=== PATIENT | male | born 1950 | race Caucasian/White ===

== ENCOUNTER → 2016-07-24 | Outpatient (CLI) | payer OTHER ==
[~2016-07-24] MED LIST: ALBUAER19 INH; ASPI81TA28 PO; ATOR-54 PO; CLOP1TAB15 PO; CMD5 PO; FURO40TA3 PO; IMDSR30 PO; LEVO137T3 PO; LSN20 PO; MCRK20 PO; METO50TA7 PO; NTRGSL/4 UT; PRD10 PO; RANI300T2 PO; TERA1CAP PO
--- NOTE | 2016-07-24 09:15 | DIAGNOSTIC IMAGING REPORT ---
CT OF THE CHEST WITHOUT IV CONTRAST CLINICAL HISTORY: Shortness of breath COMPARISON STUDY: Chest x-ray dated 07/01/2016 CT DOSE: 1269.74 mGy.cm TECHNIQUE: CT of the thorax was performed from the thoracic inlet to the lung bases. Images are reviewed in the axial, sagittal, and coronal planes. IV contrast was not administered for this examination. FINDINGS: Thyroid: Imaged portions of the thyroid gland are normal in appearance. Thoracic aorta: The thoracic aorta is normal in course and caliber, noting standard 3 vessel arch anatomy. Heart: There are coronary artery calcifications present. There is trace pericardial fluid. Lungs and pleural spaces: No pleural effusions are visualized. There is no focal pulmonary consolidation. There is a 3 mm left lower lobe pulmonary nodule as visualized in image #[id number]. There is a 3 mm left lower lobe pulmonary nodule as visualized in image #[id number]. There is a 5 mm left lower lobe pulmonary nodule as visualized in image #[id number]. There is an 8 x 5 mm right lower lobe pulmonary nodule as visualized in image #226/[id number]. There is a 4 mm right lower lobe pulmonary nodule as visualized in image #[id number]. Mediastinum: There is a subcarinal lymph node the upper limits of normal in size Whitney: There is no evidence of pathologic hilar adenopathy given the limitations of a noncontrast study Axilla: Clear. Upper abdomen: Partially visualized upper abdominal viscera is within normal limits. Skeletal structures: There are no lytic or blastic osseous lesions. IMPRESSION: 1. Multiple bilateral subcentimeter pulmonary nodules, the largest of which measures 6 mm in average diameter. 2. Coronary artery calcifications. Please refer to below summary of Fleischner criteria recommendations for follow-up of incidental CT nodules (Ignacio Del Castillo, Guidelines for management of small pulmonary nodules detected on CT scans: A statement from the Fleischner Society, Radiology 237: [phone].) Low Risk Patient: Minimal or no smoking or other known risk factors for malignancy <=4 mm: No follow-up needed. >4-6 mm: Initial follow-up CT at 12 months; if unchanged, no further follow-up. >6-8 mm: Initial follow-up CT at 6-12 months then at 18-24 months if no change. >8 mm: Follow-up CT at \R\3, 9, 24 months, or PET and/or biopsy. High Risk Patient: History of smoking or other known risk factors <=4 mm: Follow-up at 12 months; if unchanged, no further follow-up. >4-6 mm: Initial follow-up CT at 6-12 months then at 18-24 months if no change. >6-8 mm: Initial follow-up CT at 3-6 months then at 9-12 and 24 months if no change. >8 mm: Same as low risk patient. Note: Nodule size measured as average of length and width. Ground glass or partly solid nodules may require longer follow-up to exclude indolent adenocarcinoma. Electronically signed by: Meet Miranda M.D. 07/24/2016 9:13 AM Dictated Date/Time: 07/24/2016 9:05 AM
== END | disposition home or self-care (01) ==
LOC: C.CTS 08:51
PROVIDERS: ATTEND Internal Medicine Pulmonary Disease
DX: R06.02 Shortness of breath (principal)

== ENCOUNTER → 2017-02-03 | Outpatient (CLI) | payer OTHER, BC ==
--- NOTE | 2017-02-03 11:27 | DIAGNOSTIC IMAGING REPORT ---
(CHEST) THORAX WITHOUT CT DOSE: 1335.58 mGy.cm HISTORY: Lung nodules R91.8 Pulmonary nodules TECHNIQUE: Multiaxial CT images of the chest were performed without contrast. A dose lowering technique was utilized adhering to the principles of ALARA. COMPARISON: None. FINDINGS: The lungs are clear. The mediastinal vascular structures are within normal limits. No mediastinal or hilar lymphadenopathy. No pleural effusion or pneumothorax. Limited views of the upper abdomen demonstrate a normal liver and spleen. Scattered small parenchymal nodules are noted. These are unchanged compared to the prior study. All dimensions and locations are unaltered. There is no evidence for new interval or progressive process. Limited evaluation the upper abdomen is unremarkable. IMPRESSION: 1. Stable micronodularity primarily at the lung bases. 2. No evidence for new interval or progressive nodule. 3. Follow-up per Fleischner criteria. Please refer to below summary of Fleischner criteria recommendations for follow-up of incidental CT nodules (Ignacio Del Castillo, Guidelines for management of small pulmonary nodules detected on CT scans: A statement from the Fleischner Society, Radiology 237: [phone].) SOLID NODULES Solitary nodule size: <6 mm * low risk patients: no follow-up needed * high risk patients: optional CT at 12 months Solitary nodule size: 6-8 mm * low risk patients: follow-up at 6-12 months, then consider further follow-up at 18-24 months * high risk patients: initial follow-up CT at 6-12 months and then at 18-24 months if no change Solitary nodule size: >8 mm * either low or high risk patients - consider follow-up CT at 3 months, and/or CT-PET, and/or biopsy Multiple nodules size: <6 mm * low risk patients: no routine follow-up * high risk patients: optional CT at 12 months Multiple nodules size: 6-8 mm * low risk patients: follow-up at 3-6 months, then consider further follow-up at 18-24 months * high risk patients: follow-up at 3-6 months, then at 18-24 months if no change Multiple nodules size: >8 mm * low risk patients: follow-up at 3-6 months, then consider further follow-up at 18-24 months * high risk patients: follow-up at 3-6 months, then at 18-24 months if no change Note: newly detected indeterminate nodule in persons 35 years of age or older. * Low risk patients: minimal or absent history of smoking and/or other known risk factors * high risk patients: history of smoking or of other known risk factors (e.g. first degree relative with lung cancer, or exposure to asbestos, radon, uranium) * if a nodule up to 8 mm is partly solid or is ground glass further follow-up is required after 24 months to exclude possible slow growing adenocarcinoma (SILVIA) SUBSOIL NODULES Solitary pure ground-glass nodule * nodule size <6 mm - no CT follow-up required * nodule size >=6 mm - follow-up CT at 6-12 months, then every 2 years until 5 years Solitary part-solid nodule * nodule size <6 mm - no CT follow-up required * nodule size >=6 mm - follow-up CT at 3-6 months. If unchanged, and solid component remains <6 mm, then annual follow-up for 5 years Multiple subsolid nodules * nodule size <6 mm - follow-up CT at 3-6 months, consider further follow-up at 2 and 4 years if stable * nodule size >=6 mm - follow-up CT at 3-6 months, subsequent management based on the most suspicious nodule(s) The above report was generated using voice recognition software. It may contain grammatical, syntax or spelling errors. Electronically signed by: Luis Fernando Freedman M.D. 02/03/2017 11:25 AM Dictated Date/Time: 02/03/2017 11:19 AM
== END | disposition home or self-care (01) ==
LOC: C.CTS 11:06
PROVIDERS: ATTEND Physician Assistant
DX: R91.8 Other nonspecific abnormal finding of lung field (principal)

== ENCOUNTER 2019-07-09 02:10 | Inpatient (IN) ==
[2019-07-09] MEDS ORDERED: ALBUT/IPRATROP 3MG/0.5MG NEB 3 ML VIAL INH STA (02:24)
[2019-07-09 02:51] LABS: Basophils # (auto) 0.02 K/uL (0-0.2); Basophils % (auto) 0.3 %; Eosinophils # (auto) 0.26 K/uL (0-0.5); Eosinophils % (auto) 3.6 %; Hematocrit (blood only) 35.3 % (42-52); Hemoglobin 11.9 g/dL (14.0-18.0); Immature Granulocytes # (auto) 0.01 K/uL (0.00-0.02); Immature Granulocytes % (auto) 0.1 %; Lymphocytes # (auto) 0.63 K/uL (1.2-3.4); Lymphocytes % (auto) 8.7 %; Mean Corpuscular Hemoglobin 31.4 pg (25-34); Mean Corpuscular Hgb Conc 33.7 g/dL (32-36); Mean Corpuscular Volume 93.1 fL (80-100); Monocytes # (auto) 0.53 K/uL (0.11-0.59); Monocytes % (auto) 7.3 %; Neutrophils # (auto) 5.83 K/uL (1.4-6.5); Platelet Count 150 K/uL (130-400); RDW Coefficient of Variation 13.7 % (11.5-14.5); RDW Standard Deviation 46.6 fL (36.4-46.3); Red Blood Count 3.79 M/uL (4.7-6.1); White Blood Count 7.28 K/uL (4.8-10.8)
[2019-07-09 02:54] LABS: Base Excess VBG -1.7 mEq/L; HCO3 VBG 23 mmol/L; Oxygen Saturation VBG 87.7 %; PCO2 VBG 37 mmHg (38-50); PO2 VBG 54 mmHg; pH VBG 7.41 (7.36-7.41)
[2019-07-09 03:02] LABS: INR 1.4 (0.9-1.1); Partial Thromboplastin Time 28.2 Seconds (21.0-31.0); Prothrombin Time 14.3 Seconds (9.0-12.0)
[2019-07-09 03:05] LABS: Appearance Urine Clear (Clear); Bacteria Urine Automated Negative (Negative); Blood Urine Negative (Negative); Color Urine Dark Yellow; Epithelial Cell Urine Auto >30 /lpf (0-5); Glucose Urine UA Negative (Negative); Ketones Urine Trace (Negative); Leukocyte Esterase Urine Negative (Negative); Nitrite Urine Negative (Negative); Protein Urine 2+ (Negative); Specific Gravity Urine 1.033 (1.000-1.030); Urobilinogen Urine Negative (Negative); pH Urine 5.5 (4.5-7.5)
[2019-07-09 03:08] LABS: Bilirubin Urine Negative (Negative); Ictotest Urine Negative (Negative)
[2019-07-09 03:13] LABS: Albumin Level 3.1 gm/dl (3.4-5.0); BUN Creatinine Ratio 16.8 (10-20); Calcium 7.8 mg/dl (8.5-10.1); Creatinine Clr Calc Pharmacy 57.3 ml/min; Est GFR (African American) 45.4; Est GFR (Non-African American) 39.1; Magnesium 1.6 mg/dl (1.8-2.4); Potassium 4.4 mmol/L (3.5-5.1)
[2019-07-09] MEDS ORDERED: SODIUM CHLORIDE 0.9% 1000ML 500 ML IV ONE (03:22)
[2019-07-09 03:26] LABS: Albumin Globulin Ratio 0.8 (0.9-2); Globulin 3.8 gm/dl (2.5-4.0); Total Protein 6.9 gm/dl (6.4-8.2); Troponin I 0.105 ng/ml (0-0.045)
[2019-07-09 03:32] LABS: Influenza A virus by PCR Neg for Influ A (Neg); Influenza B virus by PCR Neg for Influ B (Neg)
[2019-07-09] MEDS ORDERED: methylPREDNISolone 125 MG/2 ML VIAL IV STA (03:42)
[2019-07-09] MEDS ORDERED: ALBUT/IPRATROP 3MG/0.5MG NEB 3 ML VIAL NEB STA (03:43)
--- NOTE | 2019-07-09 03:51 | Emergency Department Note ---
History of Present Illness General Chief Complaint: Shortness of Breath/Dyspnea Stated Complaint: SOB, CHEST COLD Source: patient Mode of arrival: ambulatory Limitations: no limitations History of Present Illness Provider Complaint: shortness of breath and cough Onset (ago): day(s) (3-4) Severity: moderate Consistency/Duration: + constant Maximum Pain Intensity: 2 Current Pain Intensity: 2 Relieved By: + bronchodilators and + upright position Exacerbated By: + lying flat, + exertion, + movement, + coughing and + inspiration Known history of: COPD and congestive heart failure Associated symptoms: + chest pain, + pain with inspiration, + cough, + wheezing, + sputum production and + orthopnea Treatment prior to arrival: bronchodilator This 68-year-old male patient presents emergency department today, ambulatory, complaining of dyspnea for the past 3 to 4 days. The patient does report subjective fevers and exertional chest pain. The patient has been taking cold medication without relief of his symptoms. He does have a known past medical history of COPD, CHF, and atrial fibrillation. He is on chronic anticoagulation. The patient has been using his inhalers and taking all medications as prescribed without improvement of his symptoms. He does report a productive cough, but denies any hemoptysis. He denies any abdominal pain, nausea, vomiting, diarrhea, constipation, numbness, tingling, weakness, flank pain, or urinary symptoms. He does report some increased edema in his bilateral legs which is been ongoing for several weeks. The patient has experienced dyspnea similar to this in the past and has required hospitalization. Home Medications Home Medications Medication Instructions Recorded Confirmed Type albuterol sulfate [Ventolin HFA] 2 puff INHALATION QID 09/11/18 07/09/19 History aspirin 81 mg PO HS 09/11/18 07/09/19 History atorvastatin 20 mg PO HS 09/11/18 07/09/19 History fluticasone propion-salmeterol 1 inh INHALATION BID 09/11/18 07/09/19 History [Advair Diskus] isosorbide mononitrate 60 mg PO QAM 09/11/18 07/09/19 History levothyroxine 68.5 mcg PO 3XWK 09/11/18 07/09/19 History levothyroxine 137 mcg PO 4XWK 09/11/18 07/09/19 History lisinopril 20 mg PO QAM 09/11/18 07/09/19 History metoprolol succinate 50 mg PO QAM 09/11/18 07/09/19 History nitroglycerin 0.4 mg SUBLINGUAL DIRECTED PRN 09/11/18 07/09/19 History terazosin 1 mg PO HS 09/11/18 07/09/19 History warfarin 5 mg PO 3XWK 09/11/18 07/09/19 History warfarin 10 mg PO 4XWK 09/11/18 07/09/19 History omeprazole 20 mg PO DAILY 05/06/19 07/09/19 History Allergies Allergy/AdvReac Type Severity Reaction Status Date / Time tiotropium Allergy Mild Rash Verified 07/09/19 03:03 [From Spiriva with HandiHaler] Past Med/Surg History Medical History Atrial fibrillation follows with Dr. Brandt Berry in stool BPH (benign prostatic hyperplasia) Chronic obstructive pulmonary disease Degenerative disc disease Fatty liver disease, nonalcoholic GERD (gastroesophageal reflux disease) Hearing deficit Hyperlipidemia Hypertension Hypothyroidism On anticoagulant therapy warfarin daily Sleep apnea cpap Tinnitus of both ears Surgical History History of cardiac cath 2014 x2--only 1 stent History of colonoscopy History of heart artery stent 2015--1 stent History of tooth extraction all upper teeth History of wisdom tooth extraction Social History Preferred Language: Armenian Communication Ability: Effective Eeg Technician Required: No Beliefs That Will Affect Care: None Current Living Situation: Spouse Feels Safe at Home: Yes Smoking Status: Never smoker Tobacco Type: smokeless tobacco ; Second Hand Exposure: Yes (father smoked/worked in mines for over 20 yrs) ; Hx Alcohol Use: Yes Alcohol type: beer Hx Substance Use: No Review of Systems A total of 10 systems reviewed and were otherwise negative Physical Exam Vital Signs: Vital Signs - 24 hr 07/09/19 02:14 07/09/19 02:36 07/09/19 02:44 Temperature 37.3 C Temperature Source Oral Pulse Rate 96 H 91 H Pulse Rate [Apical ] 92 H Pulse Rhythm Regular Pulse Rhythm [Apic al] Pulse Strength [Ap ical] Respiratory Rate 30 H 24 26 H Respiratory Effort / Characteristics Spontaneous Spontaneous Labore d Respiratory Depth Normal Respiratory Patter n Regular Blood Pressure 122/84 Blood Pressure [Ri ght Arm] Blood Pressure Marci n 96 Blood Pressure Marci n [Right Arm] Blood Pressure Pos ition [Right Arm] Pulse Oximetry 94 92 89 L Oxygen Delivery Me thod Room Air Room Air Room Air Oxygen Flow Rate 0 Sepsis Recent Feve r Within 48 Hours Yes Sepsis New/Unexpla ined Change in Men january Status No Sepsis Action Take n by Nursing No Action Required Oxygen Flow Rate - Titration Pulse Oximetry Pos t Tiitration 07/09/19 02:49 07/09/19 03:30 Temperature Temperature Source Pulse Rate Pulse Rate [Apical ] 90 Pulse Rhythm Pulse Rhythm [Apic al] Regular Pulse Strength [Ap ical] Normal Respiratory Rate 28 H Respiratory Effort / Characteristics Non-Labored Sponta neous Respiratory Depth Normal Respiratory Patter n Regular Blood Pressure Blood Pressure [Ri ght Arm] 121/66 Blood Pressure Marci n Blood Pressure Marci n [Right Arm] 84 Blood Pressure Pos ition [Right Arm] Lying Pulse Oximetry 89 L 97 Oxygen Delivery Me thod Room Air Nasal Cannula Oxygen Flow Rate 0 2 Sepsis Recent Feve r Within 48 Hours Sepsis New/Unexpla ined Change in Men january Status Sepsis Action Take n by Nursing Oxygen Flow Rate - Titration 2 Pulse Oximetry Pos t Tiitration 95 Physical Exam: VITALS: Vitals are noted on the nurse's note and reviewed by myself. Vital signs stable. GENERAL: This is a 68-year-old obese white male, in no acute distress, nondiaphoretic, well-developed well-nourished. SKIN: The skin was without rashes, erythema, edema, or bruising. There is no tenting of the skin. Capillary refill less than 3 seconds. HEAD: Normocephalic atraumatic. EARS: External auditory canals clear, tympanic membranes pearly juares without erythema or effusion bilaterally. EYES: Pupils equal round and reactive to light and accommodation. Conjunctivae without injection, sclerae without icterus. NOSE: Patent, turbinates without inflammation or discharge. No sinus tenderness. MOUTH: Mucous membranes moist. Tonsils are not enlarged. Pharynx without erythema or exudate. Uvula midline. Airway patent. Tongue does not deviate. NECK: Supple without nuchal rigidity. No lymphadenopathy. No JVD. HEART: Regular rate and rhythm without murmurs gallops or rubs. LUNGS: Audible wheezing. Diffusely diminished breath sounds. Lungs otherwise without wheezes, rales or rhonchi. Positive accessory muscle use. ABDOMEN: Positive bowel sounds x 4. Normal tympanic percussion. Soft, nontender, without masses or organomegaly. Valverde sign negative. No guarding o r rebound tenderness. MUSCULOSKELETAL: No muscle atrophy, erythema, or edema noted. Full range of m otion without joint tenderness in all extremities. No tenderness to palpation. Normal gait. Strength 5/5 throughout. NEURO: Patient was alert and oriented to person place and time. No focal neurol ogical deficits. Course The patient was seen and evaluated as above. IV access obtained, labs drawn. Patient medicated with DuoNeb treatment. Imaging performed and reviewed by myself as noted. Labs reviewed by myself. I discussed the findings with the patient at bedside. Patient was reassessed. He is subjectively reporting improvement, but continues to be dyspneic. I discussed the case with my attending. I received notification of the elevated troponin. I again reassessed the patient. He denies any current chest pain, but is now sitting on the side of the bed due to the dyspnea. Patient was medicated with IV Solu-Medrol and a repeat DuoNeb treatment. I discussed the case with the food and beverage operations manager. I discussed the case with Dr. Castro. He did agree to see and evaluate the patient. Administered Medications Sodium Chloride (Nss 1000ml) 500 mls @ 999 mls/hr IV .Q31M ONE Stop: 07/09/19 03:52 Last Admin: 07/09/19 03:26 Dose: 999 mls/hr Documented by: [id number] Discontinued Medications Albuterol (Duoneb) 3 ml INH NOW STA Stop: 07/09/19 02:25 Last Admin: 07/09/19 02:34 Dose: 3 ml Documented by: [id number] Medical Decision Making Differential Diagnosis + acute exacerbation of chronic obstructive airways disease, + congestive heart failure, + community acquired pneumonia, + asthma with exacerbation, + pulmonary embolism, + COPD, + bronchitis, + pneumothorax, + pneumonia, + pleural effusion, + CHF, + ACS and + aspiration Medical Records Attestation: I reviewed the patient's medical records. Recent cardiac catheterization reviewed. Home Medications Current Medication List: was personally reviewed by me Laboratory Data Attestation: I reviewed the patient's lab results. No leukocytosis. Anemia noted with a hemoglobin 11.9 hematocrit of 35.3. No thrombocytopenia. INR 1.4. Creatinine elevated 1.76. Magnesium 1.6. Liver function studies without significant abnormality. BNP elevated at 4000. Troponin elevated 0.105. Influenza testing negative. Urinalysis without evidence of infection. Result diagrams: 07/09/19 02:42 07/09/19 02:42 Lab Results 07/09/19 07/09/19 07/09/19 Range/Units 02:42 02:42 02:42 WBC 7.28 (4.8-10.8) K/uL RBC 3.79 L (4.7-6.1) M/uL Hgb 11.9 L (14.0-18.0) g/dL Hct 35.3 L (42-52) % MCV 93.1 (80-100) fL MCH 31.4 (25-34) pg MCHC 33.7 (32-36) g/dL RDW Std Deviation 46.6 H (36.4-46.3) fL RDW Coeff of Иван 13.7 (11.5-14.5) % Plt Count 150 (130-400) K/uL MPV 10.0 (7.4-10.4) fL Immature Gran % (Auto) 0.1 % Neut % (Auto) 80.0 % Lymph % (Auto) 8.7 % [place] % (Auto) 7.3 % Eos % (Auto) 3.6 % Baso % (Auto) 0.3 % Immature Gran # (Auto) 0.01 (0.00-0.02) K/uL Neut # (Auto) 5.83 (1.4-6.5) K/uL Lymph # (Auto) 0.63 L (1.2-3.4) K/uL [place] # (Auto) 0.53 (0.11-0.59) K/uL Eos # (Auto) 0.26 (0-0.5) K/uL Baso # (Auto) 0.02 (0-0.2) K/uL PT 14.3 H (9.0-12.0) Seconds INR 1.4 H (0.9-1.1) APTT 28.2 (21.0-31.0) Seconds PTT Ratio 1.0 VBG pH (7.36-7.41) VBG pCO2 (38-50) mmHg VBG pO2 mmHg VBG HCO3 mmol/L VBG O2 Saturation % VBG Base Excess mEq/L Sodium 132 L (136-145) mmol/L Potassium 4.4 (3.5-5.1) mmol/L Chloride 102 (98-107) mmol/L Carbon Dioxide 24 (21-32) mmol/L Anion Gap 6.0 (3-11) BUN 30 H (7-18) mg/dl Creatinine 1.76 H (0.6-1.4) mg/dl Est Cr Clr Drug Dosing 57.3 ml/min Est GFR ( Amer) 45.4 Est GFR (Non-Af Amer) 39.1 BUN/Creatinine Ratio 16.8 (10-20) Glucose 153 H (70-99) mg/dl Calcium 7.8 L (8.5-10.1) mg/dl Magnesium 1.6 L (1.8-2.4) mg/dl Total Bilirubin 1.0 (0.2-1) mg/dl AST 28 (15-37) U/L ALT 27 (12-78) U/L Alkaline Phosphatase 63 (45-117) U/L Troponin I 0.105 H* (0-0.045) ng/ml NT-Pro-B Natriuret Pep 4063 H (0-900) pg/ml Total Protein 6.9 (6.4-8.2) gm/dl Albumin 3.1 L (3.4-5.0) gm/dl Globulin 3.8 (2.5-4.0) gm/dl Albumin/Globulin Ratio 0.8 L (0.9-2) Urine Color Urine Appearance (Clear) Urine pH (4.5-7.5) Ur Specific [place] (1.000-1.030) Urine Protein (Negative) Urine Glucose (UA) (Negative) Urine Ketones (Negative) Urine Blood (Negative) Urine Nitrite (Negative) Urine Bilirubin (Negative) Urine Urobilinogen (Negative) Ur Leukocyte Esterase (Negative) Urine WBC (Auto) (0-5) /hpf Urine RBC (Auto) (0-4) /hpf U Hyaline Cast (Auto) (0-5) /lpf U Epithel Cells (Auto) (0-5) /lpf Urine Bacteria (Auto) (Negative) Influenza Type A (PCR) (Neg) Influenza Type B (PCR) (Neg) 07/09/19 07/09/19 07/09/19 Range/Units 02:42 02:52 02:52 WBC (4.8-10.8) K/uL RBC (4.7-6.1) M/uL Hgb (14.0-18.0) g/dL Hct (42-52) % MCV (80-100) fL MCH (25-34) pg MCHC (32-36) g/dL RDW Std Deviation (36.4-46.3) fL RDW Coeff of Иван (11.5-14.5) % Plt Count (130-400) K/uL MPV (7.4-10.4) fL Immature Gran % (Auto) % Neut % (Auto) % Lymph % (Auto) % [place] % (Auto) % Eos % (Auto) % Baso % (Auto) % Immature Gran # (Auto) (0.00-0.02) K/uL Neut # (Auto) (1.4-6.5) K/uL Lymph # (Auto) (1.2-3.4) K/uL [place] # (Auto) (0.11-0.59) K/uL Eos # (Auto) (0-0.5) K/uL Baso # (Auto) (0-0.2) K/uL PT (9.0-12.0) Seconds INR (0.9-1.1) APTT (21.0-31.0) Seconds PTT Ratio VBG pH 7.41 (7.36-7.41) VBG pCO2 37 L (38-50) mmHg VBG pO2 54 mmHg VBG HCO3 23 mmol/L VBG O2 Saturation 87.7 % VBG Base Excess -1.7 mEq/L Sodium (136-145) mmol/L Potassium (3.5-5.1) mmol/L Chloride (98-107) mmol/L Carbon Dioxide (21-32) mmol/L Anion Gap (3-11) BUN (7-18) mg/dl Creatinine (0.6-1.4) mg/dl Est Cr Clr Drug Dosing ml/min Est GFR ( Amer) Est GFR (Non-Af Amer) BUN/Creatinine Ratio (10-20) Glucose (70-99) mg/dl Calcium (8.5-10.1) mg/dl Magnesium (1.8-2.4) mg/dl Total Bilirubin (0.2-1) mg/dl AST (15-37) U/L ALT (12-78) U/L Alkaline Phosphatase (45-117) U/L Troponin I (0-0.045) ng/ml NT-Pro-B Natriuret Pep (0-900) pg/ml Total Protein (6.4-8.2) gm/dl Albumin (3.4-5.0) gm/dl Globulin (2.5-4.0) gm/dl Albumin/Globulin Ratio (0.9-2) Urine Color Dark Yellow Urine Appearance Clear (Clear) Urine pH 5.5 (4.5-7.5) Ur Specific [place] 1.033 H (1.000-1.030) Urine Protein 2+ H (Negative) Urine Glucose (UA) Negative (Negative) Urine Ketones Trace H (Negative) Urine Blood Negative (Negative) Urine Nitrite Negative (Negative) Urine Bilirubin Negative (Negative) Urine Urobilinogen Negative (Negative) Ur Leukocyte Esterase Negative (Negative) Urine WBC (Auto) 1-5 (0-5) /hpf Urine RBC (Auto) 5-10 H (0-4) /hpf U Hyaline Cast (Auto) 10-30 H (0-5) /lpf U Epithel Cells (Auto) >30 H (0-5) /lpf Urine Bacteria (Auto) Negative (Negative) Influenza Type A (PCR) Neg for Influ A (Neg) Influenza Type B (PCR) Neg for Influ B (Neg) Imaging Data My Impression: Chest x-ray. Findings: A chest x-ray was performed and revealed no pneumothorax, effusion, infiltrate, pulmonary edema, free air under the diaphragm, or wide mediastinum. ECG Data Attestation: I personally reviewed and interpreted this ECG as follows: Prior ECG tracings: available for review (04/26/2019) Interpretation: Atrial fibrillation. Rate of [address] elevation or depression. No T wave inversion. No significant change when compared to previous EKG. Blood Pressure Blood Pressure Findings: Normal blood pressure MDM Narrative This 68-year-old male patient presents the emergency department today for evaluation of difficulty breathing. The patient has been dyspneic for the past 3 to 4 days. He reports subjective fevers. He has been experiencing mild chest pain with exertion. He states the cough is productive of sputum. He has been taking cold medications over the past few days without relief of his symptoms. Patient has been using his inhalers without significant relief. He subjectively responded somewhat to an initial DuoNeb treatment. On reevaluation, he was continuing to experience dyspnea, but denies any current chest pain. Lab evaluation does show a positive troponin and elevated BNP. Chest x-ray does not show any evidence of consolidation. I suspect this is likely COPD exacerbation vs CHF. The patient did desat while standing to provide a urine sample to 88% and required oxygen. Given his ongoing work of breathing despite the initial DuoNeb treatment, we did elect to start the patient on a dose of IV Solu-Medrol and a second DuoNeb treatment. [facility] for ongoing management of his symptoms. Please see hospitalist dictation regarding ongoing management care of this patient. The chart was completed utilizing [employer] Speech voice recognition software. Grammatical errors, random word insertions, pronoun errors, and incomplete sentences are an occasional consequence of this system due to software limitations, ambient noise, and hardware issues. Any formal questions or concerns about the content, text, or information contained within the body of this dictation should be directly addressed to the provider for clarification. Impression & Plan Acute exacerbation of chronic obstructive pulmonary disease, Diastolic CHF, chronic, Elevated troponin, Hypoxia, Chest pain Discharge Plan Visit Data Chief Complaint: Shortness of Breath/Dyspnea Stated Complaint: SOB, CHEST COLD ED Provider: Lu[facility] ED Midlevel Provider: Maru Moser Discharge Problem: Acute exacerbation of chronic obstructive pulmonary disease, Diastolic CHF, chronic, Elevated troponin, Hypoxia, Chest pain Patient Disposition: Admitted As Inpatient Forms Stand Alone Forms: My icix Prescriptions Prescriptions: No Action fluticasone propion-salmeterol [Advair Diskus] 250-50 mcg/dose Blister With Device 1 inh INHALATION BID RF: 0 atorvastatin 20 mg Tablet 20 mg PO HS RF: 0 metoprolol succinate 50 mg Tablet Extended Release 24 Hr 50 mg PO QAM RF: 0 lisinopril 20 mg Tablet 20 mg PO QAM RF: 0 terazosin 1 mg Capsule 1 mg PO HS RF: 0 aspirin 81 mg Tablet,Delayed Release (Dr/Ec) 81 mg PO HS RF: 0 isosorbide mononitrate 60 mg Tablet Extended Release 24 Hr 60 mg PO QAM RF: 0 warfarin 5 mg Tablet 5 mg PO 3XWK RF: 0 warfarin 5 mg Tablet 10 mg PO 4XWK RF: 0 nitroglycerin 0.4 mg Tablet, Sublingual 0.4 mg Sublingual DIRECTED PRN (Reason: Angina) RF: 0 albuterol sulfate [Ventolin HFA] 90 mcg/actuation Hfa Aerosol Inhaler 2 puff INHALATION QID RF: 0 levothyroxine 137 mcg Capsule 68.5 mcg PO 3XWK RF: 0 levothyroxine 137 mcg Capsule 137 mcg PO 4XWK RF: 0 omeprazole 20 mg Capsule,Delayed Release(Dr/Ec) 20 mg PO DAILY RF: 0 Referrals Referrals: Jose Garcia MD [Primary Care Provider] -
--- NOTE | 2019-07-09 04:24 | Emergency Department Note ---
ED Visit Note This is a 68-year-old male patient with a history of A. fib, COPD, and CHF who presents to the emergency department with shortness of breath. I saw this patient in conjunction with Maru Moser PA-C. The patient was currently receiving a DuoNeb treatment and feels better from a respiratory standpoint. He has no wheezing now on physical exam. He has no chest pain. INR is subtherapeutic at 1.4. Patient has an elevated troponin. The patient will be evaluated by the [facility]. . : Chest pain Qualifiers: Chest pain type: chest pain on breathing Qualified Code(s): R07.1 - Chest pain on breathing
[2019-07-09] MEDS ORDERED: NITROGLYCERIN SL 0.4 MG/TAB TAB SL PRN ×2 (05:33)
[2019-07-09] MEDS ORDERED: ACETAMINOPHEN 325 MG TAB PO PRN (05:33)
[2019-07-09] MEDS ORDERED: ONDANSETRON INJ 2 MG/ML 2 ML VIAL IV PRN (05:33)
[2019-07-09] MEDS ORDERED: FUROSEMIDE 40 MG/4 ML VIAL IV STA (05:33)
[2019-07-09] MEDS ORDERED: POLYETHYLENE (MIRALAX) 17 GM PACK PO PRN (05:33)
[2019-07-09] MEDS ORDERED: FUROSEMIDE 40 MG in SYRINGE 0 ML IV ONE (05:45)
[2019-07-09] MEDS: MAGNESIUM SULFATE / D5W 1 GM/100 ML BAG IV SCH ×2 (06:06→07:17)
[2019-07-09] MEDS: cefTRIAXone SODIUM 2,000 MG in DEXTROSE 5% 50 ML IV SCH (06:10)
[2019-07-09] MEDS: DOXYCYCLINE HYCLATE 100 MG CAP PO SCH ×2 (06:13→20:18)
[2019-07-09] MEDS: LEVOTHYROXINE SODIUM 137 MCG TABLET PO SCH (06:14)
[2019-07-09] MEDS ORDERED: Heparin IV Low Dose *NO* Bolus IV SCH (06:42)
[2019-07-09] MEDS ORDERED: XOPENEX/ATROVENT 1.25mg/0.5MG NEB COMBO NEB SCH (07:00)
--- NOTE | 2019-07-09 07:12 | XRay Report ---
XR chest 1V portable CLINICAL HISTORY: 68 years-old Male presenting with Dyspnea, shortness of breath worsening over the l ast few days, accompanied by productive cough, chest congestion, wheezing, nausea and vomiting. TECHNIQUE: Portable upright AP view of the chest was obtained. COMPARISON: 07/01/2016. FINDINGS: Cardiac silhouette mildly enlarged as on prior exam. Pulmonary vasculature is not significantly engor ged. Mild added density of the lungs especially in the infrahilar regions may be due to overlapping s oft tissue. No focal opacity. No large effusion or pneumothorax. Degenerative changes of the thoracic spine. Upper abdomen normal. IMPRESSION: 1. Cardiomegaly. 2. Apparent added density in the infrahilar regions possibly due to overlapping soft tissue. PA and lateral views could be obtained for better assessment if there is clinical concern as the examination is mildly limited by body habitus and portable technique. ACT 112: Negative or not required by law. Electronically signed by: Cole Victoria M.D. 07/09/2019 7:10 AM
[2019-07-09] MEDS: IPRATROPIUM BROMIDE NEB SOLN 0.02% 2.5 ML VIAL INH SCH ×3 (07:25→19:07)
[2019-07-09] MEDS: LEVALBUTEROL 1.25MG/0.5ML NEB INH SCH ×3 (07:25→19:07)
[2019-07-09 08:03] LABS: INR 1.4 (0.9-1.1); Prothrombin Time 13.8 Seconds (9.0-12.0)
[2019-07-09] MEDS: HEPARIN SODIUM/DEXTROSE 25,000 UNITS/500 ML BAG IV SCH (08:25)
[2019-07-09] MEDS: FLUTICASONE/SALMETEROL 250/50 (ADVAIR) 14 PUFF/1 INHALER INH SCH ×2 (08:30→20:15)
[2019-07-09] MEDS: FUROSEMIDE 20 MG TAB PO SCH (08:30)
[2019-07-09] MEDS: PANTOprazole 40 MG TAB PO SCH (08:31)
[2019-07-09] MEDS: ISOSORBIDE MONO EXTENDED REL 60 MG TABCR PO SCH (08:31)
[2019-07-09] MEDS: METOPROLOL SUCC 50MG EXT REL TAB PO SCH (08:31)
--- NOTE | 2019-07-09 08:44 | History and Physical Report ---
DATE OF ADMISSION: 07/09/2019 CHIEF COMPLAINT: Shortness of breath. HISTORY OF PRESENT ILLNESS: This is a 68-year-old male with past medical history significant for hypothyroidism, hyperlipidemia, restrictive and obstructive lung disease, COPD, history of lung nodule, history of sleep apnea, nocturnal hypoxia, hypotension, atrial flutter, CAD status post stent, obesity,, BPH, GERD, history of Lyme disease. No smoking history. The patient is having cold kind of symptoms for last 2 weeks, took over the counter medications but last 2-3 days shortness of breath got worse and wheezing and he had some low-grade fever and chills yesterday. He is coughing once in a while, bringing whitish phlegm. Denies any chest pain. No headache, sometimes dizziness, sometimes blurred vision, no earache, some runny nose, no sore throat. Appetite is not that great, swallows okay. No dysphagia. Was nauseous earlier, no vomiting, no abdominal pain. Normal bowel and bladder movements. No blood in the stools, no black stools. Just finished 4 weeks of antibiotics for possible prostatitis, history of burning micturition earlier, but that has resolved. No hematuria. Has swelling in the legs. He says a couple of months ago, he was started on Lasix, it was increased to 40, but because of prostate problem he could not tolerate it, so he is taking only 20 mg of Lasix now. His hemodynamics are stable. Seems to be having some tachypnea, but speaking in full sentences. ALLERGIES: HALOTHANE, SPIRIVA, SUCCINYLCHOLINE. PAST MEDICAL HISTORY: As mentioned above. PAST SURGICAL HISTORY: Cardiac catheterization, DC cardioversion, colonoscopy. MEDICATIONS: The patient is on Lasix 20 mg p.o. daily, omeprazole 20 mg p.o. daily, nitroglycerin p.r.n., albuterol 2 puffs 4 times a day, Advair Diskus one dose inhalation b.i.d., Lipitor 20 mg p.o. daily, hematocrit 60 mg p.o. daily, levothyroxine 137 mcg on Friday, Friday, Friday, and , and off tablet on Friday, Friday and Friday, lisinopril 20 mg p.o. daily, Toprol-XL 50 mg p.o. daily, Hytrin 1 mg p.o. at bedtime, Coumadin 5 mg on Friday, Friday, Friday and 10 mg on rest of the week, aspirin 81 mg p.o. daily, albuterol inhalation every 4 hours p.r.n. FAMILY HISTORY: Significant for mother has diabetes, hypertension, cirrhosis. Father has psoriasis, emphysema. Brother has AFib, emphysema. Sister has arthritis, stroke,cancer. SOCIAL HISTORY: and lives with his . No smoking, but snuffs tobacco. Alcohol occasional. No drug use. REVIEW OF SYMPTOMS: As per HPI. Rest of review of systems negative. PHYSICAL EXAMINATION: GENERAL: The patient is morbidly obese, somewhat tachypneic. VITAL SIGNS: Temperature 37.3, pulse 97, respiratory rate 24, blood pressure 121/66, oxygen 96% on 2 liters. HEENT: No pallor, no icterus. Pupils equal, round, and reactive to light. NECK: No JVD, no neck mass, no carotid bruits. CARDIOVASCULAR: S1, S2 heard, regular rate and rhythm, no murmur, no gallop. RESPIRATORY SYSTEM: Normal AP diameter. Bilateral wheezing heard. Mild bibasilar crackles. ABDOMEN: Soft, bowel sounds present, nontender. No distention. CENTRAL NERVOUS SYSTEM: He is alert and oriented and nonfocal. EXTREMITIES: Lower extremity +1 edema present, no erythema seen. LABORATORIES DATA: WBC 7.28, hemoglobin 11.9, hematocrit 35.3, platelets 150. PT 14.3, INR 1.4, APTT 28.2. Venous blood gas pH of 7.4, pCO2 37, pO2 54, bicarbonate 23. Sodium 132, potassium 4.4, chloride 102, bicarbonate 24, BUN 30, creatinine 1.7, serum glucose 153, calcium 7.8, magnesium 1.6, total bilirubin 1, AST 28, ALT 27, alkaline phosphatase 63, troponin 0.105. BNP 4000. Urinalysis +2 protein. Influenza A and B negative. Chest x-ray no findings. EKG: AFib with rate of 90, no significant change was found. ASSESSMENT AND PLAN: A 68-year-old male who presents with shortness of breath. 1. Shortness of breath, possibly secondary to chronic obstructive pulmonary disease exacerbation, has wheezing on exam. We will continue home inhalers. We will place him on Xopenex nebs around the clock and p.r.n., IV Rocephin and doxycycline, and IV Solu-Medrol 40 mg t.i.d. Monitor on tele floor. Follow the response. Shortness of breath could be also secondary to congestive heart failure. The patient's last echo showed RV pressure volume overload, possible right-sided heart failure. The patient has some lower extremity edema, is taking 20 mg of Lasix daily. We will give 1 dose of IV Lasix 40 mg and follow the response. Follow echocardiogram. 2. Mild elevation of troponin. No chest pains, symptomatic. We will follow serial cardiac enzymes and echocardiogram. If any concern consult cardiology.Recent cardiac cath on 05/01 was ok. 3. Acute kidney injury, baseline creatinine of 1.2, presently creatinine of 1.7, getting Lasix. We will follow the repeat labs. If worsening we will get an imaging study. 4. Hypomagnesemia, we will replace. 5. History of coronary artery disease status post stent. He had a recent cardiac cath in April which showed right coronary stent is patent. The patient has occluded mid to distal left circumflex artery which was noted in the previous left heart catheterization in 2014. The distal left circumflex artery supplied with collaterals from left and right coronary arteries distally. We will follow serial cardiac enzymes, echocardiogram. Continue his home medication of Toprol-XL, Imdur, statin and Coumadin. 6. History of atrial flutter/atrial fibrillation, rate controlled with Toprol-XL, on Coumadin. The INR is subtherapeutic. Iv heparin bridge. Follow INR. 7. Gastroesophageal reflux disease, continue PPI. 8. Benign prostatic hypertrophy with obstruction and lower urinary tract symptoms. The patient was recently treated with Bactrim for 4 weeks for possible prostatitis. The patient worried about urinary retention. We will get a bladder scan. If the patient is having urinary retention,we will place on [place] and consult urology, urinary retention would be possible cause of his acute kidney injury too. 9. Obstructive sleep apnea, CPAP at bedtime. 10. Hyperlipidemia, on statin. 11. Hypothyroidism, on Synthroid. 12. Deep venous thrombosis prophylaxis, SCDs. The patient's INR is subtherapeutic.IV heparin. DISPOSITION: Admit to tele floor. Expect discharge home and follow with family doctor. PT and OT per discharge. Social Service to help with discharge planning. Level 1 full code. MTDD
[2019-07-09] MEDS ORDERED: lisinopriL 20 MG TAB PO SCH (09:00)
[2019-07-09] MEDS ORDERED: MAGNESIUM SULFATE / D5W 1 GM/100 ML BAG IV ONE (10:54)
[2019-07-09] MEDS: methylPREDNISolone 40 MG in SYRINGE 0 ML IV SCH ×2 (11:54→20:13)
--- NOTE | 2019-07-09 12:50 | Hospitalist Progress Note ---
Date of Service July 09, 2019 Assessment & Plan (1) Acute exacerbation of chronic obstructive pulmonary disease: Continue nebs Continue IV Solu-Medrol Monitor pulmonary function We will continue antibiotics Rocephin and doxy started on admission. Chest x-ray reports prior added density infrahilar region possibly overlapping soft tissue BNP is elevated. Low suspicion for heart failure exacerbation at this time as patient denied worsening of chronic 3 pillow orthopnea, has no leg edema, no features of pulmonary edema appreciated on exam. Follow-up repeat echo (2) Sleep apnea: Uses CPAP at home Continue CPAP at bedtime (3) Hypertension: Continue metoprolol succinate and monitor Hold lisinopril for now history of TAYLOR (4) Hypothyroidism: Continue home levothyroxine. (5) TAYLOR (acute kidney injury): Creatinine is 1.7. Last was 1.2 on June 08, 2019 Will continue to monitor According to cardiology outpatient note, Lasix was reduced to 20 daily on last visit. (6) Dyslipidemia: Continue statins (7) Elevated troponin: Troponin was flat at 0.105 Likely related to A. fib and COPD exacerbation with TAYLOR We will follow-up echo results. INR is subtherapeutic at 1.4. Low suspicion for PE at this time given history and exam. However, if this changes will get VQ scan (8) CAD (coronary artery disease): (9) S/P coronary artery stent placement: Continue aspirin and statin Continue Imdur Holding Lasix as above (10) Atrial fibrillation: Rate controlled on metoprolol INR is 1.4 reported that he was on warfarin 5 mg Friday and 10 mg all other days. States that his INR is usually within range on this dose. However over the past month he has been on Bactrim for possible prostatitis and during that time his warfarin was reduced to 5 mg daily. He has completed antibiotics. Resume previous dose of warfarin. Monitor INR (11) DVT prophylaxis: On warfarin Subjective Reports shortness of breath and wheezing. Reports chronic 3 pillow orthopnea unchanged. Denied any chest pain, dyspnea on exertion, paroxysmal nocturnal dyspnea. Reports feeling better since admission. Review of Systems Review of Systems: All systems reviewed and unremarkable except for mentioned above. Physical Exam Physical Exam: General: Obese in no obvious distress Eyes: PERRL, conjunctivae normal, EOM intact bilaterally ENMT: External ear and nose normal, oropharynx normal Neck: Normal visual inspection, no tracheal deviation, no swelling noted Respiratory: Normal respiratory effort, no respiratory distress, on nasal cannula, generalized expiratory rhonchi, no crackles noted Cardiovascular: Pulse is irregularly irregular S1 S2, no edema Gastrointestinal (Abdomen): Abdomen is not distended, soft, non-tender to palpation, no guarding, no palpable hepatosplenomegaly, normal bowel sounds Musculoskeletal: No cyanosis or clubbing, all extremities motor strength 5/5 Neurologic: Alert and oriented x 3, No focal weakness, sensation grossly intact Psychiatric: Euthymic affect, no depressed affect Results & Data Vital Signs (Past 12 Hours) Vital Signs Temp Pulse Pulse Resp BP BP Pulse Ox 07/09/19 11:45 36.9 C 81 20 102/65 95 07/09/19 10:02 94 H 07/09/19 07:48 36.9 C 98 H 22 120/80 98 07/09/19 07:25 89 20 91 07/09/19 05:15 37.1 C 80 26 H 120/65 96 07/09/19 03:58 97 H 24 96 07/09/19 03:30 90 28 H 121/66 97 07/09/19 02:49 89 L 07/09/19 02:44 91 H 26 H 89 L 07/09/19 02:36 92 H 24 92 07/09/19 02:14 37.3 C 96 H 30 H 122/84 94 Laboratory Results Laboratory Results - last 24 hr 07/09/19 07/09/19 07/09/19 02:42 02:42 02:42 WBC 7.28 RBC 3.79 L Hgb 11.9 L Hct 35.3 L MCV 93.1 MCH 31.4 MCHC 33.7 RDW Std Deviation 46.6 H RDW Coeff of Иван 13.7 Plt Count 150 MPV 10.0 Immature Gran % (Auto) 0.1 Neut % (Auto) 80.0 Lymph % (Auto) 8.7 Kerr % (Auto) 7.3 Eos % (Auto) 3.6 Baso % (Auto) 0.3 Immature Gran # (Auto) 0.01 Neut # (Auto) 5.83 Lymph # (Auto) 0.63 L Kerr # (Auto) 0.53 Eos # (Auto) 0.26 Baso # (Auto) 0.02 PT 14.3 H INR 1.4 H APTT 28.2 PTT Ratio 1.0 VBG pH VBG pCO2 VBG pO2 VBG HCO3 VBG O2 Saturation VBG Base Excess Sodium 132 L Potassium 4.4 Chloride 102 Carbon Dioxide 24 Anion Gap 6.0 BUN 30 H Creatinine 1.76 H Est Cr Clr Drug Dosing 57.3 Est GFR ( Amer) 45.4 Est GFR (Non-Af Amer) 39.1 BUN/Creatinine Ratio 16.8 Glucose 153 H Calcium 7.8 L Magnesium 1.6 L Total Bilirubin 1.0 AST 28 ALT 27 Alkaline Phosphatase 63 Troponin I 0.105 H* NT-Pro-B Natriuret Pep 4063 H Total Protein 6.9 Albumin 3.1 L Globulin 3.8 Albumin/Globulin Ratio 0.8 L Urine Color Urine Appearance Urine pH Ur Specific [place] Urine Protein Urine Glucose (UA) Urine Ketones Urine Blood Urine Nitrite Urine Bilirubin Urine Urobilinogen Ur Leukocyte Esterase Urine WBC (Auto) Urine RBC (Auto) U Hyaline Cast (Auto) U Epithel Cells (Auto) Urine Bacteria (Auto) Influenza Type A (PCR) Influenza Type B (PCR) 07/09/19 07/09/19 07/09/19 02:42 02:52 02:52 WBC RBC Hgb Hct MCV MCH MCHC RDW Std Deviation RDW Coeff of Иван Plt Count MPV Immature Gran % (Auto) Neut % (Auto) Lymph % (Auto) Kerr % (Auto) Eos % (Auto) Baso % (Auto) Immature Gran # (Auto) Neut # (Auto) Lymph # (Auto) Kerr # (Auto) Eos # (Auto) Baso # (Auto) PT INR APTT PTT Ratio VBG pH 7.41 VBG pCO2 37 L VBG pO2 54 VBG HCO3 23 VBG O2 Saturation 87.7 VBG Base Excess -1.7 Sodium Potassium Chloride Carbon Dioxide Anion Gap BUN Creatinine Est Cr Clr Drug Dosing Est GFR ( Amer) Est GFR (Non-Af Amer) BUN/Creatinine Ratio Glucose Calcium Magnesium Total Bilirubin AST ALT Alkaline Phosphatase Troponin I NT-Pro-B Natriuret Pep Total Protein Albumin Globulin Albumin/Globulin Ratio Urine Color Dark Yellow Urine Appearance Clear Urine pH 5.5 Ur Specific [place] 1.033 H Urine Protein 2+ H Urine Glucose (UA) Negative Urine Ketones Trace H Urine Blood Negative Urine Nitrite Negative Urine Bilirubin Negative Urine Urobilinogen Negative Ur Leukocyte Esterase Negative Urine WBC (Auto) 1-5 Urine RBC (Auto) 5-10 H U Hyaline Cast (Auto) 10-30 H U Epithel Cells (Auto) >30 H Urine Bacteria (Auto) Negative Influenza Type A (PCR) Neg for Influ A Influenza Type B (PCR) Neg for Influ B 07/09/19 07/09/19 07/09/19 05:51 07:36 11:36 WBC RBC Hgb Hct MCV MCH MCHC RDW Std Deviation RDW Coeff of Иван Plt Count MPV Immature Gran % (Auto) Neut % (Auto) Lymph % (Auto) Kerr % (Auto) Eos % (Auto) Baso % (Auto) Immature Gran # (Auto) Neut # (Auto) Lymph # (Auto) Kerr # (Auto) Eos # (Auto) Baso # (Auto) PT 13.8 H INR 1.4 H APTT PTT Ratio VBG pH VBG pCO2 VBG pO2 VBG HCO3 VBG O2 Saturation VBG Base Excess Sodium Potassium Chloride Carbon Dioxide Anion Gap BUN Creatinine Est Cr Clr Drug Dosing Est GFR ( Amer) Est GFR (Non-Af Amer) BUN/Creatinine Ratio Glucose Calcium Magnesium Total Bilirubin AST ALT Alkaline Phosphatase Troponin I 0.106 H* 0.076 H* NT-Pro-B Natriuret Pep Total Protein Albumin Globulin Albumin/Globulin Ratio Urine Color Urine Appearance Urine pH Ur Specific [place] Urine Protein Urine Glucose (UA) Urine Ketones Urine Blood Urine Nitrite Urine Bilirubin Urine Urobilinogen Ur Leukocyte Esterase Urine WBC (Auto) Urine RBC (Auto) U Hyaline Cast (Auto) U Epithel Cells (Auto) Urine Bacteria (Auto) Influenza Type A (PCR) Influenza Type B (PCR) 07/09/19 07/09/19 14:47 14:47 WBC RBC Hgb Hct MCV MCH MCHC RDW Std Deviation RDW Coeff of Иван Plt Count MPV Immature Gran % (Auto) Neut % (Auto) Lymph % (Auto) Kerr % (Auto) Eos % (Auto) Baso % (Auto) Immature Gran # (Auto) Neut # (Auto) Lymph # (Auto) Kerr # (Auto) Eos # (Auto) Baso # (Auto) PT INR APTT 32.9 H PTT Ratio 1.2 VBG pH VBG pCO2 VBG pO2 VBG HCO3 VBG O2 Saturation VBG Base Excess Sodium 131 L Potassium 4.5 Chloride 101 Carbon Dioxide 23 Anion Gap 7.0 BUN 36 H Creatinine 2.34 H D Est Cr Clr Drug Dosing 46.7 Est GFR ( Amer) 32.2 Est GFR (Non-Af Amer) 27.7 BUN/Creatinine Ratio 15.4 Glucose 251 H Calcium 8.2 L Magnesium Total Bilirubin AST ALT Alkaline Phosphatase Troponin I NT-Pro-B Natriuret Pep Total Protein Albumin Globulin Albumin/Globulin Ratio Urine Color Urine Appearance Urine pH Ur Specific [place] Urine Protein Urine Glucose (UA) Urine Ketones Urine Blood Urine Nitrite Urine Bilirubin Urine Urobilinogen Ur Leukocyte Esterase Urine WBC (Auto) Urine RBC (Auto) U Hyaline Cast (Auto) U Epithel Cells (Auto) Urine Bacteria (Auto) Influenza Type A (PCR) Influenza Type B (PCR)
[2019-07-09 15:29] LABS: Partial Thromboplastin Ratio 1.2; Partial Thromboplastin Time 32.9 Seconds (21.0-31.0)
[2019-07-09 15:38] LABS: BUN Creatinine Ratio 15.4 (10-20); Calcium 8.2 mg/dl (8.5-10.1); Creatinine Clr Calc Pharmacy 46.7 ml/min; Est GFR (African American) 32.2; Est GFR (Non-African American) 27.7; Potassium 4.5 mmol/L (3.5-5.1)
[2019-07-09] MEDS ORDERED: HEPARIN IV BOLUS 4,500 UNITS in SYRINGE 0 ML IV ONE (15:45)
[2019-07-09] MEDS ORDERED: WARFARIN SOD 5 MG TAB PO SCH (16:00)
[2019-07-09] MEDS: ASPIRIN 81 MG ECTAB PO SCH (20:18)
[2019-07-09] MEDS: ATORVASTATIN 20 MG TAB PO SCH (20:18)
[2019-07-09] MEDS: TERAZOSIN HCL 1 MG CAP PO SCH (20:18)
[2019-07-09 22:58] LABS: Partial Thromboplastin Ratio 1.6; Partial Thromboplastin Time 42.7 Seconds (21.0-31.0)
[2019-07-09] MEDS ORDERED: HEPARIN IV BOLUS 4,000 UNITS in SYRINGE 0 ML IV ONE (23:05)
[2019-07-10] MEDS: IPRATROPIUM BROMIDE NEB SOLN 0.02% 2.5 ML VIAL INH SCH ×4 (00:25→19:48)
[2019-07-10] MEDS: LEVALBUTEROL 1.25MG/0.5ML NEB INH SCH ×4 (00:25→19:48)
[2019-07-10] MEDS: methylPREDNISolone 40 MG in SYRINGE 0 ML IV SCH ×3 (03:46→20:29)
[2019-07-10] MEDS: HEPARIN SODIUM/DEXTROSE 25,000 UNITS/500 ML BAG IV SCH (05:15)
[2019-07-10] MEDS: cefTRIAXone SODIUM 2,000 MG in DEXTROSE 5% 50 ML IV SCH (05:19)
[2019-07-10] MEDS: LEVOTHYROXINE SODIUM 137 MCG TABLET PO SCH (05:21)
[2019-07-10 05:38] LABS: Basophils # (auto) 0.01 K/uL (0-0.2); Basophils % (auto) 0.1 %; Eosinophils # (auto) 0.01 K/uL (0-0.5); Eosinophils % (auto) 0.1 %; Hematocrit (blood only) 35.7 % (42-52); Hemoglobin 11.8 g/dL (14.0-18.0); Immature Granulocytes # (auto) 0.05 K/uL (0.00-0.02); Immature Granulocytes % (auto) 0.4 %; Lymphocytes # (auto) 0.63 K/uL (1.2-3.4); Lymphocytes % (auto) 5.4 %; Mean Corpuscular Hemoglobin 30.9 pg (25-34); Mean Corpuscular Hgb Conc 33.1 g/dL (32-36); Mean Corpuscular Volume 93.5 fL (80-100); Mean Platelet Volume 10.2 fL (7.4-10.4); Monocytes # (auto) 0.49 K/uL (0.11-0.59); Monocytes % (auto) 4.2 %; Neutrophils # (auto) 10.56 K/uL (1.4-6.5); Neutrophils % (auto) 89.8 %; Platelet Count 168 K/uL (130-400); RDW Standard Deviation 47.8 fL (36.4-46.3); Red Blood Count 3.82 M/uL (4.7-6.1); White Blood Count 11.75 K/uL (4.8-10.8)
[2019-07-10 05:55] LABS: Partial Thromboplastin Ratio 1.7
[2019-07-10 06:14] LABS: BUN Creatinine Ratio 22.7 (10-20); Calcium 8.4 mg/dl (8.5-10.1); Creatinine Clr Calc Pharmacy 50.3 ml/min; Est GFR (African American) 35.2; Est GFR (Non-African American) 30.4; Magnesium 2.4 mg/dl (1.8-2.4); Potassium 4.4 mmol/L (3.5-5.1)
[2019-07-10 06:22] LABS: Partial Thromboplastin Time 46.7 Seconds (21.0-31.0)
[2019-07-10] MEDS: FUROSEMIDE 20 MG TAB PO SCH (08:33)
[2019-07-10] MEDS: PANTOprazole 40 MG TAB PO SCH (08:33)
[2019-07-10] MEDS: FLUTICASONE/SALMETEROL 250/50 (ADVAIR) 14 PUFF/1 INHALER INH SCH ×2 (08:33→20:29)
[2019-07-10] MEDS: DOXYCYCLINE HYCLATE 100 MG CAP PO SCH ×2 (08:33→20:31)
[2019-07-10] MEDS: METOPROLOL SUCC 50MG EXT REL TAB PO SCH (08:34)
[2019-07-10] MEDS: ISOSORBIDE MONO EXTENDED REL 60 MG TABCR PO SCH (08:34)
[2019-07-10] MEDS ORDERED: ALBUT/IPRATROP 3MG/0.5MG NEB 3 ML VIAL NEB STA (16:44)
--- NOTE | 2019-07-10 16:52 | Hospitalist Progress Note ---
Date of Service July 10, 2019 Assessment & Plan (1) Acute exacerbation of chronic obstructive pulmonary disease: Continue nebs Continue IV Solu-Medrol Patient states that he uses his Advair appropriately. Patient reports he has another inhaler which he stated does not work. When asked if this was albuterol or Spiriva, patient was not sure. I reviewed patient outpatient charts and medication. Patient has been on Advair and albuterol. Noted to have not been taking albuterol as needed. Patient will need a Lama prior to discharge. Will consider Incruse Ellipta versus Spiriva tomorrow. Will need education as to proper inhaler use prior to discharge. Review of outpatient chart does not reveal any PFTs or pulmonary visit. However,Patient apparently has an appointment with pulmonary function lab in September 29, 2019. Will recommend PFT sooner after current exacerbation is well co ntrolled Will continue antibiotics Rocephin and doxy started on admission. Chest x-ray reports prior added density infrahilar region possibly overlapping soft tissue BNP is elevated. Low suspicion for heart failure exacerbation at this time as patient denied worsening of chronic 3 pillow orthopnea, has no leg edema, no features of pulmonary edema appreciated on exam. Echo showed normal LV chamber size with mild concentric LVH, grossly normal left ventricular systolic function without regional wall motion abnormalities EF of 60 to 65% (2) Sleep apnea: Uses CPAP at home Continue CPAP at bedtime (3) Hypertension: Continue metoprolol succinate and monitor Hold lisinopril for now history of TAYLOR BP well controlled (4) Hypothyroidism: Continue home levothyroxine. (5) TAYLOR (acute kidney injury): Creatinine is 1.7. Increased to 2.34. Currently 2.17 last was 1.2 on June 08, 2019 Will continue to monitor According to cardiology outpatient note, Lasix was reduced to 20 daily on last visit. Continue to hold Lasix for now (6) Dyslipidemia: Continue statins (7) Elevated troponin: Troponin was flat at 0.105, trended down to 0.075 Likely related to A. fib and COPD exacerbation with TAYLOR Echo report as above INR is subtherapeutic at 1.4. Low suspicion for PE at this time given history and exam. (8) CAD (coronary artery disease): (9) S/P coronary artery stent placement: Continue aspirin and statin Continue Imdur Holding Lasix as above (10) Atrial fibrillation: Rate controlled on metoprolol INR is 1.4 admission. Patient reported that he was on warfarin 5 mg Friday and 10 mg all other days. States that his INR is usually within range on this dose. However over the past month he has been on Bactrim for possible prostatitis and during that time his warfarin was reduced to 5 mg daily. He has completed antibiotics. Resumed previous dose of warfarin. Monitor INR (11) DVT prophylaxis: On warfarin Subjective Patient reports feeling much better today. Reports occasional dry cough improved. Still has occasional wheezes but much improved. Denies any chest pain, leg swelling, palpitations Denies any abdominal pain, constipation, diarrhea Denies any fevers, chills, nausea vomiting Review of Systems Review of Systems: All systems reviewed and unremarkable except for mentioned above. Physical Exam Physical Exam: General: Obese in no obvious distress Eyes: PERRL, conjunctivae normal, EOM intact bilaterally ENMT: External ear and nose normal, oropharynx normal Neck: Normal visual inspection, no tracheal deviation, no swelling noted Respiratory: Normal respiratory effort, no respiratory distress, on nasal cannula, mild expiratory rhonchi (improved compared to yesterday), no crackles Cardiovascular: Pulse is irregularly irregular S1 S2, no edema Gastrointestinal (Abdomen): Abdomen is not distended, soft, non-tender to palpation, no guarding, no palpable hepatosplenomegaly, normal bowel sounds Musculoskeletal: No cyanosis or clubbing, all extremities motor strength 5/5 Neurologic: Alert and oriented x 3, No focal weakness, sensation grossly intact Psychiatric: Euthymic affect, no depressed affect Results & Data Vital Signs (Past 12 Hours) Vital Signs Temp Pulse Pulse Resp BP BP Pulse Ox 07/10/19 15:26 36.6 C 85 18 111/61 95 07/10/19 13:49 72 16 95 07/10/19 11:09 36.4 C L 97 H 24 100/61 91 07/10/19 09:18 76 07/10/19 08:12 36.5 C 87 24 120/70 95 07/10/19 07:15 78 18 97 Laboratory Results Abnormal lab results 07/09/19 07/09/19 07/10/19 Range/Units 17:21 22:34 05:09 WBC (4.8-10.8) K/uL RBC (4.7-6.1) M/uL Hgb (14.0-18.0) g/dL Hct (42-52) % RDW Std Deviation (36.4-46.3) fL Immature Gran # (Auto) (0.00-0.02) K/uL Neut # (Auto) (1.4-6.5) K/uL Lymph # (Auto) (1.2-3.4) K/uL APTT 42.7 H 46.7 H* (21.0-31.0) Seconds Sodium (136-145) mmol/L BUN (7-18) mg/dl Creatinine (0.6-1.4) mg/dl BUN/Creatinine Ratio (10-20) Glucose (70-99) mg/dl Calcium (8.5-10.1) mg/dl Troponin I 0.075 H* (0-0.045) ng/ml 07/10/19 07/10/19 Range/Units 05:09 05:09 WBC 11.75 H (4.8-10.8) K/uL RBC 3.82 L (4.7-6.1) M/uL Hgb 11.8 L (14.0-18.0) g/dL Hct 35.7 L (42-52) % RDW Std Deviation 47.8 H (36.4-46.3) fL Immature Gran # (Auto) 0.05 H (0.00-0.02) K/uL Neut # (Auto) 10.56 H (1.4-6.5) K/uL Lymph # (Auto) 0.63 L (1.2-3.4) K/uL APTT (21.0-31.0) Seconds Sodium 134 L (136-145) mmol/L BUN 49 H (7-18) mg/dl Creatinine 2.17 H (0.6-1.4) mg/dl BUN/Creatinine Ratio 22.7 H (10-20) Glucose 219 H (70-99) mg/dl Calcium 8.4 L (8.5-10.1) mg/dl Troponin I (0-0.045) ng/ml
[2019-07-10] MEDS: WARFARIN SOD 10 MG TAB PO SCH (17:35)
[2019-07-10] MEDS: TERAZOSIN HCL 1 MG CAP PO SCH (20:30)
[2019-07-10] MEDS: ASPIRIN 81 MG ECTAB PO SCH (20:30)
[2019-07-10] MEDS: ATORVASTATIN 20 MG TAB PO SCH (20:31)
[2019-07-11] MEDS: LEVALBUTEROL 1.25MG/0.5ML NEB INH SCH ×4 (01:04→19:12)
[2019-07-11] MEDS: IPRATROPIUM BROMIDE NEB SOLN 0.02% 2.5 ML VIAL INH SCH ×4 (01:05→19:12)
[2019-07-11] MEDS: HEPARIN SODIUM/DEXTROSE 25,000 UNITS/500 ML BAG IV SCH ×2 (02:20→20:51)
[2019-07-11] MEDS: methylPREDNISolone 40 MG in SYRINGE 0 ML IV SCH ×2 (04:45→11:38)
[2019-07-11 05:34] LABS: Hematocrit (blood only) 34.9 % (42-52); Hemoglobin 11.7 g/dL (14.0-18.0); Mean Corpuscular Hemoglobin 31.2 pg (25-34); Mean Corpuscular Hgb Conc 33.5 g/dL (32-36); Mean Corpuscular Volume 93.1 fL (80-100); Mean Platelet Volume 9.9 fL (7.4-10.4); Platelet Count 194 K/uL (130-400); RDW Coefficient of Variation 13.9 % (11.5-14.5); RDW Standard Deviation 47.4 fL (36.4-46.3); Red Blood Count 3.75 M/uL (4.7-6.1); White Blood Count 13.69 K/uL (4.8-10.8)
[2019-07-11] MEDS: LEVOTHYROXINE SODIUM 137 MCG TABLET PO SCH (05:41)
[2019-07-11] MEDS: cefTRIAXone SODIUM 2,000 MG in DEXTROSE 5% 50 ML IV SCH (05:43)
[2019-07-11 06:02] LABS: INR 1.6 (0.9-1.1); Partial Thromboplastin Ratio 1.5; Partial Thromboplastin Time 41.7 Seconds (21.0-31.0); Prothrombin Time 15.6 Seconds (9.0-12.0)
[2019-07-11 06:09] LABS: BUN Creatinine Ratio 30.5 (10-20); Calcium 8.4 mg/dl (8.5-10.1); Creatinine Clr Calc Pharmacy 69.8 ml/min; Est GFR (African American) 52.9; Est GFR (Non-African American) 45.6; Potassium 5.1 mmol/L (3.5-5.1)
[2019-07-11] MEDS ORDERED: HEPARIN IV BOLUS 4,000 UNITS in SYRINGE 0 ML IV ONE (06:41)
[2019-07-11] MEDS: FLUTICASONE/SALMETEROL 250/50 (ADVAIR) 14 PUFF/1 INHALER INH SCH ×2 (08:44→20:42)
[2019-07-11] MEDS: METOPROLOL SUCC 50MG EXT REL TAB PO SCH (08:45)
[2019-07-11] MEDS: ISOSORBIDE MONO EXTENDED REL 60 MG TABCR PO SCH (08:45)
[2019-07-11] MEDS: DOXYCYCLINE HYCLATE 100 MG CAP PO SCH ×2 (08:45→20:44)
[2019-07-11] MEDS: PANTOprazole 40 MG TAB PO SCH (08:45)
[2019-07-11 13:36] LABS: Partial Thromboplastin Ratio 1.8
--- NOTE | 2019-07-11 13:46 | Hospitalist Progress Note ---
Date of Service July 11, 2019 Assessment & Plan (1) Acute exacerbation of chronic obstructive pulmonary disease: Continue nebs Continue IV Solu-Medrol Patient states that he uses his Advair appropriately. Patient reports he has another inhaler which he stated does not work. When asked if this was albuterol or Spiriva, patient was not sure. I reviewed patient outpatient charts and medication. Patient has been on Advair and albuterol. Noted to have not been taking albuterol as needed. I discussed institution of a LAMA inhaler. Patient charts noted allergy to Spiriva with rash. Patient stated that he had an allergic reaction to Spiriva in the past. When I discussed the option of Incruse Ellipta, he stated that it may be cost prohibitive for him. He also stated that he was on 500/50 dosage of Advair but was reduced in the past. Review of outpatient chart does not reveal any PFTs or pulmonary visit. However,Patient apparently has an appointment with pulmonary function lab in September 29, 2019 per chart review. Patient stated that he will call his matte cutter office tomorrow morning to see if he can get an early office visit to discuss further optimization of the medication Was started on antibiotics on admission. Chest x-ray reports prior added density infrahilar region possibly overlapping soft tissue. I doubt this is pneumonia. Will discontinue antibiotics tomorrow BNP is elevated. Low suspicion for heart failure exacerbation at this time as patient denied worsening of chronic 3 pillow orthopnea, has no leg edema, no features of pulmonary edema appreciated on exam. Echo showed normal LV chamber size with mild concentric LVH, grossly normal left ventricular systolic function without regional wall motion abnormalities EF of 60 to 65% (2) Sleep apnea: Uses CPAP at home Continue CPAP at bedtime (3) Hypertension: Continue metoprolol succinate and monitor Hold lisinopril for now history of TAYLOR BP well controlled (4) Hypothyroidism: Continue home levothyroxine. (5) TAYLOR (acute kidney injury): Creatinine is 1.7. Increased to 2.34. Currently 1.55 last was 1.2 on June 08, 2019 Will continue to monitor According to cardiology outpatient note, Lasix was reduced to 20 daily on last visit. Continue to hold Lasix for now (6) Dyslipidemia: Continue statins (7) Elevated troponin: Troponin was flat at 0.105, trended down to 0.075 Likely related to A. fib and COPD exacerbation with TAYLOR Echo report as above INR is subtherapeutic at 1.4 on admission. Currently 1.6. (8) CAD (coronary artery disease): (9) S/P coronary artery stent placement: Continue aspirin and statin Continue Imdur Holding Lasix as above (10) Atrial fibrillation: Rate controlled on metoprolol INR is 1.4 admission. Patient reported that he was on warfarin 5 mg Friday and 10 mg all other days. States that his INR is usually within range on this dose. However over the past month he has been on Bactrim for possible prostatitis and during that time his warfarin was reduced to 5 mg daily. He has completed antibiotics. Resumed previous dose of warfarin. Monitor INR (11) DVT prophylaxis: On warfarin Subjective Seen and examined this morning. Reports feeling better. Still has occasional wheezes resolves with nebs. Still has dry cough but much improved. Denies any fevers, chills, nausea, vomiting Denies any chest pain, tightness, leg swelling. Review of Systems Review of Systems: All systems reviewed and unremarkable except for mentioned above. Physical Exam Physical Exam: eneral: Obese in no obvious distress Eyes: PERRL, conjunctivae normal, EOM intact bilaterally ENMT: External ear and nose normal, oropharynx normal Neck: Normal visual inspection, no tracheal deviation, no swelling noted Respiratory: Normal respiratory effort, no respiratory distress, on nasal cannula, mild expiratory rhonchi in lung bases. No crackles/rales Cardiovascular: Pulse is irregularly irregular S1 S2, no edema Gastrointestinal (Abdomen): Abdomen is not distended, soft, non-tender to palpation, no guarding, no palpable hepatosplenomegaly, normal bowel sounds Musculoskeletal: No cyanosis or clubbing, all extremities motor strength 5/5 Neurologic: Alert and oriented x 3, No focal weakness, sensation grossly intact Psychiatric: Euthymic affect, no depressed affect Results & Data Vital Signs (Past 12 Hours) Vital Signs Temp Pulse Pulse Resp BP BP Pulse Ox 07/11/19 13:18 87 16 94 07/11/19 11:46 36.3 C L 89 22 166/82 H 94 07/11/19 07:53 81 07/11/19 07:12 73 16 94 07/11/19 07:08 36.5 C 71 123/79 93 07/11/19 03:50 36.5 C 74 22 135/62 95 Laboratory Results Abnormal lab results 07/11/19 07/11/19 07/11/19 Range/Units 05:22 05:22 05:22 WBC 13.69 H (4.8-10.8) K/uL RBC 3.75 L (4.7-6.1) M/uL Hgb 11.7 L (14.0-18.0) g/dL Hct 34.9 L (42-52) % RDW Std Deviation 47.4 H (36.4-46.3) fL PT 15.6 H (9.0-12.0) Seconds INR 1.6 H (0.9-1.1) APTT 41.7 H (21.0-31.0) Seconds Sodium 134 L (136-145) mmol/L BUN 47 H (7-18) mg/dl Creatinine 1.55 H D (0.6-1.4) mg/dl BUN/Creatinine Ratio 30.5 H (10-20) Glucose 195 H (70-99) mg/dl Calcium 8.4 L (8.5-10.1) mg/dl 07/11/19 Range/Units 12:59 WBC (4.8-10.8) K/uL RBC (4.7-6.1) M/uL Hgb (14.0-18.0) g/dL Hct (42-52) % RDW Std Deviation (36.4-46.3) fL PT (9.0-12.0) Seconds INR (0.9-1.1) APTT 49.0 H* (21.0-31.0) Seconds Sodium (136-145) mmol/L BUN (7-18) mg/dl Creatinine (0.6-1.4) mg/dl BUN/Creatinine Ratio (10-20) Glucose (70-99) mg/dl Calcium (8.5-10.1) mg/dl
[2019-07-11] MEDS: WARFARIN SOD 10 MG TAB PO SCH (16:08)
[2019-07-11] MEDS: ASPIRIN 81 MG ECTAB PO SCH (20:43)
[2019-07-11] MEDS: TERAZOSIN HCL 1 MG CAP PO SCH (20:43)
[2019-07-11] MEDS: ATORVASTATIN 20 MG TAB PO SCH (20:44)
[2019-07-12] MEDS: LEVALBUTEROL 1.25MG/0.5ML NEB INH SCH ×2 (01:02→07:22)
[2019-07-12] MEDS: IPRATROPIUM BROMIDE NEB SOLN 0.02% 2.5 ML VIAL INH SCH ×2 (01:02→07:21)
[2019-07-12] MEDS: cefTRIAXone SODIUM 2,000 MG in DEXTROSE 5% 50 ML IV SCH (05:58)
[2019-07-12] MEDS: LEVOTHYROXINE SODIUM 137 MCG TABLET PO SCH (05:59)
[2019-07-12 07:05] LABS: Hematocrit (blood only) 34.8 % (42-52); Hemoglobin 11.4 g/dL (14.0-18.0); Mean Corpuscular Hemoglobin 31.1 pg (25-34); Mean Corpuscular Hgb Conc 32.8 g/dL (32-36); Mean Corpuscular Volume 95.1 fL (80-100); Mean Platelet Volume 9.4 fL (7.4-10.4); Platelet Count 214 K/uL (130-400); RDW Coefficient of Variation 13.7 % (11.5-14.5); Red Blood Count 3.66 M/uL (4.7-6.1); White Blood Count 13.34 K/uL (4.8-10.8)
[2019-07-12 07:29] LABS: INR 2.1 (0.9-1.1); Partial Thromboplastin Ratio 1.8; Prothrombin Time 20.3 Seconds (9.0-12.0)
[2019-07-12 07:30] LABS: Partial Thromboplastin Time 49.3 Seconds (21.0-31.0)
[2019-07-12 07:34] LABS: BUN Creatinine Ratio 24.2 (10-20); Calcium 8.4 mg/dl (8.5-10.1); Creatinine Clr Calc Pharmacy 73.5 ml/min; Est GFR (African American) 56.4; Est GFR (Non-African American) 48.7; Potassium 4.4 mmol/L (3.5-5.1)
[2019-07-12] MEDS ORDERED: predniSONE 50 MG TAB PO SCH (09:00)
[2019-07-12] MEDS: FLUTICASONE/SALMETEROL 250/50 (ADVAIR) 14 PUFF/1 INHALER INH SCH (09:14)
[2019-07-12] MEDS: METOPROLOL SUCC 50MG EXT REL TAB PO SCH (09:15)
[2019-07-12] MEDS: ISOSORBIDE MONO EXTENDED REL 60 MG TABCR PO SCH (09:15)
[2019-07-12] MEDS: DOXYCYCLINE HYCLATE 100 MG CAP PO SCH (09:15)
[2019-07-12] MEDS: PANTOprazole 40 MG TAB PO SCH (09:15)
--- NOTE | 2019-07-12 10:09 | Discharge Summary ---
Date of Service July 12, 2019 Admission HPI Per Admitting Provider 68-year-old male with past medical history significant for hypothyroidism, hyperlipidemia, restrictive and obstructive lung disease, COPD, history of lung nodule, history of sleep apnea, nocturnal hypoxia, hypotension, atrial flutter, CAD status post stent, obesity,, BPH, GERD, history of Lyme disease. No smoking history. The patient is having cold kind of symptoms for last 2 weeks, took over the counter medications but last 2-3 days shortness of breath got worse and wheezing and he had some low-grade fever and chills yesterday. He is coughing once in a while, bringing whitish phlegm. Denies any chest pain. No headache, sometimes dizziness, sometimes blurred vision, no earache, some runny nose, no sore throat. Appetite is not that great, swallows okay. No dysphagia. Was nauseous earlier, no vomiting, no abdominal pain. Normal bowel and bladder movements. No blood in the stools, no black stools. Just finished 4 weeks of antibiotics for possible prostatitis, history of burning micturition earlier, but that has resolved. No hematuria. Has swelling in the legs. He says a couple of months ago, he was started on Lasix, it was increased to 40, but because of prostate problem he could not tolerate it, so he is taking only 20 mg of Lasix now. His hemodynamics are stable. Seems to be having some tachypnea, but speaking in full sentences. Admission Exam Per Admitting Provider GENERAL: The patient is morbidly obese, somewhat tachypneic. VITAL SIGNS: Temperature 37.3, pulse 97, respiratory rate 24, blood pressure 121/66, oxygen 96% on 2 liters. HEENT: No pallor, no icterus. Pupils equal, round, and reactive to light. NECK: No JVD, no neck mass, no carotid bruits. CARDIOVASCULAR: S1, S2 heard, regular rate and rhythm, no murmur, no gallop. RESPIRATORY SYSTEM: Normal AP diameter. Bilateral wheezing heard. Mild bibasilar crackles. ABDOMEN: Soft, bowel sounds present, nontender. No distention. CENTRAL NERVOUS SYSTEM: He is alert and oriented and nonfocal. EXTREMITIES: Lower extremity +1 edema present, no erythema seen. Principal Diagnosis COPD exacerbation Acute kidney injury Discharge Exam General: Obese in no obvious distress Eyes: PERRL, conjunctivae normal, EOM intact bilaterally ENMT: External ear and nose normal, oropharynx normal Neck: Normal visual inspection, no tracheal deviation, no swelling noted Respiratory: Normal respiratory effort, no respiratory distress, on nasal cannula, lungs clear to auscultation. No crackles/rales Cardiovascular: Pulse is irregularly irregular S1 S2, no edema Gastrointestinal (Abdomen): Abdomen is not distended, soft, non-tender to palpation, no guarding, no palpable hepatosplenomegaly, normal bowel sounds Neurologic: Alert and oriented x 3, No focal weakness, sensation grossly intact Psychiatric: Euthymic affect, no depressed affect Discharge Data Allergies Allergy/AdvReac Type Severity Reaction Status Date / Time tiotropium Allergy Mild Rash Verified 07/09/19 03:03 [From Spiriva with HandiHaler] Consultations 07/09/19 03:50 ED Decision to Admit Stat 07/09/19 05:33 Consult Case Management - Discharge Planning Routine Hospital Course (1) Acute exacerbation of chronic obstructive pulmonary disease: Admission, patient was in respiratory distress tachypnea and generalized wheezing. Was started on IV methylprednisolone, nebs and antibiotics Patient respiratory symptoms has resolved with this treatment. Steroids changed to tablet prednisone today. Discharge on prednisone 40 mg for 3 days and 20 mg for 3 days Patient states that he uses his Advair appropriately. I reviewed patient outpatient charts and medication. Patient has been on Advair and albuterol. Noted to have not been taking albuterol as needed. I discussed institution of a LAMA inhaler. Patient charts noted allergy to Spiriva with rash. Patient stated that he had an allergic reaction to Spiriva in the past. When I discussed the option of Incruse Ellipta, he stated that it may be cost prohibitive for him. He also stated that he was on 500/50 dosage of Advair but was reduced in the past. Patient states that he would like to discuss any new inhalers or adjustments with his customer advocacy manager. Review of outpatient chart does not reveal any PFTs or pulmonary visit. However,Patient apparently has an appointment with pulmonary function lab in September 29, 2019 per chart review. Appointments made for patient to see his customer advocacy manager on 07/22/2019 at 8:45 AM Was started on antibiotics on admission. Chest x-ray reports prior added density infrahilar region possibly overlapping soft tissue. I doubt this is pneumonia. Will discontinue antibiotics tomorrow BNP is elevated. Low suspicion for heart failure exacerbation as patient denied worsening of chronic 3 pillow orthopnea, has no leg edema, no features of pulmonary edema appreciated on exam. Echo showed normal LV chamber size with mild concentric LVH, grossly normal left ventricular systolic function without regional wall motion abnormalities EF of 60 to 65% (2) Sleep apnea: Uses CPAP at home Continue CPAP at bedtime (3) Hypertension: Continue metoprolol succinate and monitor Lisinopril was held inpatient and due to TAYLOR BP well controlled Can be resumed on discharge (4) Hypothyroidism: Continue home levothyroxine. (5) TAYLOR (acute kidney injury): Creatinine was 2.34 on admission. Last was 1.2 on June 08, 2019 Lasix and lisinopril were held. Creatinine improved to 1.47 today Can resume Lasix 20 mg home dose tomorrow To do BMP in 3 days to monitor kidney function Follow-up labs with PCP (6) Dyslipidemia: Continue statins (7) Elevated troponin: Troponin was flat at 0.105, trended down to 0.075 Likely related to A. fib and COPD exacerbation with TAYLOR Echo report as above (8) CAD (coronary artery disease): (9) S/P coronary artery stent placement: Continue aspirin and statin Continue Imdur (10) Atrial fibrillation: Rate controlled on metoprolol INR is 1.4 admission. Patient reported that he was on warfarin 5 mg Friday and 10 mg all other days. States that his INR is usually within range on this dose. However over the past month he has been on Bactrim for possible prostatitis and during that time his warfarin was reduced to 5 mg daily. He has completed antibiotics. Resumed previous dose of warfarin. Was on heparin drip while inpatient INR today is 2.1 Continue home dose [warfarin 5 mg Friday and 10 mg all other days] Continue follow-up with anticoagulation clinic Total Time Total Time Spent Total Time Spent (In Minutes): 35 Total Time Includes: Examination of the Patient, Discharge Planning and Medication Reconciliation Discharge Plan Discharge Items Patient Disposition: Home - Self-Care Reason For Visit: SOB Discharge Diagnosis: COPD exacerbation Acute kidney injury Condition on Discharge: Good Activity: Resume your previous activity Non-emergency contact: Primary Care Provider and Piggery Worker Call non-emergency contact if: you have any medication questions Follow-up/Referrals: Jose Garcia MD [Primary Care Provider] - 07/16/19 9:05 am (With Ketan Rg) Diet: Heart Healthy Ambulatory Orders: Basic Metabolic Panel (Routine) Timeframe: 3 Days Location: Determined by Patient Ordered By: Anum Shin Attending Provider Instructions: Mr. Guillen, You came to the hospital complaining of shortness of breath, cough and wheezing. You were evaluated and found to be in COPD exacerbation. He was treated with nebs, steroids and antibiotics. Lab tests show acute kidney injury with worsening creatinine. Your home dose of Lasix was held. Your shortness of breath and wheezing improved. You are being discharged on a few more days of Prednisone. We discussed the need for optimization of your COPD medications. It is very important that you follow-up with your customer advocacy manager for continued management. He can resume your home Lasix tomorrow. Please to . requested lab tests [basic metabolic panel] in 3 days to assess kidney function. Please be sure to follow-up the results of this with your primary doctor. Follow-up with primary doctor for continued management of your medical problems You have an appointment at Dr Jose Garcia's office with Ketan Rg on 07/16/2019 at 9:05 am You also have an appointment at [facility] Pul[facility]ology with Shantel Pabon on 07/22/2019 at 8:45am Please continue to follow-up with the anticoagulation clinic for management of your warfarin and INR. It was a pleasure taking care of you. Pending Studies at Discharge: No Stand-Alone Forms: My [facility], Smoking Cessation Medications and DC Order Prescriptions: New prednisone 20 mg tablet See Rx Instructions .ROUTE .COMPLEX Qty: 9 RF: 0 Continued furosemide 20 mg tablet 20 mg PO DAILY RF: 0 fluticasone propion-salmeterol [Advair Diskus] 250-50 mcg/dose Blister With Device 1 inh INHALATION BID RF: 0 atorvastatin 20 mg Tablet 20 mg PO HS RF: 0 metoprolol succinate 50 mg Tablet Extended Release 24 Hr 50 mg PO QAM RF: 0 lisinopril 20 mg Tablet 20 mg PO QAM RF: 0 terazosin 1 mg Capsule 1 mg PO HS RF: 0 aspirin 81 mg Tablet,Delayed Release (Dr/Ec) 81 mg PO HS RF: 0 isosorbide mononitrate 60 mg Tablet Extended Release 24 Hr 60 mg PO QAM RF: 0 warfarin 5 mg Tablet 5 mg PO 3XWK RF: 0 warfarin 5 mg Tablet 10 mg PO 4XWK RF: 0 nitroglycerin 0.4 mg Tablet, Sublingual 0.4 mg Sublingual DIRECTED PRN (Reason: Angina) RF: 0 albuterol sulfate [Ventolin HFA] 90 mcg/actuation Hfa Aerosol Inhaler 2 puff INHALATION QID RF: 0 levothyroxine 137 mcg Capsule 68.5 mcg PO 3XWK RF: 0 levothyroxine 137 mcg Capsule 137 mcg PO 4XWK RF: 0 omeprazole 20 mg Capsule,Delayed Release(Dr/Ec) 20 mg PO DAILY RF: 0 Discharge Orders: Discharge Order (Routine); Ordered 07/12/19 Ordered By: Anum Wilson/Other Patient Handouts: COPD, Prednisone Oral tablet Admission Data Admit Date/Time: 07/09/19 04:24 Attending Provider: Anum Kovacs I. Admit Provider: Paco Castro Primary Care Provider: Jose Gracia Other Providers: Paco Castro Other Interventions: Discharge Summary Assessment (RN) Last Done: 07/12/19 11:20 DC Date/Time DO NOT enter until pt leaves facility: 07/12/19 12:37
== END 2019-07-12 12:37 | disposition home or self-care (01) | DRG 191 ==
LOC: ED 02:10 → 2S 04:24

== ENCOUNTER 2020-04-12 10:57 | Inpatient (IN) ==
[2020-04-12 12:13] LABS: Hematocrit (blood only) 44.3 % (42-52); Hemoglobin 14.6 g/dL (14.0-18.0); Mean Corpuscular Hemoglobin 31.3 pg (25-34); Mean Corpuscular Volume 95.1 fL (80-100); Mean Platelet Volume 10.1 fL (7.4-10.4); Platelet Count 211 K/uL (130-400); RDW Coefficient of Variation 13.7 % (11.5-14.5); RDW Standard Deviation 47.6 fL (36.4-46.3); Red Blood Count 4.66 M/uL (4.7-6.1); White Blood Count 9.24 K/uL (4.8-10.8)
--- NOTE | 2020-04-12 12:21 | Emergency Department Note ---
Impression & Plan Brain TIA, Hypertension ED Provider Note NAME: CARLOS EDUARDO STYLES AGE: 69 SEX: M : 1950 ARRIVES VIA: Walk-In INFORMANT: Patient ED PROVIDER(S): Sergio Luz DO CHIEF COMPLAINT: Left upper and left lower extremity numbness and weakness HPI: Patient is a 69-year-old male with past medical history of A. fib on Coumadin that presents to the ER for left upper and left lower extremity weakness associated with numbness. This started at 9 PM last night. He denies any headache or change in vision. No chest pain or shortness of breath. No nausea, vomiting or diarrhea. No other exacerbating or remitting factors. He notes he chronically has lower back pain and always has some pain going into that left leg as well as some intermittent numbness. Since his left arm became weak and numb last night he notes his left leg has as well. No trouble with speech. Has had little difficulty walking as per the . ROS: See above HPI for pertinent positives & negatives. A total of 10 systems reviewed and were otherwise negative. PAST MEDICAL HISTORY:See Below PAST SURGICAL HISTORY:See Below FAMILY HISTORY:See Below SOCIAL HISTORY:See Below HOME MEDICATIONS:See Below ALLERGIES:See Below VITALS:See Below PHYSICAL EXAMINATION: GENERAL: Sitting up in bed, alert, obese, well appearing, well nourished, no distress, non-toxic EYE EXAM: normal conjunctiva. PERRL and EOM's intact. OROPHARYNX: no exudate, no erythema, lips, buccal mucosa, and tongue normal and mucous membranes are moist NECK: supple, no nuchal rigidity, no adenopathy, non-tender LUNGS: Clear to auscultation. Normal chest wall mechanics HEART: no murmurs, S1 normal and S2 normal ABDOMEN: abdomen soft, non-tender, normo-active bowel sounds, no masses, no rebound or guarding. UPPER EXTREMITIES: upper extremities are grossly normal. LOWER EXTREMITIES: No pitting edema. NEURO EXAM: Normal sensorium, cranial nerves II-XII intact, normal speech, mild weakness in left upper extremity with grasp as well as flexion extension at the elbow in comparison to the right which is 5 out of 5, faint weakness in left lower extremity with flexion at the hip in comparison to right lower extremity. + drift on the LUE. Finger to nose intact. Gross sensation intact. MEDICAL DECISION MAKING: Patient is a 69-year-old male who presents the ER for left upper and lower ex tremity weakness which started last night around 9 PM. Stroke alert was not called as he is out of the window. He did have a little drift on his left upper extremity. IV was established blood work was obtained. Labs showed no significant leukocytosis or anemia. BMP was unremarkable with the exception of a slightly elevated glucose. T bili slightly elevated at 1.2. LFTs were unremarkable. Troponin was detectable but not positive. CT of the head as well as CT Sara of the head and neck showed no acute pathology. He was updated bedside. I was concerned that this is consistent with a CVA. Discussed with the hospitalist for further evaluation. Portable AP upright 1 view of the chest was unremarkable as well. Triage Nursing notes reviewed. Prior medical records reviewed Vital Signs: reviewed and remarkable for HTN Differential diagnosis: Differential Diagnosis includes but is not limited to ischemic Stroke, hemorrhagic stroke, bells palsy, mass, neoplasm, migraine headache, seizure, subarachnoid hemorrhage, TIA, and transient global amnesia. ER treatment provided: See below Diagnostics interpreted by me: ECG: A. fib rate of 67 Normal axis No PVCs Normal QTC Cardiac Monitoring: An order was placed for continuous cardiac monitoring. The monitor shows a rate of 80 with sinus rhythm. Laboratory studies: As stated above and show below. Imaging studies: CT as well as CT Sara of the head and neck showed no acute pathology Portable AP upright 1 view of the chest showed no focal infiltrate Consultation(s): Discussed with the hospitalist for further evaluation ED COURSE: Procedures: none Critical Care: None Past Med/Surg History Medical History Atrial fibrillation follows with Dr. Brandt Berry in stool BPH (benign prostatic hyperplasia) Chronic obstructive pulmonary disease Degenerative disc disease Fatty liver disease, nonalcoholic GERD (gastroesophageal reflux disease) Hearing deficit Hyperlipidemia Hypertension Hypothyroidism On anticoagulant therapy warfarin daily Sleep apnea cpap Tinnitus of both ears Surgical History History of cardiac cath 2014 x2--only 1 stent History of colonoscopy History of heart artery stent 2014--1 stent History of tooth extraction all upper teeth History of wisdom tooth extraction Family History Mother Diabetes Sister Stroke Other Family history of diabetes mellitus Social History (Updated 04/12/20 @ 15:42 by Criss Cao PA-C) Smoking Status: Never smoker Tobacco Type: Smokeless Tobacco (Dip or Chew) Second Hand Exposure: Yes (father smoked/worked in mines for over 20 yrs); Do You Dip or Chew Tobacco: Yes; Hx Alcohol Use: Yes Alcohol type: beer Alcohol Intake Frequency: Monthly or Less Hx Substance Use: No Preferred Language: Tristanian Communication Ability: Effective 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 Beliefs That Will Affect Care: None marital status: Current Living Situation: Spouse current occupational status: retired current occupation: [employer] Other Information That Helps Us Care for You: No Feels Safe at Home: Yes Safety Concerns: Feels Safe At This Time Assistive Devices: None, CPAP, Denture - Upper, Glasses and Hearing Aid - Bilateral Allergies Allergies Allergy/AdvReac Type Severity Reaction Status Date / Time tiotropium Allergy Mild Rash Verified 04/12/20 13:37 [From Spiriva with HandiHaler] succinylcholine Allergy Unknown Verified 04/12/20 14:38 Home Meds Home Medications Medication Instructions Recorded Confirmed albuterol sulfate [Ventolin HFA] 2 puff INHALATION QID 09/11/18 04/12/20 aspirin 81 mg PO 09/11/18 04/12/20 atorvastatin 20 mg PO 09/11/18 04/12/20 isosorbide mononitrate 60 mg PO [facility] 09/11/18 04/12/20 levothyroxine 68.5 mcg PO MOWEFR 09/11/18 04/12/20 levothyroxine 137 mcg PO [facility] 09/11/18 04/12/20 lisinopril 20 mg PO [facility] 09/11/18 04/12/20 metoprolol succinate 50 mg PO QA 09/11/18 04/12/20 nitroglycerin 0.4 mg SUBLINGUAL DIRECTED PRN 09/11/18 04/12/20 terazosin 1 mg PO 09/11/18 04/12/20 warfarin 5 mg PO SUTUTHSA 09/11/18 04/12/20 warfarin 10 mg PO MOWEFR 09/11/18 04/12/20 furosemide 20 mg PO DAILY 07/09/19 04/12/20 fluticasone propion-salmeterol 1 inh INHALATION Q12H 04/12/20 04/12/20 [Advair Diskus] Results & Data (ED) Vital Signs Vital Signs - 24 hr 04/12/20 11:02 04/12/20 11:31 04/12/20 11:49 Temperature 36.6 C Temperature Source Oral Pulse Rate 73 71 67 Pulse Rate from SpO2 Sensor Respiratory Rate 18 23 Blood Pressure 110/64 Blood Pressure Mean 75 Pulse Oximetry 96 96 Oxygen Delivery Method Room Air Room Air Sepsis Recent Fever Within 48 Hours No Sepsis New/Unexplained Change in Mental Status No Sepsis Action Taken by Nursing No Action Required 04/12/20 12:01 04/12/20 12:31 04/12/20 13:31 Temperature Temperature Source Pulse Rate 69 64 65 Pulse Rate from SpO2 Sensor 70 61 58 L Respiratory Rate 15 14 24 Blood Pressure 139/105 H 100/51 L 130/68 Blood Pressure Mean 112 71 74 Pulse Oximetry 96 96 96 Oxygen Delivery Method Room Air Sepsis Recent Fever Within 48 Hours Sepsis New/Unexplained Change in Mental Status Sepsis Action Taken by Nursing 04/12/20 14:00 04/12/20 14:30 Temperature Temperature Source Pulse Rate 65 65 Pulse Rate from SpO2 Sensor 62 64 Respiratory Rate 24 16 Blood Pressure 119/76 128/62 Blood Pressure Mean 85 75 Pulse Oximetry 97 95 Oxygen Delivery Method Sepsis Recent Fever Within 48 Hours Sepsis New/Unexplained Change in Mental Status Sepsis Action Taken by Nursing Laboratory Data Result diagrams: 04/12/20 11:42 04/12/20 11:42 Lab Results 04/12/20 04/12/20 04/12/20 Range/Units 11:38 11:42 11:42 WBC 9.24 (4.8-10.8) K/uL RBC 4.66 L (4.7-6.1) M/uL Hgb 14.6 (14.0-18.0) g/dL Hct 44.3 (42-52) % MCV 95.1 (80-100) fL MCH 31.3 (25-34) pg MCHC 33.0 (32-36) g/dL RDW Std Deviation 47.6 H (36.4-46.3) fL RDW Coeff of Иван 13.7 (11.5-14.5) % Plt Count 211 (130-400) K/uL MPV 10.1 (7.4-10.4) fL PT 22.6 H (9.0-12.0) Seconds INR 2.2 H (0.9-1.1) APTT 32.2 H (21.0-31.0) Seconds PTT Ratio 1.2 Sodium (136-145) mmol/L Potassium (3.5-5.1) mmol/L Chloride (98-107) mmol/L Carbon Dioxide (21-32) mmol/L Anion Gap (3-11) BUN (7-18) mg/dl Creatinine (0.6-1.4) mg/dl Est Cr Clr Drug Dosing ml/min Est GFR ( Amer) Est GFR (Non-Af Amer) BUN/Creatinine Ratio (10-20) Glucose (70-99) mg/dl POC Glucose 115 H (70-99) mg/dl Calcium (8.5-10.1) mg/dl Magnesium (1.8-2.4) mg/dl Total Bilirubin (0.2-1) mg/dl AST (15-37) U/L ALT (12-78) U/L Alkaline Phosphatase (45-117) U/L Troponin I (0-0.045) ng/ml Total Protein (6.4-8.2) gm/dl Albumin (3.4-5.0) gm/dl Globulin (2.5-4.0) gm/dl Albumin/Globulin Ratio (0.9-2) 04/12/20 04/12/20 Range/Units 11:42 11:42 WBC (4.8-10.8) K/uL RBC (4.7-6.1) M/uL Hgb (14.0-18.0) g/dL Hct (42-52) % MCV (80-100) fL MCH (25-34) pg MCHC (32-36) g/dL RDW Std Deviation (36.4-46.3) fL RDW Coeff of Иван (11.5-14.5) % Plt Count (130-400) K/uL MPV (7.4-10.4) fL PT (9.0-12.0) Seconds INR (0.9-1.1) APTT (21.0-31.0) Seconds PTT Ratio Sodium 138 (136-145) mmol/L Potassium 4.5 (3.5-5.1) mmol/L Chloride 106 (98-107) mmol/L Carbon Dioxide 28 (21-32) mmol/L Anion Gap 4.0 (3-11) BUN 19 H (7-18) mg/dl Creatinine 1.26 (0.6-1.4) mg/dl Est Cr Clr Drug Dosing 86.0 ml/min Est GFR ( Amer) 67.5 Est GFR (Non-Af Amer) 58.2 BUN/Creatinine Ratio 14.7 (10-20) Glucose 121 H (70-99) mg/dl POC Glucose (70-99) mg/dl Calcium 9.2 (8.5-10.1) mg/dl Magnesium 2.1 (1.8-2.4) mg/dl Total Bilirubin 1.2 H (0.2-1) mg/dl AST 23 (15-37) U/L ALT 34 (12-78) U/L Alkaline Phosphatase 80 (45-117) U/L Troponin I 0.041 (0-0.045) ng/ml Total Protein 7.6 (6.4-8.2) gm/dl Albumin 3.5 (3.4-5.0) gm/dl Globulin 4.1 H (2.5-4.0) gm/dl Albumin/Globulin Ratio 0.9 (0.9-2) Administered Medications Fluticasone/Vilanterol (Fluticasone/Vilanterol 200/25mcg 14 Puffs/Inhaler) 1 puffs INH DAILY ZINA Stop: 05/12/20 16:59 Last Admin: 04/12/20 17:35 Dose: 1 puffs Documented by: [id number] Sodium Chloride (Nss 1000ml) 1,000 mls @ 80 mls/hr IV .[id number] ZINA Stop: 04/13/20 05:14 Last Admin: 04/12/20 17:33 Dose: 80 mls/hr Documented by: [id number] Discontinued Medications Ioversol (Optiray 320 125ml) 118 ml IV ONCE ONE Stop: 04/12/20 13:01 Last Admin: 04/12/20 13:00 Dose: 118 ml Documented by: [id number] Discharge Plan Visit Data Chief Complaint: Stroke/CVA Symptoms Stated Complaint: NUMBNESS LEFT ARM & LEG/THINKS HE HAD A STROKE ED Provider: Sergio Luz Discharge Problem: Brain TIA, Hypertension Patient Disposition: Admitted As Inpatient Discharge Instructions Interventions: ED Discharge Assessment Last Done: 04/12/20 15:27 Discharge Problem: Hypertension Qualifiers: Hypertension type: unspecified Qualified Code(s): I10 - Essential (primary) hypertension
[2020-04-12 12:28] LABS: INR 2.2 (0.9-1.1); Partial Thromboplastin Ratio 1.2; Partial Thromboplastin Time 32.2 Seconds (21.0-31.0); Prothrombin Time 22.6 Seconds (9.0-12.0)
--- NOTE | 2020-04-12 12:28 | XRay Report ---
XR chest 1V portable CLINICAL HISTORY: stroke alert COMPARISON STUDY: 07/09/2019 FINDINGS: The heart is borderline enlarged. There is no focal pulmonary consolidation. There are no p leural effusions. There is mild central vascular prominence without evidence of overt failure.[ IMPRESSION: No active disease in the chest. ACT 112: Negative or not required by law. Electronically signed by: Meet Miranda M.D. 04/12/2020 12:27 PM
[2020-04-12 12:31] LABS: Albumin Level 3.5 gm/dl (3.4-5.0); BUN Creatinine Ratio 14.7 (10-20); Calcium 9.2 mg/dl (8.5-10.1); Est GFR (African American) 67.5; Est GFR (Non-African American) 58.2; Magnesium 2.1 mg/dl (1.8-2.4); Potassium 4.5 mmol/L (3.5-5.1)
[2020-04-12 12:34] LABS: Albumin Globulin Ratio 0.9 (0.9-2); Bilirubin,Total 1.2 mg/dl (0.2-1); Globulin 4.1 gm/dl (2.5-4.0); Total Protein 7.6 gm/dl (6.4-8.2)
[2020-04-12] MEDS ORDERED: OPTIRAY 320 125ml IV ONE (13:00)
--- NOTE | 2020-04-12 13:18 | CT Scan Report ---
CT head/brain wo con CLINICAL HISTORY: Stroke evaluation LEFT ARM NUMBNESS COMPARISON STUDY: 04/12/2020 TECHNIQUE: Axial CT of the brain is performed from the vertex to the skull base. IV contrast was not administered for this examination. A dose lowering technique was utilized adhering to the principles of ALARA. CT DOSE: 1635.46 mGy.cm FINDINGS: No intra or extra-axial mass lesions are visualized. There is no CT evidence of acute cortical infarc tion. There is no evidence of midline shift. There is no acute hemorrhage. No calvarial fractures ar e visualized. There are minimal white matter hypodensities likely on a small vessel basis. There is no evidence of pathologic ventricular dilatation. There is no evidence of acute sinusitis IMPRESSION: No acute intracranial findings ACT 112: Negative or not required by law. Electronically signed by: Meet Miranda M.D. 04/12/2020 1:17 PM
--- NOTE | 2020-04-12 13:21 | CT Scan Report ---
CT angio neck with con CLINICAL HISTORY: Stroke evaluation COMPARISON STUDY: No previous studies for comparison. TECHNIQUE: CT angiography was performed from the aortic arch to the skull base. MIP imaging was perfo rmed. The patient was scanned in a dynamic helical fashion during intravenous administration of 118 c c of Optiray 320. A dose lowering technique was utilized adhering to the principles of ALARA. CT DOSE: Technique: CT angiogram of the carotid and vertebral arteries was obtained using intravenous contrast and 3-D reconstruction. NASCET criteria was utilized. Findings: The examination is mildly limited due to the patient's very large body habitus. There are mild atheromatous changes in both common carotid arteries. The right carotid revealed no evidence of aneurysm and no evidence of dissection. There is no evidenc e of hemodynamic significant stenosis. The left carotid revealed no evidence of hemodynamic significant stenosis. There is no evidence of an eurysm. There is no evidence of dissection. There is no evidence of hemodynamically significant vertebral stenosis. There is no evidence of verte bral dissection. IMPRESSION: No evidence of hemodynamically significant carotid or vertebral artery stenosis. No evidence of disse ction. ACT 112: Negative or not required by law. Electronically signed by: Meet Miranda M.D. 04/12/2020 1:19 PM
--- NOTE | 2020-04-12 13:29 | CT Scan Report ---
CTA ANGIOGRAPHY OF THE HEAD CLINICAL HISTORY: Stroke evaluation. Left arm numbness. COMPARISON STUDY: Head CT January 06, 2014. TECHNIQUE: Helical axial images of the head were obtained following uneventful intravenous administr ation of 118 cc of Optiray 320. Sagittal and coronal reconstructions were viewed as well as maximal i ntensity projections on an independent 3-D workstation. Automated exposure control was utilized for the study. A dose lowering technique was utilized adhering to the principles of ALARA. FINDINGS: Please note that the unenhanced head CT will be reported separately. No acute intracranial hemorrhage, midline shift or mass effect is present. Brain volume is normal. Ventricular system is no rmal. The basilar cisterns are patent. There are no extra-axial collections. There is moderate ethmoi d sinus mucosal thickening. There is mild plaque within the bilateral cavernous carotids. The bilater al M1, M2, A1 and A2 segments are patent. There is no central vessel occlusion. Posterior circulation is intact. There is no significant stenosis. There is no dissection or aneurysm within the intracran ial circulation. IMPRESSION: 1. No central vessel occlusion. Mild atherosclerotic plaque without significant stenosis. No intracra nial aneurysm. 2. Moderate ethmoid sinus mucosal thickening. ACT 112: Negative or not required by law. Electronically signed by: Pavan Stockton M.D. 04/12/2020 1:28 PM
[2020-04-12] MEDS ORDERED: ALUMINUM/MAGNESIUM SUSP 30 ML UDC PO PRN (15:49)
[2020-04-12] MEDS ORDERED: MAGNESIUM HYDROXIDE SUSP 30 ML UDC PO PRN (15:49)
[2020-04-12] MEDS ORDERED: ONDANSETRON INJ 2 MG/ML 2 ML VIAL IV PRN (15:49)
[2020-04-12] MEDS ORDERED: ACETAMINOPHEN 325 MG TAB PO PRN (15:49)
[2020-04-12] MEDS ORDERED: POLYETHYLENE (MIRALAX) 17 GM PACK PO PRN (15:49)
[2020-04-12] MEDS ORDERED: PHARMACIST DISCHARGE MED REC CONSULT PRN (15:49)
--- NOTE | 2020-04-12 15:50 | History & Physical Report ---
Date of Service April 12, 2020 Assessment & Plan (1) Weakness of left side of body: This is a 69-year-old male who has significant past medical history of chronic atrial fibrillation anticoagulated on warfarin, CAD with history of RCA stent in 2014, HTN, HLD, occupational lung disease/COPD, BPH, AMADA who presents to ED secondary to left-sided weakness started last evening. Sx have since resolved. Given hx of CAD, HTN, HLD, tobacco user, chronic Afib concern for TIA. His INR is therapeutic and has been in outpt setting. He has been compliant with coumadin. Admit to tele Obtain MRI echocardiogram lipid panel, A1C ordered in a.m. consult neuro continue warfarin and ASA currently on lipitor 20mg HS, await lipid panel in a.m. PT/OT/ST passed dysphagia screen - heart healthy diet (2) Atrial fibrillation: Chronic atrial fibrillation rate controlled with metoprolol Thrombotic control with warfarin, INR therapeutic 2.2 10 mg Friday, 5 mg all other days (3) CAD (coronary artery disease): hx of RCA stent in 2014 follows [facility] cardiology continue asa, statin, lisinopril, metoprolol and imdur (4) Diastolic CHF, chronic: Daily weights, strict I's and O's Continue metoprolol, lisinopril and Lasix Obtain echocardiogram for stroke work-up (5) Occupational lung disease: dx of COPD follows [facility] pulm continue advair, no acute exac (6) Hypertension: Blood pressure 120/62, stable Continue lisinopril, metoprolol and Lasix (7) Hypothyroidism: continue levothyroxine (8) Sleep apnea: Cpap at HS (9) DVT prophylaxis: SCDS/TEDS, encourage ambulation Disposition: Admit to [facility] telemetry Follow-up: PCP Dr. Garcia upon discharge Pt was seen and examined in collaboration with Dr. Mccauley, please see addendum History of Present Illness Chief Complaint: L sided weakness that started last evening. Primary Care Provider: Jose Garcia MD This is a 69-year-old male who has significant past medical history of chronic atrial fibrillation anticoagulated on warfarin, CAD with history of RCA stent in 2014, HTN, HLD, occupational lung disease/COPD, BPH, AMADA who presents to ED secondary to left-sided weakness started last evening. His is at bedside. Patient was since [place] when he developed weakness to left upper extremity, specifically hand. Folic he was having difficulty holding things. Stated when he was using his hand on the steering wheel, "that is what was keeping it up." As soon as he would take it off his hand would drop. He went to bed last evening with sx still present. When he woke up this morning he felt like his Left leg felt, "funny," and weak as well. at beside denies any slurred speech, facial drop, eye gaze, luis miguel paralysis. He has never experienced before in past. He denies any pain to extremities or pins/needles sensation. Sx have resolved since being in ED. He denies any recent illness, f/c/s, dizziness, lightheaded, change vision/hearing, chest pain, sob, n/v/d, abdominal pain, change in bowel or urinary habits. He admits to being recently dx with Lumbar spinal stenosis and he had a MRI a few weeks ago at [facility]. In ED pt remained hemodynamically stable, although his BP was labile. Symptoms have resolved. He underwent CTA head/neck, CT head w/o which were w/o acute abnormality, stenosis or dissection. INR therapeutic at 2.2 Allergies Allergy/AdvReac Type Severity Reaction Status Date / Time tiotropium Allergy Mild Rash Verified 04/12/20 13:37 [From Spiriva with HandiHaler] succinylcholine Allergy Unknown Verified 04/12/20 14:38 Home Medications Home Medications Medication Instructions Recorded Confirmed Type albuterol sulfate [Ventolin HFA] 2 puff INHALATION QID 09/11/18 04/12/20 History aspirin 81 mg PO HS 09/11/18 04/12/20 History atorvastatin 20 mg PO HS 09/11/18 04/12/20 History isosorbide mononitrate 60 mg PO QAM 09/11/18 04/12/20 History levothyroxine 68.5 mcg PO MOWEFR 09/11/18 04/12/20 History levothyroxine 137 mcg PO SUTUTHSA 09/11/18 04/12/20 History lisinopril 20 mg PO QAM 09/11/18 04/12/20 History metoprolol succinate 50 mg PO QAM 09/11/18 04/12/20 History nitroglycerin 0.4 mg SUBLINGUAL DIRECTED PRN 09/11/18 04/12/20 History terazosin 1 mg PO HS 09/11/18 04/12/20 History warfarin 5 mg PO SUTUTHSA 09/11/18 04/12/20 History warfarin 10 mg PO MOWEFR 09/11/18 04/12/20 History furosemide 20 mg PO DAILY 07/09/19 04/12/20 History fluticasone propion-salmeterol 1 inh INHALATION Q12H 04/12/20 04/12/20 History [Advair Diskus] Past Med/Surg History Medical History Atrial fibrillation follows with Dr. Brandt Berry in stool BPH (benign prostatic hyperplasia) Chronic obstructive pulmonary disease Degenerative disc disease Fatty liver disease, nonalcoholic GERD (gastroesophageal reflux disease) Hearing deficit Hyperlipidemia Hypertension Hypothyroidism On anticoagulant therapy warfarin daily Sleep apnea cpap Tinnitus of both ears Surgical History History of cardiac cath 2014 x2--only 1 stent History of colonoscopy History of heart artery stent 2015--1 stent History of tooth extraction all upper teeth History of wisdom tooth extraction Family History Mother Diabetes Sister Stroke Other Family history of diabetes mellitus Social History (Updated 04/12/20 @ 15:42 by Criss Cao PA-C) Smoking Status: Never smoker Tobacco Type: Smokeless Tobacco (Dip or Chew) Second Hand Exposure: Yes (father smoked/worked in mines for over 20 yrs); Do You Dip or Chew Tobacco: Yes; Hx Alcohol Use: Yes Alcohol type: beer Alcohol Intake Frequency: Monthly or Less Hx Substance Use: No Preferred Language: Trinidadian Communication Ability: Effective School Fundraising Director Required: No Beliefs That Will Affect Care: None marital status: Current Living Situation: Spouse current occupational status: retired 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 Other Information That Helps Us Care for You: No Feels Safe at Home: Yes Safety Concerns: Feels Safe At This Time Assistive Devices: None, CPAP, Denture - Upper, Glasses and Hearing Aid - Bilateral Review of Systems Review of Systems: All systems reviewed & are unremarkable except as noted in HPI & below Physical Exam Physical Exam: Constitutional: WD/WN, Morbidly obese M, vitals as above, NAD, sitting up in bed, pleasant, conversing easily Head: Normocephalic, Atraumatic Eyes: PERRL, conjunctivae normal, anicteric sclerae ENMT: external ear and nose normal, oropharynx normal Neck: trachea midline, no thyromegaly normal visual inspection Respiratory: normal respiratory effort, lungs clear to auscultation, no wheeze, rales, rhonchi. Normal insp/exp effort, no accessory muscle use Cardiovascular: RRR, no murmur, no edema Vessels: no JVD or carotid bruit Chest: normal inspection of chest Abdomen: protuberant abdomen, normal bowel sounds, soft, nontender, no hepatosplenomegaly Musculoskeletal: no cyanosis or clubbing, extremities motor strength 5/5 Skin: no rashes, warm and dry normal turgor Neurologic: PERRL, EOMI, accommodation nl, no face palsy, no dysarthria CN's II-XI intact bilaterally and moves all extremities Psychiatric: A+Ox3, euthymic affect Lymphatic: no cervical or axillary lymphadenopathy : deferred Results & Data Results & Data ([facility]) Vital Signs (Past 12 Hours) Vital Signs Temp Pulse Resp BP Pulse Ox 04/12/20 14:30 65 16 128/62 95 04/12/20 14:00 65 24 119/76 97 04/12/20 13:31 65 24 130/68 96 04/12/20 12:31 64 14 100/51 L 96 04/12/20 12:01 69 15 139/105 H 96 04/12/20 11:49 67 96 04/12/20 11:31 71 23 110/64 04/12/20 11:02 36.6 C 73 18 96 Laboratory Results Short CBC 04/12/20 04/12/20 Range/Units 11:42 11:42 WBC 9.24 (4.8-10.8) K/uL Hgb 14.6 (14.0-18.0) g/dL Hct 44.3 (42-52) % Plt Count 211 (130-400) K/uL Troponin I 0.041 (0-0.045) ng/ml [facility] 04/12/20 11:42 Sodium 138 Potassium 4.5 Chloride 106 Carbon Dioxide 28 BUN 19 H Creatinine 1.26 Glucose 121 H Calcium 9.2 Cardiac Enzymes 04/12/20 Range/Units 11:42 Troponin I 0.041 (0-0.045) ng/ml Liver Function 04/12/20 Range/Units 11:42 Total Bilirubin 1.2 H (0.2-1) mg/dl AST 23 (15-37) U/L ALT 34 (12-78) U/L Alkaline Phosphatase 80 (45-117) U/L Albumin 3.5 (3.4-5.0) gm/dl Diagnostic Findings Neck CTA: Findings: The examination is mildly limited due to the patient's very large body habitus. There are mild atheromatous changes in both common carotid arteries. The right carotid revealed no evidence of aneurysm and no evidence of dissection. There is no evidence of hemodynamic significant stenosis. The left carotid revealed no evidence of hemodynamic significant stenosis. There is no evidence of aneurysm. There is no evidence of dissection. There is no evidence of hemodynamically significant vertebral stenosis. There is no evidence of vertebral dissection. IMPRESSION: No evidence of hemodynamically significant carotid or vertebral artery stenosis. No evidence of dissection. Head CTA: IMPRESSION: 1. No central vessel occlusion. Mild atherosclerotic plaque without significant stenosis. No intracranial aneurysm. 2. Moderate ethmoid sinus mucosal thickening. Head CT: IMPRESSION: No acute intracranial findings CXR: IMPRESSION: No active disease in the chest. Medications Administered Discontinued Medications Ioversol (Optiray 320 125ml) 118 ml IV ONCE ONE Stop: 04/12/20 13:01 Last Admin: 04/12/20 13:00 Dose: 118 ml Documented by: [id number] ECG Rate (beats per minute): 67 Rhythm: atrial fibrillation Code Status & VTE Plan Code Status Full Code VTE Prophylaxis Plan VTE Prophylaxis will be ordered: No Supervising Physician Co-Signing Physician Notes I have seen and examined the patient with physician physical laboratory assistant and agree with the assessment and plan as above and would like the comment on physical exam General: obese, no acute distress Neurological/Musculoskeletal: speaks in full sentences, no facial droop, left and right upper and lower motor strength appears equal Heart: regular rate Lungs: no crackles, no wheezing Abdomen: soft, nontender, obese Assessment and plan -This is a 69 year old Male who reported that started evening 04/11/2020 around dinner time that he was feeling weakness of left upper extremity and then subsequently also noting left lower extremity weakness. He reported that as he was seen the emergency room on 04/12/2020 the symptoms started to go away and resolve. When seen by hospitalist medicine team for further evaluation in the ED, patient reported he was feeling at his baseline. There did not appear to be any obvious motor deficits on exam -Patient's Neck CTA. Head CTA are generally unremarkable for abnormalities. give IV fluids and follow the renal function -Patient agreed for further testing with Brain MRI and observation overnight -patient already on therapeutic INR with warfarin because of atrial fibrillation. Patient already on aspirin because of history of coronary artery disease with stent. Patient reports that clopidogrel in the past associated with bruising and bleeding -patient already on a statin as atorvastatin 20 mg HS. If his lipid panels returns as suboptimal then consideration should be given to increase statin dosing/intensity. Checking HbA1c -continue other current home dose cardiovascular medications for heart rate control and blood pressure -agree with other assessment and plans as documented by physician physical laboratory assistant -My colleague Dr. Kovacs will be following the patient as hospitalist starting on 04/13/2020
[2020-04-12] MEDS ORDERED: ALBUTEROL HFA 8 GM INHALER INH PRN (15:51)
[2020-04-12] MEDS ORDERED: SODIUM CHLORIDE 0.9% 1000ML 1,000 ML IV SCH (16:45)
[2020-04-12] MEDS: FLUTICASONE/VILANTEROL 200/25MCG 14 PUFFS/INHALER INH SCH (17:35)
[2020-04-12] MEDS: ASPIRIN 81 MG ECTAB PO SCH (21:07)
[2020-04-12] MEDS: TERAZOSIN HCL 1 MG CAP PO SCH (21:07)
[2020-04-12] MEDS: ATORVASTATIN 20 MG TAB PO SCH (21:07)
[2020-04-12] MEDS ORDERED: WARFARIN SOD 5 MG TAB PO ONE (21:38)
--- NOTE | 2020-04-13 06:05 | Electrocardiogram Report ---
Test Reason : Blood Pressure : / mmHG Vent. Rate : 067 BPM Atrial Rate : 102 BPM P-R Int : 000 ms QRS Dur : 084 ms QT Int : 406 ms P-R-T Axes : 000 005 040 degrees QTc Int : 429 ms Atrial fibrillation Low voltage QRS Abnormal ECG When compared with ECG of 09-JUL-2019 02:29, No significant change was found Confirmed by Mahin Rowan ([id number]) on 04/13/2020 6:04:55 AM Referred By: REFERRED SELF Confirmed By:Mahin Rowan
[2020-04-13] MEDS ORDERED: LEVOTHYROXINE SODIUM 137 MCG TABLET PO SCH (06:30)
[2020-04-13] MEDS: lisinopriL 20 MG TAB PO SCH (07:59)
[2020-04-13] MEDS: FLUTICASONE/VILANTEROL 200/25MCG 14 PUFFS/INHALER INH SCH (07:59)
[2020-04-13] MEDS: METOPROLOL SUCC 50MG EXT REL TAB PO SCH (08:00)
[2020-04-13] MEDS: ISOSORBIDE MONO EXTENDED REL 60 MG TABCR PO SCH (08:00)
[2020-04-13] MEDS: FUROSEMIDE 20 MG TAB PO SCH (08:00)
[2020-04-13 08:11] LABS: Basophils # (auto) 0.04 K/uL (0-0.2); Basophils % (auto) 0.5 %; Eosinophils # (auto) 0.29 K/uL (0-0.5); Eosinophils % (auto) 3.9 %; Hematocrit (blood only) 43.4 % (42-52); Hemoglobin 14.4 g/dL (14.0-18.0); Immature Granulocytes # (auto) 0.01 K/uL (0.00-0.02); Immature Granulocytes % (auto) 0.1 %; Lymphocytes # (auto) 1.31 K/uL (1.2-3.4); Lymphocytes % (auto) 17.8 %; Mean Corpuscular Hemoglobin 31.2 pg (25-34); Mean Corpuscular Hgb Conc 33.2 g/dL (32-36); Mean Corpuscular Volume 93.9 fL (80-100); Mean Platelet Volume 9.9 fL (7.4-10.4); Monocytes # (auto) 0.49 K/uL (0.11-0.59); Monocytes % (auto) 6.6 %; Neutrophils # (auto) 5.24 K/uL (1.4-6.5); Neutrophils % (auto) 71.1 %; Platelet Count 187 K/uL (130-400); RDW Coefficient of Variation 13.5 % (11.5-14.5); RDW Standard Deviation 46.5 fL (36.4-46.3); Red Blood Count 4.62 M/uL (4.7-6.1); White Blood Count 7.38 K/uL (4.8-10.8)
--- NOTE | 2020-04-13 08:13 | Magnetic Resonance Report ---
MRI OF THE BRAIN WITHOUT CONTRAST CLINICAL HISTORY: LUE/LLE weakness COMPARISON STUDY: Head CT and CTA head April 12, 2020. TECHNIQUE: Utilizing a 1.5 Zita magnet and dedicated coil, multiplanar, multiecho imaging of the bra in was performed without IV contrast. FINDINGS: There is an 8 mm focus of restricted diffusion within the posterior right frontal lobe, inv olving the centrum semiovale ovale. There is corresponding mild T2 hyperintensity. No additional acut e infarcts are noted. There is no acute hemorrhage. There is no mass effect. Ventricular system is un remarkable. The basilar cisterns are patent. There are no extra-axial collections. Flow-voids for the major intracranial vessels are present. Additional white matter T2 hyperintense foci suggest mild sm all vessel disease. Note is made of mild ethmoid sinus mucosal thickening. No intracranial masses are identified on this unenhanced exam. IMPRESSION: Small acute infarct within the white matter of the posterior right frontal lobe. No mass effect. No hemorrhage. ACT 112: Negative or not required by law. Electronically signed by: Pavan Stockton M.D. 04/13/2020 8:12 AM
[2020-04-13 08:20] LABS: INR 1.9 (0.9-1.1); Prothrombin Time 19.7 Seconds (9.0-12.0)
[2020-04-13 08:41] LABS: BUN Creatinine Ratio 15.5 (10-20); Creatinine Clr Calc Pharmacy 91.2 ml/min; Est GFR (African American) 73.1; Potassium 4.4 mmol/L (3.5-5.1)
[2020-04-13 09:04] LABS: Estimated Average Glucose 140 mg/dl; Hemoglobin A1C 6.5 % (4.5-5.6)
[2020-04-13] MEDS ORDERED: WARFARIN SOD 5 MG TAB PO SCH (16:00)
--- NOTE | 2020-04-13 16:10 | Communication Note ---
Date of Service: April 13, 2020 Charlie is 69 years old is right-handed has chronic atrial fibrillation and presented with the history of an acute onset left upper extremity clumsiness and weakness on Friday and has been found to have a small deep infarction in the right hemisphere in appropriate location to produce this syndrome, has a therapeutic INR and has been on Coumadin and aspirin at home with issues when he was using a combination of Coumadin and Plavix in the past with excessive bleeding His other problems include occupational lung disease, cardiac intermittent hypoxia, rectal bleeding, GERD, sleep apnea, hypertension, hypothyroidism, dyslipidemia, BPH, coronary artery disease, diastolic congestive heart failure, history of Lyme disease and he has had several coronary stents His primary care physician is Dr. Jose Brown and is also followed here in cardiology by Dr. Carlton He is currently being cared for by Dr. Reed Laboratory studies are unremarkable including the INR Home medications include albuterol aspirin 81 mg atorvastatin fluticasone Lasix Isordil levothyroxine lisinopril metoprolol nitroglycerin terra Zosyn, Coumadin MRI scan reveals a deep small infarct in the right frontal lobe appropriate to explain his symptoms CT angiographic studies the head neck showed no evidence for an extracranial source of clot Exam shows a blood pressure 143/76 pulse 59 and a regular temperature is 36 4 O2 saturation 95% is a large framed individual who is awake alert oriented in 3 spheres without cranial nerve deficits such as facial asymmetry facial sensory loss dysarthria extraocular dysmotility or visual field deficits and with only slight clumsiness and drift of the left arm and reduced arm swing on the left while walking without any further evidence of a hemiparesis relative hyperreflexia pathologic reflexes other than a trace Ra sign, significant motor weakness and with only some mild vibratory loss distally Clearly this man has had another embolic event from his atrial fibrillation and at this point the decision regarding additional antiplatelet agents should rest with cardiology who has dealt with him in the past Simplest solution may be to double up on his aspirin and continue the Coumadin which is in the therapeutic range. Other options of course include switching to a novel anticoagulant or adding a full aspirin to his Coumadin but all these choices are going to rest with cardiology who will be following him I suspect he could be discharged within the next day or even today depending on the decision reached regarding future anticoagulation combinations Neurology is going to sign off the case at this point as I do not think we are going to add any additional value to the therapeutic decision making By protocol he probably needs to be seen by neurology and 4 to 6 weeks but in a practical sense he probably really does not The decision will rest with his primary care provider here in the hospital Ketan Seo MD
[2020-04-13] MEDS ORDERED: WARFARIN SOD 5 MG TAB PO ONE (17:30)
[2020-04-13] MEDS: TERAZOSIN HCL 1 MG CAP PO SCH (20:22)
[2020-04-13] MEDS: ASPIRIN 81 MG ECTAB PO SCH (20:22)
[2020-04-13] MEDS: ATORVASTATIN 20 MG TAB PO SCH (20:22)
--- NOTE | 2020-04-13 22:01 | Hospitalist Progress Note ---
Date of Service April 13, 2020 Assessment & Plan (1) Stroke: Presented with weakness / clumsiness of LUE. History of chronic AF on warfarin. CT head did not show any acute findings. CTA cervical and intracranial vessels showed plaque without significant stenoses. MRI brain showed small acute infarct right frontal lobe. Echo not performed because it will not international exchange coordinator. LDL-c = 73. Lipid management as discussed below. Probable cardioembolic stroke despite anticoagulation with warfarin. PT / OT / SURVEILLANCE OBSERVER evaluations. Consult Neuro. Continue ASA + warfarin. Optimal anticoagulant strategy to be determined. Patient reluctant to use clopidogrel due to severe bleeding and bruising in past. Patient reluctant to use DOAC's because of cost. (2) CAD (coronary artery disease): No anginal symptoms. Continue ASA, metoprolol, lisinopril, nitrates, statin. (3) Diastolic CHF, chronic: Chronic left ventricular diastolic heart failure. Compensated. Continue furosemide. (4) Atrial fibrillation: Chronic AF. Rate controlled on metoprolol. Continue anticoagulation with warfarin. (5) Hypertension: Continue metoprolol, lisinopril, isosorbide mononitrate, terazosin. (6) Sleep apnea: Continue CPAP. (7) Dyslipidemia: LDL-c = 73. Increase atorvastatin to 40 mg daily for high-intensity therapy. (8) Hypothyroidism: Continue levothyroxine. (9) DVT prophylaxis: On warfarin for AF. Ambulate. (10) Discharge planning issues: Anticipated discharge to home. Medical follow-up with Dr. Garcia. Admission and Anticipated Discharge Date Admission Date: April 13, 2020 Subjective Recheck for stroke and other problems. Patient seen in their room around 1100. at bedside. Better today. LUE weakness improved. No headache. No other neuro symptoms. Review of Systems: Constitutional- no fever. Cardiac- no chest pain. Pulmonary- no cough or SOB. GI- no nausea, vomiting, diarrhea, melena, hematochezia. - no urinary symptoms. Otherwise, as noted above. Physical Exam Constitutional: no acute distress Respiratory: no respiratory distress Auscultation: lungs clear to auscultation bilaterally Cardiovascular: Rate/Rhythm: + irregularly irregular Vessels: no JVD Extremities: no calf tenderness and no edema Gastrointestinal (Abdomen): normal bowel sounds, soft, nontender, no hepatosplenomegaly Musculoskeletal: Extremities: no cyanosis Skin: no rashes, warm and dry Neurologic: PERRL, EOMI no facial palsy no dysarthria or aphasia motor upper and lower extremities essentially 5/5 Psychiatric: Orientation: alert and oriented x 3 Results & Data Results & Data ([facility]) Vital Signs (Past 12 Hours) Vital Signs Temp Pulse Pulse Resp BP Pulse Ox 04/13/20 19:58 36.6 C 60 20 115/76 96 04/13/20 16:00 63 04/13/20 15:00 36.4 C L 59 L 16 143/76 H 95 04/13/20 11:04 36.6 C 61 20 118/69 95 Laboratory Results Laboratory Results - last 24 hr 04/13/20 04/13/20 04/13/20 07:53 07:53 07:53 WBC 7.38 RBC 4.62 L Hgb 14.4 Hct 43.4 MCV 93.9 MCH 31.2 MCHC 33.2 RDW Std Deviation 46.5 H RDW Coeff of Иван 13.5 Plt Count 187 MPV 9.9 Immature Gran % (Auto) 0.1 Neut % (Auto) 71.1 Lymph % (Auto) 17.8 [place] % (Auto) 6.6 Eos % (Auto) 3.9 Baso % (Auto) 0.5 Neut # (Auto) 5.24 Lymph # (Auto) 1.31 [place] # (Auto) 0.49 Eos # (Auto) 0.29 Baso # (Auto) 0.04 Immature Gran # (Auto) 0.01 PT 19.7 H INR 1.9 H Sodium 139 Potassium 4.4 Chloride 105 Carbon Dioxide 27 Anion Gap 7.0 BUN 18 Creatinine 1.18 Est Cr Clr Drug Dosing 91.2 Est GFR ( Amer) 73.1 Est GFR (Non-Af Amer) 63.0 BUN/Creatinine Ratio 15.5 Glucose 116 H Estimat Average Glucose Hemoglobin A1c Calcium 9.0 Triglycerides 96 Cholesterol 135 LDL Cholesterol, Calc 73 VLDL Cholesterol, Calc 19 HDL Cholesterol 43 Cholesterol/HDL Ratio 3 04/13/20 07:53 WBC RBC Hgb Hct MCV MCH MCHC RDW Std Deviation RDW Coeff of Иван Plt Count MPV Immature Gran % (Auto) Neut % (Auto) Lymph % (Auto) [place] % (Auto) Eos % (Auto) Baso % (Auto) Neut # (Auto) Lymph # (Auto) [place] # (Auto) Eos # (Auto) Baso # (Auto) Immature Gran # (Auto) PT INR Sodium Potassium Chloride Carbon Dioxide Anion Gap BUN Creatinine Est Cr Clr Drug Dosing Est GFR ( Amer) Est GFR (Non-Af Amer) BUN/Creatinine Ratio Glucose Estimat Average Glucose 140 Hemoglobin A1c 6.5 H Calcium Triglycerides Cholesterol LDL Cholesterol, Calc VLDL Cholesterol, Calc HDL Cholesterol Cholesterol/HDL Ratio
[2020-04-14] MEDS ORDERED: LEVOTHYROXINE SODIUM 137 MCG TABLET PO SCH (06:30)
[2020-04-14 07:49] LABS: INR 1.8 (0.9-1.1); Prothrombin Time 18.4 Seconds (9.0-12.0)
[2020-04-14 08:07] LABS: BUN Creatinine Ratio 16.7 (10-20); Calcium 8.9 mg/dl (8.5-10.1); Creatinine Clr Calc Pharmacy 87.3 ml/min; Est GFR (African American) 69.5; Est GFR (Non-African American) 59.9; Potassium 3.8 mmol/L (3.5-5.1)
[2020-04-14] MEDS: FUROSEMIDE 20 MG TAB PO SCH (08:21)
[2020-04-14] MEDS: lisinopriL 20 MG TAB PO SCH (08:21)
[2020-04-14] MEDS: FLUTICASONE/VILANTEROL 200/25MCG 14 PUFFS/INHALER INH SCH (08:21)
[2020-04-14] MEDS: ISOSORBIDE MONO EXTENDED REL 60 MG TABCR PO SCH (08:21)
[2020-04-14] MEDS: METOPROLOL SUCC 50MG EXT REL TAB PO SCH (08:48)
--- NOTE | 2020-04-14 11:29 | Hospitalist Progress Note ---
Date of Service April 14, 2020 Assessment & Plan (1) Stroke: Presented with weakness / clumsiness of LUE. History of chronic AF on warfarin. CT head did not show any acute findings. CTA cervical and intracranial vessels showed plaque without significant stenoses. MRI brain showed small acute infarct right frontal lobe. Echo not performed because it will not globe changer. LDL-c = 73. Lipid management as discussed below. Probable cardioembolic stroke despite anticoagulation with warfarin. Neurology consulted. Antithrombotic strategies considered. Patient refuses to use clopidogrel due to severe bleeding and bruising in past. Patient refuses to use DOAC's because of cost. Continue ASA + warfarin. LUE weakness resolved- L hemiplegia following CVA, having since resolved PT / OT / RANCH SUPERVISOR evaluations- no deficits. No need for therapies after discharge. Ongoing risk factor modification. (2) CAD (coronary artery disease): No anginal symptoms. Continue ASA, metoprolol, lisinopril, nitrates, statin. (3) Diastolic CHF, chronic: Chronic left ventricular diastolic heart failure. Compensated. Continue furosemide. (4) Atrial fibrillation: Chronic AF. Rate controlled on metoprolol. Continue anticoagulation with warfarin. (5) Hypertension: Continue metoprolol, lisinopril, isosorbide mononitrate, terazosin. (6) Sleep apnea: Continue CPAP. (7) Dyslipidemia: LDL-c = 73. Increase atorvastatin to 40 mg daily for high-intensity therapy. (8) Hypothyroidism: Continue levothyroxine. (9) Morbid obesity: Wt 155 kg. BMI 47.8. Morbid obesity with associated medical problems. Hearth healthy diet. (10) DVT prophylaxis: On warfarin for AF. Ambulating.. (11) Discharge planning issues: Discharge to home. Medical follow-up with Dr. Garcia. Admission and Anticipated Discharge Date Admission Date: April 13, 2020 Subjective Recheck for stroke and other problems. Patient seen in their room around 1110. at bedside. Better today. LUE weakness improved. No headache. No other neuro symptoms. No CP or SOB. Did well with therapy evals- no issues; no need for rehab. Ambulating. Review of Systems: Constitutional- no fever. Cardiac- no chest pain. Pulmonary- no cough or SOB. GI- no nausea, vomiting, diarrhea, melena, hematochezia. - no urinary symptoms. Otherwise, as noted above. Physical Exam Constitutional: no acute distress Respiratory: no respiratory distress Auscultation: lungs clear to auscultation bilaterally Cardiovascular: Rate/Rhythm: + irregularly irregular Vessels: no JVD Extremities: no calf tenderness and no edema Gastrointestinal (Abdomen): normal bowel sounds, soft, nontender, no hepatosplenomegaly Musculoskeletal: Extremities: no cyanosis Skin: no rashes, warm and dry Neurologic: alert, oriented PERRL, EOMI no facial palsy no dysarthria or aphasia motor strength upper and lower extremities nonfocal Psychiatric: Orientation: alert and oriented x 3 Results & Data Results & Data ([facility]) Vital Signs (Past 12 Hours) Vital Signs Temp Pulse Resp BP Pulse Ox 04/14/20 08:07 36.2 C L 54 L 18 119/78 95 04/14/20 04:00 36.6 C 57 L 18 91/52 L 96 Laboratory Results 04/13/20 07:53 04/14/20 07:11
[2020-04-14] MEDS ORDERED: STROKE PATIENT DISCHARGE STA (11:33)
--- NOTE | 2020-04-14 12:14 | Pharmacy Report ---
Pharmacist Stroke Counseling - Date of Service April 14, 2020 - Scope: Pharmacy has been consulted to provide medication discharge counseling for this patient admitted with ischemic stroke as per the Pharmacist Discharge Counseling for Stroke Patients Protocol. - Medications on Discharge: Home Medications Medication Instructions Recorded Confirmed albuterol sulfate [Ventolin HFA] 2 puff INHALATION QID 09/11/18 04/12/20 aspirin 81 mg PO HS 09/11/18 04/12/20 isosorbide mononitrate 60 mg PO QAM 09/11/18 04/12/20 levothyroxine 68.5 mcg PO MOWEFR 09/11/18 04/12/20 levothyroxine 137 mcg PO SUTUTHSA 09/11/18 04/12/20 lisinopril 20 mg PO QAM 09/11/18 04/12/20 metoprolol succinate 50 mg PO QAM 09/11/18 04/12/20 nitroglycerin 0.4 mg SUBLINGUAL DIRECTED PRN 09/11/18 04/12/20 terazosin 1 mg PO HS 09/11/18 04/12/20 warfarin 5 mg PO MOWEFR 09/11/18 04/14/20 warfarin 10 mg PO SUTUTHSA 09/11/18 04/14/20 furosemide 20 mg PO DAILY 07/09/19 04/12/20 fluticasone propion-salmeterol 1 inh INHALATION Q12H 04/12/20 04/12/20 [Advair Diskus] New Rx's Medication Instructions Recorded atorvastatin 40 mg PO HS #30 tab 04/14/20 - Action: The above medications, specifically ones for stroke treatment/prophylaxis, have been reviewed in detail with the patient and/or patient novelties sales representative(s) prior to discharge. This includes indication, common adverse reactions, drug interactions, and medication administration. Medication counseling has been employed using the teach-back method to ensure understanding. - Outcome: The patient and/or patient novelties sales representative(s) have demonstrated understanding of the medications. Additional comments: Met with patient and his prior to discharge. Reviewed new medications to prevent stroke including increased dosing of Atorvastatin, aspirin, and warfarin. 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 Reviewed how to use the medications, what to do if doses are missed, common drug interactions, common side effects, what to watch out for while using the med ications, and how to store the medications. Pt verbalized understanding and restated the rodriguez points of each medication. Thank you for allowing pharmacy to be involved in the care of this patient. Please call [phone] with any additional questions
[2020-04-14] MEDS ORDERED: WARFARIN SOD 10 MG TAB PO SCH (16:00)
--- NOTE | 2020-04-15 08:18 | Discharge Summary ---
Date of Service Date of Admission: 04/12/20 Date of Discharge: 04/14/20 Admission HPI Per Admitting Provider This is a 69-year-old male who has significant past medical history of chronic atrial fibrillation anticoagulated on warfarin, CAD with history of RCA stent in 2015, HTN, HLD, occupational lung disease/COPD, BPH, AMADA who presents to ED secondary to left-sided weakness started last evening. His is at bedside. Patient was since [place] when he developed weakness to left upper extremity, specifically hand. Folic he was having difficulty holding things. Stated when he was using his hand on the steering wheel, "that is what was keeping it up." As soon as he would take it off his hand would drop. He went to bed last evening with sx still present. When he woke up this morning he felt like his Left leg felt, "funny," and weak as well. at beside denies any slurred speech, facial drop, eye gaze, luis miguel paralysis. He has never experienced before in past. He denies any pain to extremities or pins/needles sensation. Sx have resolved since being in ED. He denies any recent illness, f/c/s, dizziness, lightheaded, change vision/hearing, chest pain, sob, n/v/d, abdominal pain, change in bowel or urinary habits. He admits to being recently dx with Lumbar spinal stenosis and he had a MRI a few weeks ago at [facility]. In ED pt remained hemodynamically stable, although his BP was labile. Symptoms have resolved. He underwent CTA head/neck, CT head w/o which were w/o acute abnormality, stenosis or dissection. INR therapeutic at 2.2 Principal Diagnosis ischemic stroke, right frontal lobe, probably cardioembolic Discharge Data Allergies Allergy/AdvReac Type Severity Reaction Status Date / Time tiotropium Allergy Mild Rash Verified 04/12/20 13:37 [From Spiriva with HandiHaler] succinylcholine Allergy Unknown Verified 04/12/20 14:38 Consultations 04/12/20 13:54 ED Decision to Admit Stat 04/12/20 15:49 Consult Case Management - Discharge Planning Routine Consult Neurology Routine Ordered Studies 04/12/20 12:18 CT angio head w con Stat CT angio neck with con Stat CT head/brain wo con Stat 04/12/20 15:10 MR brain wo con Routine Diabetes Follow up Diabetes Follow-up Needed for Newly Diagnosed Diabetes Hospital Course (1) Stroke: Presented with weakness / clumsiness of LUE. History of chronic AF on warfarin. CT head did not show any acute findings. CTA cervical and intracranial vessels showed plaque without significant stenoses. MRI brain showed small acute infarct right frontal lobe. EKG showed chronic AF with controlled rate. Echo not performed because it would not change advisor. LDL-c = 73. Lipid management as discussed below. Probable cardioembolic stroke despite anticoagulation with warfarin. Neurology consulted. Antithrombotic strategies considered. Patient refuses to use clopidogrel due to severe bleeding and bruising in past. Patient refuses to use DOAC's because of cost. Continue ASA + warfarin. 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 No need for therapies after discharge. Ongoing risk factor modification. (2) CAD (coronary artery disease): No anginal symptoms. Continue ASA, metoprolol, lisinopril, nitrates, statin. (3) Diastolic CHF, chronic: Chronic left ventricular diastolic heart failure. Compensated. Continue furosemide. (4) Atrial fibrillation: Chronic AF. Rate controlled on metoprolol. Continue anticoagulation with warfarin. (5) Hypertension: Continue metoprolol, lisinopril, isosorbide mononitrate, terazosin. (6) Sleep apnea: Continue CPAP. (7) Dyslipidemia: LDL-c = 73. Increase atorvastatin to 40 mg daily for high-intensity therapy. (8) Hypothyroidism: Continue levothyroxine. (9) Morbid obesity: Wt 155 kg. BMI 47.8. Morbid obesity with associated medical problems. Hearth healthy diet. (10) DVT prophylaxis: On warfarin for AF. Ambulating.. (11) Discharge planning issues: Discharge to home. Medical follow-up with Dr. Garcia. Total Time Total Time Spent Total Time Spent (In Minutes): 40 Discharge Plan Discharge Items Patient Disposition: Home - Self-Care Reason For Visit: weakness of left arm and hand Discharge Diagnosis: small stroke Activity: Resume your previous activity Non-emergency contact: Primary Care Provider, Hospitalist and Flight Information Expediter Call non-emergency contact if: you have any medication questions Follow-up/Referrals: Jose Garcia MD [Primary Care Provider] - 04/20/20 3:00 pm (Date & Time 04/20/2020 3:00 PM Jose Garcia MD [facility] ) Diet: Heart Healthy Add Attending Provider Instructions: MEDICATION CHANGES: atorvastatin (Lipitor) at bedtime Increase dose from 20 to 40 mg. Higher dose may help keep mild blockage in arteries from getting worse. warfarin (Coumadin) Take 10 mg today (04/14/20), then resume previous schedule. Continue to coordinate dosing with [facility]. SUMMARY OF TEST RESULTS: CT scan of brain did not show any apparent stroke, but MRI showed a small stroke in the right brain. CT angiograms to look at blood vessels in the neck and brain showed some plaque (hardening of arteries), but no serious blockage. INR results: 2.2 04/12 1.9 04/13 1.8 04/14 LDL cholesterol level 73. RECOMMENDATIONS FOR FOLLOW-UP: Management of warfarin with [facility]. INSTRUCTIONS FOR STROKE: Risk Factors for Stroke: You can reduce your chances of stroke by working with your medical provider to adopt a healthy lifestyle. Some specific ways to lower your chance of stroke are: * If you are a smoker, now is the time to stop smoking cigarettes * If you are diabetic, improve the control of your blood sugars * Avoid excessive amounts of alcohol * Control high blood pressure * Lose weight if you are overweight * Be sure to lead an active lifestyle * Eat a healthy diet low in salt, cholesterol and fat You should know about other risk factors for stroke that you are unable to control. These include: * Age 55 years or older * Male gender * Certain racial groups: , or / * Family History of Stroke, Mini stroke or Heart Attack * Sickle Cell Disease Follow Up: It is important for you to keep your follow up appointments with your medical provider. Who to Call and When: Medical Emergencies: Call 911 immediately if you experience any of the following warning signs and symptoms of Stroke: * Sudden numbness or weakness of the face, arm or leg, especially on one side of the body * Sudden confusion, trouble speaking or understanding * Sudden trouble seeing in one or both eyes * Sudden trouble walking, dizziness, loss of balance or coordination * Sudden severe headache with no cause Do not delay calling 911 if you experience any warning signs or symptoms of a stroke. Delay in seeking medical attention may affect what treatments can be given to you. . OTHER INSTRUCTIONS: Seek medical attention if you have: * severe headache, changes of vision, difficulty speaking, weakness of arms or legs * temperature above 101 * chest pain or trouble breathing * abdominal pain, nausea, vomiting * diarrhea, dark stools or bloody stools * any unanswered questions or concerns Call 911 if symptoms are severe. Please take good care of yourself. Call if you have any questions or problems. You can reach a [facility] hospitalist on duty at [facility] 24 hours a day by calling [phone]. My cell # is [phone]. Pending Studies at Discharge: No Stand-Alone Forms: Medications to Prevent Stroke, My [facility], Smoking Cessation Medications and DC Order Prescriptions: New atorvastatin 40 mg tablet 40 mg PO HS Qty: 30 RF: 5 Continued furosemide 20 mg tablet 20 mg PO DAILY RF: 0 metoprolol succinate 50 mg Tablet Extended Release 24 Hr 50 mg PO QAM RF: 0 lisinopril 20 mg Tablet 20 mg PO QAM RF: 0 terazosin 1 mg Capsule 1 mg PO HS RF: 0 aspirin 81 mg Tablet,Delayed Release (Dr/Ec) 81 mg PO HS RF: 0 isosorbide mononitrate 60 mg Tablet Extended Release 24 Hr 60 mg PO QAM RF: 0 warfarin 5 mg Tablet 5 mg PO MOWEFR RF: 0 warfarin 5 mg Tablet 10 mg PO SUTUTHSA RF: 0 nitroglycerin 0.4 mg Tablet, Sublingual 0.4 mg Sublingual DIRECTED PRN (Reason: Angina) RF: 0 albuterol sulfate [Ventolin HFA] 90 mcg/actuation Hfa Aerosol Inhaler 2 puff INHALATION QID RF: 0 levothyroxine 137 mcg Capsule 68.5 mcg PO MOWEFR RF: 0 levothyroxine 137 mcg Capsule 137 mcg PO SUTUTHSA RF: 0 fluticasone propion-salmeterol [Advair Diskus] 250-50 mcg/dose Blister With Device 1 inh INHALATION Q12H RF: 0 Discontinued atorvastatin 20 mg Tablet 20 mg PO HS RF: 0 Discharge Orders: Discharge Order (Routine); Ordered 04/14/20 Ordered By: Ketan Wilson/Other Patient Handouts: Managing Type 2 Diabetes, Diabetes: Meal Planning, A1C Admission Data Admit Date/Time: 04/13/20 08:19 Attending Provider: Ketan Reed Admit Provider: Lyle Mccauley Primary Care Provider: Jose Garcia Other Providers: Lyle Mccauley ; Ketan Seo ; Anum Kovacs I. Other Interventions: Discharge Summary Assessment (RN) Last Done: 04/14/20 11:55
== END 2020-04-14 12:25 | disposition home or self-care (01) | DRG 65 ==
LOC: 2S 10:57 → ED 10:57 → 2S 15:27 → SUATTDRO 15:46

== ENCOUNTER 2023-09-11 19:17 | Inpatient (IN) ==
--- NOTE | 2023-09-11 19:58 | Emergency Department Note ---
History of Present Illness General Chief complaint: Leg Injury/Pain Stated complaint: PAIN IN RIGHT LEG Time Seen by Provider: 09/11/23 19:42 History of Present Illness Maximum Pain Intensity: 8 This is a 72-year-old male who presents to the emergency department via private vehicle with complaints of "pain in right leg". The patient notes over the past month he has been experiencing right low back pain that radiates down the right posterior leg to the level of the knee. He states that it is worse with immobilization and better when he is up walking. He states that he was seen here recently a few days ago for evaluation of the same pain. He reached out to his PCP and was able to have an MRI performed of the L-spine today. He notes that he did receive a phone call about the MRI findings from his PCP and is scheduled to see a life enrichment specialist later in September of this year. The patient denies any lower extremity weakness, bowel or bladder incontinence, numbness or tingling in the genital region. The patient denies any history of spine surgery. No fevers. No chest pain or shortness of breath. No abdominal pain. Home Medications Medication Instructions Recorded Confirmed Type aspirin 81 mg tablet,delayed 81 mg PO HS 09/11/18 09/11/23 History release isosorbide mononitrate 60 mg 60 mg PO QAM 09/11/18 09/11/23 History tablet,extended release 24 hr lisinopril 20 mg tablet 20 mg PO QAM 09/11/18 09/11/23 History metoprolol succinate 50 mg 50 mg PO QAM 09/11/18 09/11/23 History tablet,extended release 24 hr nitroglycerin 0.4 mg sublingual 0.4 mg sublingual DIRECTED PRN 09/11/18 09/11/23 History tablet Angina terazosin 1 mg capsule 1 mg PO HS 09/11/18 09/11/23 History warfarin 5 mg tablet 10 mg PO DIRECTED 09/11/18 09/11/23 History warfarin 5 mg tablet See Rx Instructions .Route .COMPLEX 09/11/18 09/11/23 History furosemide 20 mg tablet 20 mg PO DAILY 07/09/19 09/11/23 History fluticasone 250 mcg-salmeterol 50 1 inh inhalation Q12H 04/12/20 09/11/23 History mcg/dose blistr powdr for inhalation (Advair Diskus) atorvastatin 40 mg tablet 40 mg PO HS #30 tabs 04/14/20 09/11/23 Rx albuterol sulfate 90 mcg/actuation 2 puff inhalation Q6H PRN 12/13/20 09/11/23 History aerosol inhaler (Ventolin HFA) Shortness Of Breath levothyroxine 137 mcg tablet 68.5 mcg PO 3XWK 12/14/22 09/11/23 History levothyroxine 137 mcg tablet 137 mcg PO 4XWK 12/14/22 09/11/23 History albuterol sulfate 2.5 mg/3 mL 2.5 mg inhalation Q4H PRN SHORT OF 09/08/23 09/11/23 History (0.083 %) solution for nebulization BREATH/COUGH/WHEEZING gabapentin 100 mg capsule 100 mg PO Q8H PRN pain #30 caps 09/08/23 09/11/23 Rx nystatin 100,000 unit/mL oral 5 ml PO QID 09/08/23 09/11/23 History suspension 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 Past Med/Surg History Medical History Cerebrovascular disease 04/12/20 ischemic stroke, right frontal, probably cardioembolic Morbid obesity Stroke Degenerative disc disease BPH (benign prostatic hyperplasia) Fatty liver disease, nonalcoholic GERD (gastroesophageal reflux disease) Hypothyroidism On anticoagulant therapy warfarin daily Tinnitus of both ears Hearing deficit Hypertension Atrial fibrillation follows with Dr. Carlton Sleep apnea cpap Chronic obstructive pulmonary disease History of Lyme disease Diastolic CHF, chronic "echo 02/24/15 - grade II diastolic dysfunction, EF 60-65%" CAD (coronary artery disease) "cardiac cath 02/23/15 - occluded left circumflex, HERACLIO to RCA " Dyslipidemia Surgical History History of colonoscopy History of tooth extraction all upper teeth History of wisdom tooth extraction History of heart artery stent 2014--1 stent History of cardiac cath 2015 x2--only 1 stent Family History Mother Diabetes Sister Stroke Other Family history of diabetes mellitus Social History Smoking Status: Never smoker Tobacco Type: Smokeless Tobacco (Dip or Chew) Second Hand Exposure: No; Do You Dip or Chew Tobacco: Yes; Hx Alcohol Use: No Hx Substance Use: No Preferred Language: Turkmen Communication Ability: Effective Thermostat Maker Required: No Beliefs That Will Affect Care: None marital status: Current Living Situation: Spouse current occupational status: retired 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 Other Information That Helps Us Care for You: No Feels Safe at Home: Yes Assistive Devices: CPAP Review of Systems A total of 10 systems reviewed and were otherwise negative Physical Exam Vital Signs Vital Signs - 24 hr 09/11/23 19:23 09/11/23 22:45 Temperature 36.6 C Temperature Source Temporal Artery Scan Pulse Rate 87 Pulse Rate [Finger] 68 Respiratory Rate 20 20 Respiratory Effort / Characteristics Non-Labored Spontaneous Respiratory Depth Normal Blood Pressure 120/79 Blood Pressure [Right Arm] 136/89 Blood Pressure Mean 92 Blood Pressure Mean [Right Arm] 104 Pulse Oximetry 93 94 Oxygen Delivery Method Room Air Room Air Sepsis Recent Fever Within 48 Hours No Sepsis New/Unexplained Change in Mental Status No Sepsis Action Taken by Nursing No Action Required VITAL SIGNS - Vital signs and nursing notes were reviewed. Stable and afebrile. GENERAL -72-year-old male appearing his stated age who is in no acute distress. Communicates well with provider and answers questions appropriately. SKIN - Without rashes. No meningeal or petechial rash. Skin overlying the low back is unremarkable. HEAD - NC/AT. EYES - Sclera anicteric. MOUTH/OROPHARYNX - Without perioral cyanosis. NECK - Neck with FROM. No nuchal rigidity. LUNGS - CTA CARDIAC - RRR ABDOMEN - Abdominal contour normal without pulsations or visible masses. BS normoactive all four quadrants. No tenderness, palpable masses, hepatosplenomegaly, or ascites noted. MUSCULOSKELETALthere is no reproducible tenderness to palpation overlying the L-spine or paraspinous musculature. EXTREMITIES - No clubbing or peripheral cyanosis. +5/5 strength noted in UE/LE bilaterally. Patient able to stand, axial load and ambulate independently. NEUROLOGIC - Cranial nerves grossly intact. Patellar reflexes +2/4. PSYCH - A&Ox3 and cooperates fully with examiner. Pt is very pleasant and interacts well with examiner. Course Administered Medications Discontinued Medications Hydromorphone HCl (Hydromorphone Inj 0.5 Mg/0.5 Ml Syr) 0.25 mg IV NOW STA Stop: 09/11/23 20:33 Last Admin: 09/11/23 20:58 Dose: 0.25 mg Documented By: TALITA Hydromorphone HCl (Hydromorphone Inj 0.5 Mg/0.5 Ml Syr) 0.25 mg IV NOW STA Stop: 09/11/23 21:52 Last Admin: 09/11/23 21:54 Dose: 0.25 mg Documented By: TALITA Lidocaine (Lidocaine 5% 1 Patch) 1 patch TD NOW STA Stop: 09/11/23 20:31 Last Admin: 09/11/23 20:58 Dose: 1 patch Documented By: TALITA Miscellaneous (Remove Lidoderm Patch) 1 each N/A DAILY@2100 ZINA Stop: 10/11/23 20:59 Last Admin: 09/11/23 21:23 Dose: Not Given Documented By: DOUG Medical Decision Making Laboratory Data 09/11/23 21:00 09/11/23 21:00 Lab Results 09/11/23 Range/Units 21:00 WBC 10.00 (4.8-10.8) K/ul RBC 3.82 L (4.70-6.10) M/uL Hgb 11.8 L (14.0-18.0) g/dl Hct 36.1 L (42.0-52.0) % MCV 94.5 (80.0-100.0) fL MCH 30.9 (25.0-34.0) pg MCHC 32.7 (32.0-36.0) g/dL RDW Std Deviation 48.5 H (36.4-46.3) fL RDW Coeff of Иван 14.0 (11.5-14.5) % Plt Count 227 (130-400) K/uL MPV 9.4 (9.4-12.4) fL Immature Gran % (Auto) 0.4 % Neut % (Auto) 73.3 % Lymph % (Auto) 14.6 % [place] % (Auto) 8.6 % Eos % (Auto) 2.6 % Baso % (Auto) 0.5 % Neut # (Auto) 7.33 H (1.40-6.50) K/uL Lymph # (Auto) 1.46 (1.20-3.40) K/uL [place] # (Auto) 0.86 H (0.11-0.59) K/uL Eos # (Auto) 0.26 (0.00-0.50) K/uL Baso # (Auto) 0.05 (0.00-0.20) K/uL Immature Gran # (Auto) 0.04 (0.01-0.20) K/uL PT 22.7 H (9.0-12.0) Seconds INR 2.2 H (0.9-1.1) Sodium 142 (136-145) mmol/L Potassium 3.9 (3.5-5.1) mmol/L Chloride 107 (98-107) mmol/L Carbon Dioxide 26 (21-32) mmol/L Anion Gap 9 (3-11) BUN 20 (6-23) mg/dl Creatinine 1.04 (0.6-1.4) mg/dl Est Cr Clr Drug Dosing 97.1 ml/min Est GFR ( Amer) 83.3 ml/min Est GFR (Non-Af Amer) 71.9 ml/min BUN/Creatinine Ratio 19.2 (10-20) Glucose 118 H (70-99(Fasting)) mg/dl Calcium 8.5 L (8.6-10.3) mg/dl Total Bilirubin 0.8 (0.2-1.0) mg/dl AST 21 (13-39) U/L ALT 17 (7-52) U/L Alkaline Phosphatase 81 (34-104) U/L Total Protein 6.7 (6.0-8.3) gm/dl Albumin 3.9 (3.4-5.0) gm/dl Globulin 2.8 (2.5-4.0) gm/dl Albumin/Globulin Ratio 1.4 (0.9-2) MDM Narrative Patient was seen and evaluated as above in room D05. Review was performed of triage nursing notes and vital signs. After obtaining a thorough history and physical examination the above work up was performed. Patient presents to us today for evaluation of ongoing right leg pain over the past month that is worsening and now has not really slept over the past 3 days secondary to pain. He tried tramadol today without any relief of his pain. He was seen here in the ED recently and gabapentin without any relief of his pain. He had an outpatient MRI today which was performed and he received a phone call from his PCP about the results. Per review of the record, there is "interval appearance of predominantly T1 hypointense and T2 hyperintense marrow replacing lesions in the S1 and S2 vertebral bodies and L3 spinous process. Differential considerations include metastatic disease versus multiple myeloma. Endplate centered predominantly T1 and T2 hyperintense lesions above in the L2 and L3 vertebrae. Diffuse considerations include Schmorl nodes, metastatic disease and myeloma. Multilevel degenerative changes in the lumbar spine as described above, more pronounced at L4-L5 level with resultant mild to moderate spinal canal stenosis and mild to moderate bilateral neuroforaminal stenosis at this level." Options of care were discussed with the patient. Patient initially respectfully declined pain medicine but upon each reassessment seems to be uncomfortable secondary to pain and is moving about the exam room trying to find a comfortable position. IV analgesia was ordered with some relief of pain. Pain continued and a second dose was ordered. He patient notes he really has not slept over the past 3 days. He tried tramadol earlier today without any change of his pain. He had gabapentin prescribed a few days ago without any change in his pain. In discussing options, patient does prefer inpatient management for pain control which I believe is reasonable. Case discussed with the hospitalist service. Please refer to further documentation regarding his stay. Presentation and exam not consistent with that of cauda equina syndrome. Labs reveal no leukocytosis. Anemia noted with hemoglobin at 11.8. INR 2.2. No evidence of kidney or liver failure. Hyperglycemia 118. GCS: 15 In the evaluation and treatment of this patient the following differential diagnoses were entertained: Fracture, dislocation, subluxation, contusion, epidural abscess, epidural hematoma, metastatic disease, among others Impression & Plan Low back pain, Right lumbar radiculopathy Discharge Plan Visit Data Chief Complaint: Leg Injury/Pain Stated Complaint: PAIN IN RIGHT LEG ED Provider: Jamshid Cobos ED Midlevel Provider: Marty Wallace Discharge Problem: Low back pain, Right lumbar radiculopathy Patient Disposition: Admitted As Inpatient Condition: Good Discharge Instructions Interventions: ED Discharge Assessment Last Done: 09/12/23 00:59
--- NOTE | 2023-09-11 20:17 | Emergency Department Note ---
ED Visit Note I was consulted by the Advanced Practice Provider, Marty Wallace PA-C. I personally made/approved the management plan and take responsibility for the patient management. I performed a substantive portion of the visit. This includes the aspects of: -History/Physical/Personally seeing the patient -MDM .
[2023-09-11] MEDS: LIDOCAINE 5% 1 PATCH TD STA (20:58)
[2023-09-11] MEDS: HYDROmorphone INJ 0.5 MG/0.5 ML SYR IV STA ×2 (20:58→21:54)
[2023-09-11 21:08] LABS: Basophils # (auto) 0.05 K/uL (0.00-0.20); Basophils % (auto) 0.5 %; Eosinophils # (auto) 0.26 K/uL (0.00-0.50); Eosinophils % (auto) 2.6 %; Hematocrit (blood only) 36.1 % (42.0-52.0); Hemoglobin 11.8 g/dl (14.0-18.0); Immature Granulocytes # (auto) 0.04 K/uL (0.01-0.20); Immature Granulocytes % (auto) 0.4 %; Lymphocytes # (auto) 1.46 K/uL (1.20-3.40); Lymphocytes % (auto) 14.6 %; Mean Corpuscular Hemoglobin 30.9 pg (25.0-34.0); Mean Corpuscular Hgb Conc 32.7 g/dL (32.0-36.0); Mean Corpuscular Volume 94.5 fL (80.0-100.0); Mean Platelet Volume 9.4 fL (9.4-12.4); Monocytes # (auto) 0.86 K/uL (0.11-0.59); Monocytes % (auto) 8.6 %; Neutrophils # (auto) 7.33 K/uL (1.40-6.50); Neutrophils % (auto) 73.3 %; Platelet Count 227 K/uL (130-400); RDW Standard Deviation 48.5 fL (36.4-46.3); Red Blood Count 3.82 M/uL (4.70-6.10)
[2023-09-11 21:18] LABS: INR 2.2 (0.9-1.1); Prothrombin Time 22.7 Seconds (9.0-12.0)
[2023-09-11 21:37] LABS: Albumin Globulin Ratio 1.4 (0.9-2); Albumin Level 3.9 gm/dl (3.4-5.0); BUN Creatinine Ratio 19.2 (10-20); Bilirubin,Total 0.8 mg/dl (0.2-1.0); Calcium 8.5 mg/dl (8.6-10.3); Creatinine Clr Calc Pharmacy 97.1 ml/min; Est GFR (African American) 83.3 ml/min; Est GFR (Non-African American) 71.9 ml/min; Globulin 2.8 gm/dl (2.5-4.0); Potassium 3.9 mmol/L (3.5-5.1); Total Protein 6.7 gm/dl (6.0-8.3)
--- NOTE | 2023-09-11 23:12 | History & Physical Report ---
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 Patient was in the ER on September 08 with back pain and was discharged on gabapentin and Lidoderm patch. Patient followed up with PCP. Had MRI of back today which showed lesions in T1 and T2 and S1 is S2 vertebral bodies and in his L3 spinous process and differential considerations include metastatic disease versus multiple myeloma also showed mild to moderate spinal stenosis. PCP was trying to talk to orthospine at [place] tomorrow and advised to come to the ER if the pain gets worse. Currently with IV pain medicine in the ER pain is under control now. He is feeling much better. He is ambulating at home. Denies any bowel or bladder incontinence. Denies any fevers. Denies any chest pain or shortness of breath currently. No nausea. No abdominal pain. No headache. No runny nose or sore throat. No cough. No fever. Appetite is okay. Currently hemodynamically stable. Back pain Radiating to right leg Had MRI scan today as outpatient:IMPRESSION 1. Interval appearance of predominately T1 hypointense and T2 hyperintense marrow replacing lesions in the S1 and S2 vertebral bodies and L3 spinous process. Differential considerations include metastatic disease versus multiple myeloma. 2. Endplate centered predominantly T1 and T2 hyperintense lesions involving the L2 and L3 vertebrae. Diffuse considerations include Schmorl's nodes, metastatic disease and myeloma. 3. Multilevel degenerative changes in the lumbar spine as described above, more pronounced at L4-L5 level with resultant [id number] spinal canal stenosis and [id number] bilateral neural foraminal stenosis at this level. PCP trying to talk to orthospine [place] tomorrow. Pain control Will consult pain management a.m. Workup for metastatic disease/myeloma inpatient versus outpatient PT OT History of CAD s/p stent On aspirin, statin, Imdur, metoprolol succinate Will monitor History of obstructive sleep apnea CPAP nightly Morbid obesity Needs counseling History of CVA On aspirin and statin History of A-fib On metoprolol succinate and Coumadin INR 2.2 Hypothyroidism On Synthyroid Diabetes Not on meds Sliding scale Will follow HbA1c levels Chronic diastolic CHF Monitor for volume overload Continue home Lasix BPH On terazosin Hypertension On metoprolol, lisinopril, Imdur, terazosin and Lasix Will monitor DVT prophylaxis On Coumadin We will monitor PT/INR Disposition Medical floor Full code History of Present Illness Chief Complaint: Severe back pain Primary Care Provider: Jose Garcia MD 72-year-old male with past medical history significant for dyslipidemia, hypothyroidism, diabetes, mixed restrictive and obstructive lung disease, occupational lung disease, obstructive sleep apnea on CPAP, 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 Patient was in the ER on September 08 with back pain and was discharged on gabapentin and Lidoderm patch. Patient followed up with PCP. Had MRI of back today which showed lesions in T1 and T2 and S1 is S2 vertebral bodies and in his L3 spinous process and differential considerations include metastatic disease versus multiple myeloma also showed mild to moderate spinal stenosis. PCP was trying to talk to orthospine at [place] tomorrow and advised to come to the ER if the pain gets worse. Currently with IV pain medicine in the ER pain is under control now. He is feeling much better. He is ambulating at home. Denies any bowel or bladder incontinence. Denies any fevers. Denies any chest pain or shortness of breath currently. No nausea. No abdominal pain. No headache. No runny nose or sore throat. No cough. No fever. Appetite is okay. Currently hemodynamically stable. Past medical history. As mentioned above Past surgical history. Colonoscopy. Cardioversion. Social history. . No smoking. No alcohol. No drug use. Family history. Mother had diabetes. Hypertension. Cirrhosis. Father had emphysema. Psoriasis. Sister had cancer. History of stroke. Brother haS A- fib. Brother has emphysema. 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 Home Medications Medication Instructions Recorded Confirmed Type aspirin 81 mg tablet,delayed 81 mg PO HS 09/11/18 09/11/23 History release isosorbide mononitrate 60 mg 60 mg PO QAM 09/11/18 09/11/23 History tablet,extended release 24 hr lisinopril 20 mg tablet 20 mg PO QAM 09/11/18 09/11/23 History metoprolol succinate 50 mg 50 mg PO QAM 09/11/18 09/11/23 History tablet,extended release 24 hr nitroglycerin 0.4 mg sublingual 0.4 mg sublingual DIRECTED PRN 09/11/18 History tablet Angina terazosin 1 mg capsule 1 mg PO HS 09/11/18 09/11/23 History warfarin 5 mg tablet 10 mg PO DIRECTED 09/11/18 09/11/23 History warfarin 5 mg tablet See Rx Instructions .Route .COMPLEX 09/11/18 09/11/23 History furosemide 20 mg tablet 20 mg PO DAILY 07/09/19 09/11/23 History fluticasone 250 mcg-salmeterol 50 1 inh inhalation Q12H 04/12/20 09/11/23 History mcg/dose blistr powdr for inhalation (Advair Diskus) atorvastatin 40 mg tablet 40 mg PO HS #30 tabs 04/14/20 09/11/23 Rx albuterol sulfate 90 mcg/actuation 2 puff inhalation Q6H PRN 12/13/20 09/11/23 History aerosol inhaler (Ventolin HFA) Shortness Of Breath levothyroxine 137 mcg tablet 68.5 mcg PO 3XWK 12/14/22 09/11/23 History levothyroxine 137 mcg tablet 137 mcg PO 4XWK 12/14/22 09/11/23 History albuterol sulfate 2.5 mg/3 mL 2.5 mg inhalation Q4H PRN SHORT OF 09/08/23 09/11/23 History (0.083 %) solution for nebulization BREATH/COUGH/WHEEZING gabapentin 100 mg capsule 100 mg PO Q8H PRN pain #30 caps 09/08/23 09/11/23 Rx nystatin 100,000 unit/mL oral 5 ml PO QID 09/08/23 09/11/23 History suspension Past Med/Surg History Medical History Cerebrovascular disease 04/12/20 ischemic stroke, right frontal, probably cardioembolic Morbid obesity Stroke Degenerative disc disease BPH (benign prostatic hyperplasia) Fatty liver disease, nonalcoholic GERD (gastroesophageal reflux disease) Hypothyroidism On anticoagulant therapy warfarin daily Tinnitus of both ears Hearing deficit Hypertension Atrial fibrillation follows with Dr. Carlton Sleep apnea cpap Chronic obstructive pulmonary disease History of Lyme disease Diastolic CHF, chronic "echo 02/24/15 - grade II diastolic dysfunction, EF 60-65%" CAD (coronary artery disease) "cardiac cath 02/23/15 - occluded left circumflex, HERACLIO to RCA " Dyslipidemia Surgical History History of colonoscopy History of tooth extraction all upper teeth History of wisdom tooth extraction History of heart artery stent 2014--1 stent History of cardiac cath 2015 x2--only 1 stent Family History Mother Diabetes Sister Stroke Other Family history of diabetes mellitus Social History Smoking Status: Never smoker Tobacco Type: Smokeless Tobacco (Dip or Chew) Second Hand Exposure: No; Do You Dip or Chew Tobacco: Yes; Hx Alcohol Use: No Hx Substance Use: No Preferred Language: Setswana Communication Ability: Effective Leaf Conditioner Required: No Beliefs That Will Affect Care: None marital status: Current Living Situation: Spouse current occupational status: retired 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 ENT- oropharynx clear Neck- supple, no JVD. Lungs- clear to auscultation No wheezing or crackles Heart- regular rhythm; no murmur, no gallop. Abdomen- normal bowel sounds, soft, nontender, no distension. Extremities- b/l lower extremity edema present, no erythema seen Neuro- alert, oriented PERRL, no facial palsy; no dysarthria; moves extremities. Musculoskeletal b/l Straight leg positive. Results & Data Results & Data Vital Signs (Past 12 Hours) Vital Signs Temp Pulse Pulse Resp BP BP Pulse Ox 09/11/23 22:45 68 20 136/89 94 09/11/23 19:23 36.6 C 87 20 120/79 93 O2 Del Method 09/11/23 22:45 Room Air 09/11/23 19:23 Room Air Diagnostic Findings Laboratory Results WBC 10.00 K/ul (4.8-10.8) 09/11/23 21:00 RBC 3.82 M/uL (4.70-6.10) L 09/11/23 21:00 Hgb 11.8 g/dl (14.0-18.0) L 09/11/23 21:00 Hct 36.1 % (42.0-52.0) L 09/11/23 21:00 MCV 94.5 fL (80.0-100.0) 09/11/23 21:00 MCH 30.9 pg (25.0-34.0) 09/11/23 21:00 MCHC 32.7 g/dL (32.0-36.0) 09/11/23 21:00 RDW Std Deviation 48.5 fL (36.4-46.3) H 09/11/23 21:00 RDW Coeff of Иван 14.0 % (11.5-14.5) 09/11/23 21:00 Plt Count 227 K/uL (130-400) 09/11/23 21:00 MPV 9.4 fL (9.4-12.4) 09/11/23 21:00 Immature Gran % (Auto) 0.4 % 09/11/23 21:00 Neut % (Auto) 73.3 % 09/11/23 21:00 Lymph % (Auto) 14.6 % 02/29/24 21:00 [place] % (Auto) 8.6 % 09/11/23 21:00 Eos % (Auto) 2.6 % 09/11/23 21:00 Baso % (Auto) 0.5 % 09/11/23 21:00 Neut # (Auto) 7.33 K/uL (1.40-6.50) H 09/11/23 21:00 Lymph # (Auto) 1.46 K/uL (1.20-3.40) 09/11/23 21:00 [place] # (Auto) 0.86 K/uL (0.11-0.59) H 09/11/23 21:00 Eos # (Auto) 0.26 K/uL (0.00-0.50) 09/11/23 21:00 Baso # (Auto) 0.05 K/uL (0.00-0.20) 09/11/23 21:00 Immature Gran # (Auto) 0.04 K/uL (0.01-0.20) 09/11/23 21:00 PT 22.7 Seconds (9.0-12.0) H 09/11/23 21:00 INR 2.2 (0.9-1.1) H 09/11/23 21:00 Sodium 142 mmol/L (136-145) 09/11/23 21:00 Potassium 3.9 mmol/L (3.5-5.1) 09/11/23 21:00 Chloride 107 mmol/L (98-107) 09/11/23 21:00 Carbon Dioxide 26 mmol/L (21-32) 09/11/23 21:00 Anion Gap 9 (3-11) 09/11/23 21:00 BUN 20 mg/dl (6-23) 09/11/23 21:00 Creatinine 1.04 mg/dl (0.6-1.4) 09/11/23 21:00 Est Cr Clr Drug Dosing 97.1 ml/min 09/11/23 21:00 Est GFR ( Amer) 83.3 ml/min 09/11/23 21:00 Est GFR (Non-Af Amer) 71.9 ml/min 09/11/23 21:00 BUN/Creatinine Ratio 19.2 (10-20) 09/11/23 21:00 Glucose 118 mg/dl (70-99(Fasting)) H 09/11/23 21:00 Calcium 8.5 mg/dl (8.6-10.3) L 09/11/23 21:00 Total Bilirubin 0.8 mg/dl (0.2-1.0) 09/11/23 21:00 AST 21 U/L (13-39) 09/11/23 21:00 ALT 17 U/L (7-52) 09/11/23 21:00 Alkaline Phosphatase 81 U/L (34-104) 09/11/23 21:00 Total Protein 6.7 gm/dl (6.0-8.3) 09/11/23 21:00 Albumin 3.9 gm/dl (3.4-5.0) 09/11/23 21:00 Globulin 2.8 gm/dl (2.5-4.0) 09/11/23 21:00 Albumin/Globulin Ratio 1.4 (0.9-2) 09/11/23 21:00 Code Status & VTE Plan VTE Prophylaxis Plan VTE Prophylaxis will be ordered: Yes
[2023-09-12] MEDS ORDERED: POLYETHYLENE (MIRALAX) 17 GM PACK PO PRN (00:59)
[2023-09-12] MEDS ORDERED: HYDROmorphone INJ 0.5 MG/0.5 ML SYR IV PRN (00:59)
[2023-09-12] MEDS ORDERED: NITROGLYCERIN SL 0.4 MG/TAB TAB SL PRN (00:59)
[2023-09-12] MEDS ORDERED: ALBUTEROL 0.083% NEBU SOLN 3 ML VIAL INH PRN (00:59)
[2023-09-12] MEDS ORDERED: GLUCOSE 40% GEL 15 GM TUBE PO PRN (00:59)
[2023-09-12] MEDS ORDERED: ALBUTEROL HFA 8 GM INHALER INH PRN (00:59)
[2023-09-12] MEDS ORDERED: GABAPENTIN 100 MG CAP PO PRN (00:59)
[2023-09-12] MEDS ORDERED: CARBOHYDRATES FOR HYPOGLYCEMIA PO PRN (00:59)
[2023-09-12] MEDS ORDERED: GLUCAGON FOR INJ 1 MG VIAL SQ PRN (00:59)
[2023-09-12] MEDS ORDERED: DEXTROSE 50% 50 ML SYRINGE IV PRN (00:59)
[2023-09-12] MEDS ORDERED: ACETAMINOPHEN 325 MG TAB PO PRN (00:59)
[2023-09-12] MEDS ORDERED: GLUCOSE 10 TAB/TUBE PO PRN (00:59)
[2023-09-12 03:40] LABS: Basophils # (auto) 0.05 K/uL (0.00-0.20); Basophils % (auto) 0.6 %; Eosinophils % (auto) 2.3 %; Hematocrit (blood only) 37.8 % (42.0-52.0); Hemoglobin 12.1 g/dl (14.0-18.0); Immature Granulocytes # (auto) 0.05 K/uL (0.01-0.20); Immature Granulocytes % (auto) 0.6 %; Lymphocytes # (auto) 1.23 K/uL (1.20-3.40); Mean Corpuscular Hemoglobin 30.8 pg (25.0-34.0); Mean Corpuscular Volume 96.2 fL (80.0-100.0); Mean Platelet Volume 9.5 fL (9.4-12.4); Monocytes % (auto) 9.1 %; Neutrophils # (auto) 6.47 K/uL (1.40-6.50); Neutrophils % (auto) 73.4 %; Platelet Count 213 K/uL (130-400); RDW Coefficient of Variation 13.9 % (11.5-14.5); RDW Standard Deviation 49.7 fL (36.4-46.3); Red Blood Count 3.93 M/uL (4.70-6.10)
[2023-09-12 03:56] LABS: BUN Creatinine Ratio 19.6 (10-20); Calcium 8.9 mg/dl (8.6-10.3); Creatinine Clr Calc Pharmacy 99.3 ml/min; Est GFR (African American) 85.3 ml/min; Est GFR (Non-African American) 73.6 ml/min; Magnesium 1.8 mg/dl (1.7-2.4); Potassium 3.8 mmol/L (3.5-5.1)
[2023-09-12 04:19] LABS: INR 2.1 (0.9-1.1); Prothrombin Time 21.6 Seconds (9.0-12.0)
[2023-09-12] MEDS: ATORVASTATIN 40 MG TAB PO STA (04:21)
[2023-09-12] MEDS: WARFARIN SOD 7.5 MG TAB PO STA (04:21)
[2023-09-12] MEDS: LEVOTHYROXINE SODIUM 137 MCG TABLET PO SCH (06:34)
[2023-09-12 07:40] LABS: Estimated Average Glucose 157 mg/dl; Hemoglobin A1C 7.1 % (4.5-5.6)
[2023-09-12] MEDS: FUROSEMIDE 20 MG TAB PO SCH (08:28)
[2023-09-12] MEDS: lisinopril 20 MG TAB PO SCH (08:28)
[2023-09-12] MEDS: ISOSORBIDE MONO EXTENDED REL 60 MG TABCR PO SCH (08:28)
[2023-09-12] MEDS: FLUTICASONE/VILANTEROL 100/25MCG 14 PUFFS/INHALER INH SCH (08:29)
[2023-09-12] MEDS: NYSTATIN SUSP 500,000 U/5 ML UDC PO SCH (08:29)
[2023-09-12] MEDS: METOPROLOL SUCC 50MG EXT REL TAB PO SCH (08:33)
[2023-09-12] MEDS: INSULIN ASPART PER UNIT CHARGE SC SCH (09:55)
--- NOTE | 2023-09-12 14:02 | Pain Management Consultation ---
Date of Consultation September 12, 2023 Assessment & Plan (1) Right lumbar radiculopathy: (2) Low back pain: (3) Abnormal MRI, spine: (4) Morbid obesity: Plan 1. Patient with predominant complaint of right S1 radicular pattern pain distribution of unknown etiology as he has no notable evidence of lumbar disc disease/herniation or significant spinal stenosis at L5-S1 although does have findings of right-sided S1 and S2 vertebral body lesions which are T1 hypointense and T2 hyperintense with associated soft tissue swelling of unknown etiology. This was discussed with the patient as this may be the etiology of presenting pain complaint. He has recently failed a course of oral steroids. Would await further diagnostic evaluation for definitive treatment plan 2. Patient may utilize hydrocodone 5/325 mg 1 tablet p.o. every 6 hours as needed for breakthrough pain 3. Will progress his gabapentin to 100 mg 3 times daily 4. Will request venous Doppler of the right lower extremity to rule out DVT given his comorbid medical conditions 5. Pain service has nothing interventional to offer the patient at this time pending outcome of further diagnostic evaluation of the abnormal lumbar MRI findings. History of Present Illness Reason for Consultation: Intractable low back and right gluteal/posterior thigh pain Requesting Physician: Paco Castro MD Attending Physician: Sarah Mcfarlane MD History of Present Illness Mr. Guillen is a 72-year-old white male who was admitted due to complaints of worsening right-sided lumbosacral pain extending to the gluteal and posterior thigh location. 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 His pain has worsened over the past few weeks to where he has been having some difficulty ambulating due to the pain. The pain is localized to the right lumbosacral, gluteal and posterior thigh location with occasional traveling to the posterior lower leg. He denies any similar pain on the left side. 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 He underwent an outpatient MRI yesterday through [facility] as he is followed by [facility] in [place] as his primary care provider (Dr. Garcia). This MRI has revealed T1 hypointense and T2 hyperintense marrow replacing lesions in the S1 and S2 vertebral bodies and L3 spinous process with differential diagnosis of metastatic disease versus multiple myeloma. As well as findings of endplate centered predominantly T1 and T2 hyperintense lesions involving the L2 and L3 vertebrae. He has no significant central canal or neuroforaminal stenosis or no overt disc herniation. The patient has no personal history of known cancer or multiple myeloma. He describes occasional numbness and tingling sensation affecting the feet bilaterally. He denies bowel or bladder incontinence or saddle anesthesia. He denies any recent falls or injuries. The patient has no further constitutional complaints. He was treated with a steroid taper approximate 2 weeks ago without improvement in pain complaints. He has previously trialed tramadol within the past 1 week with minimal relief of symptoms. He was prescribed gabapentin 100 mg daily which he began approximate 4-5 days ago. Patient has no further constitutional complaints. Plan of care discussed with Dr. Melly Suttno. Pain Assessment Full Body Front + Back: 2 1. 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 Home Medications Medication Instructions Recorded Confirmed Type aspirin 81 mg tablet,delayed 81 mg PO HS 09/11/18 09/11/23 History release isosorbide mononitrate 60 mg 60 mg PO QAM 09/11/18 09/11/23 History tablet,extended release 24 hr lisinopril 20 mg tablet 20 mg PO QAM 09/11/18 09/11/23 History metoprolol succinate 50 mg 50 mg PO QAM 09/11/18 09/11/23 History tablet,extended release 24 hr nitroglycerin 0.4 mg sublingual 0.4 mg sublingual DIRECTED PRN 09/11/18 09/11/23 History tablet Angina terazosin 1 mg capsule 1 mg PO HS 09/11/18 09/11/23 History warfarin 5 mg tablet 10 mg PO DIRECTED 09/11/18 09/11/23 History warfarin 5 mg tablet See Rx Instructions .Route .COMPLEX 09/11/18 09/11/23 History furosemide 20 mg tablet 20 mg PO DAILY 07/09/19 09/11/23 History fluticasone 250 mcg-salmeterol 50 1 inh inhalation Q12H 04/12/20 09/11/23 History mcg/dose blistr powdr for inhalation (Advair Diskus) atorvastatin 40 mg tablet 40 mg PO HS #30 tabs 04/14/20 09/11/23 Rx albuterol sulfate 90 mcg/actuation 2 puff inhalation Q6H PRN 12/13/20 09/11/23 History aerosol inhaler (Ventolin HFA) Shortness Of Breath levothyroxine 137 mcg tablet 68.5 mcg PO 3XWK 12/14/22 09/11/23 History levothyroxine 137 mcg tablet 137 mcg PO 4XWK 12/14/22 09/11/23 History albuterol sulfate 2.5 mg/3 mL 2.5 mg inhalation Q4H PRN SHORT OF 09/08/23 09/11/23 History (0.083 %) solution for nebulization BREATH/COUGH/WHEEZING gabapentin 100 mg capsule 100 mg PO Q8H PRN pain #30 caps 09/08/23 09/11/23 Rx nystatin 100,000 unit/mL oral 5 ml PO QID 09/08/23 09/11/23 History suspension Pain History Pain Intensity Pain scale - at its best (0-10): 2 Pain scale - at its worst (0-10): 7 Patient History Medical History (Updated 09/12/23 @ 14:00 by Ulysses Sims PA-C) Abnormal MRI, spine Predominantly T1 hypointense and T2 hyperintense marrow replacing lesions in the S1 and S2 vertebral bodies and L3 spinous process. Predominantly T1 and T2 hyperintense lesions involving the L2 and L3 vertebrae. Outpatient [facility] MRI dated 09/11/2023 Cerebrovascular disease 04/12/20 ischemic stroke, right frontal, probably cardioembolic Morbid obesity Stroke Degenerative disc disease BPH (benign prostatic hyperplasia) Fatty liver disease, nonalcoholic GERD (gastroesophageal reflux disease) Hypothyroidism On anticoagulant therapy warfarin daily Tinnitus of both ears Hearing deficit Hypertension Atrial fibrillation follows with Dr. Carlton Sleep apnea cpap Chronic obstructive pulmonary disease History of Lyme disease Diastolic CHF, chronic "echo 02/24/15 - grade II diastolic dysfunction, EF 60-65%" CAD (coronary artery disease) "cardiac cath 02/23/15 - occluded left circumflex, HERACLIO to RCA " Dyslipidemia Surgical History History of colonoscopy History of tooth extraction all upper teeth History of wisdom tooth extraction History of heart artery stent 2015--1 stent History of cardiac cath 2015 x2--only 1 stent Family History Mother Diabetes Sister Stroke Other Family history of diabetes mellitus Social History Smoking Status: Never smoker Tobacco Type: Smokeless Tobacco (Dip or Chew) Second Hand Exposure: No; Do You Dip or Chew Tobacco: Yes; Hx Alcohol Use: No Hx Substance Use: No Preferred Language: Czech Communication Ability: Effective Cold Storage Superintendent Required: No Beliefs That Will Affect Care: None marital status: Current Living Situation: Spouse current occupational status: retired 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 Speech and thought process appropriate. Mood and affect appropriate. Cognition intact. Patient obese and physically deconditioned. Patient accompanied by his . Head: Normocephalic and atraumatic. ENT: No evidence of nasal or oral mucosal lesions. Mucous membranes are moist. Eyes: Pupils equal round reactive to light. Neck: Supple without adenopathy and full range of motion. Back/spine: Loss of lumbar lordosis. Nontender over the midline. No focal facet joint tenderness to provocative testing. Minimally tender over the right greater than left SI joint to provocative testing. Moderately tender throughout the right middle and inferior gluteal region to direct palpation and nontender on the left. Limited range of motion in all planes secondary to body habitus. Lower extremities: SLR reproduce posterior thigh pain on the right. SLR negative on the left. Patient is tender to direct palpation over the right posterior thigh and gastrocnemius. Slight increased gastrocnemius pain with palpation and dorsiflexion appreciated. Trace-1+ pitting edema of the ankle and pretibial location bilaterally. Strength testing was 5/5 and equal without focal deficit. Sensation intact to sharp and dull distally. Hip is nontender with internal/external rotation. Patient unable to perform Jesus maneuver or thigh thrust testing secondary to body habitus. Neurologic: Cranial nerves grossly intact. Ambulatory function slightly guarded. Results (Pain Clinic) Diagnostic Review MRI Findings: Reading Date Result Priority Narrative & Impression EXAM MRI L SPINE WO CONTRAST - 09/11/2023 11:37 am HISTORY Low back pain; Neurologic deficit, non-traumatic; LE numbness/paresthesia; Increasing/persistent LE numbness/paresthesia; No known/automatically detected potential contraindications to imaging COMPARISON Report from prior MRI dated 03/17/2020 TECHNIQUE Procedure: Sagittal and axial T1 and T2 weighted magnetic resonance imaging obtained through the lumbosacral spine pre-contrast. Coronal T2 series also provided. FINDINGS The alignment of the lumbar spine is normal. There has been interval appearance of predominantly T1 hypointense and T2 hyperintense marrow replacing lesions in the right aspect of the S1 and S2 vertebral bodies, left aspect of the S1 vertebral body and L3 spinous process. The largest lesion involving the right S1 and S2 vertebral bodies shows associated soft tissue swelling. Two predominantly T1 and T2 hypointense lesions are seen involving the inferior endplate of the L2 vertebra and superior endplate of the L3 vertebra. Endplate degenerative changes are noted at L4-L5 and L5-S1 levels. There are no compression fractures. The conus medullaris terminates at the level of L1-L2. The distal spinal cord signal intensity is normal. Multilevel disc desiccation is seen in the lumbar spine with loss of disc height at L4-L5 and L5-S1 levels... The aorta is normal. L1-L2: The disc is normal in configuration. There is mild bilateral facet arthropathy. There is no neuroforaminal stenosis. There is no spinal canal stenosis. L2-L3: Minimal disc bulge. There is mild bilateral facet arthropathy. There is no neuroforaminal stenosis. There is no spinal canal stenosis. L3-L4: Mild disc bulge. There is mild bilateral facet arthropathy. There is no neuroforaminal stenosis. There is no spinal canal stenosis. L4-L5: Kzif-xl-qqxcscan disc bulge. There is mild bilateral facet arthropathy. There is cnor-mb-arnlotuy bilateral neuroforaminal stenosis. There is ligamentum flavum infolding and epidural lipomatosis. There is jmou-uy-ihxafbpn spinal canal stenosis. L5-S1: Cvvs-gp-yreqxfkw disc bulge. There is mild bilateral facet arthropathy. There is moderate left and upyq-wl-kkxlxirq right neuroforaminal stenosis. There is epidural lipomatosis. There is mild spinal canal stenosis. IMPRESSION IMPRESSION 1. Interval appearance of predominately T1 hypointense and T2 hyperintense marrow replacing lesions in the S1 and S2 vertebral bodies and L3 spinous process. Differential considerations include metastatic disease versus multiple myeloma. 2. Endplate centered predominantly T1 and T2 hyperintense lesions involving the L2 and L3 vertebrae. Diffuse considerations include Schmorl's nodes, metastatic disease and myeloma. 3. Multilevel degenerative changes in the lumbar spine as described above, more pronounced at L4-L5 level with resultant dvnq-ve-yuzjpfxc spinal canal stenosis and rfku-nk-cghhypym bilateral neural foraminal stenosis at this level. The report is submitted to radiology medical office manager at 12:05 p.m. on 09/11/2023 for communication with referring provider as per Act 112. MRI report pulled from [facility] Previous Records Review Previous Records: personally reviewed by
[2023-09-12] MEDS: HYDROCODONE/ACETAMOPHEN 5/325MG TAB PO PRN (15:18)
[2023-09-12 15:49] LABS: Appearance Urine Clear (Clear); Bacteria Urine Automated Negative (Negative); Bilirubin Urine Negative (Negative); Blood Urine Negative (Negative); Color Urine Yellow; Glucose Urine UA Negative (Negative); Ketones Urine Negative (Negative); Leukocyte Esterase Urine Negative (Negative); Nitrite Urine Negative (Negative); Protein Urine 1+ (Negative); RBC Urine Automated 0-4 /hpf (0-4); Specific Gravity Urine 1.025 (1.000-1.030); Urobilinogen Urine Positive (Negative); pH Urine 5.5 (4.5-7.5)
--- NOTE | 2023-09-12 16:07 | Hospitalist Progress Note ---
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 Patient was in the ER on September 08 with back pain and was discharged on gabapentin and Lidoderm patch. Patient followed up with PCP. Had MRI of back today which showed lesions in T1 and T2 and S1 is S2 vertebral bodies and in his L3 spinous process and differential considerations include metastatic disease versus multiple myeloma also showed mild to moderate spinal stenosis. PCP was trying to talk to orthospine at [place] tomorrow and advised to come to the ER if the pain gets worse. Currently with IV pain medicine in the ER pain is under control now. He is feeling much better. He is ambulating at home. Denies any bowel or bladder incontinence. Denies any fevers. Denies any chest pain or shortness of breath currently. No nausea. No abdominal pain. No headache. No runny nose or sore throat. No cough. No fever. Appetite is okay. Currently hemodynamically stable. Back pain Radiating to right leg Had MRI scan today as outpatient:IMPRESSION 1. Interval appearance of predominately T1 hypointense and T2 hyperintense marrow replacing lesions in the S1 and S2 vertebral bodies and L3 spinous process. Differential considerations include metastatic disease versus multiple myeloma. 2. Endplate centered predominantly T1 and T2 hyperintense lesions involving the L2 and L3 vertebrae. Diffuse considerations include Schmorl's nodes, metastatic disease and myeloma. 3. Multilevel degenerative changes in the lumbar spine as described above, more pronounced at L4-L5 level with resultant iexs-eg-wxrddxqf spinal canal stenosis and bbms-hq-kykobsyk bilateral neural foraminal stenosis at this level. Discussed with patient's PCP who had discussion with neurosurgery at [place], recommendation is to have workup for sacral tumor/possible biopsy CT chest to rule out mets sent. Recent CTAP reviewed. Oncology consulted for further guidance with workup/management. Pain control, PT/OT. Pain management evaluated, appreciate recommendation. Will get RLE venous Doppler to rule out any DVT. History of CAD s/p stent On aspirin, statin, Imdur, metoprolol succinate Will monitor History of obstructive sleep apnea CPAP nightly Morbid obesity Needs counseling History of CVA On aspirin and statin History of A-fib On metoprolol succinate and Coumadin INR 2.2 Hypothyroidism On Synthyroid Diabetes Not on meds Sliding scale Will follow HbA1c levels Chronic diastolic CHF Monitor for volume overload Continue home Lasix BPH On terazosin Hypertension On metoprolol, lisinopril, Imdur, terazosin and Lasix Will monitor DVT prophylaxis On Coumadin We will monitor PT/INR Disposition Medical floor Full code Admission and Anticipated Discharge Date Admission Date: September 11, 2023 Subjective Patient was seen and examined at bedside. Patient was sitting up in bed, on room air, NAD. Patient reports RLE pain getting better, denies low back pain. Patient reports eating okay, denies any problem of incontinence. Denies any numbness and tingling. Patient denies any febrile illness/chest pain/palpitation/headache/dizziness. Physical Exam Physical Exam: General- Not in distress Head- atraumatic Eyes- PERRL. ENT- oropharynx clear Neck- supple, no JVD. Lungs- clear to auscultation No wheezing or crackles Heart- regular rhythm; no murmur, no gallop. Abdomen- normal bowel sounds, soft, nontender, no distension. Extremities- b/l lower extremity edema present, no erythema seen Neuro- alert, oriented PERRL, no facial palsy; no dysarthria; moves extremities. Musculoskeletal b/l Straight leg positive. No tenderness of vertebral spine/paraspinal muscle. Results & Data Results & Data Vital Signs (Past 12 Hours) Vital Signs Temp Pulse Resp BP BP Pulse Ox O2 Del Method 09/12/23 15:20 Room Air 09/12/23 15:16 36.4 C L 73 18 132/76 94 Room Air 09/12/23 14:00 36.4 C L 69 20 112/64 93 Room Air 09/12/23 12:50 53 L 18 135/72 95 Nasal Cannula 09/12/23 08:32 75 09/12/23 06:35 59 L 22 121/76 95 Room Air O2 Flow Rate 09/12/23 15:20 09/12/23 15:16 09/12/23 14:00 09/12/23 12:50 4 09/12/23 08:32 09/12/23 06:35
[2023-09-12] MEDS: OPTIRAY 320 125ml IV ONE (16:21)
--- NOTE | 2023-09-12 16:28 | Oncology Consultation ---
Date of Consultation September 12, 2023 Assessment & Plan (1) Low back pain: (2) Right lumbar radiculopathy: (3) Abnormal MRI, spine: Plan Presented with back pain, possible spine lesions on MRI, has mild anemia but no hypercalcemia or renal insufficiency to suggest MM -Recommend labs today including PSA, SPEP with RENETTA, quantitative Immunoglobulins, serum free light chains -CT CAP to assess for primary malignancy. If accessible lesion is noted on imaging, obtain IR guided biopsy -Outpatient follow up with oncology with PET scan prior Thanks for this consult. Will schedule him for outpatient follow up to discuss results if they are not available prior to discharge History of Present Illness Reason for Consultation: Back pain Attending Physician: Sarah Mcfarlane MD History of Present Illness 72 year old gentleman who presented with back pain . Outpatient MRI revealed predominately T1 hypointense and T2 hyperintense marrow replacing lesions in the S1 and S2 vertebral bodies and L3 spinous process possibly metastatic disease versus multiple myeloma, Endplate centered predominantly T1 and T2 hyperintense lesions involving the L2 and L3 vertebrae possibly e Schmorl's nodes, metastatic disease and myeloma. Patient not seen in person today-oncology consulted for guidance on workup. 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 Home Medications Medication Instructions Recorded Confirmed Type aspirin 81 mg tablet,delayed 81 mg PO HS 09/11/18 09/11/23 History release isosorbide mononitrate 60 mg 60 mg PO QAM 09/11/18 09/11/23 History tablet,extended release 24 hr lisinopril 20 mg tablet 20 mg PO QAM 09/11/18 09/11/23 History metoprolol succinate 50 mg 50 mg PO QAM 09/11/18 09/11/23 History tablet,extended release 24 hr nitroglycerin 0.4 mg sublingual 0.4 mg sublingual DIRECTED PRN 09/11/18 09/11/23 History tablet Angina terazosin 1 mg capsule 1 mg PO HS 09/11/18 09/11/23 History warfarin 5 mg tablet 10 mg PO DIRECTED 09/11/18 09/11/23 History warfarin 5 mg tablet See Rx Instructions .Route .COMPLEX 09/11/18 09/11/23 History furosemide 20 mg tablet 20 mg PO DAILY 07/09/19 09/11/23 History fluticasone 250 mcg-salmeterol 50 1 inh inhalation Q12H 04/12/20 09/11/23 History mcg/dose blistr powdr for inhalation (Advair Diskus) atorvastatin 40 mg tablet 40 mg PO HS #30 tabs 04/14/20 09/11/23 Rx albuterol sulfate 90 mcg/actuation 2 puff inhalation Q6H PRN 12/13/20 09/11/23 History aerosol inhaler (Ventolin HFA) Shortness Of Breath levothyroxine 137 mcg tablet 68.5 mcg PO 3XWK 12/14/22 09/11/23 History levothyroxine 137 mcg tablet 137 mcg PO 4XWK 12/14/22 09/11/23 History albuterol sulfate 2.5 mg/3 mL 2.5 mg inhalation Q4H PRN SHORT OF 09/08/23 09/11/23 History (0.083 %) solution for nebulization BREATH/COUGH/WHEEZING gabapentin 100 mg capsule 100 mg PO Q8H PRN pain #30 caps 09/08/23 09/11/23 Rx nystatin 100,000 unit/mL oral 5 ml PO QID 09/08/23 09/11/23 History suspension Patient History Medical History (Updated 09/12/23 @ 14:00 by Ulysses Sims PA-C) Abnormal MRI, spine Predominantly T1 hypointense and T2 hyperintense marrow replacing lesions in the S1 and S2 vertebral bodies and L3 spinous process. Predominantly T1 and T2 hyperintense lesions involving the L2 and L3 vertebrae. Outpatient [facility] MRI dated 09/11/2023 Cerebrovascular disease 04/12/20 ischemic stroke, right frontal, probably cardioembolic Morbid obesity Stroke Degenerative disc disease BPH (benign prostatic hyperplasia) Fatty liver disease, nonalcoholic GERD (gastroesophageal reflux disease) Hypothyroidism On anticoagulant therapy warfarin daily Tinnitus of both ears Hearing deficit Hypertension Atrial fibrillation follows with Dr. Carlton Sleep apnea cpap Chronic obstructive pulmonary disease History of Lyme disease Diastolic CHF, chronic "echo 02/24/15 - grade II diastolic dysfunction, EF 60-65%" CAD (coronary artery disease) "cardiac cath 02/23/15 - occluded left circumflex, HERACLIO to RCA " Dyslipidemia Surgical History History of colonoscopy History of tooth extraction all upper teeth History of wisdom tooth extraction History of heart artery stent 2015--1 stent History of cardiac cath 2015 x2--only 1 stent Family History Mother Diabetes Sister Stroke Other Family history of diabetes mellitus Social History Smoking Status: Never smoker Tobacco Type: Smokeless Tobacco (Dip or Chew) Second Hand Exposure: No; Do You Dip or Chew Tobacco: Yes; Hx Alcohol Use: No Hx Substance Use: No Preferred Language: Tamazight Communication Ability: Effective Windows 7 Deployment Lead Required: No Beliefs That Will Affect Care: None marital status: Current Living Situation: Spouse 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 occupational status: 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
--- NOTE | 2023-09-12 16:35 | CT Scan Report ---
CT ANGIOGRAM OF THE CHEST COMBO CLINICAL HISTORY: Metastatic survey. COMPARISON STUDY: Chest CT dated 02/03/2017. TECHNIQUE: Before and following and following the IV administration of 119 cc of Optiray 320, CT alicia ogram of the chest was performed from the thoracic inlet to the upper abdomen utilizing the dissectio n protocol. Images are reviewed in the axial, sagittal, and coronal planes. 3-D MIPS images are creat ed and assessed. IV contrast was administered without complication. A dose lowering technique was ut ilized adhering to the principles of ALARA. CT DOSE: 1935.1 mGy.cm FINDINGS: Thyroid: Normal in size and heterogeneous in attenuation. Thoracic aorta: The thoracic aorta is normal in caliber and demonstrates standard 3-vessel arch anato my. No dissection is seen. Pulmonary vasculature: The pulmonary trunk is normal in caliber. There are no central filling defects identified in the pulmonary vessels to suggest pulmonary embolus. Note that this examination was not specifically protocoled to assess for pulmonary emboli. Heart: The heart is enlarged and without pericardial effusion. The coronary arteries are densely calc ified. Lungs and pleural spaces: There is moderate emphysematous change. No airspace consolidation or pleura l effusion is identified. There are scattered calcified granulomas. The trachea and central airways a re clear. Scarring/atelectasis is noted at the lung bases. Numerous (less than 10) scattered pulmonar y and pleural-based nodules measuring up to 8mm have not significantly changed from 02/03/2017 and are of low suspicion. Scrap Drop Operator nodules are seen in the right lower lobe on images #148, #177, and #204 and in the left lower lobe on images #172 and #185. No new or enlarging pulmonary lesion is seen . Mediastinum: There is no mediastinal lymphadenopathy. Whitney: Clear. Axillae: There is no axillary lymphadenopathy. Upper abdomen: Partially visualized upper abdominal viscera is within normal limits. Skeletal structures: The skeletal structures are osteopenic. Degenerative change is noted in the shou lders and spine. No lytic or blastic bony lesions are seen. IMPRESSION: 1. Cardiomegaly and emphysema. 2. There is no airspace consolidation or pleural effusion. 3. There is no evidence of intrathoracic metastatic disease. 4. Numerous subcentimeter pulmonary nodules have not significantly changed from 02/03/2017 and are of low suspicion. 5. Additional findings as above. ACT 112: Negative or not required by law. Electronically signed by: Danie Pressley M.D. 09/12/2023 4:33 PM
--- NOTE | 2023-09-12 16:50 | Ultrasound Report ---
RIGHT LOWER EXTREMITY VENOUS DOPPLER CLINICAL HISTORY: right lower extremity pain r/po dvt COMPARISON STUDY: No previous studies for comparison. TECHNIQUE: Sonography of the deep venous system of the right lower extremity was performed. Compress ion and augmentation were evaluated. FINDINGS: The right common femoral, superficial femoral and popliteal veins were compressible. Augme ntation was normal. Flow was shown within the deep calf vessels. IMPRESSION: No evidence of deep venous thrombus within the right lower extremity. ACT 112: Negative or not required by law. Electronically signed by: Pavan Stockton M.D. 09/12/2023 4:47 PM
[2023-09-12 17:10] LABS: Immunoglobulin A 153.9 mg/dl (70-400); Immunoglobulin G 852.4 mg/dl (635-1741); Immunoglobulin M 80.6 mg/dl (45-281)
[2023-09-12] MEDS: WARFARIN SOD 7.5 MG TAB PO SCH (17:45)
[2023-09-12] MEDS: GABAPENTIN 100 MG CAP PO SCH (19:54)
[2023-09-12] MEDS: TERAZOSIN HCL 1 MG CAP PO SCH (21:16)
[2023-09-12] MEDS: ATORVASTATIN 40 MG TAB PO SCH (21:17)
[2023-09-12] MEDS: ASPIRIN 81 MG ECTAB PO SCH (21:17)
[2023-09-13] MEDS: LEVOTHYROXINE SODIUM 137 MCG TABLET PO SCH (04:59)
[2023-09-13 08:04] LABS: Hematocrit (blood only) 36.4 % (42.0-52.0); Hemoglobin 11.7 g/dl (14.0-18.0); Mean Corpuscular Hemoglobin 30.9 pg (25.0-34.0); Mean Corpuscular Hgb Conc 32.1 g/dL (32.0-36.0); Mean Platelet Volume 9.8 fL (9.4-12.4); Platelet Count 208 K/uL (130-400); RDW Coefficient of Variation 14.1 % (11.5-14.5); RDW Standard Deviation 49.1 fL (36.4-46.3); Red Blood Count 3.79 M/uL (4.70-6.10); White Blood Count 8.96 K/ul (4.8-10.8)
[2023-09-13 08:26] LABS: BUN Creatinine Ratio 20.2 (10-20); Calcium 8.8 mg/dl (8.6-10.3); Creatinine Clr Calc Pharmacy 102.4 ml/min; Est GFR (African American) 88.4 ml/min; Est GFR (Non-African American) 76.3 ml/min; Magnesium 1.8 mg/dl (1.7-2.4); Phosphorus 3.7 mg/dl (2.5-4.9); Potassium 3.8 mmol/L (3.5-5.1)
[2023-09-13 08:35] LABS: INR 2.3 (0.9-1.1); Prothrombin Time 24.1 Seconds (9.0-12.0)
--- NOTE | 2023-09-13 15:28 | Hospitalist Progress Note ---
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 Patient was in the ER on September 08 with back pain and was discharged on gabapentin and Lidoderm patch. Patient followed up with PCP. Had MRI of back today which showed lesions in T1 and T2 and S1 is S2 vertebral bodies and in his L3 spinous process and differential considerations include metastatic disease versus multiple myeloma also showed mild to moderate spinal stenosis. PCP was trying to talk to orthospine at [place] tomorrow and advised to come to the ER if the pain gets worse. Currently with IV pain medicine in the ER pain is under control now. He is feeling much better. He is ambulating at home. Denies any bowel or bladder incontinence. Denies any fevers. Denies any chest pain or shortness of breath currently. No nausea. No abdominal pain. No headache. No runny nose or sore throat. No cough. No fever. Appetite is okay. Currently hemodynamically stable. Back pain Radiating to right leg Had MRI scan today as outpatient:IMPRESSION 1. Interval appearance of predominately T1 hypointense and T2 hyperintense marrow replacing lesions in the S1 and S2 vertebral bodies and L3 spinous process. Differential considerations include metastatic disease versus multiple myeloma. 2. Endplate centered predominantly T1 and T2 hyperintense lesions involving the L2 and L3 vertebrae. Diffuse considerations include Schmorl's nodes, metastatic disease and myeloma. 3. Multilevel degenerative changes in the lumbar spine as described above, more pronounced at L4-L5 level with resultant [id number] spinal canal stenosis and [id number] bilateral neural foraminal stenosis at this level. Discussed with patient's PCP who had discussion with neurosurgery at [place], recommendation is to have workup for sacral tumor/possible biopsy CT chest to rule out mets sent. Recent CTAP reviewed. Oncology consulted for further guidance with workup/management. Pain control, PT/OT. Pain management evaluated, appreciate recommendation. No DVT in right leg Clinically much better and the pain is reasonably controlled with current regimen Strongly advised to keep appointment with outpatient neurosurgery in [place] Spinal elation involving S1 and S2 vertebral bodies and L3 spinous process Could be secondary to metastatic disease/multiple myeloma Appreciate hematology input and recommendation Myeloma screen has been sent CT scan of the chest and CT of the abdomen and pelvis did not show any evidence of metastatic disease or any significant change in lymph node Will have outpatient appointment with oncologist and possible PET scan down the line Increasing shortness of breath Has COPD and also AMADA on CPAP at nighttime Has not been on oxygen at home Complain shortness of breath with minimal exertion Has been getting nebulized bronchodilator as an outpatient Will get to a stable O2 saturation test prior to discharge today-he does not require any oxygen at rest or with exertion History of CAD s/p stent On aspirin, statin, Imdur, metoprolol succinate No chest pain and/or palpitation Morbid obesity Needs counseling History of CVA On aspirin and statin History of A-fib On metoprolol succinate and Coumadin INR 2.2 Hypothyroidism On Synthyroid Diabetes Not on meds Sliding scale Will follow HbA1c levels Chronic diastolic CHF Monitor for volume overload Continue home Lasix No evidence of fluid overload BPH On terazosin Hypertension On metoprolol, lisinopril, Imdur, terazosin and Lasix Will monitor DVT prophylaxis On Coumadin We will monitor PT/INR Disposition Medical floor Full code Will be discharged home this afternoon Admission and Anticipated Discharge Date Admission Date: September 11, 2023 Subjective 09/13/2023 The patient was seen and examined in the medical floor in presence of the His back pain seems to be controlled with current medication Complains to have shortness of breath with minimal exertion Denies any chest pain and/or palpitation Denies any problem with urine or bowel habit He has been ambulating in the room without any difficulties Review of Systems Review of Systems: All systems reviewed and are unremarkable except as noted below Physical Exam Constitutional: well developed, well nourished, + ill appearing and + obese Eyes: PERRL, conjunctivae normal, anicteric sclerae ENMT: external ear and nose normal, oropharynx normal Neck: trachea midline, no thyromegaly Respiratory: + respiratory distress (Minimal distress at rest) Auscultation: + diminished lung sounds and + wheezes (Moderate bilateral wheezing) Cardiovascular: Rate/Rhythm: regular rate, regular rhythm and + tachycardic Heart Sounds: normal S1 and normal S2; no murmur Extremities: + edema (Trace to 1+ edema bilaterally) Gastrointestinal (Abdomen): Inspection/Auscultation: normal bowel sounds; abdomen not distended Percussion/Palpation: abdomen soft; abdomen nontender Musculoskeletal: Has chronic back pain without any radiculopathy. No acute arthritis involving any other joints Neurologic: normal touch/pain/proprioception and moves all extremities; no focal motor deficits Psychiatric: A+Ox3, euthymic affect Lymphatic: no cervical or axillary lymphadenopathy Results & Data Results & Data Vital Signs (Past 12 Hours) Vital Signs Temp Pulse Resp BP Pulse Ox O2 Del Method 09/13/23 15:01 37.0 C 102 H 18 119/71 94 Room Air 09/13/23 11:55 CPAP 09/13/23 08:11 36.6 C 60 18 112/68 92 Room Air Laboratory Results Short CBC 09/13/23 Range/Units 07:24 WBC 8.96 (4.8-10.8) K/ul Hgb 11.7 L (14.0-18.0) g/dl Hct 36.4 L (42.0-52.0) % Plt Count 208 (130-400) K/uL BMP 09/13/23 07:24 Sodium 140 Potassium 3.8 Chloride 104 Carbon Dioxide 28 BUN 20 Creatinine 0.99 Glucose 113 H Calcium 8.8 Urine 09/12/23 Range/Units 15:23 Urine Color Yellow Urine Appearance Clear (Clear) Urine pH 5.5 (4.5-7.5) Ur Specific [place] 1.025 (1.000-1.030) Urine Protein 1+ H (Negative) Urine Glucose (UA) Negative (Negative) Medications Administered Current Inpatient Medications Acetaminophen (Acetaminophen 325 Mg Tab) 650 mg PO Q4H PRN PRN Reason: pain/fever Stop: 10/12/23 00:58 Hydrocodone Bitart/Acetaminophen (Hydrocodone/Acetamophen 5/325mg Tab) 1 tab PO Q6H PRN PRN Reason: Pain Stop: 09/26/23 13:45 Last Admin: 09/13/23 03:44 Dose: 1 tab Albuterol (Albuterol Hfa 8 Gm Inhaler) 2 puffs INH Q6H PRN PRN Reason: Shortness Of Breath Stop: 10/12/23 00:58 Albuterol (Albuterol 0.083% Nebu Soln 3 Ml Vial) 2.5 mg INH Q4H PRN; Protocol PRN Reason: SHORT OF BREATH/COUGH/WHEEZING Stop: 10/12/23 00:58 Aspirin (Aspirin 81 Mg Ectab) 81 mg PO HS ZINA Stop: 10/12/23 20:59 Last Admin: 09/12/23 21:17 Dose: 81 mg Atorvastatin Calcium (Atorvastatin 40 Mg Tab) 40 mg PO HS ZINA Stop: 10/12/23 20:59 Last Admin: 09/12/23 21:17 Dose: 40 mg Dextrose (Dextrose 50% 50 Ml Syringe) 25 - 50 ml IV UD PRN; Protocol PRN Reason: Hypoglycemia Protocol Stop: 10/12/23 00:58 Fluticasone/Vilanterol (Fluticasone/Vilanterol 100/25mcg 14 Puffs/Inhaler) 1 puffs INH DAILY ZINA Stop: 10/12/23 08:59 Last Admin: 09/13/23 10:35 Dose: 1 puffs Furosemide (Furosemide 20 Mg Tab) 20 mg PO DAILY ZINA Stop: 10/12/23 08:59 Last Admin: 09/13/23 11:25 Dose: 20 mg Gabapentin (Gabapentin 100 Mg Cap) 200 mg PO TID ZINA Stop: 10/12/23 20:59 Last Admin: 09/13/23 14:16 Dose: 200 mg Glucagon (Glucagon For Inj 1 Mg Vial) 1 mg SQ UD PRN; Protocol PRN Reason: Hypoglycemia Protocol Stop: 10/12/23 00:58 Glucose (Glucose 10 Tab/Tube) 4 - 8 tab PO UD PRN; Protocol PRN Reason: Hypoglycemia Treatment Stop: 10/12/23 00:58 Glucose (Glucose 40% Gel 15 Gm Tube) 15 - 30 gm PO UD PRN; Protocol PRN Reason: Hypoglycemia Protocol Stop: 10/12/23 00:58 Hydromorphone HCl (Hydromorphone Inj 0.5 Mg/0.5 Ml Syr) 0.25 mg IV Q3H PRN PRN Reason: Mod-Sev Pain (Scale 4-10) Stop: 09/26/23 00:58 Insulin Aspart (Insulin Aspart Per Unit Charge) 0 units SC ACHS [facility] Stop: 10/12/23 07:29 Last Admin: 09/13/23 11:30 Dose: Not Given Isosorbide Mononitrate (Isosorbide [place] Extended Rel 60 Mg Tabcr) [facility] [place] Stop: 10/12/23 08:59 Last Admin: 09/13/23 11:26 Dose: 60 mg Levothyroxine Sodium (Levothyroxine Sodium 137 Mcg Tablet) 68.5 mcg PO [email or web address] [facility] Stop: 10/12/23 06:29 Last Admin: 09/12/23 06:34 Dose: 68.5 mcg Levothyroxine Sodium (Levothyroxine Sodium 137 Mcg Tablet) 137 mcg PO [email or web address] [facility] Stop: 10/13/23 06:29 Last Admin: 09/13/23 04:59 Dose: 137 mcg Lisinopril (Lisinopril 20 Mg Tab) 20 mg PO [facility] Stop: 10/12/23 08:59 Last Admin: 09/13/23 11:26 Dose: 20 mg Metoprolol Succinate (Metoprolol Succ 50mg Ext Rel Tab) 50 mg PO [facility] Stop: 10/12/23 08:59 Last Admin: 09/13/23 11:24 Dose: 50 mg Miscellaneous (Carbohydrates For Hypoglycemia ) 15 - 30 gm PO UD PRN PRN Reason: Hypoglycemia Protocol Stop: 10/12/23 00:58 Nitroglycerin (Nitroglycerin Sl 0.4 Mg/Tab Tab) 0.4 mg SL UD PRN PRN Reason: Angina Stop: 10/12/23 00:58 Nystatin (Nystatin Susp 500,000 U/5 Ml Udc) 5 ml PO QID [facility] Stop: 09/22/23 08:59 Last Admin: 09/13/23 14:17 Dose: 5 ml Polyethylene Glycol (Polyethylene (Miralax) 17 Gm Pack) 17 gm PO DAILY PRN PRN Reason: Constipation Stop: 10/12/23 00:58 Terazosin HCl (Terazosin Hcl 1 Mg Cap) 1 mg PO HS [facility] Stop: 10/12/23 20:59 Last Admin: 09/12/23 21:16 Dose: 1 mg Warfarin Sodium (Warfarin Sod 7.5 Mg Tab) 7.5 mg PO [email or web address] [facility] Stop: 10/12/23 15:59 Last Admin: 09/12/23 17:45 Dose: 7.5 mg Warfarin Sodium (Warfarin Sod 10 Mg Tab) 10 mg PO [id number]@1600 [facility] Stop: 10/12/23 15:59 Warfarin Sodium (Warfarin Sod 7.5 Mg Tab) 7.5 mg PO [id number] [facility] Stop: 10/12/23 15:59
--- NOTE | 2023-09-14 07:19 | Discharge Summary ---
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 Patient was in the ER on September 08 with back pain and was discharged on gabapentin and Lidoderm patch. Patient followed up with PCP. Had MRI of back today which showed lesions in T1 and T2 and S1 is S2 vertebral bodies and in his L3 spinous process and differential considerations include metastatic disease versus multiple myeloma also showed mild to moderate spinal stenosis. PCP was trying to talk to orthospine at [place] tomorrow and advised to come to the ER if the pain gets worse. Currently with IV pain medicine in the ER pain is under control now. He is feeling much better. He is ambulating at home. Denies any bowel or bladder incontinence. Denies any fevers. Denies any chest pain or shortness of breath currently. No nausea. No abdominal pain. No headache. No runny nose or sore throat. No cough. No fever. Appetite is okay. Currently hemodynamically stable. Past medical history. As mentioned above Past surgical history. Colonoscopy. Cardioversion. Social history. . No smoking. No alcohol. No drug use. Family history. Mother had diabetes. Hypertension. Cirrhosis. Father had emphysema. Psoriasis. Sister had cancer. History of stroke. Brother haS A- fib. Brother has emphysema. Admission Exam Per Admitting Provider Physical Exam: General- Not in distress Head- atraumatic Eyes- PERRL. ENT- oropharynx clear Neck- supple, no JVD. Lungs- clear to auscultation No wheezing or crackles Heart- regular rhythm; no murmur, no gallop. Abdomen- normal bowel sounds, soft, nontender, no distension. Extremities- b/l lower extremity edema present, no erythema seen Neuro- alert, oriented PERRL, no facial palsy; no dysarthria; moves extre mities. Musculoskeletal b/l Straight leg positive. Principal Diagnosis Right lumbar radiculopathy pain, spinal lesion on MRI, sleep apnea on CPAP at home, COPD, obesity Discharge Exam Constitutional well developed, well nourished, + ill appearing and + obese Eyes PERRL, conjunctivae normal, anicteric sclerae ENMT external ear and nose normal, oropharynx normal Neck trachea midline, no thyromegaly Respiratory + respiratory distress (Minimal distress at rest) Auscultation: + diminished lung sounds and + wheezes (Moderate bilateral wheezing) Cardiovascular Rate/Rhythm: regular rate, regular rhythm and + tachycardic Heart Sounds: normal S1 and normal S2; no murmur Extremities: + edema (Trace to 1+ edema bilaterally) Gastrointestinal (Abdomen) Inspection/Auscultation: normal bowel sounds; abdomen not distended Percussion/Palpation: abdomen soft; abdomen nontender Neurologic normal touch/pain/proprioception and moves all extremities; no focal motor deficits Psychiatric A+Ox3, euthymic affect Lymphatic no cervical or axillary lymphadenopathy Discharge Data 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 Consultations 09/11/23 20:55 ED Decision to Admit Stat 09/12/23 08:00 Consult Pain Management Routine 09/12/23 15:57 Consult Oncology Routine Ordered Studies 09/12/23 14:03 US venous doppler LE RT Urgent 09/12/23 15:59 CT chest diagnostic wo/w con Routine Hospital Course (1) Back pain: 72-year-old male with past medical history significant for dyslipidemia, hypothyroidism, diabetes, mixed restrictive and obstructive lung disease, occupational lung disease, obstructive sleep apnea on CPAP, 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 Patient was in the ER on September 08 with back pain and was discharged on gabapentin and Lidoderm patch. Patient followed up with PCP. Had MRI of back today which showed lesions in T1 and T2 and S1 is S2 vertebral bodies and in his L3 spinous process and differential considerations include metastatic disease versus multiple myeloma also showed mild to moderate spinal stenosis. PCP was trying to talk to orthospine at [place] tomorrow and advised to come to the ER if the pain gets worse. Currently with IV pain medicine in the ER pain is under control now. He is feeling much better. He is ambulating at home. Denies any bowel or bladder incontinence. Denies any fevers. Denies any chest pain or shortness of breath currently. No nausea. No abdominal pain. No headache. No runny nose or sore throat. No cough. No fever. Appetite is okay. Currently hemodynamically stable. Back pain Radiating to right leg Had MRI scan today as outpatient:IMPRESSION 1. Interval appearance of predominately T1 hypointense and T2 hyperintense marrow replacing lesions in the S1 and S2 vertebral bodies and L3 spinous process. Differential considerations include metastatic disease versus multiple myeloma. 2. Endplate centered predominantly T1 and T2 hyperintense lesions involving the L2 and L3 vertebrae. Diffuse considerations include Schmorl's nodes, metastatic disease and myeloma. 3. Multilevel degenerative changes in the lumbar spine as described above, more pronounced at L4-L5 level with resultant [id number] spinal canal stenosis and [id number] bilateral neural foraminal stenosis at this level. Discussed with patient's PCP who had discussion with neurosurgery at [place], recommendation is to have workup for sacral tumor/possible biopsy CT chest to rule out mets sent. Recent CTAP reviewed. Oncology consulted for further guidance with workup/management. Pain control, PT/OT. Pain management evaluated, appreciate recommendation. No DVT in right leg Clinically much better and the pain is reasonably controlled with current regimen Strongly advised to keep appointment with outpatient neurosurgery in [place] Spinal elation involving S1 and S2 vertebral bodies and L3 spinous process Could be secondary to metastatic disease/multiple myeloma Appreciate hematology input and recommendation Myeloma screen has been sent CT scan of the chest and CT of the abdomen and pelvis did not show any evidence of metastatic disease or any significant change in lymph node Will have outpatient appointment with oncologist and possible PET scan down the line Increasing shortness of breath Has COPD and also AMADA on CPAP at nighttime Has not been on oxygen at home Complain shortness of breath with minimal exertion Has been getting nebulized bronchodilator as an outpatient Will get to a stable O2 saturation test prior to discharge today-he does not require any oxygen at rest or with exertion History of CAD s/p stent On aspirin, statin, Imdur, metoprolol succinate No chest pain and/or palpitation Morbid obesity Needs counseling History of CVA On aspirin and statin History of A-fib On metoprolol succinate and Coumadin INR 2.2 Hypothyroidism On Synthyroid Diabetes Not on meds Sliding scale Will follow HbA1c levels Chronic diastolic CHF Monitor for volume overload Continue home Lasix No evidence of fluid overload BPH On terazosin Hypertension On metoprolol, lisinopril, Imdur, terazosin and Lasix Will monitor DVT prophylaxis On Coumadin We will monitor PT/INR Disposition Medical floor Full code Will be discharged home this afternoon Total Time Total Time Spent Total Time Spent (In Minutes): 35 minutes Discharge Plan Discharge Items Patient Disposition: Home - Self-Care Reason For Visit: SEVERE BACK PAIN Discharge Diagnosis: Right lumbar radiculopathy pain, spinal lesion on MRI, sleep apnea on CPAP at home, COPD, obesity Condition on Discharge: Good Activity: Resume your previous activity Non-emergency contact: Primary Care Provider Call non-emergency contact if: you have any medication questions and your symptoms worsen Follow-up/Referrals: Jose Garcia MD [Primary Care Provider] - Diet: Carb Consistent or DM2 and Heart Healthy Addtl Attending Provider Instructions: Please take precautions to avoid falls Take your medications as advised Try to use narcotics pain medications cautiously as this can cause confusion, constipation and addiction Please keep appointments with your healthcare providers You will need to see the oncologist as an outpatient Pending Studies at Discharge: Yes Studies:: Myeloma screen Stand-Alone Forms: My [employer], Pain - Opioid Pain Management, Smoking Cessation Medications and DC Order Prescriptions: New hydrocodone-acetaminophen 5-325 mg Tablet 1 tab PO Q6H PRN (Reason: pain) Qty: 20 0RF Continued furosemide 20 mg tablet 20 mg PO DAILY metoprolol succinate 50 mg Tablet Extended Release 24 Hr 50 mg PO QAM lisinopril 20 mg Tablet 20 mg PO QAM terazosin 1 mg Capsule 1 mg PO HS aspirin 81 mg Tablet,Delayed Release (Dr/Ec) 81 mg PO HS isosorbide mononitrate 60 mg Tablet Extended Release 24 Hr 60 mg PO QAM warfarin 5 mg Tablet See Rx Instructions .ROUTE .COMPLEX Rx Instructions: TAKES 7.5 MG EVERY EVENING, EXCEPT EVERY OTHER FRIDAY, TAKES 10 MG. warfarin 5 mg Tablet 10 mg PO DIRECTED Rx Instructions: TAKES EVERY OTHER FRIDAY. TOOK 09/09/23 nitroglycerin 0.4 mg Tablet, Sublingual 0.4 mg Sublingual DIRECTED PRN (Reason: Angina) Rx Instructions: PLACE 1 TAB UNDER TONGUE EVERY 5 MINUTES NEEDED FOR PAIN, CHEST. UP TO 3 DOSES IN 15 MINUTES. fluticasone propion-salmeterol [Advair Diskus] 250-50 mcg/dose Blister With Device 1 inh INHALATION Q12H atorvastatin 40 mg tablet 40 mg PO HS Qty: 30 5RF albuterol sulfate [Ventolin HFA] 90 mcg/actuation Hfa Aerosol Inhaler 2 puff INHALATION Q6H PRN (Reason: Shortness Of Breath) levothyroxine 137 mcg tablet 68.5 mcg PO 3XWK Rx Instructions: MON, WED, & FRI. levothyroxine 137 mcg tablet 137 mcg PO 4XWK Rx Instructions: SUN, , , & FRI. nystatin 100,000 unit/mL Suspension 5 ml PO QID Rx Instructions: swish and swallow albuterol sulfate 2.5 mg /3 mL (0.083 %) solution for nebulization 2.5 mg inhalation Q4H PRN (Reason: SHORT OF BREATH/COUGH/WHEEZING) gabapentin 100 mg capsule 100 mg PO Q8H PRN (Reason: pain) Qty: 30 0RF Discharge Orders: Discharge Order (Routine); Ordered 09/13/23 Ordered By: Shine Wilson/Other Patient Handouts: Warfarin Oral Tablet, Diabetes: Meal Planning, Type 2 Diabetes Admission Data Admit Date/Time: 09/11/23 22:53 Attending Provider: Shine Diaz Admit Provider: Paco Castro Primary Care Provider: Jose Garcia Other Providers: Paco Castro; Danielito Jiang; Jory Mooney; Mcfarlane,Rishikesh Other Interventions: Discharge Summary Assessment (RN) Last Done: 09/13/23 15:49
[2023-09-15 13:33] LABS: Free Kappa 18.5 mg/L (3.3-19.4); Free Kappa/Lambda Ratio 0.02 (0.26-1.65); Free Lambda 836.4 mg/L (5.7-26.3)
[2023-09-16 07:22] LABS: Albumin 3.5 g/dL (3.8-4.8); Alpha 1 Globulin 0.3 g/dL (0.2-0.3); Alpha 2 Globulin 0.7 g/dL (0.5-0.9); Beta-1-Globulin 0.4 g/dL (0.4-0.6); Beta-2-Globulin 0.4 g/dL (0.2-0.5); Gamma Globulin 0.8 g/dL (0.8-1.7); Monoclonal Protein Band 1 DNR g/dL (NONE DETECTED); Monoclonal Protein Band 2 DNR g/dL (NONE DETECTED); Monoclonal Protein Band 3 DNR g/dL (NONE DETECTED); Total Protein 6.1 g/dL (6.1-8.1)
[2023-09-16] MEDS ORDERED: WARFARIN SOD 7.5 MG TAB PO SCH (16:00)
[2023-09-23] MEDS ORDERED: WARFARIN SOD 10 MG TAB PO SCH (16:00)
== END 2023-09-13 16:44 | disposition home or self-care (01) | DRG 552 ==
LOC: ED 19:17 → EDINP 22:53 → SUATTDRO 22:53 → 3W 09-12 00:59
DX: G47.33 Obstructive sleep apnea (adult) (pediatric); M54.16 Radiculopathy, lumbar region; J98.4 Other disorders of lung; M89.8X8 Other specified disorders of bone, other site; Z82.3 Family history of stroke; E66.01 Morbid (severe) obesity due to excess calories; Z79.899 Other long term (current) drug therapy; Z82.5 Family history of asthma and other chronic lower respiratory diseases; Z88.8 Allergy status to other drugs, medicaments and biological substances; I25.10 Atherosclerotic heart disease of native coronary artery without angina pectoris; I48.92 Unspecified atrial flutter; Z79.51 Long term (current) use of inhaled steroids; E03.9 Hypothyroidism, unspecified; Z79.82 Long term (current) use of aspirin; E11.65 Type 2 diabetes mellitus with hyperglycemia; Z68.42 Body mass index [BMI] 45.0-49.9, adult; Z82.49 Family history of ischemic heart disease and other diseases of the circulatory system; Z95.5 Presence of coronary angioplasty implant and graft; F17.220 Nicotine dependence, chewing tobacco, uncomplicated; I50.32 Chronic diastolic (congestive) heart failure; I48.20 Chronic atrial fibrillation, unspecified; D64.9 Anemia, unspecified; Z86.73 Personal history of transient ischemic attack (TIA), and cerebral infarction without residual deficits; N40.0 Benign prostatic hyperplasia without lower urinary tract symptoms; I11.0 Hypertensive heart disease with heart failure; Z79.01 Long term (current) use of anticoagulants; J44.9 Chronic obstructive pulmonary disease, unspecified; Z79.890 Hormone replacement therapy; Z86.19 Personal history of other infectious and parasitic diseases; Z83.3 Family history of diabetes mellitus; E78.5 Hyperlipidemia, unspecified

== ENCOUNTER 2023-12-08 20:33 | Inpatient (IN) ==
--- OUTSIDE RECORDS SUMMARY | 2023-12-08 20:36 | External Medical Summary | Summary of Care ---
Author Name Unknown Organization [facility] Address [address] [place] [address] Phone [phone] Care Team Providers Care Food Service Ambassador Name Role Phone Jose Garcia MD Primary Care Provider [phone] Reason for Referral * Evaluate & Treat - Unlimited Visits (Within 30 days (routine)) - Authorized Specialty Diagnoses / Procedures Referred By Rocio glibert Referred To Contact Optometry Diagnoses Screening for diabetic retinopathy Jose Garcia MD [address] [place] [phone] Referral ID Status Reason Start Date Expiration Date Visits Requested Visits Authorized [id number] Authorized Specialty Services Required 12/04/[phone] Question Answer Referral Priority Within 30 days (routine) Where should this appointment be scheduled? 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 3 Inhaler 3 03/22/2019 Active Additional Information Patient not taking.Reported on 10/31/2023 Respiratory Therapy Supplies (NEBULIZER) CRISTINE Please use every 4 hours with albuterol medication. ICD- j44.9 1 Device 07/22/2019 Active CPAP every night at bedtime. Active Fluticasone-Salmeter ol 250-50 MCG/ACT Inhalation Aerosol Powder Breath Activated (Advair Diskus) Inhale 1 Puff by mouth in the morning and 1 Puff before bedtime. Rinse mouth after use.. 180 Each 3 10/29/2022 Active Nitroglycerin 0.4 MG Sublingual Tablet Sublingual (Nitrostat) Place 1 Tablet under the tongue every 5 minutes as needed for Pain, Chest. up to 3 doses in 15 minutes 25 Tablet 3 06/10/2023 Active Atorvastatin Calcium 40 MG Oral Tablet (Lipitor)Indications :Coronary artery disease involving campo coronary artery of campo heart without angina pectoris Take 1 Tablet by mouth in the morning. 90 Tablet 4 08/01/2023 Active Additional Information Patient taking differently:40 mg OralHS, Reported on 08/22/2023 Furosemide 20 MG Oral Tablet (Lasix)Indications:H TN, goal below 140/90 Take 1 Tablet by mouth in the morning. 90 Tablet 4 08/01/2023 Active Isosorbide Mononitrate ER 60 MG Oral Tablet Extended Release 24 Hour (Imdur)Indications:C oronary artery disease involving campo coronary artery of campo heart without angina pectoris,Atrial flutter, unspecified type (HCC),Stented coronary artery Take 1 Tablet by mouth in the morning. 90 Tablet 4 08/01/2023 Active Levothyroxine Sodium 137 MCG Oral TabletIndications:Ac quired hypothyroidism Takes 1 tablet Sat. Fri. and . And 1/2 tablet is taken Fri. Fri. Fri 90 Tablet 4 08/01/2023 Active Metoprolol Succinate ER 50 MG Oral Tablet Extended Release 24 Hour (toPROL XL)Indications:HTN, goal below 140/90,SOB (shortness of breath) Take 1 Tablet by mouth in the morning. 90 Tablet 4 08/01/2023 Active Terazosin HCl 1 MG Oral Capsule (Hytrin)Indications: BPH with obstruction/lower urinary tract symptoms Take 1 Capsule by mouth at bedtime. 90 Capsule 08/01/2023 Active Warfarin Sodium 5 MG Oral Tablet (Jantoven) 5mg Friday,Friday, Friday and 10mg rest of week (5mg tablet). 200 Tablet 3 08/01/2023 Active Albuterol Sulfate (2.5 MG/3ML) 0.083% Inhalation Nebulization Solution (Proventil)Indicatio ns:COPD, group B, by GOLD 2017 classification ([facility]) INHALE 1 VIAL VIA NEBULIZER EVERY 4 HOURS NEEDED FOR SHORTNESS OF BREATH, COUGH OR WHEEZE. 300 mL 3 08/15/2023 Active Nystatin 469914 UNIT/ML Mouth/Throat Suspension Swish and swallow 5 mL in the morning and 5 mL at noon and 5 mL in the evening and 5 mL before bedtime. For thrush.. 280 mL 09/06/2023 Active Additional Information Patient not taking.Reported on 10/31/2023 Docusate Sodium 100 MG Oral Capsule (Colace)Indications: Drug induced constipation Take 1 Capsule by mouth in the morning and 1 Capsule before bedtime. 60 Capsule 5 09/18/2023 Active Additional Information Patient not taking.Reported on 10/31/2023 Gabapentin 300 MG Oral Capsule (Neurontin) Take 1 Capsule by mouth in the morning and 1 Capsule at noon and 1 Capsule before bedtime. Active Lisinopril 5 MG Oral Tablet (Prinivil)Indication s:HTN, goal below 140/90 Take 1 Tablet by mouth in the morning. 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) 2.5 mg NEBULIZER Q4H PRN 04/13/2021 Active documented as of this encounter (statuses as of 12/04/2023) Active Problems Problem Noted Date Diagnosed Date Type 2 diabetes mellitus with diabetic nephropat hy 06/09/2023 Diabetes mellitus without complication 3 Spinal stenosis of lumbar re gion with neurogenic claudication 12/09/2022 Chronic atrial fibrillation 09/03/2021 Anticoagulation management encounter 12/01/2020 Atrial flutter, unspecified type 12/01/2020 Morbid obesity due to excess calories 07/31/2020 Chronic diastolic congestive heart failure 07/31 Cerebrovascular accident (CV A) due to embolism of precerebral artery 04/20/2020 COPD, group B, by GOLD 2017 classification 07/26 Overview: Per COPD GOLD Classification In Check dial performed to assess inhaler technique: 09/29/19 Name of inhalers Albuterol Pass: Yes at 60L/min and Trelegy Ellipta Pass: Yes at 65L/min. Encouraged to take slow deep breaths, use aero chamber, and rinse after steroid. Test performed by Trish WILSON CPFT Body mass index (BMI) of 45.0 to 49.9 in adult 0 07/26/2019 Overview: Per Obesity protocol - Per Obesity protocol - Per Obesity Protocol, #19 ICD-10 update of inactive term Monoallelic mutation of RYR1 gene 05/05/2019 Overview: pathogenic RYR1 gene variant (c.1840C>T , p.Qym232Tgv) detected via MyCode. Increased risk for Malignant Hyperthermia Susceptibility. AMADA (obstructive sleep apnea) 03/22/2019 Nocturnal hypoxemia 03/22/2019 Lung nodule 09/16/2018 Occupational lung disease 09/16/2018 Never smoked any substance 09/08/2018 Never smoked tobacco 09/08/2018 Mixed restrictive and obstructive lung disease 0 08/07/2016 Overview: In Check dial performed to assess inhaler technique: 09/29/19 Name of inhalers Albuterol Pass: Yes at 60L/min and Trelegy Ellipta Pass: Yes at 65L/min. Encouraged to take slow deep breaths, use aero chamber, and rinse after steroid. Test performed by Trish PHYSIATRIST CPFT S/P PTCA (percutaneous transluminal coronary ang ioplasty) 03/23/2015 CAD (coronary artery disease) 03/02/2015 Stented coronary artery 03/02/2015 Primary hypothyroidism 10/13/2014 Atrial flutter 12/17/2013 HTN, goal below 140/90 03/19/2013 Dyslipidemia, goal LDL below 130 04/01/2012 BPH with obstruction/lower urinary tract symptom s 04/01/2012 Lyme disease 03/05/2010 ADVANCE DIRECTIVE INFORMATION 10/06/2006 Overview: Pt refused Edema 03/22/2004 DISC DIS [id number] 06/02/2003 documented as of this encounter (statuses as of 12/04/2023) Resolved Problems Problem Noted Date Diagnosed Date Resolved Date COPD exacerbation 07/22/2019 04/10/2020 Overview: In Check dial performed to assess inhaler technique: 09/29/19 Name of inhalers Albuterol Pass: Yes at 60L/min and Trelegy Ellipta Pass: Yes at 65L/min. Encouraged to take slow deep breaths, use aero chamber, and rinse after steroid. Test performed by Trish PHYSIATRIST CPFT Body mass index (BMI) of 50. 0 to 59.9 in adult 06/21/2019 07/29/2019 Overview: Per Obesity protocol - Per Obesity Protocol, #19 ICD-10 update of inactive term COPD, group A, by GOLD 2017 classification 03/22/2019 07/29/2019 Overview: Per COPD GOLD Classification COPD, severity to be determined 09/16/2018 03/22/2019 Coronary artery disease invo lving campo coronary artery without angina pectoris 03/23/2015 07/16/2019 Nocturnal hypoxemia 04/19/2014 09/08/19 19 Chest pain 01/28/2014 03/21/2014 Moderate obstructive sleep apnea 12/18/2013 06/15/2018 Overview: 03/30/14 PSG -- AHI 19.7, <89% 35 mins [facility] (using 2 LPM through [facility]) Obesity, Class III, BMI 40-4 9.9 (morbid obesity) 12/25/2011 12/26/2016 Obesity, morbid (more than 1 00 lbs over ideal weight or BMI > 40) 12/26/2009 06/24/2019 Overview: Per Obesity Protocol, #19 ICD-10 update of inactive term Dyslipidemia, goal to be determined 06/28/2009 04/14/2013 Overview: Per Lipid Taxonomy. BPH with obstruction/lower u rinary tract symptoms 07/03/2007 04/01/2012 Stasis Dermatitis 04/22/2007 03/05/2018 Esophageal reflux 06/23/2006 07/16/2019 PURE HYPERCHOLESTEROLEM 08/12/200206/13 Overview: Per Lipid Taxonomy. SCREEN-CARDIOVASC NEC 03/10/20022017 Trigger finger 05/26/2001 03/05/2018 ACUTE URI NOS 05/26/2001 09/01/2008 Overview: Resolved per Benign Acute Dxs Protocol #3 documented as of this encounter (statuses as of 12/04/2023) Immunizations Name Administration Dates Next Due COVID-19 mRNA, LNP-s, No Pre serve, 2-Dose Series (Moderna) 09/14/2020,08/19/2020 COVID-19 mRNA, LNP-s, No Pre serve, 2-Dose Series (Pfizer) 05/28/2021 Pneumococcal Conjugate Vacc, 13 Valent (Prevnar) 07/04/2015 Pneumococcal Polysaccharide PPV23 (Pneumovax) 09/03/2021,05/16/2016 Season Influenza, Quad, PF, Adjuvanted, 65+ Yrs, IM (FLUAD) 03/16/2020 Seasonal Influenza Virus Vac cine, Unspecified Formulation 04/03/2022,04/14/2021,03/16/2020,04/26,04/06/2018,03/28/2017,04/04/2016 ,06/06/2014,04/14/2013,07/13/2012 Seasonal Influenza, PF, 6 M & above, IM , (FluLaval or Fluzone) 04/06/2018 Seasonal Influenza, Quadriva lent Hd (Fluzone Hd) 04/03/2022,04/14/2021 Seasonal Influenza, Quadriva lent, No Preserve, IM 03/28/2017,04/04/2016 Seasonal Influenza, Split, I IV3, With Preserve, Inj 03/23/2015,06/06/2014,04/14/2013,07/13,08/28/2009(Deferred: Patient Refused) Seasonal Influenza, Trivalen t, Adjuvanted, 65+ yrs 04/26/2019 TDAP (age 11 and older)(Adacel) 04/14/2013 Varicella Zoster Vaccine (Adult) 05/12/2015 Zoster Vaccine Recombinant (Shingrix) 04/06/2022 documented as of this encounter Social History Tobacco Use Types Packs/Day Years Used Date Smoking Tobacco: Never Smokeless Tobacco: Current Snuff Alcohol Use Standard Drinks/Week Comments Not Currently 0 (1 standard drink = 0.6 oz pur e alcohol) AUDIT-C Answer Date Recorded Frequency of Alcohol Consumption Never 09/08/2018 Average Number of Drinks Not on file 019 Frequency of Binge Drinking Not on file 08/15 PHQ-2 Answer Date Recorded PHQ Adult Total Score 4 10/31/2023 Hunger Vital Sign Answer Date Recorded Within the past 12 months, y ou worried that your food would run out before you got the money to buy more. Never true 10/31/19 24 Within the past 12 months, t he food you bought just didn't last and you didn't have money to get more. Never true 10/31/2023 Sex and Gender Information Value Date Recorded Sex Assigned at Male 11/23/2018 9:29 AM EDT Gender Identity Male 11/23/2018 9:29 AM EDT Sexual Orientation Straight 11/23/2018 9: 29 AM EDT Job Start Date Occupation Industry Not on file Not on file Not on file documented as of this encounter Functional Status Functional Status Response Date of Assess ment Are you deaf or do you have serious difficulty h earing? No 12/16/2013 Are you blind or do you have serious difficulty seeing, even when wearing glasses? No 12/16/2013 Do you have serious difficul ty walking or climbing stairs? (5 years old or older) No 12/16/2013 Do you have difficulty dress ing or bathing? (5 years old or older) No 12/16/2013 Because of a physical, menta l, or emotional condition, do you have difficulty doing errands alone such as visiting a doctor s office or shopping? (15 years old or older) No 12/17/19 14 Cognitive Status Response Date of Assessm ent Because of a physical, menta l, or emotional condition, do you have serious difficulty concentrating, remembering, or making decisions? (5 years old or older) No 12/16/2013 documented as of this encounter Miscellaneous Notes * Telephone Encounter - Maria Alejandra Hilario LPN - 12/04/2023 1:04 PM EDT Patient with a positive Diabetic Retinopathy scan. Outreach action taken: Outreach not indicated-Already scheduled for optometry. Referral generated for this. Maria Alejandra Hilario LPN documented in this encounter Plan of Treatment Upcoming Encounters Date Type Department Care Team (Late st Contact Info) Description 12/15/2023 9:30 AM EDT Office Visit Cardiology, [facility] [address] [place] [address] [phone] Yesenia Melendez CRNP [address] [address] 12/22/2023 8:20 AM EDT Office Visit [address] [phone] Jose Garcia MD [address] [place] [address] 12/31/2023 9:40 AM EDT Anticoagulation Pharmacy [facility] [address] [place] [address] Pharmacist1, [facility] [address] [place] [address] 01/02/2024 10:30 AM EDT Office Visit [facility] [address] [place] [address] Merissa Contreras CRNP [address] [address] 03/30/2024 2:20 PM EDT Office Visit Optometry, [facility] [address] [place] [phone] Axel Vaca, OD [address] [place] [address] Scheduled Procedures Name Priority Associated Diagnoses Date/Ti me COLONOSCOPY FLEXIBLE PROXIMAL DIAGNOSTIC Recall History of colon polyps Scheduled Referrals Name Type Priority Associated Diagnoses Orde r Schedule ADULT/PEDS OPHTHALMOLOGY/OPTOM ETRY REFERRAL OP Referral Within 30 days (routine) Screening for diabetic retinopathy Ordered: 12/04/2023 Health Maintenance Due Date Last Done Comments Cologuard 11/09/1996 Fecal Occult Blood Test 11/09/1996 Sigmoidoscopy 11/09/1996 DTaP,Tdap,and Td Vaccines (2 - Td or Tdap) 04/14/2023 04/14/2013 COVID-19 Vaccine ( season) 2023 04/16/2023, 05/10/2022, 05/28/2021, Additional history exists Colonoscopy 09/23/2023 09/22/2018, 08/30/2008 Colorectal Cancer Screening 09/23/2023 Albumin/Creatinine Ratio 12/13/2023 12/12/2022 Influenza Vaccine (FLU shot) (Season Ended) 2024 04/03/2022, 04/03/2022, 04/14/2021, Additional history exists HbA1c 04/04/2024 10/03/2023, 05/15, 12/24/2022 GFR 10/02/2024 10/03/2023, 03/0 12/2023, 06/04/2023, Additional history exists TSH 10/02/2024 10/03/2023, 06/0 07/2022, 06/26/2022, Additional history exists Depression Screening 10/30/2024 10/31/2023, 10/31/19 Diabetic Eye Exam 10/30/2024 10/31/2023 Diabetic Foot Exam 10/30/2024 10/31/2023 O2 ASSESSMENT COMPLETED IN PAST YEAR FOR COPD 10/30/2024 10/31/2023 Hepatitis C Screening Completed 06/27/2017 RETIRED - COLONOSCOPY-EVERY 5 YRS AGES 18-100 Discontinued 09/22/2018, 08/30/2008 Alpha-1 Antitrypsin Completed 11/24/2020 Pneumococcal Vaccine: 65+ Years Completed 09/03/2021, 05/16/2016, 07/04/2015 Zoster Vaccines Completed 11/02/2022, 03/15, 05/12/2015 GARDASIL-HPV IMMUNIZATION SERIES Aged Out No longer eligible based on patient's age to complete this topic Hepatitis B Aged Out No longer eligi ble based on patient's age to complete this topic MENINGOCOCCAL (MENACTRA/MENVEO) Aged Out No longer eligible based on patient's age to complete this topic documented as of this encounter Medical Devices Not on filedocumented as of this encounter Visit Diagnoses Diagnosis Screening for diabetic retinopathy- Primary Screening for other eye conditions documented in this encounter Advance Directives * Full Code (Latest Code Status on File) Date Activated Date Inactivated Comments 12/16/2013 3:37 PM 12/18/2013 10:45 PM This order re flects the patients wishes and were consensually agreed upon. Question Answer Comments Discussion of Advance Directives occurred with: Patient Does the patient have a Living Will? No Does the patient have Health Care Power of Attor agustín? No Care Teams Food Service Ambassador Relationship Specialty Start Date End Date Garcia, Jose, MD [address] [place] [phone] PCP - General Family Medicine 09/08/18 documented as of this encounter
--- OUTSIDE RECORDS SUMMARY | 2023-12-08 20:37 | External Medical Summary | Summary of Care ---
Author Name Unknown Organization [facility] Address [address] [place] [address] Phone [phone] Care Team Providers Care Production Team Member Name Role Phone Jose Garcia MD Primary Care Provider [phone] Reason for Visit * Reason Onset Date Comments Advice 11/20/2023 Encounter Details Date Type Department Care Team (Late st Contact Info) Description 11/20/2023 Telephone Cardiology, [facility] [address] [place] [address] Luis Fernando Evans PA-C [address] [place] [phone] Advice Allergies Active Allergy Reactions Criticality Noted Date Comments Halothane 05/05/2019 MyCode result; 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 90 Tablet 4 08/01/2023 Active Levothyroxine Sodium 137 MCG Oral TabletIndications:Ac quired hypothyroidism Takes 1 tablet Sat. Sun. and . And 1/2 tablet is taken [...] Capsule by mouth at bedtime. 90 Capsule 4 08/01/2023 Active Warfarin Sodium 5 MG Oral Tablet (Jantoven) 5mg Friday,Friday, Friday and 10mg rest of week (5mg tablet). 200 Tablet 3 08/01/2023 Active Albuterol Sulfate (2.5 MG/3ML) 0.083% Inhalation Nebulization Solution (Proventil)Indicatio ns:COPD, group B, by GOLD 2017 classification ([facility]) INHALE 1 VIAL VIA NEBULIZER EVERY 4 HOURS NEEDED FOR SHORTNESS OF BREATH, COUGH OR WHEEZE. 300 mL 3 08/15/2023 Active Nystatin 957679 UNIT/ML Mouth/Throat Suspension Swish and swallow 5 [...] mgIndications:COPD, group B, by GOLD 2017 classification ([facility]),Mixed restrictive and obstructive lung disease (HCC) 2.5 [...] rinse after steroid. Test performed by Trish HADOOP CONSULTANT CPFT Body mass index (BMI) of 45.0 to 49.9 in adult 0 07/26/2019 Overview: Per Obesity protocol - Per Obesity protocol - Per Obesity Protocol, #19 ICD-10 update of inactive term Monoallelic mutation of RYR1 gene 05/05/2019 Overview: pathogenic RYR1 gene variant (c.1840C>T , p.[id number]) detected via [employer]. Increased risk for Malignant Hyperthermia Susceptibility. AMADA [...] rinse after steroid. Test performed by Trish HADOOP CONSULTANT CPFT S/P PTCA (percutaneous transluminal coronary ang ioplasty) 03/23/2015 CAD (coronary artery disease) 03/02/2015 Stented coronary artery 03/02/2015 Primary hypothyroidism 10/13/2014 Atrial flutter 12/17/2013 HTN, goal below 140/90 03/19/2013 Dyslipidemia, goal LDL below 130 04/01/2012 BPH with obstruction/lower urinary tract symptom s 04/01/2012 Lyme disease 03/05/2010 ADVANCE DIRECTIVE INFORMATION 10/06/2006 Overview: Pt refused Edema 03/22/2004 DISC DIS [id number] 06/02/2003 documented as of this encounter (statuses [...] rinse after steroid. Test performed by Trish HADOOP CONSULTANT CPFT Body mass index (BMI) of 50. 0 to 59.9 in adult 06/21/2019 07/29/2019 Overview: Per Obesity protocol - Per Obesity Protocol, #19 ICD-10 update of inactive term COPD, group A, by GOLD 2017 classification 03/22/2019 07/29/2019 Overview: Per COPD GOLD Classification COPD, severity to be determined 09/16/2018 03/22/2019 Coronary artery disease invo lving [place] coronary artery without angina pectoris 03/23/2015 07/16/2019 Nocturnal hypoxemia 04/19/2014 09/08/19 19 Chest pain 01/28/2014 03/21/2014 Moderate obstructive sleep apnea 12/18/2013 06/15/2018 Overview: 03/30/14 PSG -- AHI 19.7, <89% 35 mins Care Plus Oxygen (using 2 LPM through [facility]) Obesity, Class III, BMI 40-4 9.9 (morbid [...] encounter Miscellaneous Notes * Telephone Encounter - Bibi Bolanos CMA - 12/04/2023 10:24 AM EDT Called [employer] -- expedite request in place for when monitor arrives back to them. * Telephone Encounter - Ellen Collins CRNP - 11/24/2023 6:49 PM EDT I am ok if it comes off a few days early. If we can get at least 7-10 days that would be great. Thanks, V * Telephone Encounter - Alida Katz LPN - 11/24/2023 2:25 PM EDT Called to speak with pt, answered, pt was in radiation therapy. Agreed to [employer] monitor will come today to have placed. Pt has not had any episodes since the , but had a similar episode a couple of weeks before the at home. Denies any recent illness. * Addendum Note - Ellen Collins CRNP - 11/20/2023 6:55 PM EDTAddended by: ELLEN COLLINS on: 11/20/2023 06:55 PM Modules accepted: Orders * Telephone Encounter - Ellen Collins CRNP - 11/20/2023 6:51 PM EDT Thank you Luis Fernando for the update. Patient is scheduled to see Yesenia Melendez in early December. Can we call the patient inquire if he has been having more of these episodes? Is he staying hydrated? Acute illness? Nausea/vomiting/diarrhea? Acute URI symptoms? Fevers? I would suggest he comes in and has a ZIO monitor placed for [address] we can get data before his appt with Yesenia. Order placed. Thank you, Ellen * Telephone Encounter - Luis Fernando Evans PA-C - 11/20/2023 2:13 PM EDT Message received from Charge Nurse at [facility]. Mr. Guillen was a Code Purple outside of oncology at [facility] earlier today, experiencing a near syncope episode when walking to the car. Per report, he lowered himself and was shaky and short of breath. Heart rates as bradycardic in the 40's and 50's. Cardiology follow-up advised. Patient followed by Dr. Carlton and Mrs. Collins. (? Vagal response versus other). Luis Fernando Evans PA-C Department of Cardiology documented in this encounter Plan of Treatment Upcoming Encounters Date Type Department Care Team (Late st Contact Info) Description 12/15/2023 9:30 AM EDT Office Visit Cardiology, [facility] [place] [address] Yesenia Melendez CRNP [address] [place] [address] 12/22/2023 8:20 AM EDT Office Visit [facility] [address] [place] [phone] Jose Garcia MD [address] [place] [address] 12/31/2023 9:40 AM EDT Anticoagulation Pharmacy [address] [phone] Pharmacist1, [facility] [address] [address] 01/02/2024 10:30 AM EDT Office Visit [facility] [address] [place] [address] Merissa Contreras CRNP [address] [facility] [place] [address] 03/30/2024 2:20 PM EDT Office Visit Optometry, [address] [address] Axel Vaca, OD [address] [place] [address] Scheduled Orders Name Type Priority Associated Diagnoses Orde r Schedule EXTERNAL EKG 8 TO 15 DAYS Holter Routine Near syncope Expected: 11/21/2023 (Approximate), Expires: 11/19/2024 Scheduled Procedures Name Priority Associated Diagnoses Date/Ti me COLONOSCOPY FLEXIBLE PROXIMAL DIAGNOSTIC Recall History of colon polyps Health Maintenance Due Date Last Done Comments [...] history exists Depression Screening 10/30/2024 10/31/2023, 10/31/19 24 Diabetic Eye Exam 10/30/2024 10/31/2023 Diabetic Foot [...] as of this encounter Visit Diagnoses Diagnosis Near syncope- Primary Syncope and collapse documented in this encounter Advance Directives * [...] Power of Attor agustín? No Care Teams Production Team Member Relationship Specialty Start Date End Date Jose Garcia MD [address] [place] [phone] PCP - General Family Medicine 09/08/18 documented as of this encounter
--- OUTSIDE RECORDS SUMMARY | 2023-12-08 20:37 | External Medical Summary | Summary of Care ---
Author Name Unknown Organization [facility] Address [address] [place] [address] Phone [phone] Care Team Providers Care Special Order Jeweler Name Role Phone Jose Garcia MD Primary Care Provider [phone] Reason for Visit * Reason Onset Date Comments Advice 11/20/2023 Encounter Details Date Type Department Care Team (Late st Contact Info) Description 11/20/2023 Telephone Cardiology, [facility] [address] [place] [address] Luis Fernando Evans PA-C [address] [place] [phone] Advice Allergies Active Allergy Reactions Criticality Noted Date Comments Halothane 05/05/2019 MyCode result; 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 ICD- j44.9 1 Device 0 07/22/2019 Active CPAP every night at bedtime. 0 Active Fluticasone-Salmeter ol 250-50 MCG/ACT Inhalation Aerosol [...] Oral Tablet (Lipitor)Indications :Coronary artery disease involving [place] coronary artery of [place] heart without angina pectoris Take 1 Tablet [...] 24 Hour (Imdur)Indications:C oronary artery disease involving [place] coronary artery of [place] heart without angina pectoris,Atrial flutter, unspecified type (HCC),Stented coronary artery Take 1 Tablet by mouth in the morning. 90 Tablet 4 08/01/2023 Active Levothyroxine Sodium 137 MCG Oral TabletIndications:Ac quired hypothyroidism Takes 1 tablet Sat. Sun. and . And 1/2 tablet is taken Fri. Fri. Fri 90 Tablet 08/01/2023 Active Metoprolol Succinate ER 50 MG [...] ns:COPD, group B, by GOLD 2017 classification ([facility]) INHALE 1 VIAL VIA NEBULIZER EVERY 4 HOURS NEEDED FOR SHORTNESS OF BREATH, COUGH OR WHEEZE. 300 mL 3 08/15/2023 Active Nystatin 963207 UNIT/ML Mouth/Throat Suspension Swish and swallow 5 mL in the morning and 5 mL at noon and 5 mL in the evening and 5 mL before bedtime. For thrush.. 280 mL 0 09/06/2023 Active Additional Information Patient not taking.Reported [...] at noon and 1 Capsule before bedtime. 0 Active Lisinopril 5 MG Oral Tablet (Prinivil)Indication [...] mgIndications:COPD, group B, by GOLD 2017 classification ([facility]),Mixed restrictive and obstructive lung disease ([facility]) 2.5 mg NEBULIZER Q4H PRN 04/13/2021 Active documented as of this encounter (statuses as of 11/24/2023) Active Problems Problem Noted Date Diagnosed Date [...] rinse after steroid. 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 Increased risk for Malignant [...] rinse after steroid. Test performed by Trish NURSE ANESTHETIST CPFT S/P PTCA (percutaneous transluminal coronary ang ioplasty) 03/23/2015 CAD (coronary artery disease) 03/02/2015 Stented coronary artery 03/02/2015 Primary hypothyroidism 10/13/2014 Atrial flutter 12/17/2013 HTN, goal below 140/90 03/19/2013 Dyslipidemia, goal LDL below 130 04/01/2012 BPH with obstruction/lower urinary tract symptom s 04/01/2012 Lyme disease 03/05/2010 ADVANCE DIRECTIVE INFORMATION 10/06/2006 Overview: Pt refused Edema 03/22/2004 DISC DIS [id number] 06/02/2003 documented as of this encounter (statuses as of 11/24/2023) Resolved Problems Problem Noted Date Diagnosed Date Resolved Date COPD exacerbation 07/22/2019 04/10/2020 Overview: In Check dial performed to assess inhaler technique: 09/29/19 Name of inhalers Albuterol Pass: Yes at 60L/min and Trelegy Ellipta Pass: Yes at 65L/min. Encouraged to take slow deep breaths, use aero chamber, and rinse after steroid. Test performed by Trish NURSE ANESTHETIST CPFT Body mass index (BMI) of 50. 0 to 59.9 in adult 06/21/2019 07/29/2019 Overview: Per Obesity protocol - Per Obesity Protocol, #19 ICD-10 update of inactive term COPD, group A, by GOLD 2017 classification 03/22/2019 07/29/2019 Overview: Per COPD GOLD Classification COPD, severity to be determined 09/16/2018 03/22/2019 Coronary artery disease invo lving [place] coronary artery without angina pectoris 03/23/2015 07/16/2019 Nocturnal hypoxemia 04/19/2014 09/08/19 19 Chest pain 01/28/2014 03/21/2014 Moderate obstructive sleep apnea 12/18/2013 06/15/2018 Overview: 03/30/14 PSG -- AHI 19.7, <89% 35 mins Care Plus Oxygen (using 2 LPM through [facility] Obesity, Class III, BMI 40-4 9.9 (morbid [...] as of this encounter (statuses as of 11/24/2023) Immunizations Name Administration Dates Next Due COVID-19 [...] as of this encounter Miscellaneous Notes * Addendum Note - Ellen Collins CRNP [...] Message received from Charge Nurse at [facility]. 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 [address] [address] 01/02/2024 10:30 AM EDT Office Visit Sleep Disorders Ctr [facility] [address] [place] [phone] Merissa Contreras CRNP [address] [facility] [address] 03/30/2024 2:20 PM EDT Office Visit Optometry, [facility] [address] [place] [address] Axel Vaca, OD [address] [place] [address] Scheduled Orders Name Type Priority Associated Diagnoses [...] (2 - Td or Tdap) 04/14/2023 04/14/2013 Colonoscopy 09/23/2023 09/22/2018, 08/30/2008 Colorectal Cancer Screening [...] 07/04/2015 Zoster Vaccines Completed 11/02/2022, 03/15, 05/12/2015 COVID-19 Vaccine Completed 04/16/2023, , 05/28/2021, Additional history exists GARDASIL-HPV IMMUNIZATION SERIES Aged Out No longer [...] collapse documented in this encounter Advance Directives Latest Code Status on File Code Status Date Activated Date Inactivated Comments Full Code 12/16/2013 3:37 PM 12/18/2013 10:45 PM This o rder reflects the patients wishes and were consensually agreed upon. Question Answer Comments Discussion of Advance Directives occurred with: Patient Does the patient have a Living Will? No Does the patient have Health Care Power of Roofing Subcontractor? No Care Teams Special Order Jeweler Relationship Specialty Start Date End Date Jose Garcia MD [address] [place] [phone] PCP - General Family Medicine 09/08/18 documented as of this encounter
--- OUTSIDE RECORDS SUMMARY | 2023-12-08 20:37 | External Medical Summary | Summary of Care ---
Author Name Unknown Organization [facility] Address [address] [place] [address] Phone [phone] Care Team Providers Care Crutcher Helper Name Role Phone Jose Garcia MD Primary Care Provider [phone] Reason for Visit * Reason Onset Date Comments Advice 11/20/2023 Encounter Details Date Type Department Care Team (Late st Contact Info) Description 11/20/2023 Telephone Cardiology, [facility] [address] [place] [address] Luis Fernando Evans PA-C [address] [place] [phone] Advice Allergies Active Allergy Reactions Criticality Noted Date Comments Halothane 05/05/2019 MyCode result; 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 coronary artery of [place] heart without angina pectoris Take 1 Tablet [...] 24 Hour (Imdur)Indications:C oronary artery disease involving [place] coronary artery of [place] heart without angina pectoris,Atrial flutter, unspecified type [...] ns:COPD, group B, by GOLD 2017 classification ([facility]) INHALE 1 VIAL VIA NEBULIZER EVERY 4 HOURS NEEDED FOR SHORTNESS OF BREATH, COUGH OR WHEEZE. 300 mL 3 08/15/2023 Active Nystatin 058550 UNIT/ML Mouth/Throat Suspension Swish and swallow 5 [...] mgIndications:COPD, group B, by GOLD 2017 classification ([facility]),Mixed restrictive and obstructive lung disease ([facility]) 2.5 mg NEBULIZER Q4H PRN 04/13/2021 Active documented as of this encounter (statuses as of 11/20/2023) Active Problems Problem Noted Date Diagnosed Date [...] rinse after steroid. 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 Increased risk for Malignant [...] rinse after steroid. Test performed by Trish REDUCING SYSTEM OPERATOR CPFT S/P PTCA (percutaneous transluminal coronary ang ioplasty) 03/23/2015 CAD (coronary artery disease) 03/02/2015 Stented coronary artery 03/02/2015 Primary hypothyroidism 10/13/2014 Atrial flutter 12/17/2013 HTN, goal below 140/90 03/19/2013 Dyslipidemia, goal LDL below 130 04/01/2012 BPH with obstruction/lower urinary tract symptom s 04/01/2012 Lyme disease 03/05/2010 ADVANCE DIRECTIVE INFORMATION 10/06/2006 Overview: Pt refused Edema 03/22/2004 DISC DIS [id number] 06/02/2003 documented as of this encounter (statuses as of 11/20/2023) Resolved Problems Problem Noted Date Diagnosed Date Resolved Date COPD exacerbation 07/22/2019 04/10/2020 Overview: In Check dial performed to assess inhaler technique: 09/29/19 Name of inhalers Albuterol Pass: Yes at 60L/min and Trelegy Ellipta Pass: Yes at 65L/min. Encouraged to take slow deep breaths, use aero chamber, and rinse after steroid. Test performed by Trish REDUCING SYSTEM OPERATOR CPFT Body mass index (BMI) of 50. 0 to 59.9 in adult 06/21/2019 07/29/2019 Overview: Per Obesity protocol - Per Obesity Protocol, #19 ICD-10 update of inactive term COPD, group A, by GOLD 2017 classification 03/22/2019 07/29/2019 Overview: Per COPD GOLD Classification COPD, severity to be determined 09/16/2018 03/22/2019 Coronary artery disease invo lving [place] coronary artery without angina pectoris 03/23/2015 07/16/2019 Nocturnal hypoxemia 04/19/2014 09/08/19 19 Chest pain 01/28/2014 03/21/2014 Moderate obstructive sleep apnea 12/18/2013 06/15/2018 Overview: 03/30/14 PSG -- AHI 19.7, <89% 35 mins Care Plus Oxygen (using 2 LPM through [facility]) Obesity, Class III, BMI 40-4 9.9 (morbid [...] as of this encounter (statuses as of 11/20/2023) Immunizations Name Administration Dates Next Due COVID-19 [...] encounter Miscellaneous Notes * Telephone Encounter - Luis Fernando Evans PA-C - 11/20/2023 2:13 PM EDT Message received from Charge Nurse at [facility]. 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 Per report, he lowered himself and was shaky and short of breath. Heart rates as bradycardic in the 40's and 50's. Cardiology follow-up advised. Patient followed by Dr. Carlton and Mrs. Gutierrez. (? Vagal response versus other). Luis Fernando Evans PA-C Department of Cardiology documented in this encounter Plan of Treatment Upcoming Encounters Date Type Department Care Team ([facility] st Contact Info) Description 12/15/2023 9:30 AM EDT Office Visit Cardiology, [facility] [address] [facility] [place] [address] Yesenia Melendez CRNP [address] [place] [address] 12/22/2023 8:20 AM EDT Office Visit Family Practice [address] [place] [phone] Jose Garcia MD [address] [place] [address] 12/31/2023 9:40 AM EDT Anticoagulation Pharmacy [address] [place] [phone] Pharmacist1, [facility] [address] [place] [address] 01/02/2024 10:30 AM EDT Office Visit Sleep Disorders Ctr [facility] [address] [place] [phone] Merissa Contreras CRNP [address] [place] [address] 03/30/2024 2:20 PM EDT Office Visit Optometry, [address] [address] Axel Vaca, OD [address] [place] [address] Scheduled Procedures Name Priority Associated Diagnoses Date/Ti [...] Not on filedocumented as of this encounter Advance Directives Latest Code Status on File Code Status Date Activated Date Inactivated Comments Full Code 12/16/2013 3:37 PM 12/18/2013 10:45 PM This o rder reflects the patients wishes and were consensually agreed upon. Question Answer Comments Discussion of Advance Directives occurred with: Patient Does the patient have a Living Will? No Does the patient have Health Care Power of Media Coordinator? No Care Teams Crutcher Helper Relationship Specialty Start Date End Date Jose Garcia MD [address] [place] [address] PCP - General Family Medicine 09/08/18 documented as of this encounter
--- OUTSIDE RECORDS SUMMARY | 2023-12-08 20:37 | External Medical Summary ---
Author Name Unknown Address Unknown Organization : Laboratory Report Ordering Provider Test Date Status KAUSHIK LUJAN 11/19/2023 08:54:19 Final Therapeutic ranges for non-o perative patients:
Prophylaxsis/treatment of DVT: (Range:2.0-3.0)
Treatment of pulmonary embolism:(Range:2.0-3.0)
Prevention of systemic embolism from:
-tissue heart valves
-acute myocardial infarction
-valvular heart disease
-atrial fibrillation
(Range: 2.0-3.0)
Mechanical prosthetic valves: (Range: 2.5-3.5) Observation Date Value Abnormality Reference (Units ) Status INR in Capillary blood by Coagulation assay 11/19/2023 08:54:19 2.5 (INR) Final Performing Location
--- OUTSIDE RECORDS SUMMARY | 2023-12-08 20:37 | External Medical Summary | Continuity of Care Document ---
Author Name Unknown Organization [facility] Address [address] [id number] Encounter [facility] [id number] Date(s): 11/14/23 - 11/14/23 [facility] [id number], [place] [address]- [phone] Encounter Diagnosis H/O multiple myeloma(Discharge Diagnosis) - 11/14/23 Discharge Disposition: Home or Self Care Attending Physician: MD Kaba Seema G Referring Physician: MD Jesica, Jory Allergies, Adverse Reactions, Alerts No Known Allergies Medications Advair Diskus 250 mcg-50 mcg Start: 11/14/23 11:10:00 EDT, 1 inh, inhaled, bid Start Date: 11/14/23 Status: Ordered albuterol 2.5 mg/0.5 mL (0.5%) inhalation solution Start: 11/14/23 11:15:00 EDT, 2.5 mg =, inhaled, q4h, PRN: as needed for wheezing Start Date: 11/14/23 Status: Ordered aspirin 81 mg oral capsule Start: 11/14/23 11:13:00 EDT, 1 cap, PO, Daily Start Date: 11/14/23 Status: Ordered atorvastatin Start: 11/14/23 11:10:00 EDT, 40 mg =, PO, qhs Start Date: 11/14/23 Status: Ordered furosemide Start: 11/14/23 11:09:00 EDT, 20 mg =, PO, Daily Start Date: 11/14/23 Status: Ordered gabapentin Start: 11/14/23 11:15:00 EDT, 100 mg =, PO, q8h, PRN: pain Start Date: 11/14/23 Status: Ordered isosorbide mononitrate Start: 11/14/23 11:13:00 EDT, 60 mg =, PO, qAM Start Date: 11/14/23 Status: Ordered levothyroxine Start: 11/14/23 11:11:00 EDT, 68.5 mcg =, PO, Daily, THREE TIMES WEEKLY Start Date: 11/14/23 Status: Ordered levothyroxine 137 mcg (0.137 mg) oral capsule Start: 11/14/23 11:11:00 EDT, 1 cap, PO, four times weekly Start Date: 11/14/23 Status: Ordered lisinopril Start: 11/14/23 11:13:00 EDT, 20 mg =, PO, Daily Start Date: 11/14/23 Status: Ordered metoprolol succinate (ER) Start: 11/14/23 11:14:00 EDT, 50 mg =, PO, qAM Start Date: 11/14/23 Status: Ordered nitroglycerin Start: 11/14/23 11:14:00 EDT, 0.4 mg =, SL, q5min, If chest pain not relieved in 5 minutes after first dose, seek immediate medical attention, PRN: as needed for chest pain Start Date: 11/14/23 Status: Ordered terazosin Start: 11/14/23 11:08:00 EDT, 1 mg =, PO, qhs Start Date: 11/14/23 Status: Ordered Ventolin HFA 90 mcg/inh inhalation aerosol Start: 11/14/23 11:10:00 EDT, 2 puff, inhaled, q6h, PRN: as needed for wheezing Start Date: 11/14/23 Status: Ordered warfarin 7.5 mg oral tablet Start: 11/14/23 11:08:00 EDT, 1 tab, PO, every evening, except every other friday take 10 mg Start Date: 11/14/23 Status: Ordered Mental Status 11/14/23 Barriers to Learning one year None evide nt Mandatory Health Literacy Documentation Yes Communication Barrier Present No Health Literacy Communication Barriers N ever Primary Language Slovak Problem List Condition Confirmation Course Effective Dates Status Health St atus Informant Asthma Confirmed Active COPD with asthma Confirmed Active Afib Confirmed Active Heart disease Confirmed Active High blood pressure Confirmed Active Multiple myeloma Confirmed Active Diagnosis Diagnosis Type Effective Dates Health Status Cl inical Service Informant H/O multiple myeloma Discharge Diagnosis 11/14/23 Non-Specified Vital Signs Most recent to oldest [Reference Range]: 1 Height 178 cm (11/14/23 11:17 AM) Patient Weight 149.9 kg (11/14/23 11:17 AM) Body Mass Index 47.31 kg/m2 (11/14/23 11:17 AM) Temperature [36.5-37.9 DegC] 37 DegC (11/14/23 11:17 AM) Heart Rate 59 bpm (11/14/23 11:17 AM) Respiratory Rate 24 br/min (11/14/23 11:17 AM) Blood Pressure 122/62mmHg (11/14/23 11:17 AM) Mean Blood Pressure 79 mmHg (11/14/23 11:17 AM) Cuff Pulse Pressure 60 mmHg (11/14/23 11:17 AM) BP Location # 1 Right Arm (11/14/23 11:17 AM) Social History Social History Type Response Smoking Status Never smoked cigaret shiela Sex Male
--- OUTSIDE RECORDS SUMMARY | 2023-12-08 20:37 | External Medical Summary | Summary of Care ---
Author Name Unknown Organization [facility] Address [address] [place] [address] Phone [phone] Care Team Providers Care Addictions Counselor Name Role Phone Jose Garcia MD Primary Care Provider [phone] Reason for Visit * Reason Comments Dosage Adjustment In Person (Anticoag Cl inic) Encounter Details Date Type Department Care Team (Latest Contact Info) Description 11/19/2023 8:40 AM EDT Anticoagulation Pharmacy [address] [phone] Pharmacist1, [facility] [address] [address] Atrial flutter, unspecified type (HCC)*; Anticoagulation management encounter Allergies Active Allergy Reactions Criticality Noted Date Comments Halothane 05/05/2019 MyCode result; 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 90 Tablet 4 08/01/2023 Active Additional Information Patient taking differently:40 mg OralHS, Reported on 08/22/2023 Furosemide 20 MG Oral Tablet (Lasix)Indications:H TN, goal below 140/90 Take 1 Tablet by mouth in the morning. 90 Tablet 08/01/2023 Active Isosorbide Mononitrate ER 60 MG Oral Tablet Extended Release 24 Hour (Imdur)Indications:C oronary artery disease involving levelock coronary artery of levelock heart without angina pectoris,Atrial flutter, unspecified type [...] ns:COPD, group B, by GOLD 2017 classification ([facility]) INHALE 1 VIAL VIA NEBULIZER EVERY 4 HOURS NEEDED FOR SHORTNESS OF BREATH, COUGH OR WHEEZE. 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 Increased risk for Malignant Hyperthermia Susceptibility. AMADA [...] rinse after steroid. Test performed by Trish ELECTRIC METER INSPECTOR CPFT S/P PTCA (percutaneous transluminal coronary ang ioplasty) 03/23/2015 CAD (coronary artery disease) 03/02/2015 Stented coronary artery 03/02/2015 Primary hypothyroidism 10/13/2014 Atrial flutter 12/17/2013 HTN, goal below 140/90 03/19/2013 Dyslipidemia, goal LDL below 130 04/01/2012 BPH with obstruction/lower urinary tract symptom s 04/01/2012 Lyme disease 03/05/2010 ADVANCE DIRECTIVE INFORMATION 10/06/2006 Overview: Pt refused Edema 03/22/2004 DISC DIS [id number] 06/02/2003 documented as of this encounter (statuses [...] rinse after steroid. Test performed by Trish ELECTRIC METER INSPECTOR CPFT Body mass index (BMI) of 50. 0 to 59.9 in adult 06/21/2019 07/29/2019 Overview: Per Obesity protocol - Per Obesity Protocol, #19 ICD-10 update of inactive term COPD, group A, by GOLD 2017 classification 03/22/2019 07/29/2019 Overview: Per COPD GOLD Classification COPD, severity to be determined 09/16/2018 03/22/2019 Coronary artery disease invo lving levelock coronary artery without angina pectoris 03/23/2015 07/16/2019 Nocturnal hypoxemia 04/19/2014 09/08/19 19 Chest pain 01/28/2014 03/21/2014 Moderate obstructive sleep apnea 12/18/2013 06/15/2018 Overview: 03/30/14 PSG -- AHI 19.7, <89% 35 mins [facility] Oxygen (using 2 LPM through [facility]) Obesity, Class III, BMI 40-4 [...] No 12/16/2013 documented as of this encounter Progress Notes * Christi Nair RPh - 11/19/2023 8:37 AM EDT Medication Therapy Disease Management - Anticoagulation Patient: Charlie Guillen | : 1950 Subjective Patient-Reported Symptoms: Patient Findings Positives: Upcoming invasive procedure (pt notes having upcoming procedure, unsure of all items that will occur, but has date. Will verify that this is not just follow up appointment, and that they plan to follow up with bone marrow changes and potential biopsy. Notes needs to stop Coumadin) Negatives: Signs/symptoms of thrombosis, Signs/symptoms of bleeding, Change in health, Change in alcohol use, Change in activity, Upcoming dental procedure, Missed doses, Extra doses, Change in medications, Change in diet/appetite, Bruising Objective Current Warfarin Dose As of 11/19/2023 INR Result As of 11/19/2023 INR goal: 2.0-3.0 INR used for dosin.5 (11/19/2023) Assessment & Plan Warfarin Plan As of 11/19/2023 Full warfarin instructions: 12/01: 10 mg; Otherwise 7.5 mg, then 10 mg, then 7.5 mg, then 7.5 mg, then 7.5 mg, then 7.5 mg repeating every 6 days No change documented: Christi Nair RPh Next INR check: 12/25/2023 Repeat PT/INR in 5-6 week(s) Weekly dose: not changed Additional Dosing Information: Description Will alternate weekly dosing 7.5mg weekly x 1 week; then 10mg Tues and 7.5mg all other days Christi Nair RPh Clinical Pharmacist 11/19/2023, 8:37 AM documented in this encounter Plan of Treatment Upcoming Encounters Date Type Department Care Team (Late st Contact Info) Description 12/15/2023 9:30 AM EDT Office Visit Cardiology, [facility] [address] [place] [address] Yesenia Melendez CRNP [address] [place] [address] 12/22/2023 8:20 AM EDT Office Visit Family Practice [address] [phone] Jose Garcia MD [address] [place] [address] 12/31/2023 9:40 AM EDT Anticoagulation Pharmacy [address] [phone] Pharmacist1, [facility] [address] [address] 01/02/2024 10:30 AM EDT Office Visit Sleep Disorders Ctr [facility] [address] [place] [phone] Merissa Contreras CRNP [address] [facility] [place] [address] 03/30/2024 2:20 PM EDT Office Visit Optometry, [facility] [address] [place] [address] Axel Vaca, OD [address] [place] [address] Scheduled Procedures Name Priority Associated Diagnoses Date/Ti [...] Not on filedocumented as of this encounter Procedures Procedure Name Priority Date/Time Associated Diagnosis Comments INR FINGERSTICK, POINT OF CARE STAT 11/19/2023 8:54 AM EDT Atrial flutter, unspecified type (HCC) documented in this encounter Results * INR FINGERSTICK, POINT OF CARE (11/19/2023 8:54 AM EDT) Fingerstick INR 2.5 INR 9:04 AM EDT [facility] Blood 11/19/2023 8:54 AM EDT 11/19/2023 9:04 AM EDT Narrative [facility] - 11/19/2023 9:04 AM EDT Therapeutic ranges for non-operative patients: Prophylaxsis/treatment of DVT: (Range:2.0-3.0) Treatment of pulmonary embolism:(Range:2.0-3.0) Prevention of systemic embolism from: -tissue heart valves -acute myocardial infarction -valvular heart disease -atrial fibrillation (Range: 2.0-3.0) Mechanical prosthetic valves: (Range: 2.5-3.5) Anel Barnes [facility] LAB POINT OF CA RE TEST DOCKED DEVICE UNSOLICITED RESULTS [facility] [place] [address], [facility] documented in this encounter Visit Diagnoses Diagnosis Atrial flutter, unspecified type (HCC)- Primary Anticoagulation management encounter Encounter for therapeutic drug monitoring documented in this encounter Advance Directives Latest [...] the patient have Health Care Power of Orderlies Teacher? No Care Teams Addictions Counselor Relationship Specialty Start Date End Date Jose Garcia MD [address] [place] [address] PCP - General Family Medicine 09/08/18 documented as of this encounter"
--- OUTSIDE RECORDS SUMMARY | 2023-12-08 20:37 | External Medical Summary | Summary of Care ---
Author Name Unknown Organization [facility] Address [address] [place] [address] Phone [phone] Care Team Providers Care Custom Marine Canvas Fabricator Name Role Phone Jose Garcia MD Primary Care Provider [phone] Reason for Visit * Reason Onset Date Comments Medication Refill 12/04/2023 Encounter Details Date Type Department Care Team ([facility] st Contact Info) Description 12/04/[address] [phone] Jose Garcia MD [address] [place] [phone] BPH with obstruction/lower urinary tract symptoms Allergies Active Allergy Reactions Criticality Noted Date Comments Halothane 05/05/2019 MyCode result; 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 Active Fluticasone-[place] rol 250-50 MCG/ACT Inhalation Aerosol Powder Breath Activated [...] Active Atorvastatin Calcium 40 MG Oral Tablet (Lipitor)Indication s:Coronary artery disease involving benton coronary artery of benton heart without angina pectoris Take 1 Tablet by mouth in the morning. 90 Tablet 4 08/01/2023 Active Additional Information Patient taking differently:40 mg OralHS, Reported on 08/22/2023 Furosemide 20 MG Oral Tablet (Lasix)Indications: HTN, goal below 140/90 Take 1 Tablet by mouth in the morning. 90 Tablet 4 08/01/2023 Active Isosorbide Mononitrate ER 60 MG Oral Tablet Extended Release 24 Hour (Imdur)Indications: Coronary artery disease involving benton coronary artery of benton heart without angina pectoris,Atrial flutter, unspecified type (HCC),Stented coronary artery Take 1 Tablet by mouth in the morning. 90 Tablet 4 08/01/2023 Active Levothyroxine Sodium 137 MCG Oral TabletIndications:A cquired hypothyroidism Takes 1 tablet Sat. Sun. and . And 1/2 tablet is taken Fri. Fri. Fri 90 Tablet 4 08/01/2023 Active Metoprolol Succinate ER 50 MG Oral Tablet Extended Release 24 Hour (toPROL XL)Indications:HTN, goal below 140/90,SOB (shortness of breath) Take 1 Tablet by mouth in the morning. 90 Tablet 4 08/01/2023 Active Terazosin HCl 1 MG Oral Capsule (Hytrin)Indications :BPH with obstruction/lower urinary tract symptoms Take 1 Capsule by mouth at bedtime. 90 Capsule 4 08/01/2023 Active Warfarin Sodium 5 MG Oral Tablet (Jantoven) 5mg Friday,Friday , Friday and 10mg rest of week (5mg tablet). 200 Tablet 3 08/01/2023 Active Albuterol Sulfate (2.5 MG/3ML) 0.083% Inhalation Nebulization Solution (Proventil)Indicati ons:COPD, group B, by GOLD 2017 classification ([facility]) INHALE 1 VIAL VIA NEBULIZER EVERY 4 HOURS NEEDED FOR SHORTNESS OF BREATH, COUGH OR WHEEZE. 300 mL 3 08/15/2023 Active Nystatin 567825 UNIT/ML Mouth/Throat Suspension Swish and swallow 5 mL in the morning and 5 mL at noon and 5 mL in the evening and 5 mL before bedtime. For thrush.. 280 mL 09/06/2023 Active Additional Information Patient not taking.Reported on 10/31/2023 Docusate Sodium 100 MG Oral Capsule (Colace)Indications :Drug induced constipation Take 1 Capsule by mouth in the morning and 1 Capsule before bedtime. 60 Capsule 5 09/18/2023 Active Additional Information Patient not taking.Reported on 10/31/2023 Gabapentin 300 MG Oral Capsule (Neurontin) Take 1 Capsule by mouth in the morning and 1 Capsule at noon and 1 Capsule before bedtime. Active Lisinopril 5 MG Oral Tablet (Prinivil)Indicatio ns:HTN, goal below 140/90 Take 1 Tablet by mouth in the morning. 30 Tablet 5 10/31/2023 Active Terazosin HCl 1 MG Oral Capsule (Hytrin)Indications :BPH with obstruction/lower urinary tract symptoms Take 1 Capsule by mouth at bedtime. 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 Increased risk for Malignant Hyperthermia Susceptibility. AMADA [...] rinse after steroid. Test performed by Trish FISH HATCHERY SUPERVISOR CPFT S/P PTCA (percutaneous transluminal coronary ang ioplasty) 03/23/2015 CAD (coronary artery disease) 03/02/2015 Stented coronary artery 03/02/2015 Primary hypothyroidism 10/13/2014 Atrial flutter 12/17/2013 HTN, goal below 140/90 03/19/2013 Dyslipidemia, goal LDL below 130 04/01/2012 BPH with obstruction/lower urinary tract symptom s 04/01/2012 Lyme disease 03/05/2010 ADVANCE DIRECTIVE INFORMATION 10/06/2006 Overview: Pt refused Edema 03/22/2004 DISC DIS [id number] 06/02/2003 documented as of this encounter (statuses [...] rinse after steroid. Test performed by Trish FISH HATCHERY SUPERVISOR CPFT Body mass index (BMI) of 50. 0 to 59.9 in adult 06/21/2019 07/29/2019 Overview: Per Obesity protocol - Per Obesity Protocol, #19 ICD-10 update of inactive term COPD, group A, by GOLD 2017 classification 03/22/2019 07/29/2019 Overview: Per COPD GOLD Classification COPD, severity to be determined 09/16/2018 03/22/2019 Coronary artery disease invo lving benton coronary artery without angina pectoris 03/23/2015 07/16/2019 Nocturnal hypoxemia 04/19/2014 09/08/19 19 Chest pain 01/28/2014 03/21/2014 Moderate obstructive sleep apnea 12/18/2013 06/15/2018 Overview: 03/30/14 PSG -- AHI 19.7, <89% 35 mins [facility] Oxygen (using 2 LPM through [facility]) Obesity, Class III, BMI 40-4 [...] encounter Miscellaneous Notes * Telephone Encounter - Amirah Burnett [facility] - 12/04/2023 11:22 AM EDTNo prescriptions requested or ordered in this encounter * Telephone Encounter - Amirah Burnett [facility] - 12/04/2023 11:21 AM EDT Authorized temp supply to [facility] until mail order arrives, then removed from med list Thank You, Amirah Burnett [facility] Clinical Pharmacist [facility] (formerly Telepharm[facility]) [phone] 12/04/2023, 11:22 AM * Telephone Encounter - Shari Owen, human resource statistician - 12/04/2023 11:02 AM EDT Patient spouse requesting high priority. Pt is out of medication Patients spouse is calling to request short supply for Terazosine HCL 1 mg until mail order arrives. Please review and approve if appropriate. Pharmacy is [facility] in [place]. Patient is waiting on their medications from [facility]. Pending Prescriptions: Disp Refills Terazosin HCl 1 MG Oral Capsule (Hytrin) Sig: Take 1 Capsule by mouth at bedtime. Last Visit: 10/31/2023 (in office), Visit date not found (telemedicine) 12/22/2023 Thank you, Shari Owen Top Stitcher I [facility] 12/04/2023,11:02 AM documented in this encounter Plan of Treatment Upcoming Encounters Date Type Department Care Team (Late st Contact Info) Description 12/15/2023 9:30 AM EDT Office Visit Cardiology, [facility] [address] [place] [address] Yesenia Melendez CRNP [address] [facility] [place] [address] 12/22/2023 8:20 AM EDT Office Visit Family Practice [address] [phone] Jose Garcia MD [address] [place] [address] 12/31/2023 9:40 AM EDT Anticoagulation Pharmacy [address] [phone] Pharmacist1, [facility] [address] [address] 01/02/2024 10:30 AM EDT Office Visit Sleep Disorders Ctr [facility] [address] [phone] Merissa Contreras CRNP [address] [place] [address] 03/30/2024 2:20 PM EDT Office Visit Optometry, [address] [address] Axel Vaca, OD [address] [place] [address] Scheduled Procedures Name Priority Associated Diagnoses Date/Ti [...] as of this encounter Visit Diagnoses Diagnosis BPH with obstruction/lower urinary tract symptoms Hypertrophy of prostate with urinary obstruction and other lower urinary tract symptoms (LUTS) documented in this encounter Advance Directives * [...] Power of Attor agustín? No Care Teams Custom Marine Canvas Fabricator Relationship Specialty Start Date End Date Jose Garcia MD [address] [place] [phone] PCP - General Family Medicine 09/08/18 documented as of this encounter
--- OUTSIDE RECORDS SUMMARY | 2023-12-08 20:37 | External Medical Summary | Summary of Care ---
Author Name Unknown Organization [facility] Address [address] [place] [address] Phone [phone] Care Team Providers Care Roster Clerk Name Role Phone Jose Garcia MD Primary Care Provider [phone] Reason for Visit * Reason Onset Date Comments Advice 11/20/2023 Encounter Details Date Type Department Care Team (Late st Contact Info) Description 11/20/2023 Telephone Cardiology, 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 300 mL 3 08/15/2023 Active Nystatin 992786 UNIT/ML Mouth/Throat Suspension Swish and swallow 5 [...] group B, by GOLD 2017 classification ([facility]),Mixed restrictive and obstructive lung disease ([facility]) 2.5 mg NEBULIZER Q4H PRN 04/13/2021 Active [...] rinse after steroid. 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 Increased risk for Malignant [...] rinse after steroid. Test performed by Trish ANESTHESIA ATTENDING CPFT S/P PTCA (percutaneous transluminal coronary ang ioplasty) 03/23/2015 CAD (coronary artery disease) 03/02/2015 Stented coronary artery 03/02/2015 Primary hypothyroidism 10/13/2014 Atrial flutter 12/17/2013 HTN, goal below 140/90 03/19/2013 Dyslipidemia, goal LDL below 130 04/01/2012 BPH with obstruction/lower urinary tract symptom s 04/01/2012 Lyme disease 03/05/2010 ADVANCE DIRECTIVE INFORMATION 10/06/2006 Overview: Pt refused Edema 03/22/2004 DISC DIS [id number] 06/02/2003 documented as of this encounter (statuses [...] rinse after steroid. Test performed by Trish ANESTHESIA ATTENDING CPFT Body mass index (BMI) of 50. 0 to 59.9 in adult 06/21/2019 07/29/2019 Overview: Per Obesity protocol - Per Obesity Protocol, #19 ICD-10 update of inactive term COPD, group A, by GOLD 2017 classification 03/22/2019 07/29/2019 Overview: Per COPD GOLD Classification COPD, severity to be determined 09/16/2018 03/22/2019 Coronary artery disease invo lving [place] coronary artery without angina pectoris 03/23/2015 07/16/2019 [...] encounter Miscellaneous Notes * Telephone Encounter - Ellen Collins CRNP [...] Modules accepted: Orders * Telephone Encounter - Eleln Collins CRNP - 11/20/2023 6:51 PM EDT [...] EDT Message received from Charge Nurse at [facility]. 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 132 [facility] [place] [address] Yesenia Melendez CRNP [facility] [place] [address] 12/22/2023 8:20 AM EDT Office Visit Family [facility] [address] [place] [phone] Jose Garcia MD [address] [place] [address] 12/31/2023 9:40 AM EDT Anticoagulation Pharmacy [facility] [address] [place] [phone] Pharmacist, [facility] [place] [address] [place] [address] 01/02/2024 10:30 AM EDT Office Visit Sleep Disorders Ctr [facility] [address] [place] [address] Merissa Contreras CRNP [address] [place] [address] 03/30/2024 2:20 PM EDT Office Visit Optometry, [facility] [address] [place] [address] Axel Vaca, OD [address] [place] [address] Scheduled Orders Name Type Priority Associated Diagnoses [...] 04/04/2024 10/03/2023, 05/15, 12/24/2022 GFR 10/02/2024 10/03/2023, 0312/2023, 06/04/2023, Additional history exists TSH 10/02/2024 10/03/2023, [...] the patient have Health Care Power of Physics Faculty Member? No Care Teams Roster Clerk Relationship Specialty Start Date End Date Jose Garcia MD [address] [place] [address] PCP - General Family Medicine 09/08/18 documented as of this encounter
--- OUTSIDE RECORDS SUMMARY | 2023-12-08 20:37 | External Medical Summary | Summary of Care ---
Author Name Unknown Organization [facility] Address [address] [place] [address] Phone [phone] Care Team Providers Care Supervisor Filling And Packing Name Role Phone Jose Garcia MD Primary Care Provider [phone] Reason for Visit * Reason Onset Date Comments Advice 11/20/2023 Encounter Details Date Type Department Care Team (Late st Contact Info) Description 11/20/2023 Telephone Cardiology, [facility] [address] [place] [address] Luis Fernando Evans PA-C [address] [place] [phone] Advice Allergies Active Allergy Reactions Criticality Noted Date Comments Halothane 05/05/2019 MyCode result; Genetic susceptibility to Malignant Hyperthermia Tiotropium [place] Monohydrate Rash 08/15/2016 Succinylcholine 05/05/2019 MyCode result; [...] Oral Tablet (Lipitor)Indications :Coronary artery disease involving [place] coronary artery of [place] heart without angina pectoris Take 1 Tablet [...] 24 Hour (Imdur)Indications:C oronary artery disease involving [place] coronary artery of [place] heart without angina pectoris,Atrial flutter, unspecified type [...] group B, by GOLD 2017 classification ([facility]) INHALE 1 VIAL VIA NEBULIZER EVERY 4 HOURS NEEDED FOR SHORTNESS OF BREATH, COUGH OR WHEEZE. 300 mL 3 08/15/2023 Active Nystatin 016539 UNIT/ML Mouth/Throat Suspension Swish and swallow 5 [...] group B, by GOLD 2017 classification ([facility]),Mixed restrictive and obstructive lung disease ([facility]) 2.5 mg NEBULIZER Q4H PRN 04/13/2021 Active [...] rinse after steroid. 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 Increased risk for Malignant [...] rinse after steroid. Test performed by Trish WEAVER AXMINSTER CPFT S/P PTCA (percutaneous transluminal coronary ang ioplasty) 03/23/2015 CAD (coronary artery disease) 03/02/2015 Stented coronary artery 03/02/2015 Primary hypothyroidism 10/13/2014 Atrial flutter 12/17/2013 HTN, goal below 140/90 03/19/2013 Dyslipidemia, goal LDL below 130 04/01/2012 BPH with obstruction/lower urinary tract symptom s 04/01/2012 Lyme disease 03/05/2010 ADVANCE DIRECTIVE INFORMATION 10/06/2006 Overview: Pt refused Edema 03/22/2004 DISC DIS [id number] 06/02/2003 documented as of this encounter (statuses [...] and rinse after steroid. Test performed by Tirsh WEAVER AXMINSTER CPFT Body mass index (BMI) of 50. 0 to 59.9 in adult 06/21/2019 07/29/2019 Overview: Per Obesity protocol - Per Obesity Protocol, #19 ICD-10 update of inactive term COPD, group A, by GOLD 2017 classification 03/22/2019 07/29/2019 Overview: Per COPD GOLD Classification COPD, severity to be determined 09/16/2018 03/22/2019 Coronary artery disease invo lving [place] coronary artery without angina pectoris 03/23/2015 07/16/2019 Nocturnal hypoxemia 04/19/2014 09/08/19 19 Chest pain 01/28/2014 03/21/2014 Moderate obstructive sleep apnea 12/18/2013 06/15/2018 Overview: 03/30/14 PSG -- AHI 19.7, <89% 35 mins [facility] Oxygen (using 2 LPM through [facility]) Obesity, Class III, BMI 40-4 9.9 (morbid [...] encounter Miscellaneous Notes * Telephone Encounter - Alida Katz LPN [...] EDT Message received from Charge Nurse at [facility]. Mr. Guillen was a Code Purple outside of oncology at [facility] earlier today, experiencing a near syncope [...] Upcoming Encounters Date Type Department Care Team ([facility] st Contact Info) Description 12/15/2023 9:30 AM EDT Office Visit Cardiology, [facility] [address] [place] [address] Yesenia Melendez CRNP [address] [place] [address] 12/22/2023 8:20 AM EDT Office Visit Family Practice [address] [phone] Jose Garcia MD [address] [place] [address] 12/31/2023 9:40 AM EDT Anticoagulation Pharmacy [address] [phone] Pharmacist1, [facility] [address] [address] 01/02/2024 10:30 AM EDT Office Visit Sleep Disorders Ctr [facility] [address] [place] [phone] Merissa Contreras CRNP [address] [place] [address] 03/30/2024 2:20 PM EDT Office Visit Optometry, [address] [address] Axel Vaca, OD [address] [place] [address] Scheduled Orders Name Type Priority Associated Diagnoses [...] the patient have Health Care Power of Nail Machine Operator? No Care Teams Supervisor Filling And Packing Relationship Specialty Start Date End Date Jose Garcia MD [address] [place] [address] PCP - General Family Medicine 09/08/18 documented as of this encounter
--- OUTSIDE RECORDS SUMMARY | 2023-12-08 20:37 | External Medical Summary | Continuity of Care Document ---
Author Name Unknown Organization [facility] Address [address] [place] [id number] Encounter JW LICEA [id number] Date(s): 11/06/23 - 11/06/[address] [phone] Discharge Disposition: Home or Self Care Attending Physician: MD Kaba Seema G Referring Physician: MD Kaba Seema G Social History Social History Type Response Sex Male Laboratory * MD López Jozef: PERFORM MD López Jozef: PERFORM, VERIFY MD López Jozef: VERIFY Event Display: [facility] Slide/Block Desc Authored Date: 1 Bone marrow aspirate, clot section, biopsy, and peripheral smear (, 10/08/2023) Received are 22 slides and pathology report. Slides will be returned. [facility] Dept. of Pathology [address] [place] [address] [phone] FAX * MD López Jozef: PERFORM MD López Jozef: PERFORM, VERIFY MD López Jozef: VERIFY Event Display: [facility] Clinical History Authored Date: Lambda MGUS with bone lesions. Family history of multiple myeloma. Procedure performed: Bone marrowbiopsy and aspiration. * MD López Jozef: TRANSCRIBE, PERFORM, VERIFY Event Display: [facility] Dx Authored Date: 1. Bone marrow biopsy (, 10/08/2023): - Limited marrow sample. - Plasma cell neoplasm (~30%), favor plasma cell myeloma. - Background decreased maturing trilineage hematopoiesis. Comment: Correlation with clinical, laboratory, imaging and other patient data is recommended. Tim Lóepz MD (Electronically signed by) Verified: 11/06/2023 18:42 EDT Performing Location: [facility] * MD López Jozef: PERFORM MD López Jozef: PERFORM, VERIFY MD Rene, Tim: VERIFY Event Display: [facility] Disclaimer Authored Date: [id number] The following statement applies to flow cytometry, immunohistochemical, histochemical, molecular genetics, immunofluorescence, and in situ hybridization assays. These tests were developed and their performance characteristics determined by a [facility] Department of Pathology Laboratory. All controls show appropriate reactivity. Not all tests have been cleared or approved by the U.S. Food and Drug Administration. The FDA has determined that such clearance or approval is not necessary. For decalcified specimen types, focused validation may have been done that may or may not apply to all decalcified specimen types. Results should be interpreted with caution. * MD López Jozef: TRANSCRIBE, PERFORM, VERIFY Event Display: [facility] Micro Authored Date: [id number] 1. . Microscopic examination performed; see Final Diagnosis. Morphology: Marrow sample is limited by a very small size of marrow on core biopsy. Marrow appears normocellular (~30%) and is infiltrated by atypical plasma cells accounting for ~30% of marrow cellularity, highlighted by CD138 stain. Background maturing trilineage hematopoiesis is decreased. Flow cytometry: reported CD19-, CD56-, CD117-, lambda restricted monotypic plasma cells. MM FISH: reported del(13q)/-13. Cytogenetics: not available for review. Please, see all original reports for additional information.
--- OUTSIDE RECORDS SUMMARY | 2023-12-08 20:37 | External Medical Summary | Summary of Care ---
Author Name Unknown Organization [facility] Address [address] [place] [address] Phone [phone] Care Team Providers Care Vending Machine Attendant Name Role Phone Jose Garcia MD Primary Care Provider [phone] Reason for Visit * Reason Onset Date Comments Advice 11/20/2023 Encounter Details Date Type Department Care Team (Late st Contact Info) Description 11/20/2023 Telephone Cardiology, [facility] [address] [place] [address] Luis Fernando Evans PA-C [address] [place] [phone] Advice Allergies Active Allergy Reactions Criticality Noted Date Comments Halothane 05/05/2019 MyCode result; Genetic susceptibility to Malignant Hyperthermia Tiotropium [place] Monohydrate Rash 08/15/2016 Succinylcholine 05/05/2019 MyCode result; [...] Oral Tablet (Lipitor)Indications :Coronary artery disease involving [place] coronary artery of [place] heart without angina pectoris Take 1 Tablet [...] 24 Hour (Imdur)Indications:C oronary artery disease involving [place] coronary artery of [place] heart without angina pectoris,Atrial flutter, unspecified type [...] WHEEZE. 300 mL 3 08/15/2023 Active Nystatin 518530 UNIT/ML Mouth/Throat Suspension Swish and swallow 5 [...] rinse after steroid. 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 Increased risk for Malignant [...] rinse after steroid. Test performed by Trish DRUG COUNSELOR CPFT S/P PTCA (percutaneous transluminal coronary ang ioplasty) 03/23/2015 CAD (coronary artery disease) 03/02/2015 Stented coronary artery 03/02/2015 Primary hypothyroidism 10/13/2014 Atrial flutter 12/17/2013 HTN, goal below 140/90 03/19/2013 Dyslipidemia, goal LDL below 130 04/01/2012 BPH with obstruction/lower urinary tract symptom s 04/01/2012 Lyme disease 03/05/2010 ADVANCE DIRECTIVE INFORMATION 10/06/2006 Overview: Pt refused Edema 03/22/2004 DISC DIS [id number] 06/02/2003 documented as of this encounter (statuses [...] rinse after steroid. Test performed by Trish DRUG COUNSELOR CPFT Body mass index (BMI) of 50. 0 to 59.9 in adult 06/21/2019 07/29/2019 Overview: Per Obesity protocol - Per Obesity Protocol, #19 ICD-10 update of inactive term COPD, group A, by GOLD 2017 classification 03/22/2019 07/29/2019 Overview: Per COPD GOLD Classification COPD, severity to be determined 09/16/2018 03/22/2019 Coronary artery disease invo lving [place] coronary artery without angina pectoris 03/23/2015 07/16/2019 [...] EDT Message received from Charge Nurse at [facility]. Mr. Guillen was a Code Purple outside of oncology at [facility] earlier today, experiencing a near syncope [...] 9:30 AM EDT Office Visit Cardiology, [facility] [address] [place] [address] Yesenia Melendez CRNP 132 [place] [address] 12/22/2023 8:20 AM EDT Office Visit Family Practice [facility] [address] [place] [phone] Jose Garcia MD [address] [place] [address] 12/31/2023 9:40 AM EDT Anticoagulation Pharmacy [address] [phone] Pharmacist1, [facility] [address] [address] 01/02/2024 10:30 AM EDT Office Visit Sleep Disorders Ctr [facility] 132 [facility] [place] [phone] Merissa Contreras CRNP [facility] [address] 03/30/2024 2:20 PM EDT Office Visit Optometry, [facility] [address] [place] [address] Axel Vaca, OD 16 [place] [address] Scheduled Orders Name Type Priority Associated Diagnoses [...] the patient have Health Care Power of Casing Running Machine Tender? No Care Teams Vending Machine Attendant Relationship Specialty Start Date End Date Jose Garcia MD [address] [place] [address] PCP - General Family Medicine 09/08/18 documented as of this encounter
--- OUTSIDE RECORDS SUMMARY | 2023-12-08 20:37 | External Medical Summary | Summary of Care ---
Author Name Unknown Organization [facility] Address [address] [place] [address] Phone [phone] Care Team Providers Care Library Attendant Name Role Phone Jose Garcia MD Primary Care Provider [phone] Reason for Visit * Reason Onset Date Comments Advice 11/20/2023 Encounter Details Date Type Department Care Team (Late st Contact Info) Description 11/20/2023 Telephone Cardiology, [facility] [address] [place] [address] Luis Fernando Evans PA-C [address] [place] [phone] Advice Allergies Active Allergy Reactions Criticality Noted Date Comments Halothane 05/05/2019 MyCode result; Genetic susceptibility to Malignant Hyperthermia Tiotropium [place] Monohydrate Rash 08/15/2016 Succinylcholine 05/05/2019 MyCode result; [...] Oral Tablet (Lipitor)Indications :Coronary artery disease involving [place] coronary artery of [place] heart without angina pectoris Take 1 Tablet [...] 24 Hour (Imdur)Indications:C oronary artery disease involving [place] coronary artery of [place] heart without angina pectoris,Atrial flutter, unspecified type [...] WHEEZE. 300 mL 3 08/15/2023 Active Nystatin 351920 UNIT/ML Mouth/Throat Suspension Swish and swallow 5 [...] rinse after steroid. 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 Increased risk for Malignant [...] rinse after steroid. Test performed by Trish HOTEL DESK CLERK CPFT S/P PTCA (percutaneous transluminal coronary ang ioplasty) 03/23/2015 CAD (coronary artery disease) 03/02/2015 Stented coronary artery 03/02/2015 Primary hypothyroidism 10/13/2014 Atrial flutter 12/17/2013 HTN, goal below 140/90 03/19/2013 Dyslipidemia, goal LDL below 130 04/01/2012 BPH with obstruction/lower urinary tract symptom s 04/01/2012 Lyme disease 03/05/2010 ADVANCE DIRECTIVE INFORMATION 10/06/2006 Overview: Pt refused Edema 03/22/2004 DISC DIS [id number] 06/02/2003 documented as of this encounter (statuses [...] rinse after steroid. Test performed by Trish HOTEL DESK CLERK CPFT Body mass index (BMI) of 50. 0 to 59.9 in adult 06/21/2019 07/29/2019 Overview: Per Obesity protocol - Per Obesity Protocol, #19 ICD-10 update of inactive term COPD, group A, by GOLD 2017 classification 03/22/2019 07/29/2019 Overview: Per COPD GOLD Classification COPD, severity to be determined 09/16/2018 03/22/2019 Coronary artery disease invo lving [place] coronary artery without angina pectoris 03/23/2015 07/16/2019 Nocturnal hypoxemia 04/19/2014 09/08/19 19 Chest pain 01/28/2014 03/21/2014 Moderate obstructive sleep apnea 12/18/2013 06/15/2018 Overview: 03/30/14 PSG -- AHI 19.7, <89% 35 mins Care [facility] Oxygen (using 2 LPM through [facility]) Obesity, Class III, BMI 40-4 9.9 [...] Message received from Charge Nurse at [facility]. Mr. Guillen was a Code Purple outside of oncology at [facility] earlier today, experiencing a near syncope [...] Care Team (Late st Contact Info) Description 11/24/2023 3:15 PM EDT Cardiac Studies Cardiac Studies, [facility] 132 [facility] [place] [address] 12/15/2023 9:30 AM EDT Office Visit Cardiology, [facility] 132 [facility] [place] [address] Yesenia Melendez CRNP 132 [facility] [place] [address] 12/22/2023 8:20 AM EDT Office Visit Family Practice [address] [phone] Jose Garcia MD [address] [place] [address] 12/31/2023 9:40 AM EDT Anticoagulation Pharmacy [address] [phone] Pharmacist1, [facility] [address] [address] 01/02/2024 10:30 AM EDT Office Visit Sleep Disorders Ctr [facility] [address] [place] [phone] Merissa Contreras, JUDITH [address] [place] [address] 03/30/2024 2:20 PM EDT Office Visit Optometry, [address] [address] Axel Vaca, OD 16 [place] [address] Scheduled Orders Name Type Priority Associated Diagnoses [...] the patient have Health Care Power of Hospital Aides And Assistants Teacher? No Care Teams Library Attendant Relationship Specialty Start Date End Date Jose Garcia MD [address] [place] [address] PCP - General Family Medicine 09/08/18 documented as of this encounter
--- OUTSIDE RECORDS SUMMARY | 2023-12-08 20:37 | External Medical Summary | Summary of Care ---
Author Name Unknown Organization [facility] Address [address] [facility] [address] Phone [phone] Care Team Providers Care Refrigerating Oiler Name Role Phone Jose Garcia MD Primary Care Provider [phone] Encounter Details Date Type Department Care Team (Late st Contact Info) Description 11/03/2023 Orders Only PATIENT PORTAL DO NOT DELETE THIS DEPT USED BY BILL EMANUEL [id number] Allergies Active Allergy Reactions Criticality Noted Date Comments Halothane 05/05/2019 MyCode result; Genetic susceptibility to Malignant Hyperthermia Tiotropium [place] Monohydrate Rash 08/15/2016 Succinylcholine 05/05/2019 MyCode result; Genetic susceptibility to Malignant Hyperthermia documented as of this encounter (statuses as of 11/03/2023) Medications Medication Sig Dispensed Refills Start Date [...] Oral Tablet (Lipitor)Indications :Coronary artery disease involving kiana coronary artery of kiana heart without angina pectoris Take 1 Tablet [...] 24 Hour (Imdur)Indications:C oronary artery disease involving kiana coronary artery of kiana heart without angina pectoris,Atrial flutter, unspecified type (HCC),Stented coronary artery Take 1 Tablet by mouth in the morning. 90 Tablet 08/01/2023 Active Levothyroxine Sodium 137 MCG Oral TabletIndications:Ac quired hypothyroidism Takes 1 tablet Sat. Fri. and . And 1/2 tablet is taken Fri. Fri. Fri 90 Tablet 08/01/2023 Active Metoprolol Succinate ER 50 MG Oral Tablet Extended Release 24 Hour (toPROL XL)Indications:HTN, goal below 140/90,SOB (shortness of breath) Take 1 Tablet by mouth in the morning. 90 Tablet 08/01/2023 Active Terazosin HCl 1 MG Oral [...] ns:COPD, group B, by GOLD 2017 classification ([facility]) INHALE 1 VIAL VIA NEBULIZER EVERY 4 HOURS NEEDED FOR SHORTNESS OF BREATH, COUGH OR WHEEZE. 300 mL 3 08/15/2023 Active Nystatin 827561 UNIT/ML Mouth/Throat Suspension Swish and swallow 5 [...] mgIndications:COPD, group B, by GOLD 2017 classification ([facility]),Mixed restrictive and obstructive lung disease ([facility]) 2.5 mg NEBULIZER Q4H PRN 04/13/2021 Active documented as of this encounter (statuses as of 11/03/2023) Active Problems Problem Noted Date Diagnosed Date Type 2 diabetes mellitus with diabetic nephropat hy 06/09/2023 Diabetes mellitus without complication Spinal stenosis of lumbar re gion with [...] rinse after steroid. 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 Increased risk for Malignant Hyperthermia Susceptibility. AMADA [...] rinse after steroid. Test performed by Trish SOFTWARE DEVELOPER CONSULTANT CPFT S/P PTCA (percutaneous transluminal coronary ang ioplasty) 03/23/2015 CAD (coronary artery disease) 03/02/2015 Stented coronary artery 03/02/2015 Primary hypothyroidism 10/13/2014 Atrial flutter 12/17/2013 HTN, goal below 140/90 03/19/2013 Dyslipidemia, goal LDL below 130 04/01/2012 BPH with obstruction/lower urinary tract symptom s 04/01/2012 Lyme disease 03/05/2010 ADVANCE DIRECTIVE INFORMATION 10/06/2006 Overview: Pt refused Edema 03/22/2004 DISC DIS [id number] 06/02/2003 documented as of this encounter (statuses as of 11/03/2023) Resolved Problems Problem Noted Date Diagnosed Date Resolved Date COPD exacerbation 07/22/2019 04/10/2020 Overview: In Check dial performed to assess inhaler technique: 09/29/19 Name of inhalers Albuterol Pass: Yes at 60L/min and Trelegy Ellipta Pass: Yes at 65L/min. Encouraged to take slow deep breaths, use aero chamber, and rinse after steroid. Test performed by Trish WILSON CPFT Body mass index (BMI) of 50. 0 to 59.9 in adult 06/21/2019 07/29/2019 Overview: Per Obesity protocol - Per Obesity Protocol, #19 ICD-10 update of inactive term COPD, group A, by GOLD 2017 classification 03/22/2019 07/29/2019 Overview: Per COPD GOLD Classification COPD, severity to be determined 09/16/2018 03/22/2019 Coronary artery disease invo lving kiana coronary artery without angina pectoris 03/23/2015 07/16/2019 Nocturnal hypoxemia 04/19/2014 09/08/19 19 Chest pain 01/28/2014 03/21/2014 Moderate obstructive sleep apnea 12/18/2013 06/15/2018 Overview: 03/30/14 PSG -- AHI 19.7, <89% 35 mins [facility]xygen (using 2 LPM through [facility]) Obesity, Class III, BMI 40-4 9.9 [...] as of this encounter (statuses as of 11/03/2023) Immunizations Name Administration Dates Next Due COVID-19 [...] No 12/16/2013 documented as of this encounter Plan of Treatment Upcoming Encounters Date Type Department Care Team ([facility] st Contact Info) Description 11/19/2023 8:40 AM EDT Anticoagulation Pharmacy [address] [phone] Pharmacist1, [facility] [address] [phone] 12/22/2023 8:20 AM EDT Office Visit Family Practice [address] [phone] Jose Garcia MD [address] [place] [phone] 01/02/2024 10:30 AM EDT Office Visit [facility] [place] [phone] Merissa Contreras CRNP [address] [facility] [place] [id number] Scheduled Procedures Name Priority Associated Diagnoses Date/Ti me COLONOSCOPY FLEXIBLE PROXIMAL DIAGNOSTIC Recall History of colon polyps Health Maintenance Due Date Last Done Comments DTaP,Tdap,and Td Vaccines (2 - Td or Tdap) 04/14/2023 04/14/2013 COLONOSCOPY-EVERY 5 YRS AGES 18-100 09/23/2023 09/22/2018, 08/30/2008 Albumin/Creatinine Ratio 12/13/2023 12/12/2022 Influenza Vaccine (FLU [...] 10/30/2024 10/31/2023 Hepatitis C Screening Completed 06/27/2017 Alpha-1 Antitrypsin Completed 11/24/2020 Pneumococcal Vaccine: 65+ [...] the patient have Health Care Power of Union Laborer? No Care Teams Refrigerating Oiler Relationship Specialty Start Date End Date Jose Garcia MD [address] [place] [phone] PCP - General Family Medicine 09/08/18 documented as of this encounter
--- OUTSIDE RECORDS SUMMARY | 2023-12-08 20:38 | External Medical Summary ---
Author Name Unknown Address Unknown Organization : Laboratory Report Ordering Provider Test Date Status KAUSHIK LUJAN 10/22/2023 08:31:58 Final Therapeutic ranges for non-o perative patients:
Prophylaxsis/treatment of DVT: (Range:2.0-3.0)
Treatment of pulmonary embolism:(Range:2.0-3.0)
Prevention of systemic embolism from:
-tissue heart valves
-acute myocardial infarction
-valvular heart disease
-atrial fibrillation
(Range: 2.0-3.0)
Mechanical prosthetic valves: (Range: 2.5-3.5) Observation Date Value Abnormality Reference (Units ) Status INR in Capillary blood by Coagulation assay 10/22/2023 08:31:58 2.2 (INR) Final Performing Location
--- OUTSIDE RECORDS SUMMARY | 2023-12-08 20:38 | External Medical Summary | Summary of Care ---
Author Name Unknown Organization [facility] Address [address] [place] [address] Phone [phone] Care Team Providers Care Medical Corps Officer Name Role Phone Jose Garcia MD Primary Care Provider [phone] Reason for Visit * Reason Comments Dosage Adjustment In Person (Anticoag Cl inic) Encounter Details Date Type Department Care Team (Latest Contact Info) Description 10/22/2023 8:30 AM EDT Anticoagulation Pharmacy [address] [phone] Pharmacist1, [facility] [address] [address] Atrial flutter, unspecified type (HCC)*; Anticoagulation management encounter Allergies Active Allergy Reactions Criticality Noted Date Comments Halothane 05/05/2019 MyCode result; 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 3 Inhaler 3 03/22/2019 Active Respiratory Therapy Supplies (NEBULIZER) CRISTINE Please use [...] Oral Tablet (Lipitor)Indications :Coronary artery disease involving [place]hal[place] coronary artery of [place] heart without angina pectoris Take 1 Tablet [...] 24 Hour (Imdur)Indications:C oronary artery disease involving [place]hal[place] coronary artery of [place] heart without angina pectoris,Atrial flutter, unspecified type (HCC),Stented coronary artery Take 1 Tablet by mouth in the morning. 90 Tablet 08/01/2023 Active Levothyroxine Sodium 137 MCG Oral TabletIndications:Ac quired hypothyroidism Takes 1 tablet Sat. Sun. and . And 1/2 tablet is taken Fri. Fri. Fri 90 Tablet 08/01/2023 Active Lisinopril 20 MG Oral Tablet (Prinivil)Indication s:HTN, goal below 140/90 Take 1 Tablet by mouth in the morning. 90 Tablet 08/01/2023 Active Metoprolol Succinate ER [...] B, by GOLD 2017 classification ([facility]) INHALE 1 VIAL VIA NEBULIZER EVERY 4 HOURS NEEDED FOR SHORTNESS OF BREATH, COUGH OR WHEEZE. 300 mL 3 08/15/2023 Active Nystatin 054503 UNIT/ML Mouth/Throat Suspension Swish and swallow 5 mL in the morning and 5 mL at noon and 5 mL in the evening and 5 mL before bedtime. For thrush.. 280 mL 0 09/06/2023 Active Docusate Sodium 100 MG Oral Capsule (Colace)Indications: Drug induced constipation Take 1 Capsule by mouth in the morning and 1 Capsule before bedtime. 60 Capsule 5 09/18/2023 Active Gabapentin 300 MG Oral Capsule (Neurontin) Take 1 Capsule by mouth in the morning and 1 Capsule at noon and 1 Capsule before bedtime. 0 Active Enoxaparin Sodium 150 MG/ML Injection Solution Prefilled Syringe (Lovenox) Inject 150 mg under the skin in the morning and 150 mg before bedtime. Follow instructions provided on lovenox bridge. 10 mL 0 10/03/2023 Active Hospital, Clinic, or Other Facility Administered Medication Ordered Dose Route Frequency Start Date End Date Status albuterol sulfate (PROVENTIL) (2.5 MG/3ML) 0.083% inhalation solution 2.5 mgIndications:Nocturnal hypoxemia,Moderate obstructive sleep apnea,CLARK (dyspnea on exertion) 2.5 mg NEBULIZER Q4H PRN 04/15/2018 Active Albuterol Sulfate (Proventil) (2.5 MG/3ML) 0.083% inhalation solution 2.5 mgIndications:COPD, group B, by GOLD 2017 classification ([facility]),Mixed restrictive and obstructive lung disease ([facility]) 2.5 mg NEBULIZER Q4H PRN 04/13/2021 Active documented as of this encounter (statuses as of 10/22/2023) Active Problems Problem Noted Date Diagnosed Date [...] rinse after steroid. 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 Increased risk for Malignant Hyperthermia Susceptibility. AMADA [...] rinse after steroid. Test performed by Trish FLATBED OWNER OPERATOR CPFT S/P PTCA (percutaneous transluminal coronary ang ioplasty) 03/23/2015 CAD (coronary artery disease) 03/02/2015 Stented coronary artery 03/02/2015 Primary hypothyroidism 10/13/2014 Atrial flutter 12/17/2013 HTN, goal below 140/90 03/19/2013 Dyslipidemia, goal LDL below 130 04/01/2012 BPH with obstruction/lower urinary tract symptom s 04/01/2012 Lyme disease 03/05/2010 ADVANCE DIRECTIVE INFORMATION 10/06/2006 Overview: Pt refused Edema 03/22/2004 DISC DIS [id number] 06/02/2003 documented as of this encounter (statuses as of 10/22/2023) Resolved Problems Problem Noted Date Diagnosed Date Resolved Date COPD exacerbation 07/22/2019 04/10/2020 Overview: In Check dial performed to assess inhaler technique: 09/29/19 Name of inhalers Albuterol Pass: Yes at 60L/min and Trelegy Ellipta Pass: Yes at 65L/min. Encouraged to take slow deep breaths, use aero chamber, and rinse after steroid. Test performed by Trish FLATBED OWNER OPERATOR CPFT Body mass index (BMI) of 50. 0 to 59.9 in adult 06/21/2019 07/29/2019 Overview: Per Obesity protocol - Per Obesity Protocol, #19 ICD-10 update of inactive term COPD, group A, by GOLD 2017 classification 03/22/2019 07/29/2019 Overview: Per COPD GOLD Classification COPD, severity to be determined 09/16/2018 03/22/2019 Coronary artery disease invo lving [place]halen coronary artery without angina pectoris 03/23/2015 07/16/2019 Nocturnal hypoxemia 04/19/2014 09/08/19 19 Chest pain 01/28/2014 03/21/2014 Moderate obstructive sleep apnea 12/18/2013 06/15/2018 Overview: 03/30/14 PSG -- AHI 19.7, <89% 35 mins [facility] (using [address] [facility]) Obesity, Class III, BMI 40-4 9.9 [...] as of this encounter (statuses as of 10/22/2023) Immunizations Name Administration Dates Next Due COVID-19 [...] Answer Date Recorded PHQ Adult Total Score 0 12/31/2021 Hunger Vital Sign Answer Date Recorded Within the past 12 months, y ou worried that your food would run out before you got the money to buy more. Never true 01/01/20 22 Within the past 12 months, t he food you bought just didn't last and you didn't have money to get more. Never true 12/31/2021 Sex and Gender Information Value Date Recorded [...] as of this encounter Progress Notes * Darin Parker RPh - 10/22/2023 8:27 AM EDT Medication Therapy Disease Management - Anticoagulation Charlie Guillen 1950 Description Will alternate weekly dosing 7.5mg weekly x 1 week; then 10mg Tues and 7.5mg all other days Patient Findings Positives: Change in medications (Starting his chemo meds 10/26. Pharmacy went over all the meds yesterday and started no interactions.) Negatives: Signs/symptoms of thrombosis, Signs/symptoms of bleeding, Change in health, Change in alcohol use, Change in activity, Upcoming invasive procedure, Missed doses, Extra doses, Change in diet/appetite, Bruising INR Result As of 10/22/2023 INR goal: 2.0-3.0 INR used for dosin.2 (10/22/2023) Warfarin Plan As of 10/22/2023 Full warfarin instructions: 11/03: 10 mg; 11/17: 10 mg; 12/01: 10 mg; Otherwise 7.5 mg, then 10 mg, then 7.5 mg, then 7.5 mg, then 7.5 mg, then 7.5 mg repeating every 6 days No change documented: Darin Parker RPh Next INR check: 11/19/2023 Repeat PT/INR in 4 week(s) Weekly dose: not changed Darin Zimmerman RPh, CACP, CDE Clinical Pharmacist Medication Therapy Management [facility] 10/22/2023 8:35 AM documented in this encounter Plan of Treatment Upcoming Encounters Date Type Department Care Team (Late st Contact Info) Description 10/30/2023 2:00 PM EDT Office Visit [address] [phone] Kitty White PA-C [address] [place] [phone] 11/19/2023 8:40 AM EDT Anticoagulation Pharmacy [address] [phone] Pharmacist1, [facility] [address] [address] 12/22/2023 8:20 AM EDT Office Visit [address] [phone] Jose Garcia MD [address] [place] [phone] 01/02/2024 10:30 AM EDT Office Visit [facility] [address] [facility] [place] [phone] [facility]reras [facility] [address] [facility] [place] [id number] Scheduled Procedures Name Priority Associated Diagnoses Date/Ti me COLONOSCOPY FLEXIBLE PROXIMAL DIAGNOSTIC Recall History of colon polyps Health Maintenance Due Date Last Done Comments Diabetic Eye Exam 11/09/1969 Diabetic Foot Exam 11/09/1969 Depression Screening 12/31/2022 12/31/2021 DTaP,Tdap,and Td Vaccines (2 - Td or Tdap) 04/14/2023 04/14/2013 COLONOSCOPY-EVERY 5 YRS AGES 18-100 09/23/2023 09/22/2018, 08/30/2008 Albumin/Creatinine Ratio 12/13/2023 12/12/2022 Influenza Vaccine (FLU shot) (Season Ended) 2024 04/03/2022, 04/03/2022, 04/14/2021, Additional history exists HbA1c 04/04/2024 10/03/2023, 05/15, 12/24/2022 O2 ASSESSMENT COMPLETED IN PAST YEAR FOR COPD 09/17/2024 09/18/2023 GFR 10/02/2024 10/03/2023, 03/0 12/2023, 06/04/2023, Additional history exists TSH 10/02/2024 10/03/2023, 06/0 07/2022, 06/26/2022, Additional history exists Hepatitis C Screening Completed 06/27/2017 Alpha-1 Antitrypsin [...] Comments INR FINGERSTICK, POINT OF CARE STAT 10/22/2023 8:31 AM EDT Atrial flutter, unspecified type (HCC) documented in this encounter Results * INR FINGERSTICK, POINT OF CARE (10/22/2023 8:31 AM EDT) Fingerstick INR 2.2 INR 8:33 AM EDT [facility] 60-86 Blood 10/22/2023 8:31 AM EDT 10/22/2023 8:33 AM EDT Narrative [facility] 60-86 - 10/22/2023 8:33 AM EDT Therapeutic ranges for non-operative patients: Prophylaxsis/treatment of DVT: (Range:2.0-3.0) Treatment of pulmonary embolism:(Range:2.0-3.0) Prevention of systemic embolism from: -tissue heart valves -acute myocardial infarction -valvular heart disease -atrial fibrillation (Range: 2.0-3.0) Mechanical prosthetic valves: (Range: 2.5-3.5) Anel Caldwell [place] [facility] POINT OF CA RE TEST DOCKED DEVICE UNSOLICITED RESULTS [facility] [address] [place] [phone], [facility] documented in this encounter Visit Diagnoses Diagnosis [...] the patient have Health Care Power of Rn Surgery? No Care Teams Medical Corps Officer Relationship Specialty Start Date End Date Jose Garcia MD [address] [place] [phone] PCP - General Family Medicine 09/08/18 documented as of this encounter
--- OUTSIDE RECORDS SUMMARY | 2023-12-08 20:38 | External Medical Summary | Summary of Care ---
Author Name Unknown Organization [facility] Address [address] [place] [address] Phone [phone] Care Team Providers Care Senior Procurement Specialist Name Role Phone Jose Garcia MD Primary Care Provider [phone] Reason for Visit * Reason Comments Follow Up Patient is present w ith today for a 6 week return today.No concerns today. 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 (HCC); HTN, goal below 140/90; Type 2 diabetes mellitus with diabetic nephropathy, without long-term current use of insulin (HCC); Type 2 diabetes mellitus with hemoglobin A1c goal of less than 7.0% (HCC) Allergies Active Allergy Reactions Criticality Noted Date Comments Halothane 05/05/2019 MyCode result; 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 0 Active Fluticasone-Salmete rol 250-50 MCG/ACT Inhalation Aerosol [...] Oral Tablet (Lipitor)Indication s:Coronary artery disease involving walker river coronary artery of walker river heart without angina pectoris Take 1 Tablet [...] 24 Hour (Imdur)Indications: Coronary artery disease involving walker river coronary artery of walker river heart without angina pectoris,Atrial flutter, unspecified type (HCC),Stented coronary artery Take 1 Tablet by mouth in the morning. 90 Tablet 4 08/01/2023 Active Levothyroxine Sodium 137 MCG Oral TabletIndications:A cquired hypothyroidism Takes 1 tablet Sat. Sun. Tues and Thurs. And 1/2 tablet is taken Fri. Fri. [...] rest of week (5mg tablet). 200 Tablet 08/01/2023 Active Albuterol Sulfate (2.5 MG/3ML) 0.083% Inhalation Nebulization Solution (Proventil)Indicati ons:COPD, group B, by GOLD 2017 classification ([facility]) INHALE 1 VIAL VIA NEBULIZER EVERY 4 HOURS NEEDED FOR SHORTNESS OF BREATH, COUGH OR WHEEZE. 300 mL 3 08/15/2023 Active Nystatin 973506 UNIT/ML Mouth/Throat Suspension Swish and swallow 5 [...] and 1 Capsule before bedtime. 60 Capsule 09/18/2023 Active Additional Information Patient not taking.Reported on 10/31/2023 Gabapentin 300 MG Oral Capsule (Neurontin) Take 1 Capsule by mouth in the morning and 1 Capsule at noon and 1 Capsule before bedtime. 0 Active Lisinopril 5 MG Oral Tablet (Prinivil)Indicatio ns:HTN, goal below 140/90 Take 1 Tablet by mouth in the morning. 30 Tablet 5 10/31/2023 Active Lisinopril 20 MG Oral Tablet (Prinivil)Indicatio ns:HTN, goal below 140/90 Take 1 Tablet by mouth in the morning. 90 Tablet 4 08/01/2023 10/31/19 24 Discontinu ed(Patient preference /discontin uation) Enoxaparin Sodium 150 MG/ML Injection Solution Prefilled Syringe (Lovenox) Inject 150 mg under the skin in the morning and 150 mg before bedtime. Follow instructions provided on lovenox bridge. 10 mL 0 10/03/2023 10/31/19 24 Discontinu ed(Medicat ion List Clean Up) Hospital, [...] as of this encounter (statuses as of 10/31/2023) Active Problems Problem Noted Date Diagnosed Date [...] rinse after steroid. 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 Increased risk for Malignant [...] rinse after steroid. Test performed by Trish RESIDENT SERVICES MANAGER CPFT S/P PTCA (percutaneous transluminal coronary ang ioplasty) 03/23/2015 CAD (coronary artery disease) 03/02/2015 Stented coronary artery 03/02/2015 Primary hypothyroidism 10/13/2014 Atrial flutter 12/17/2013 HTN, goal below 140/90 03/19/2013 Dyslipidemia, goal LDL below 130 04/01/2012 BPH with obstruction/lower urinary tract symptom s 04/01/2012 Lyme disease 03/05/2010 ADVANCE DIRECTIVE INFORMATION 10/06/2006 Overview: Pt refused Edema 03/22/2004 DISC DIS [id number] 06/02/2003 documented as of this encounter (statuses as of 10/31/2023) Resolved Problems Problem Noted Date Diagnosed Date Resolved Date COPD exacerbation 07/22/2019 04/10/2020 Overview: In Check dial performed to assess inhaler technique: 09/29/19 Name of inhalers Albuterol Pass: Yes at 60L/min and Trelegy Ellipta Pass: Yes at 65L/min. Encouraged to take slow deep breaths, use aero chamber, and rinse after steroid. Test performed by Trish RESIDENT SERVICES MANAGER CPFT Body mass index (BMI) of 50. 0 to 59.9 in adult 06/21/2019 07/29/2019 Overview: Per Obesity protocol - Per Obesity Protocol, #19 ICD-10 update of inactive term COPD, group A, by GOLD 2017 classification 03/22/2019 07/29/2019 Overview: Per COPD GOLD Classification COPD, severity to be determined 09/16/2018 03/22/2019 Coronary artery disease invo lving walker river coronary artery without angina pectoris 03/23/2015 07/16/2019 [...] as of this encounter (statuses as of 10/31/2023) Immunizations Name Administration Dates Next Due COVID-19 [...] on file documented as of this encounter Last Filed Vital Signs Vital Sign Reading Time Taken Comments Blood Pressure 98/72 10/31/2023 11:23 AM EDT Pulse 68 10/31/2023 11:23 AM EDT Temperature 36.3 C (97.3 F) 10/31/2023 1 1:23 AM EDT Respiratory Rate 18 10/31/2023 11:2 3 AM EDT Oxygen Saturation 97% 10/31/2023 11: 23 AM EDT Inhaled Oxygen Concentration - - Weight 145.2 kg (320 lb 1.6 oz) 024 11:23 AM EDT Height - - Body Mass Index 45.15 10/02/2023 9:35 AM EDT documented in this encounter Functional Status Functional Status Response [...] No 12/16/2013 documented as of this encounter Patient Instructions * Patient Instructions* Katarina Waller, GERARDO - 10/31/2023 12:11 PM EDT Diabetes: Keeping Feet Healthy Inspect your feet every day for signs of a problem. Diabetes can damage nerves in your feet and cause neuropathy. This condition makes it hard for you to feel injuries or sore spots. Diabetes can also change blood flow, making it harder for small problems, like a blister, to heal properly. In fact, minor injuries can quickly become serious infections that send you to the hospital. Practice self-care to protect your feet and keep them healthy. Take Special Care Inspect your feet daily for problems such as redness, blisters, cracks, dry skin, or numbness. Use a mirror to see the bottoms of your feet. Or, ask for help. Manage your diabetes. Monitor and control your blood sugar. Take all your medications as prescribed. Avoid walking barefoot, even indoors. Wash your feet with warm water and mild soap. Dry well, especially between toes. Dont treat corns or calluses yourself. Talk to your doctor or quality systems technician (a doctor who specializes in foot care) if you need assistance trimming your toenails. Use moisturizing cream or lotion if you have dry skin, but dont use it between toes. Dont use heating pads on your feet. If you have neuropathy, you could get a burn and not feel it. Stop smoking. Smoking restricts blood flow and can make it harder for wounds to heal. Have Regular Checkups Foot problems can develop quickly. So be sure to follow your healthcare teams schedule for regular checkups. During office visits, take off your shoes and socks as soon as you get in the exam room. Ask your healthcare provider to examine your feet for problems. This will make it easier to find and treat small skin irritations before they get worse. Regular checkups can also help keep track of the blood flow and feeling in your feet. If you have neuropathy, you may need to have checkups more often. Wear Proper Footwear Wearing proper footwear is very important. If areas of your feet have been damaged by too much pressure, your healthcare provider may recommend changing your footwear. In some cases, avoiding high heels or tight work boots may be all thats needed. Or, your healthcare provider may recommend special shoes or custom inserts. These help protect your feet and keep existing irritations from getting worse. If you need special footwear, ask your healthcare provider if you qualify for [employer] diabetic shoe program. Make Sure Shoes and Socks Fit Any pair of shoes--new or old--should feel comfortable as soon as you put them on. There shouldnt be any rubbing when you walk. Wear the right shoe for any activity. For instance, a running shoe is designed to keep your feet injury-free while jogging. Buy shoes at the end of the day, when your feet are larger. Make sure they provide support without feeling too loose. Make sure your socks fit, t oo. Wear soft, seamless, well-padded socks for activity. Cotton or microfiber socks are best to help to absorb sweat. To protect your feet, avoid shoes that are open-toed or open-heeled. If you have questions about what kinds of shoes and socks are best, talk to your healthcare team. Get Regular Exercise Regular exercise improves blood flow in your feet. It also increases foot strength and flexibility.Gentle exercises, like walking or riding a stationary bicycle, are best. You can also do special foot exercises. Just be sure to talk with your healthcare provider before starting any exercise program. Also mention if any exercise causes pain, redness, or other signs of foot problems. Note: If you have any kind of break in the skin of your foot or ankle, keep the area clean. Then call your doctor--especially if the area doesnt appear to be healing. [phone] [employer], [address] [place] [address], [place] [phone]. All rights reserved. This information is not intended as a substitute for professional medical care. Always follow your healthcare professional's instructions. documented in this encounter Progress Notes * Katarina Waller CCMA - 10/31/2023 12:11 PM EDT Socks and Shoes Removed for Annual Diabetic Foot Screening RIGHT FOOT: No Reddened, Cracking, Or Open Areas Noted. RIGHT Dorsalis Pedis Pulse: Palpable RIGHT Posterior Tibial Pulse: Palpable RIGHT Monofilament:Patient reports feeling monofilament pressure on plantar surface of foot LEFT FOOT: No Reddened, Cracking or Open Areas Noted. LEFT Dorsalis Pedis Pulse: Palpable LEFT Posterior Tibial Pulse: Palpable LEFT Monofilament:Patient reports feeling monofilament pressure on plantar surface of foot Do you need diabetic shoes: No * Kitty White PA-C - 10/31/2023 11:57 AM EDT Subjective: Charlie Guillen is a 72 year old male. Chief Complaint Patient presents with Follow Up Patient is present with today for a 6 week return today. No concerns today. commented today that BP has been running really low yesterday at chemo it was 90/70 something HPI: [age] male with multiple myeloma who recently started chemotherapy, AMADA on CPAP, hypothyroidism, non-insulin dependent type 2 diabetes, dyslipidemia, embolic CVA, hypertension, atrial fibrillation-on warfarin. Patient presents for follow up. He started chemotherapy on Friday for Multiple Myeloma. Patient reports noticing blood pressure has been low. Patient denies any episodes of dizziness or near symptoms. He does reports feeling fatigued. Reports while he was in hospital, blood glucose was well controlled (confirmed insulin was not being used) He denies any chest pain. Reports rare shortness of breath. Has not used his rescue inhaler. 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) J44.9 Body mass index (BMI) of 45.0 to 49.9 in adult ([facility]) Z68.42 Cerebrovascular accident (CVA) due to embolism of precerebral artery ([facility]) I63.10 Morbid obesity due to excess calories ([facility]) E66.01 Chronic diastolic congestive heart failure ([facility]) I50.32 Anticoagulation management encounter Z51.81, Z79.01 Atrial flutter, unspecified type ([facility]) I48.92 Chronic atrial fibrillation ([facility]) I48.20 Spinal stenosis of lumbar region with neurogenic claudication M48.062 Diabetes mellitus without complication ([facility]) E11.9 Type 2 diabetes mellitus with diabetic nephropathy ([facility]) E11.21 Current Outpatient Medications Medication Sig Dispense Refill SHREYAS LOW STRENGTH 81 MG PO TBEC Take 1 tablet by mouth daily 30 Tab 11 Respiratory Therapy Supplies (NEBULIZER) CRISTINE Please use every 4 hours with albuterol medication. ICD- j44.9 1 Device 0 CPAP every night at bedtime. Fluticasone-Salmeterol 250-50 MCG/ACT Inhalation Aerosol Powder Breath Activated (Advair Diskus) Inhale 1 Puff by mouth in the morning and 1 Puff before bedtime. Rinse mouth after use.. 180 Each 3 Atorvastatin Calcium 40 MG Oral Tablet (Lipitor) Take 1 Tablet by mouth in the morning. (Patient taking differently: Take 1 Tablet by mouth at bedtime.) 90 Tablet 4 Furosemide 20 MG Oral Tablet (Lasix) Take 1 Tablet by mouth in the morning. 90 Tablet 4 Isosorbide Mononitrate ER 60 MG Oral Tablet Extended Release 24 Hour (Imdur) Take 1 Tablet by mouthin the morning. 90 Tablet 4 Levothyroxine Sodium 137 MCG Oral Tablet Takes 1 tablet Fri. Fri. and . And 1/2 tablet istaken Fri 90 Tablet 4 Lisinopril 20 MG Oral Tablet (Prinivil) Take 1 Tablet by mouth in the morning. 90 Tablet 4 Metoprolol Succinate ER 50 MG Oral Tablet Extended Release 24 Hour (toPROL XL) Take 1 Tablet by mouth in the morning. 90 Tablet 4 Terazosin HCl 1 MG Oral Capsule (Hytrin) Take 1 Capsule by mouth at bedtime. 90 Capsule 4 Warfarin Sodium 5 MG Oral Tablet (Jantoven) 5mg Friday,Friday, Friday and 10mg rest of week (5mgtablet). 200 Tablet 3 Albuterol Sulfate (2.5 MG/3ML) 0.083% Inhalation Nebulization Solution (Proventil) INHALE 1 VIAL VIA NEBULIZER EVERY 4 HOURS NEEDED FOR SHORTNESS OF BREATH, COUGH OR WHEEZE. 300 mL 3 Gabapentin 300 MG Oral Capsule (Neurontin) Take 1 Capsule by mouth in the morning and 1 Capsule at noon and 1 Capsule before bedtime. albuterol HFA (VENTOLIN HFA) 108 (90 BASE) MCG/ACT inhaler Inhale 2 Puffs by mouth 4 times a day. (Patient not taking: Reported on 10/31/2023) 3 Inhaler 3 Nitroglycerin 0.4 MG Sublingual Tablet Sublingual (Nitrostat) Place 1 Tablet under the tongue every5 minutes as needed for Pain, Chest. up to 3 doses in 15 minutes 25 Tablet 3 Nystatin 306818 UNIT/ML Mouth/Throat Suspension Swish and swallow 5 mL in the morning and 5 mL at noon and 5 mL in the evening and 5 mL before bedtime. For thrush.. (Patient not taking: Reported on 10/31/2023) 280 mL 0 Docusate Sodium 100 MG Oral Capsule (Colace) Take 1 Capsule by mouth in the morning and 1 Capsule before bedtime. (Patient not taking: Reported on 10/31/2023) 60 Capsule 5 Enoxaparin Sodium 150 MG/ML Injection Solution Prefilled Syringe (Lovenox) Inject 150 mg under the skin in the morning and 150 mg before bedtime. Follow instructions provided on lovenox bridge. 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 Spiriva Handihaler [Tiotropium Brookesmith Monohydrate] Rash Succinylcholine MyCode result; 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) (Primary) - DIABETES FOOT EXAM -patient is following with [facility] they are now handling treatment of cancer associated pain.Patient remains on oxycodone for pain Chronic atrial fibrillation (HCC) Cerebrovascular accident (CVA) due to embolism of precerebral artery ([facility]) HTN, goal below 140/90 - Lisinopril 5 MG Oral Tablet (Prinivil); Take 1 Tablet by mouth in the morning. Type 2 diabetes mellitus with diabetic nephropathy, without long-term current use of insulin ([facility]) - TELEMEDICINE DIABETIC EYE - ALBUMIN / CREATININE RATIO, URINE; Future; Expected date: 10/31/2023 Type 2 diabetes mellitus with hemoglobin A1c goal of less than 7.0% ([facility]) Follow Up: Return if symptoms worsen or fail to improve, for has f/u with [facility] 11/[address] Donis 12/21. | For: has f/u with [facility] 11/[address] Donis 12/21 Plan: decreasing patient's lisinopril from 20 mg daily to 5 mg daily as his blood pressure has beenlow. Patient has BP checked at [facility]. He and his will notify us if BP continues to be low or if >140/90 I spent a total of 30-39 minutes (exact time 32 mins) on the date of service in preparation, delivery, and documentation of the care provided to Charlie Guillen excluding any time spent in the performance of separately billed services. Kitty Whiet PA-C documented in this encounter Nursing Notes * Katarina Waller CCMA - 10/31/2023 11:28 AM EDT The patient has been properly identified by confirmation of name and date of . Chief Complaint Patient presents with Follow Up Patient is present with today for a 6 week return today. No concerns today. commented today that BP has been running really low yesterday at [facility] it was 90/70 something documented in this encounter Plan of Treatment Upcoming Encounters Date Type Department Care Team ([facility] st Contact Info) Description 11/19/2023 8:40 AM EDT Anticoagulation Pharmacy [address] [phone] Pharmacist1, [facility] [address] [address] 12/22/2023 8:20 AM EDT Office Visit Family Practice [address] [phone] Jose Garcia MD [address] [place] [address] 01/02/2024 10:30 AM EDT Office Visit [facility] [address] [facility] [phone] Merissa Contreras CRNP [address] [place] [id number] Scheduled Orders Name Type Priority Associated Diagnoses Orde r Schedule ALBUMIN / CREATININE RATIO, URINE Lab Routine Type 2 diabetes mellitus with diabetic nephropathy, without long-term current use of insulin (HCC) Expected: 10/31/2023, Expires: 10/30/2024 Scheduled Procedures Name Priority Associated Diagnoses Date/Ti [...] Procedure Name Priority Date/Time Associated Diagnosis Comments TELEMEDICINE DIABETIC EYE Routine 10/31/2023 Type 2 diabetes mellitus with diabetic nephropathy, without long-term current use of insulin (HCC) documented in this encounter Results * TELEMEDICINE DIABETIC EYE (10/31/2023) 10/31/2023 Kitty White PA-C DIGITAL PHOTOGRAPHY documented in this encounter Visit Diagnoses Diagnosis Multiple myeloma not having achieved remission (HCC)- Primary Multiple myeloma, without mention of having achieved remission Chronic atrial fibrillation (HCC) Atrial fibrillation Cerebrovascular accident (CVA) due to embolism of precerebral artery (HCC) HTN, goal below 140/90 Unspecified essential hypertension Type 2 diabetes mellitus with diabetic nephropathy, without long-term current use of insulin (HCC) Type 2 diabetes mellitus with hemoglobin A1c goal of less than 7.0% (HCC) documented in this encounter Advance Directives Latest [...] the patient have Health Care Power of Writing Center Director? No Care Teams Senior Procurement Specialist Relationship Specialty Start Date End Date Jose Garcia MD [address] [place] [id number] PCP - General Family Medicine 09/08/18 documented as of this encounter"
--- NOTE | 2023-12-08 20:59 | Emergency Department Note ---
History of Present Illness General Chief Complaint: Swelling/Edema to Extremity Stated Complaint: BOTH LEGS SWOLLEN,SOB Time Seen by Provider: 12/08/23 20:39 History of Present Illness Provider Complaint: shortness of breath Onset (ago): month(s) (1) Consistency/Duration: + progressively worsening Maximum Pain Intensity: 4 Relieved By: + upright position Exacerbated By: + lying flat Known history of: congestive heart failure Associated symptoms: + orthopnea; no pain with inspiration, no fever, no cough, no wheezing, no sputum production, no hemoptysis, no abdominal pain or no rash Home Medications Medication Instructions Recorded Confirmed Type aspirin 81 mg tablet,delayed 81 mg PO HS 09/11/18 12/02/23 History release isosorbide mononitrate 60 mg 60 mg PO QAM 09/11/18 12/02/23 History tablet,extended release 24 hr metoprolol succinate 50 mg 50 mg PO QAM 09/11/18 12/02/23 History tablet,extended release 24 hr nitroglycerin 0.4 mg sublingual 0.4 mg sublingual DIRECTED PRN 09/11/18 12/02/23 History tablet Angina terazosin 1 mg capsule 1 mg PO HS 09/11/18 12/02/23 History warfarin 5 mg tablet See Rx Instructions .Route .COMPLEX 09/11/18 12/02/23 History furosemide 20 mg tablet 20 mg PO DAILY 07/09/19 12/02/23 History fluticasone 250 mcg-salmeterol 50 1 inh inhalation Q12H 04/12/20 12/02/23 History mcg/dose blistr powdr for inhalation (Advair Diskus) atorvastatin 40 mg tablet 40 mg PO HS #30 tabs 04/14/20 12/02/23 Rx albuterol sulfate 90 mcg/actuation 2 puff inhalation Q6H PRN 12/13/20 12/02/23 History aerosol inhaler (Ventolin HFA) Shortness Of Breath levothyroxine 137 mcg tablet See Rx Instructions .Route .COMPLEX 12/14/22 12/02/23 History albuterol sulfate 2.5 mg/3 mL 2.5 mg inhalation Q4H PRN SHORT OF 09/08/23 12/02/23 History (0.083 %) solution for nebulization BREATH/COUGH/WHEEZING oxycodone-acetaminophen 5 mg-325 1 tab PO Q4H PRN pain #18 tabs 09/16/23 12/02/23 Rx mg tablet (Percocet) lisinopril 5 mg tablet 5 mg PO DAILY 11/20/23 12/02/23 History Allergies Allergy/AdvReac Type Severity Reaction Status Date / Time tiotropium Allergy Mild Rash Verified 12/02/23 13:33 [From Spiriva with HandiHaler] halothane AdvReac Unknown susepible Verified 12/02/23 13:33 to malignent hypthermia succinylcholine AdvReac Unknown susepible Verified 12/02/23 13:33 to malignent hypthermia Past Med/Surg History Problem List Acute exacerbation of CHF (congestive heart failure) (Acute) Multiple myeloma not having achieved remission (Chronic 11/06/23) Abnormal MRI, spine Predominantly T1 hypointense and T2 hyperintense marrow replacing lesions in the S1 and S2 vertebral bodies and L3 spinous process. Predominantly T1 and T2 hyperintense lesions involving the L2 and L3 vertebrae. Outpatient [facility] MRI dated 09/11/2023 Right lumbar radiculopathy (Acute) Low back pain (Acute) Cerebrovascular disease 04/12/20 ischemic stroke, right frontal, probably cardioembolic Dyslipidemia (Chronic) Diastolic CHF, chronic (Chronic) "echo 02/24/15 - grade II diastolic dysfunction, EF 60-65%" CAD (coronary artery disease) (Chronic) "cardiac cath 02/23/15 - occluded left circumflex, HERACLIO to RCA " Morbid obesity Stroke Occupational lung disease Atrial fibrillation GERD (gastroesophageal reflux disease) (Chronic) Sleep apnea (Chronic) Hypertension (Chronic) Hypothyroidism (Chronic) Paroxysmal atrial flutter (Chronic) "cardioversion 2013" BPH (benign prostatic hyperplasia) (Chronic) S/P coronary artery stent placement (Chronic) Medical History Degenerative disc disease BPH (benign prostatic hyperplasia) Fatty liver disease, nonalcoholic GERD (gastroesophageal reflux disease) Hypothyroidism On anticoagulant therapy warfarin daily Tinnitus of both ears Hearing deficit Hypertension Atrial fibrillation follows with Dr. Brandt Kinsye apnea cpap Chronic obstructive pulmonary disease History of Lyme disease Surgical History History of colonoscopy History of tooth extraction all upper teeth History of wisdom tooth extraction History of heart artery stent 2015--1 stent History of cardiac cath 2015 x2--only 1 stent Family History Mother Diabetes Father Melanoma Brother Smoldering myeloma, Onset Age: 75 Brother No problems noted. Brother Cancer Ear Brother No problems noted. Sister Multiple myeloma, Onset Age: 61 Chemotherapy Sister Uterine cancer, Onset Age: 60 Radiation therapy Sister No problems noted. Sister No problems noted. Sister No problems noted. Son No problems noted. Son No problems noted. Son No problems noted. Daughter No problems noted. Other Family history of diabetes mellitus Social History Smoking Status: Never smoker Tobacco Type: Smokeless Tobacco (Dip or Chew) Age Started Using Tobacco: 6; Second Hand Exposure: Yes (Family members smoked in home); Do You Dip or Chew Tobacco: Yes (Quit September 2023); Hx Alcohol Use: No Hx Substance Use: No Preferred Language: Divehi Communication Ability: Effective Visual Impairment: Limited Hearing Ability: Use of Hearing Aid Nursing Informatics Clinical Analyst Required: No Beliefs That Will Affect Care: None marital status: Current Living Situation: Spouse current occupational status: retired 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 How many Children do You have: 4 Feels Safe at Home: Yes Childhood Exposure to Second-Hand Smoke: Yes Diet: regular caffeine: Yes during the past year weight has: remained stable Dental Care, Regularly: Yes Assistive Devices: Cane, CPAP, Denture - Upper and Glasses Physical Exam 2 Vital Signs: Vital Signs - 24 hr 12/08/23 20:34 12/08/23 20:44 12/08/23 20:46 Temperature 36.5 C Temperature Source Oral Pulse Rate 78 78 Pulse Rate from Sp O2 Sensor 72 Respiratory Rate 20 29 H Blood Pressure 148/82 H 144/101 H Blood Pressure Marci n 104 115 Pulse Oximetry 95 96 96 Oxygen Delivery Me thod Room Air Room Air Room Air Sepsis Recent Feve r Within 48 Hours No Sepsis New/Unexpla ined Change in Men january Status No Sepsis Action Take n by Nursing No Action Required 12/08/23 20:50 12/08/23 20:54 Temperature Temperature Source Pulse Rate 63 62 Pulse Rate from Sp O2 Sensor 64 Respiratory Rate 25 H Blood Pressure Blood Pressure Marci n Pulse Oximetry 97 Oxygen Delivery Me thod Sepsis Recent Feve r Within 48 Hours Sepsis New/Unexpla ined Change in Men january Status Sepsis Action Take n by Nursing Physical Exam: Physical Exam GENERAL: oriented to person, place, and time. appears well-developed and well- nourished. HENT: Exam performed. - Head: Normocephalic and atraumatic. EYES: Conjunctivae and EOM are normal. Right eye exhibits no discharge. Left eye exhibits no discharge. No scleral icterus. NECK: Normal range of motion. Neck supple. No JVD present. CV: Normal rate, irregular rhythm, normal heart sounds and intact distal pulses. 3+ pitting edema of the bilateral lower extremities palpable radial pulses bue. PULM/CHEST: Inspiratory rales bilaterally. ABD: The abdomen is soft. There is no tenderness. NEURO: Motor and sensation grossly intact. SKIN: Skin is warm and dry. He is not diaphoretic. PSYCH: normal mood and affect. Behavior is normal. Judgment and thought content normal. Course Course 2038: The patient was evaluated in room A11. A complete history and physical exam was performed Cardiac monitoring: An order was placed for continuous cardiac monitoring. The monitor shows a rate of 70 with atrial fibrilation rhythm interpreted by me 2149: Vital signs stable. Labs show an elevated proBNP. Chest x-ray shows fluid overload. [facility]. Medical Decision Making Laboratory Data Attestation: I reviewed the patient's lab results. 12/08/23 20:46 12/08/23 20:46 Lab Results 12/08/23 Range/Units 20:46 WBC 4.08 L (4.8-10.8) K/ul RBC 3.85 L (4.70-6.10) M/uL Hgb 11.7 L (14.0-18.0) g/dl Hct 36.7 L (42.0-52.0) % MCV 95.3 (80.0-100.0) fL MCH 30.4 (25.0-34.0) pg MCHC 31.9 L (32.0-36.0) g/dL RDW Std Deviation 48.1 H (36.4-46.3) fL RDW Coeff of Иван 14.0 (11.5-14.5) % Plt Count 133 (130-400) K/uL MPV 10.4 (9.4-12.4) fL Immature Gran % (Auto) 0.5 % Neut % (Auto) 46.3 % Lymph % (Auto) 15.0 % Blanco % (Auto) 15.4 % Eos % (Auto) 20.6 % Baso % (Auto) 2.2 % Neut # (Auto) 1.89 (1.40-6.50) K/uL Lymph # (Auto) 0.61 L (1.20-3.40) K/uL Blanco # (Auto) 0.63 H (0.11-0.59) K/uL Eos # (Auto) 0.84 H (0.00-0.50) K/uL Baso # (Auto) 0.09 (0.00-0.20) K/uL Immature Gran # (Auto) 0.02 (0.01-0.20) K/uL PT Cancelled INR Cancelled APTT Cancelled PTT Ratio Cancelled Sodium 140 (136-145) mmol/L Potassium 4.0 (3.5-5.1) mmol/L Chloride 107 (98-107) mmol/L Carbon Dioxide 26 (21-32) mmol/L Anion Gap 7 (3-11) BUN 17 (6-23) mg/dl Creatinine 0.94 (0.6-1.4) mg/dl Est Cr Clr Drug Dosing 110.9 ml/min Est GFR ( Amer) 93.5 ml/min Est GFR (Non-Af Amer) 80.7 ml/min BUN/Creatinine Ratio 18.1 (10-20) Glucose 132 H (70-99(Fasting)) mg/dl Calcium 7.8 L (8.6-10.3) mg/dl Troponin I High Sens 13.9 (0-20) pg/ml B-Natriuretic Peptide 289 H (0-100) pg/ml Lipase 16 (11-82) U/L Imaging Data Attestation: I personally reviewed and interpreted this imaging study as follows: My Impression: Chest x-ray: Cardiomegaly with cephalization. ECG Data Attestation: I personally reviewed and interpreted this ECG as follows: Interpretation: Atrial fibrillation with a rate of 71. QRS and QTc intervals within normal limits. No ST elevation or ST depression. PVCs present. [facility] [place] Narrative 2038: The patient was evaluated in room A11. A complete history and physical exam was performed Cardiac monitoring: An order was placed for continuous cardiac monitoring. The monitor shows a rate of 70 with atrial fibrilation rhythm interpreted by me 2150: Vital signs stable. Labs show an elevated proBNP. Chest x-ray shows fluid overload. [facility] with Las[facility] notified. Impression & Plan Acute exacerbation of CHF (congestive heart failure) Discharge Plan Visit Data Chief Complaint: Swelling/Edema to Extremity Stated Complaint: BOTH LEGS SWOLLEN,SOB ED Provider: Ki Rivas Discharge Problem: Acute exacerbation of CHF (congestive heart failure) Patient Disposition: Admitted As Inpatient Forms Stand Alone Forms: [facility] Prescriptions Prescriptions: No Action lisinopril 5 mg tablet 5 mg PO DAILY furosemide 20 mg tablet 20 mg PO DAILY metoprolol succinate 50 mg Tablet Extended Release 24 Hr 50 mg PO QAM terazosin 1 mg Capsule 1 mg PO HS aspirin 81 mg Tablet,Delayed Release (Dr/Ec) 81 mg PO HS isosorbide mononitrate 60 mg Tablet Extended Release 24 Hr 60 mg PO QAM warfarin 5 mg Tablet See Rx Instructions .ROUTE .COMPLEX Rx Instructions: TAKES 7.5 MG EVERY EVENING, EXCEPT EVERY OTHER FRIDAY, TAKES 10 MG. Take 7.5mg by mouth every day, EXCEPT every other Friday take 10mg. As of 09/20/23, pt's last 7.5mg dose was 09/16/23. nitroglycerin 0.4 mg Tablet, Sublingual 0.4 mg Sublingual DIRECTED PRN (Reason: Angina) Rx Instructions: PLACE 1 TAB UNDER TONGUE EVERY 5 MINUTES NEEDED FOR PAIN, CHEST. UP TO 3 DOSES IN 15 MINUTES. fluticasone propion-salmeterol [Advair Diskus] 250-50 mcg/dose Blister With Device 1 inh INHALATION Q12H atorvastatin 40 mg tablet 40 mg PO HS Qty: 30 5RF albuterol sulfate [Ventolin HFA] 90 mcg/actuation Hfa Aerosol Inhaler 2 puff INHALATION Q6H PRN (Reason: Shortness Of Breath) levothyroxine 137 mcg tablet See Rx Instructions .ROUTE .COMPLEX Rx Instructions: Take 137mcg (1 tab) every morning on FRI///SAT. Then take 68.5mcg (0.5 tab) every morning on FRI/FRI/FRI albuterol sulfate 2.5 mg /3 mL (0.083 %) solution for nebulization 2.5 mg inhalation Q4H PRN (Reason: SHORT OF BREATH/COUGH/WHEEZING) oxycodone-acetaminophen [Percocet] 5-325 mg tablet 1 tab PO Q4H PRN (Reason: pain) Qty: 18 0RF Referrals Referrals: Jose Garcia MD [Primary Care Provider] - Discharge Problem: Acute exacerbation of CHF (congestive heart failure) Qualifiers: Heart failure type: unspecified Qualified Code(s): I50.9 - Heart failure, unspecified
[2023-12-08 21:08] LABS: Basophils # (auto) 0.09 K/uL (0.00-0.20); Basophils % (auto) 2.2 %; Eosinophils # (auto) 0.84 K/uL (0.00-0.50); Eosinophils % (auto) 20.6 %; Hematocrit (blood only) 36.7 % (42.0-52.0); Hemoglobin 11.7 g/dl (14.0-18.0); Immature Granulocytes # (auto) 0.02 K/uL (0.01-0.20); Immature Granulocytes % (auto) 0.5 %; Lymphocytes # (auto) 0.61 K/uL (1.20-3.40); Mean Corpuscular Hemoglobin 30.4 pg (25.0-34.0); Mean Corpuscular Hgb Conc 31.9 g/dL (32.0-36.0); Mean Corpuscular Volume 95.3 fL (80.0-100.0); Mean Platelet Volume 10.4 fL (9.4-12.4); Monocytes # (auto) 0.63 K/uL (0.11-0.59); Monocytes % (auto) 15.4 %; Neutrophils # (auto) 1.89 K/uL (1.40-6.50); Neutrophils % (auto) 46.3 %; Platelet Count 133 K/uL (130-400); RDW Standard Deviation 48.1 fL (36.4-46.3); Red Blood Count 3.85 M/uL (4.70-6.10); White Blood Count 4.08 K/ul (4.8-10.8)
[2023-12-08 21:24] LABS: BUN Creatinine Ratio 18.1 (10-20); Calcium 7.8 mg/dl (8.6-10.3); Creatinine Clr Calc Pharmacy 110.9 ml/min; Est GFR (African American) 93.5 ml/min; Est GFR (Non-African American) 80.7 ml/min
[2023-12-08 21:30] LABS: Troponin I High Sensitivity 13.9 pg/ml (0-20)
[2023-12-08] MEDS: FUROSEMIDE 40 MG/4 ML VIAL IV ONE (21:52)
[2023-12-08 22:04] LABS: INR 2.5 (0.9-1.1); Partial Thromboplastin Ratio 1.2; Partial Thromboplastin Time 31 Seconds (21-31)
--- NOTE | 2023-12-09 00:01 | History & Physical Report ---
Date of Service December 08, 2023 Assessment & Plan (1) Acute exacerbation of CHF (congestive heart failure): Plan: 73-year-old male with history of A-fib, hypothyroidism, diabetes type 2, COPD, mixed restrictive and obstructive lung disease, occupational lung disease, obstructive sleep apnea on CPAP, history of CVA, hypertension, a flutter, CAD, s/p stent, chronic diastolic CHF, chronic atrial fibrillation, morbid obesity, BPH, spinal stenosis,Multiple myeloma who lives at home with his comes in because of ongoing shortness of breath and worsening lower extremity edema. Patient states last several days the lower extremity edema was getting worse and also getting short of breath which prompted him to come to the ER today. Denies any orthopnea. Denies any chest pain. No nausea. No abdominal pain. Normal Bladder movements. denies any headache. No runny nose or sore throat. Patient is on chemo and radiation for multiple myeloma. No cough. Appetite is okay. Sometimes gets constipated. Patient denies blood in the stools .. Hemodynamics are okay. Acute exacerbation of CHF possible acute on chronic diastolic CHF received IV Lasix 40 mg in the ER we will continue with IV Lasix 40 minutes twice daily Daily weights and I's and O's telemetry echo consult cardiology in a.m. for further recommendations history of A-fib on metoprolol succinate and Coumadin INR therapeutic history of CAD s/p stent on metoprolol, Imdur, statin and aspirin and Coumadin obstructive sleep apnea CPAP nightly morbid obesity needs counseling nutrition follow-up history of COPD, mixed restrictive and obstructive lung disease continue home inhalers history of CVA on aspirin, Coumadin and statin hypertension on Imdur, lisinopril and metoprolol succinate and terazosin. Will monitor. BPH on terazosin. multiple myeloma seems on chemo and radiation continue chemo heme/onco and radiation oncology follow-up DVT prophylaxis on Coumadin follow PT/INR disposition telemetry full code History of Present Illness Chief Complaint: Shortness of breath Primary Care Provider: Jose Garcia MD 73-year-old male with history of A-fib, hypothyroidism, diabetes type 2, COPD, mixed restrictive and obstructive lung disease, occupational lung disease, obstructive sleep apnea on CPAP, history of CVA, hypertension, a flutter, CAD, s/p stent, chronic diastolic CHF, chronic atrial fibrillation, morbid obesity, BPH, spinal stenosis,Multiple myeloma who lives at home with his comes in because of ongoing shortness of breath and worsening lower extremity edema. Patient states last several days the lower extremity edema was getting worse and also getting short of breath which prompted him to come to the ER today. Denies any orthopnea. Denies any chest pain. No nausea. No abdominal pain. Normal Bladder movements. denies any headache. No runny nose or sore throat. Patient is on chemo and radiation for multiple myeloma. No cough. Appetite is okay. Sometimes gets constipated. Patient denies blood in the stools .. Hemodynamics are okay. Past medical history. As mentioned above Past surgical history. Colonoscopy. DC cardioversion. Social history. . No smoking. No alcohol use. No drug use. Family history. Sister has cancer. Mother had diabetes. Hypertension. Cirrhosis. Father had psoriasis. Emphysema. Sister had stroke. 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 Home Medications Medication Instructions Recorded Confirmed Type aspirin 81 mg tablet,delayed 81 mg PO HS 09/11/18 12/08/23 History release isosorbide mononitrate 60 mg 60 mg PO QAM 09/11/18 12/08/23 History tablet,extended release 24 hr metoprolol succinate 50 mg 50 mg PO QAM 09/11/18 12/08/23 History tablet,extended release 24 hr nitroglycerin 0.4 mg sublingual 0.4 mg sublingual DIRECTED PRN 09/11/18 12/08/23 History tablet Angina terazosin 1 mg capsule 1 mg PO HS 09/11/18 12/08/23 History warfarin 5 mg tablet 7.5 mg PO QPM 09/11/18 12/08/23 History furosemide 20 mg tablet 20 mg PO DAILY 07/09/19 12/08/23 History fluticasone 250 mcg-salmeterol 50 1 inh inhalation Q12H 04/12/20 12/08/23 History mcg/dose blistr powdr for inhalation (Advair Diskus) atorvastatin 40 mg tablet 40 mg PO HS #30 tabs 04/14/20 12/08/23 Rx albuterol sulfate 90 mcg/actuation 2 puff inhalation Q6H PRN 12/13/20 12/08/23 History aerosol inhaler (Ventolin HFA) Shortness Of Breath levothyroxine 137 mcg tablet See Rx Instructions .Route .COMPLEX 12/14/22 12/08/23 History albuterol sulfate 2.5 mg/3 mL 2.5 mg inhalation Q4H PRN SHORT OF 09/08/23 12/08/23 History (0.083 %) solution for nebulization BREATH/COUGH/WHEEZING oxycodone-acetaminophen 5 mg-325 1 tab PO Q4H PRN pain #18 tabs 09/16/23 12/08/23 Rx mg tablet (Percocet) lisinopril 5 mg tablet 5 mg PO DAILY 11/20/23 12/08/23 History Past Med/Surg History Problem List Acute exacerbation of CHF (congestive heart failure) (Acute) Multiple myeloma not having achieved remission (Chronic 11/06/23) Abnormal MRI, spine Predominantly T1 hypointense and T2 hyperintense marrow replacing lesions in the S1 and S2 vertebral bodies and L3 spinous process. Predominantly T1 and T2 hyperintense lesions involving the L2 and L3 vertebrae. Outpatient [facility] MRI dated 09/11/2023 Right lumbar radiculopathy (Acute) Low back pain (Acute) Cerebrovascular disease 04/12/20 ischemic stroke, right frontal, probably cardioembolic Dyslipidemia (Chronic) Diastolic CHF, chronic (Chronic) "echo 02/24/15 - grade II diastolic dysfunction, EF 60-65%" CAD (coronary artery disease) (Chronic) "cardiac cath 02/23/15 - occluded left circumflex, HERACLIO to RCA " Morbid obesity Stroke Occupational lung disease Atrial fibrillation GERD (gastroesophageal reflux disease) (Chronic) Sleep apnea (Chronic) Hypertension (Chronic) Hypothyroidism (Chronic) Paroxysmal atrial flutter (Chronic) "cardioversion 2013" BPH (benign prostatic hyperplasia) (Chronic) S/P coronary artery stent placement (Chronic) Medical History Degenerative disc disease BPH (benign prostatic hyperplasia) Fatty liver disease, nonalcoholic GERD (gastroesophageal reflux disease) Hypothyroidism On anticoagulant therapy warfarin daily Tinnitus of both ears Hearing deficit Hypertension Atrial fibrillation follows with Dr. Carlton Sleep apnea cpap Chronic obstructive pulmonary disease History of Lyme disease Surgical History History of colonoscopy History of tooth extraction all upper teeth History of wisdom tooth extraction History of heart artery stent 2015--1 stent History of cardiac cath 2014 x2--only 1 stent Family History Mother Diabetes Father Melanoma Brother Smoldering myeloma, Onset Age: 75 Brother No problems noted. Brother Cancer Ear Brother No problems noted. Sister Multiple myeloma, Onset Age: 61 Chemotherapy Sister Uterine cancer, Onset Age: 60 Radiation therapy Sister No problems noted. Sister No problems noted. Sister No problems noted. Son No problems noted. Son No problems noted. Son No problems noted. Daughter No problems noted. 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 ENT- oropharynx clear Neck- supple, no JVD. Lungs- clear to auscultation mild b/l wheezing present Heart- irregular rhythm; no murmur, no gallop. Abdomen- normal bowel sounds, soft, nontender, no distension Extremities- b/l lower extremity gross pedal edema present with mild eryt hematous changes Neuro- alert, oriented ; PERRL, no facial palsy; no dysarthria; moves extremities Results & Data Results & Data Vital Signs (Past 12 Hours) Vital Signs Temp Pulse Resp BP Pulse Ox O2 Del Method 12/08/23 23:00 68 25 H 115/84 94 Room Air 12/08/23 22:50 59 L 21 98 12/08/23 22:47 61 21 98 12/08/23 22:10 62 20 95 12/08/23 22:00 112/70 12/08/23 22:00 61 25 H 95 12/08/23 21:50 63 19 96 12/08/23 21:40 59 L 19 97 12/08/23 21:31 106/51 L 12/08/23 21:31 67 24 96 12/08/23 21:30 61 24 94 12/08/23 21:20 62 23 97 12/08/23 21:10 74 23 95 12/08/23 21:00 68 21 113/70 96 Room Air 12/08/23 20:54 62 12/08/23 20:50 63 25 H 97 12/08/23 20:46 78 29 H 144/101 H 96 Room Air 12/08/23 20:44 96 Room Air 12/08/23 20:34 36.5 C 78 20 148/82 H 95 Room Air Diagnostic Findings Laboratory Results WBC 4.08 K/ul (4.8-10.8) L 12/08/23 20:46 RBC 3.85 M/uL (4.70-6.10) L 12/08/23 20:46 Hgb 11.7 g/dl (14.0-18.0) L 12/08/23 20:46 Hct 36.7 % (42.0-52.0) L 12/08/23 20:46 MCV 95.3 fL (80.0-100.0) 12/08/23 20:46 MCH 30.4 pg (25.0-34.0) 12/08/23 20:46 MCHC 31.9 g/dL (32.0-36.0) L 12/08/23 20:46 RDW Std Deviation 48.1 fL (36.4-46.3) H 12/08/23 20:46 RDW Coeff of Иван 14.0 % (11.5-14.5) 12/08/23 20:46 Plt Count 133 K/uL (130-400) 12/08/23 20:46 MPV 10.4 fL (9.4-12.4) 12/08/23 20:46 Immature Gran % (Auto) 0.5 % 12/08/23 20:46 Neut % (Auto) 46.3 % 12/08/23 20:46 Lymph % (Auto) 15.0 % 12/08/23 20:46 Bee % (Auto) 15.4 % 12/08/23 20:46 Eos % (Auto) 20.6 % 12/08/23 20:46 Baso % (Auto) 2.2 % 12/08/23 20:46 Neut # (Auto) 1.89 K/uL (1.40-6.50) 12/08/23 20:46 Lymph # (Auto) 0.61 K/uL (1.20-3.40) L 12/08/23 20:46 Bee # (Auto) 0.63 K/uL (0.11-0.59) H 12/08/23 20:46 Eos # (Auto) 0.84 K/uL (0.00-0.50) H 12/08/23 20:46 Baso # (Auto) 0.09 K/uL (0.00-0.20) 12/08/23 20:46 Immature Gran # (Auto) 0.02 K/uL (0.01-0.20) 12/08/23 20:46 PT 25.0 Seconds (9.0-12.0) H 12/08/23 21:13 INR 2.5 (0.9-1.1) H 12/08/23 21:13 APTT 31 Seconds (21-31) 12/08/23 21:13 PTT Ratio 1.2 12/08/23 21:13 Sodium 140 mmol/L (136-145) 12/08/23 20:46 Potassium 4.0 mmol/L (3.5-5.1) 12/08/23 20:46 Chloride 107 mmol/L (98-107) 12/08/23 20:46 Carbon Dioxide 26 mmol/L (21-32) 12/08/23 20:46 Anion Gap 7 (3-11) 12/08/23 20:46 BUN 17 mg/dl (6-23) 12/08/23 20:46 Creatinine 0.94 mg/dl (0.6-1.4) 12/08/23 20:46 Est Cr Clr Drug Dosing 110.9 ml/min 12/08/23 20:46 Est GFR ( Amer) 93.5 ml/min 12/08/23 20:46 Est GFR (Non-Af Amer) 80.7 ml/min 12/08/23 20:46 BUN/Creatinine Ratio 18.1 (10-20) 12/08/23 20:46 Glucose 132 mg/dl (70-99(Fasting)) H 12/08/23 20:46 Calcium 7.8 mg/dl (8.6-10.3) L 12/08/23 20:46 Troponin I High Sens 13.9 pg/ml (0-20) 12/08/23 20:46 B-Natriuretic Peptide 289 pg/ml (0-100) H 12/08/23 20:46 Lipase 16 U/L (11-82) 12/08/23 20:46 ECG Additional Comments: ECG A-fib with PVCs at a rate of 71. Left axis deviation. No acute st changes seen. (1) Acute exacerbation of CHF (congestive heart failure) Heart failure type: unspecified Qualified Code(s): I50.9 - Heart failure, unspecified
[2023-12-09] MEDS ORDERED: DEXTROSE 50% 50 ML SYRINGE IV PRN (01:19)
[2023-12-09] MEDS ORDERED: POLYETHYLENE (MIRALAX) 17 GM PACK PO PRN (01:19)
[2023-12-09] MEDS ORDERED: GLUCOSE 10 TAB/TUBE PO PRN (01:19)
[2023-12-09] MEDS ORDERED: CARBOHYDRATES FOR HYPOGLYCEMIA PO PRN (01:19)
[2023-12-09] MEDS ORDERED: GLUCAGON FOR INJ 1 MG VIAL SQ PRN (01:19)
[2023-12-09] MEDS ORDERED: oxyCODONE/ACETAMINOPHEN 5mg/325mg TAB PO PRN (01:19)
[2023-12-09] MEDS ORDERED: ALBUTEROL HFA 8 GM INHALER INH PRN (01:19)
[2023-12-09] MEDS ORDERED: GLUCOSE 40% GEL 15 GM TUBE PO PRN (01:19)
[2023-12-09] MEDS ORDERED: ACETAMINOPHEN 325 MG TAB PO PRN (01:19)
[2023-12-09] MEDS ORDERED: ALBUTEROL 0.083% NEBU SOLN 3 ML VIAL INH PRN (01:19)
[2023-12-09] MEDS ORDERED: NITROGLYCERIN SL 0.4 MG/TAB TAB SL PRN (01:19)
[2023-12-09] MEDS: LEVOTHYROXINE SODIUM 137 MCG TABLET PO SCH (05:35)
[2023-12-09 05:47] LABS: Basophils # (auto) 0.07 K/uL (0.00-0.20); Basophils % (auto) 1.7 %; Eosinophils # (auto) 0.91 K/uL (0.00-0.50); Eosinophils % (auto) 22.6 %; Hematocrit (blood only) 34.1 % (42.0-52.0); Hemoglobin 11.1 g/dl (14.0-18.0); Immature Granulocytes # (auto) 0.01 K/uL (0.01-0.20); Immature Granulocytes % (auto) 0.2 %; Lymphocytes # (auto) 0.53 K/uL (1.20-3.40); Lymphocytes % (auto) 13.2 %; Mean Corpuscular Hemoglobin 30.7 pg (25.0-34.0); Mean Corpuscular Hgb Conc 32.6 g/dL (32.0-36.0); Mean Corpuscular Volume 94.5 fL (80.0-100.0); Mean Platelet Volume 10.3 fL (9.4-12.4); Monocytes # (auto) 0.57 K/uL (0.11-0.59); Monocytes % (auto) 14.1 %; Neutrophils # (auto) 1.94 K/uL (1.40-6.50); Neutrophils % (auto) 48.2 %; Platelet Count 129 K/uL (130-400); RDW Coefficient of Variation 13.9 % (11.5-14.5); RDW Standard Deviation 47.4 fL (36.4-46.3); Red Blood Count 3.61 M/uL (4.70-6.10); White Blood Count 4.03 K/ul (4.8-10.8)
[2023-12-09 06:01] LABS: BUN Creatinine Ratio 15.7 (10-20); Calcium 7.6 mg/dl (8.6-10.3); Creatinine Clr Calc Pharmacy 112.7 ml/min; Est GFR (Non-African American) 85.4 ml/min; Magnesium 1.6 mg/dl (1.7-2.4); Potassium 3.9 mmol/L (3.5-5.1)
[2023-12-09 06:09] LABS: Troponin I High Sensitivity 13.5 pg/ml (0-20)
[2023-12-09 06:15] LABS: INR 2.2 (0.9-1.1); Prothrombin Time 22.2 Seconds (9.0-12.0)
[2023-12-09 06:18] LABS: Thyroid Stimulating Hormone 1.162 uIu/ml (0.300-4.500)
--- NOTE | 2023-12-09 06:57 | XRay Report ---
SINGLE VIEW CHEST CLINICAL HISTORY: Atypical chest pain. FINDINGS: An AP, portable, upright chest radiograph is compared to study dated 04/12/2020 and correlat ed with chest CT dated 09/12/2023. The examination is degraded by portable technique and apical lordoti c positioning. The heart is enlarged. The pulmonary vasculature is noncongested. There is bibasilar a telectasis. No airspace consolidation or large pleural effusion is identified. No pneumothorax is see n. The skeletal structures are osteopenic. The bony thorax is grossly intact. IMPRESSION: Cardiomegaly with no acute cardiopulmonary abnormality identified. ACT 112: Negative or not required by law. Electronically signed by: Danie Pressley M.D. 12/09/2023 6:56 AM
[2023-12-09 07:30] LABS: Estimated Average Glucose 154 mg/dl
[2023-12-09] MEDS: FLUTICASONE/VILANTEROL 100/25MCG 14 PUFFS/INHALER INH SCH (08:19)
[2023-12-09] MEDS: METOPROLOL SUCC 50MG EXT REL TAB PO SCH (08:20)
[2023-12-09] MEDS: FUROSEMIDE 40 MG/4 ML VIAL IV SCH (08:20)
[2023-12-09] MEDS: lisinopril 5 MG TAB PO SCH (08:20)
[2023-12-09] MEDS: ISOSORBIDE MONO EXTENDED REL 60 MG TABCR PO SCH (08:20)
[2023-12-09] MEDS: INSULIN ASPART PER UNIT CHARGE SC SCH (08:27)
--- NOTE | 2023-12-09 08:28 | Electrocardiogram Report ---
Test Reason : Blood Pressure : / mmHG Vent. Rate : 071 BPM Atrial Rate : 000 BPM P-R Int : 000 ms QRS Dur : 082 ms QT Int : 422 ms P-R-T Axes : 000 -44 049 degrees QTc Int : 458 ms Atrial fibrillation with premature ventricular or aberrantly conducted complexes Left axis deviation Low voltage QRS Abnormal ECG When compared with ECG of 12-APR-2020 11:31, QRS axis Shifted left Confirmed by Alvaro Shirley ([id number]) on 12/09/2023 8:28:32 AM Referred By: REFERRED SELF Confirmed By:Alvaro Shirley
--- NOTE | 2023-12-09 12:02 | Cardiology Consultation ---
Date of Consultation December 09, 2023 Assessment & Plan (1) Acute heart failure with preserved ejection fraction: (2) Multiple myeloma not having achieved remission: (3) Atrial fibrillation: (4) CAD (coronary artery disease): Plan Patient admitted with signs/symptoms consistent with acute decompensated HFpEF with evidence of volume overload, weight gain, SOB. Continue furosemide 40 mg IV BID. Daily weight with standing scale. Monitor renal function, electrolytes Supplement potassium. Monitor I+O's Echo with preserved LVEF, moderate LVH and mild to moderate . Will need to monitor aortic stenosis Currently undergoing treatment for multiple myeloma. Follow up with hem/onc. Chronic/persistent afib. Rates controlled. He had one pause overnight while asleep but was not wearing CPAP. is bringing CPAP to use tonight. Continue metoprolol and coumadin. INR goal 2-3. INR is 2.2 today History of CAD s/p remote stent. Continue ASA, statin, isosorbide. No anginal complaints. HS troponin unremarkable. Case discussed with Dr. Staton I spent a total of 55 minutes on the date of service in preparation, delivery, and documentation of the care provided to this patient, excluding any time spent in the performance of separately billed services. Blessing Lynn PA-C Department of Cardiology, [facility] This chart was completed in part utilizing Speech Voice Recognition Software. Grammatical errors, random word insertions, pronoun errors, and incomplete s entences are an occasional consequence of this system due to software limitations, ambient noise, and hardware issues. Any formal questions or concerns about the content, text, or information contained within the body of this dictation should be directly addressed to the provider for clarification. Supervising Physician Co-Signing Physician Notes Patient was seen and personally examined. Assessment and plan as well outlined above by advanced provider. Care and management discussed and personally endorsed. 73-year-old male with chronic atrial fibrillation, obesity, obstructive sleep apnea, moderate aortic stenosis currently undergoing therapy for multiple myeloma. Presents with gradual onset increasing dyspnea, abdominal girth and lower extremity edema over the past 6 to 8 weeks Findings consistent with subacute onset congestive heart failure with preserved ejection fraction. Responding to therapies I spent a total of 25 minutes on the date of service in preparation, delivery, and documentation of the care provided to this patient, excluding any time spent in the performance of separately billed services History of Present Illness Reason for Consultation: CHF Requesting Physician: Dr. Castro Attending Physician: Dr. Staton History of Present Illness Patient is a 73 year old male, known to [facility] Cardiology, Dr. Carlton. history includes: 1. CAD (occluded left Cx, and PCI with HERACLIO to RCA 02/2015) 2. Chronic Atrial fibrillation 3. Obesity 4. Sleep Apnea 5. HTN 6. Dyslipidemia 7. Asthma 8. Hypothyroidism 9. TIA 10. Aortic stenosis - moderate per echo in September 2023 Patient recently diagnosed with multiple myeloma and currently undergoing chemo and radiation treatments. Tentative stem cell transplant in January in [place]. Over the last month, patient has developed worsening SOB, LE edema, weight gain of about 15 lbs. Yesterday, patient was feeling poorly and became acutely SOB so he came to the ER for evaluation. He denies recent chest pain. No fever, cough, chills. NO orthopnea. No abdominal bloating. He had one episode of dizziness/weakness leaving chemotherapy treatments several weeks ago. Apparently there was reports that his HR was in the 40's. Cardiology office was notified and outpatient ZIO recommended but patient has not had this done. He has known/chronic afib. Rates controlled since admission on metoprolol 50 mg daily. He has been wearing CPAP at home religiously. Upon arrival to the ER, he was started on IV lasix 40 mg BID. Chest xray was without acute findings. Other labs unremarkable. Since admission, good diuresis reported by patient but I+O's not measured. Unsure if weights are accurate compared to admission but appears to be trending downward. Patient reports feeling "good" this morning. Legs are still edematous but patient reports great improvement. SOB also improved. Ambulating in room without significant issues. 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 Home Medications Medication Instructions Recorded Confirmed Type aspirin 81 mg tablet,delayed 81 mg PO HS 09/11/18 12/08/23 History release isosorbide mononitrate 60 mg 60 mg PO QAM 09/11/18 12/08/23 History tablet,extended release 24 hr metoprolol succinate 50 mg 50 mg PO QAM 09/11/18 12/08/23 History tablet,extended release 24 hr nitroglycerin 0.4 mg sublingual 0.4 mg sublingual DIRECTED PRN 09/11/18 12/08/23 History tablet Angina terazosin 1 mg capsule 1 mg PO HS 09/11/18 12/08/23 History warfarin 5 mg tablet 7.5 mg PO QPM 09/11/18 12/08/23 History furosemide 20 mg tablet 20 mg PO DAILY 07/09/19 12/08/23 History fluticasone 250 mcg-salmeterol 50 1 inh inhalation Q12H 04/12/20 12/08/23 History mcg/dose blistr powdr for inhalation (Advair Diskus) atorvastatin 40 mg tablet 40 mg PO HS #30 tabs 04/14/20 12/08/23 Rx albuterol sulfate 90 mcg/actuation 2 puff inhalation Q6H PRN 12/13/20 12/08/23 History aerosol inhaler (Ventolin HFA) Shortness Of Breath levothyroxine 137 mcg tablet See Rx Instructions .Route .COMPLEX 12/14/22 12/08/23 History albuterol sulfate 2.5 mg/3 mL 2.5 mg inhalation Q4H PRN SHORT OF 09/08/23 12/08/23 History (0.083 %) solution for nebulization BREATH/COUGH/WHEEZING oxycodone-acetaminophen 5 mg-325 1 tab PO Q4H PRN pain #18 tabs 09/16/23 12/08/23 Rx mg tablet (Percocet) lisinopril 5 mg tablet 5 mg PO DAILY 11/20/23 12/08/23 History Patient History Medical History Degenerative disc disease BPH (benign prostatic hyperplasia) Fatty liver disease, nonalcoholic GERD (gastroesophageal reflux disease) Hypothyroidism On anticoagulant therapy warfarin daily Tinnitus of both ears Hearing deficit Hypertension Atrial fibrillation follows with Dr. Carlton Sleep apnea cpap Chronic obstructive pulmonary disease History of Lyme disease Surgical History History of colonoscopy History of tooth extraction all upper teeth History of wisdom tooth extraction History of heart artery stent 2014--1 stent History of cardiac cath 2014 x2--only 1 stent Family History Mother Diabetes Father Melanoma Brother Smoldering myeloma, Onset Age: 75 Brother No problems noted. Brother Cancer Ear Brother No problems noted. Sister Multiple myeloma, Onset Age: 61 Chemotherapy Sister Uterine cancer, Onset Age: 60 Radiation therapy Sister No problems noted. Sister No problems noted. Sister No problems noted. Son No problems noted. Son No problems noted. Son No problems noted. Daughter No problems noted. 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 How many Children do You have: 4 Other Information That Helps Us Care for You: No Feels Safe at Home: Yes Safety Concerns: Feels Safe At This Time Childhood Exposure to Second-Hand Smoke: Yes Diet: regular caffeine: Yes during the past year weight has: remained stable Dental Care, Regularly: Yes Assistive Devices: Cane and CPAP Review of Systems Review of Systems: All systems reviewed & are unremarkable except as noted in HPI & below Physical Exam Constitutional: WD/WN, vitals as above + obese; no acute distress Neck: + thick neck Respiratory: no respiratory distress and no labored breathing Auscultation: + diminished lung sounds; no crackles and no rales Cardiovascular: Rate/Rhythm: + irregularly irregular Heart Sounds: + murmur (II/ systolic murmur LSB) Vessels: no JVD Extremities: + edema (2+ LE edema to thighs. Mild erythema b/l ) Gastrointestinal (Abdomen): normal bowel sounds, soft, nontender, no hepatosplenomegaly Musculoskeletal: no cyanosis or clubbing, extremities motor strength 5/5 Neurologic: PERRL, EOMI, accommodation nl, no face palsy, no dysarthria Results & Data Vital Signs (Past 12 Hours) Vital Signs Temp Pulse Pulse Resp BP Pulse Ox O2 Del Method 12/09/23 11:06 Room Air 12/09/23 10:42 36.4 C L 69 20 119/67 95 Room Air 12/09/23 07:52 75 12/09/23 07:23 36.6 C 73 20 154/73 H 95 Room Air 12/09/23 01:30 65 12/09/23 01:30 Room Air 12/09/23 01:05 36.6 C 71 129/86 95 Room Air 12/09/23 00:35 63 12/09/23 00:00 61 18 112/82 97 Room Air Laboratory Results Cardiac Enzymes 12/08/23 12/09/23 Range/Units 20:46 05:25 Troponin I High Sens 13.9 13.5 (0-20) pg/ml B-Natriuretic Peptide 289 H (0-100) pg/ml Coagulation 12/08/23 12/08/23 12/09/23 Range/Units 20:46 21:13 05:25 PT Cancelled 25.0 H 22.2 H APTT Cancelled 31 B-Natriuretic Peptide 289 H (0-100) pg/ml CBC 12/08/23 12/09/23 Range/Units 20:46 05:25 WBC 4.08 L 4.03 L (4.8-10.8) K/ul RBC 3.85 L 3.61 L (4.70-6.10) M/uL Hgb 11.7 L 11.1 L (14.0-18.0) g/dl Hct 36.7 L 34.1 L (42.0-52.0) % Plt Count 133 129 L (130-400) K/uL Neut # (Auto) 1.89 1.94 (1.40-6.50) K/uL Lymph # (Auto) 0.61 L 0.53 L (1.20-3.40) K/uL Cecil # (Auto) 0.63 H 0.57 (0.11-0.59) K/uL Eos # (Auto) 0.84 H 0.91 H (0.00-0.50) K/uL Baso # (Auto) 0.09 0.07 (0.00-0.20) K/uL Comprehensive Metabolic Panel 12/08/23 12/09/23 Range/Units 20:46 05:25 Sodium 140 139 (136-145) mmol/L Potassium 4.0 3.9 (3.5-5.1) mmol/L Chloride 107 106 (98-107) mmol/L Carbon Dioxide 26 28 (21-32) mmol/L BUN 17 14 (6-23) mg/dl Creatinine 0.94 0.89 (0.6-1.4) mg/dl Glucose 132 H 112 H (70-99(Fasting)) mg/dl Calcium 7.8 L 7.6 L (8.6-10.3) mg/dl Intake and Output 12/08/23 12/09/23 12/09/23 22:59 06:59 14:59 Output Total 775 / 775 Balance -775 / -775 Output: Urine 775 / 775 Other: Weight 162.9 kg 152.6 kg Weight Measurement Method Built in Bedscale Standing Scale Diagnostic Findings Telemetry reviewed: Afib with controlled rates 60-90 bmp. 2.7 second pause around 2:04 AM while asleep. Patient was not using CPAP last night. to bring in home machine today. EKG reviewed: Atrial fibrillation with controlled rates. LAD. Low voltage QRS Echo reviewed from 12/09/23: Normal LVEF at 50-55% Moderate LVH No wall motion abnormalities LA is severely dilated Mild to moderate aortic stenosis Mild aortic root dilatation similar findings to September 2023 echo Chest xray reviewed: No acute process Medications Administered Current Inpatient Medications Acetaminophen (Acetaminophen 325 Mg Tab) 650 mg PO Q4H PRN PRN Reason: Pain or Fever Stop: 01/08/24 01:18 Albuterol (Albuterol Hfa 8 Gm Inhaler) 2 puffs INH Q6H PRN PRN Reason: Shortness Of Breath Stop: 01/08/24 01:18 Albuterol (Albuterol 0.083% Nebu Soln 3 Ml Vial) 2.5 mg INH Q4H PRN; Protocol PRN Reason: SHORT OF BREATH/COUGH/WHEEZING Stop: 01/08/24 01:18 Aspirin (Aspirin 81 Mg Ectab) 81 mg PO HS [facility] Stop: 01/08/24 20:59 Atorvastatin Calcium (Atorvastatin 40 Mg Tab) 40 mg PO HS [facility] Stop: 01/08/24 20:59 Dextrose (Dextrose 50% 50 Ml Syringe) 25 - 50 ml IV UD PRN; Protocol PRN Reason: Hypoglycemia Protocol Stop: 01/08/24 01:18 Fluticasone/Vilanterol (Fluticasone/Vilanterol 100/25mcg 14 Puffs/Inhaler) 1 puffs INH DAILY [facility] Stop: 01/08/24 08:59 Last Admin: 12/09/23 08:19 Dose: 1 puffs Furosemide (Furosemide 40 Mg/4 Ml Vial) 40 mg IV [id number] [facility] Stop: 01/08/24 08:59 Last Admin: 12/09/23 08:20 Dose: 40 mg Glucagon (Glucagon For Inj 1 Mg Vial) 1 mg SQ UD PRN; Protocol PRN Reason: Hypoglycemia Protocol Stop: 01/08/24 01:18 Glucose (Glucose 40% Gel 15 Gm Tube) 15 - 30 gm PO UD PRN; Protocol PRN Reason: Hypoglycemia Protocol Stop: 01/08/24 01:18 Glucose (Glucose 10 Tab/Tube) 4 - 8 tab PO UD PRN; Protocol PRN Reason: Hypoglycemia Treatment Stop: 01/08/24 01:18 Insulin Aspart (Insulin Aspart Per Unit Charge) 0 units SC ACHS [facility] Stop: 01/08/24 07:29 Last Admin: 12/09/23 11:28 Dose: Not Given Isosorbide Mononitrate (Isosorbide Cecil Extended Rel 60 Mg Tabcr) [facility] Stop: 01/08/24 08:59 Last Admin: 12/09/23 08:20 Dose: 60 mg Levothyroxine Sodium (Levothyroxine Sodium 137 Mcg Tablet) 137 mcg PO SuTuThSa [facility] Stop: 01/08/24 06:29 Last Admin: 12/09/23 05:35 Dose: 137 mcg Levothyroxine Sodium (Levothyroxine Sodium 137 Mcg Tablet) 68.5 mcg PO MoWeFr [facility] Stop: 01/09/24 06:29 Lisinopril (Lisinopril 5 Mg Tab) 5 mg PO DAILY [facility] Stop: 01/08/24 08:59 Last Admin: 12/09/23 08:20 Dose: 5 mg Metoprolol Succinate (Metoprolol Succ 50mg Ext Rel Tab) 50 mg PO QAM [facility] Stop: 01/08/24 08:59 Last Admin: 12/09/23 08:20 Dose: 50 mg Miscellaneous (Carbohydrates For Hypoglycemia ) 15 - 30 gm PO UD PRN PRN Reason: Hypoglycemia Protocol Stop: 01/08/24 01:18 Nitroglycerin (Nitroglycerin Sl 0.4 Mg/Tab Tab) 0.4 mg SL Q5M PRN PRN Reason: Chest Pain Stop: 01/08/24 01:18 Oxycodone/Acetaminophen (Oxycodone/Acetaminophen 5mg/325mg Tab) 1 tab PO Q4H PRN PRN Reason: pain Stop: 12/23/23 01:18 Polyethylene Glycol (Polyethylene (Miralax) 17 Gm Pack) 17 gm PO DAILY PRN PRN Reason: Constipation Stop: 01/08/24 01:18 Terazosin HCl (Terazosin Hcl 1 Mg Cap) 1 mg PO HS [facility] Stop: 01/08/24 20:59 Warfarin Sodium (Warfarin Sod 7.5 Mg Tab) 7.5 mg PO QPM [facility] Stop: 01/08/24 20:59
--- NOTE | 2023-12-09 15:49 | Hospitalist Progress Note ---
Date of Service December 09, 2023 Assessment & Plan (1) Acute exacerbation of CHF (congestive heart failure): Plan: 73-year-old male with history of A-fib, hypothyroidism, diabetes type 2, COPD, mixed restrictive and obstructive lung disease, occupational lung disease, obstructive sleep apnea on CPAP, history of CVA, hypertension, a flutter, CAD, s/p stent, chronic diastolic CHF, chronic atrial fibrillation, morbid obesity, BPH, spinal stenosis,Multiple myeloma who lives at home with his comes in because of ongoing shortness of breath and worsening lower extremity edema. Patient states last several days the lower extremity edema was getting worse and also getting short of breath which prompted him to come to the ER today. Denies any orthopnea. Denies any chest pain. No nausea. No abdominal pain. Normal Bladder movements. denies any headache. No runny nose or sore throat. Patient is on chemo and radiation for multiple myeloma. No cough. Appetite is okay. Sometimes gets constipated. Patient denies blood in the stools .. Hemodynamics are okay. Acute heart failure with preserved EF Acute on chronic diastolic CHF Received IV Lasix 40 mg in the ER We will continue with IV Lasix 40 minutes twice daily Daily weights and I's and O's Echo of the heart showed preserved LVEF, moderate LVH and mild to moderate AAS Appreciate cardiology input and recommendation Will monitor labs and electrolytes -295 mL balance so far A-fib On metoprolol succinate and Coumadin Rate is controlled Denies any chest pain and/or palpitations CAD s/p stent Continue metoprolol, Imdur, statin and aspirin and Coumadin Multiple myeloma Ongoin chemo and radiation Hheme/onco and radiation oncology follow-up Obstructive sleep apnea CPAP nightly Morbid obesity Needs counseling Nutrition follow-up History of COPD, mixed restrictive and obstructive lung disease Continue home inhalers No evidence of exacerbation History of CVA On aspirin, Coumadin and statin Hypertension On Imdur, lisinopril and metoprolol succinate and terazosin. Blood pressure remains stable BPH on terazosin. DVT prophylaxis on Coumadin INR remains therapeutic at 2.2 full code Admission and Anticipated Discharge Date Admission Date: December 08, 2023 Subjective 12/09/2023 The patient was seen and examined in telemetry unit He has been feeling much better from his shortness of breath and swelling of the legs Denies any chest pain and/or palpitation Denies any abdominal pain, nausea and or vomiting Review of Systems Review of Systems: All systems reviewed and are unremarkable except as noted below Physical Exam Physical Exam: Lying in bed comfortably Constitutional: well developed, well nourished, + ill appearing and + obese Eyes: PERRL, conjunctivae normal, anicteric sclerae ENMT: external ear and nose normal, oropharynx normal Neck: trachea midline, no thyromegaly Respiratory: no respiratory distress Auscultation: + diminished lung sounds and + crackles (Bibasilar crackles) Cardiovascular: Rate/Rhythm: + irregularly irregular; not tachycardic Heart Sounds: normal S1, normal S2 and + murmur Extremities: + edema (1-2+ edema bilaterally) Gastrointestinal (Abdomen): Inspection/Auscultation: + abdomen distended and normal bowel sounds Percussion/Palpation: abdomen soft; abdomen nontender Musculoskeletal: No acute arthritis involving any of the joints Neurologic: normal touch/pain/proprioception and moves all extremities; no focal motor deficits Psychiatric: A+Ox3, euthymic affect Lymphatic: no cervical or axillary lymphadenopathy Results & Data Results & Data Vital Signs (Past 12 Hours) Vital Signs Temp Pulse Pulse Resp BP Pulse Ox O2 Del Method 12/09/23 15:14 36.8 C 61 20 110/64 95 Room Air 12/09/23 11:06 Room Air 12/09/23 10:42 36.4 C L 69 20 119/67 95 Room Air 12/09/23 07:52 75 12/09/23 07:23 36.6 C 73 20 154/73 H 95 Room Air Laboratory Results Short CBC 12/08/23 12/09/23 Range/Units 20:46 05:25 WBC 4.08 L 4.03 L (4.8-10.8) K/ul Hgb 11.7 L 11.1 L (14.0-18.0) g/dl Hct 36.7 L 34.1 L (42.0-52.0) % Plt Count 133 129 L (130-400) K/uL BMP 12/08/23 12/09/23 20:46 05:25 Sodium 140 139 Potassium 4.0 3.9 Chloride 107 106 Carbon Dioxide 26 28 BUN 17 14 Creatinine 0.94 0.89 Glucose 132 H 112 H Calcium 7.8 L 7.6 L Medications Administered Current Inpatient Medications Acetaminophen (Acetaminophen 325 Mg Tab) 650 mg PO Q4H PRN PRN Reason: Pain or Fever Stop: 01/08/24 01:18 Albuterol (Albuterol Hfa 8 Gm Inhaler) 2 puffs INH Q6H PRN PRN Reason: Shortness Of Breath Stop: 01/08/24 01:18 Albuterol (Albuterol 0.083% Nebu Soln 3 Ml Vial) 2.5 mg INH Q4H PRN; Protocol PRN Reason: SHORT OF BREATH/COUGH/WHEEZING Stop: 01/08/24 01:18 Aspirin (Aspirin 81 Mg Ectab) 81 mg PO HS [facility] Stop: 01/08/24 20:59 Atorvastatin Calcium (Atorvastatin 40 Mg Tab) 40 mg PO HS [facility] Stop: 01/08/24 20:59 Dextrose (Dextrose 50% 50 Ml Syringe) 25 - 50 ml IV UD PRN; Protocol PRN Reason: Hypoglycemia Protocol Stop: 01/08/24 01:18 Fluticasone/Vilanterol (Fluticasone/Vilanterol 100/25mcg 14 Puffs/Inhaler) 1 puffs INH DAILY [facility] Stop: 01/08/24 08:59 Last Admin: 12/09/23 08:19 Dose: 1 puffs Furosemide (Furosemide 40 Mg/4 Ml Vial) 40 mg IV [id number] [facility] Stop: 01/08/24 08:59 Last Admin: 12/09/23 08:20 Dose: 40 mg Glucagon (Glucagon For Inj 1 Mg Vial) 1 mg SQ UD PRN; Protocol PRN Reason: Hypoglycemia Protocol Stop: 01/08/24 01:18 Glucose (Glucose 40% Gel 15 Gm Tube) 15 - 30 gm PO UD PRN; Protocol PRN Reason: Hypoglycemia Protocol Stop: 01/08/24 01:18 Glucose (Glucose 10 Tab/Tube) 4 - 8 tab PO UD PRN; Protocol PRN Reason: Hypoglycemia Treatment Stop: 01/08/24 01:18 Insulin Aspart (Insulin Aspart Per Unit Charge) 0 units SC ACHS [facility] Stop: 01/08/24 07:29 Last Admin: 12/09/23 11:28 Dose: Not Given Isosorbide Mononitrate (Isosorbide Winkler Extended Rel 60 Mg Tabcr) 60 mg PO QAM [facility] Stop: 01/08/24 08:59 Last Admin: 12/09/23 08:20 Dose: 60 mg Levothyroxine Sodium (Levothyroxine Sodium 137 Mcg Tablet) 137 mcg PO SuTuThSa [facility] Stop: 01/08/24 06:29 Last Admin: 12/09/23 05:35 Dose: 137 mcg Levothyroxine Sodium (Levothyroxine Sodium 137 Mcg Tablet) 68.5 mcg PO MoWeFr [facility] Stop: 01/09/24 06:29 Lisinopril (Lisinopril 5 Mg Tab) 5 mg PO DAILY [facility] Stop: 01/08/24 08:59 Last Admin: 12/09/23 08:20 Dose: 5 mg Metoprolol Succinate (Metoprolol Succ 50mg Ext Rel Tab) 50 mg PO QAM [facility] Stop: 01/08/24 08:59 Last Admin: 12/09/23 08:20 Dose: 50 mg Miscellaneous (Carbohydrates For Hypoglycemia ) 15 - 30 gm PO UD PRN PRN Reason: Hypoglycemia Protocol Stop: 01/08/24 01:18 Nitroglycerin (Nitroglycerin Sl 0.4 Mg/Tab Tab) 0.4 mg SL Q5M PRN PRN Reason: Chest Pain Stop: 01/08/24 01:18 Oxycodone/Acetaminophen (Oxycodone/Acetaminophen 5mg/325mg Tab) 1 tab PO Q4H PRN PRN Reason: pain Stop: 12/23/23 01:18 Polyethylene Glycol (Polyethylene (Miralax) 17 Gm Pack) 17 gm PO DAILY PRN PRN Reason: Constipation Stop: 01/08/24 01:18 Terazosin HCl (Terazosin Hcl 1 Mg Cap) 1 mg PO HS [facility] Stop: 01/08/24 20:59 Warfarin Sodium (Warfarin Sod 7.5 Mg Tab) 7.5 mg PO QPM [facility] Stop: 01/08/24 20:59 (1) Acute exacerbation of CHF (congestive heart failure) Heart failure type: unspecified Qualified Code(s): I50.9 - Heart failure, unspecified
[2023-12-09] MEDS: TERAZOSIN HCL 1 MG CAP PO SCH (21:10)
[2023-12-09] MEDS: ASPIRIN 81 MG ECTAB PO SCH (21:10)
[2023-12-09] MEDS: ATORVASTATIN 40 MG TAB PO SCH (21:10)
[2023-12-09] MEDS: WARFARIN SOD 7.5 MG TAB PO SCH (21:10)
[2023-12-10] MEDS: LEVOTHYROXINE SODIUM 137 MCG TABLET PO SCH (05:45)
[2023-12-10 06:29] LABS: Basophils # (auto) 0.07 K/uL (0.00-0.20); Eosinophils # (auto) 0.85 K/uL (0.00-0.50); Eosinophils % (auto) 23.7 %; Immature Granulocytes # (auto) 0.01 K/uL (0.01-0.20); Immature Granulocytes % (auto) 0.3 %; Lymphocytes # (auto) 0.52 K/uL (1.20-3.40); Lymphocytes % (auto) 14.5 %; Mean Corpuscular Hemoglobin 30.1 pg (25.0-34.0); Mean Corpuscular Hgb Conc 32.4 g/dL (32.0-36.0); Mean Corpuscular Volume 92.9 fL (80.0-100.0); Mean Platelet Volume 10.1 fL (9.4-12.4); Monocytes # (auto) 0.61 K/uL (0.11-0.59); Neutrophils # (auto) 1.52 K/uL (1.40-6.50); Neutrophils % (auto) 42.5 %; Platelet Count 131 K/uL (130-400); RDW Standard Deviation 47.4 fL (36.4-46.3); Red Blood Count 3.66 M/uL (4.70-6.10); White Blood Count 3.58 K/ul (4.8-10.8)
[2023-12-10 06:39] LABS: INR 1.6 (0.9-1.1); Prothrombin Time 16.2 Seconds (9.0-12.0)
[2023-12-10 06:46] LABS: BUN Creatinine Ratio 17.8 (10-20); Calcium 7.3 mg/dl (8.6-10.3); Creatinine Clr Calc Pharmacy 99.3 ml/min; Est GFR (African American) 85.7 ml/min; Magnesium 1.6 mg/dl (1.7-2.4); Potassium 3.7 mmol/L (3.5-5.1)
[2023-12-10] MEDS: MAGNESIUM SULFATE / D5W 1 GM/100 ML BAG IV SCH (09:32)
--- NOTE | 2023-12-10 10:15 | Cardiology Progress Note ---
Date of Service December 10, 2023 Assessment & Plan (1) Acute heart failure with preserved ejection fraction: (2) Multiple myeloma not having achieved remission: (3) Atrial fibrillation: (4) CAD (coronary artery disease): Plan 12/09/23 Patient admitted with signs/symptoms consistent with acute decompensated HFpEF with evidence of volume overload, weight gain, SOB. Continue furosemide 40 mg IV BID. Daily weight with standing scale. Monitor renal function, electrolytes Supplement potassium. Monitor I+O's Echo with preserved LVEF, moderate LVH and mild to moderate . Will need to monitor aortic stenosis Currently undergoing treatment for multiple myeloma. Follow up with hem/onc. Chronic/persistent afib. Rates controlled. He had one pause overnight while asleep but was not wearing CPAP. is bringing CPAP to use tonight. Continue metoprolol and coumadin. INR goal 2-3. INR is 2.2 today History of CAD s/p remote stent. Continue ASA, statin, isosorbide. No anginal complaints. HS troponin unremarkable. 12/10/23: Patient with improving signs/symptoms but significant edema persists. Increase furosemide to 60 mg IV BID. Supplement potassium and magnesium. Monitor I+O's Daily weight with standing scale. Continue all other cardiac medications. INR slightly lower today. continue warfarin. Case discussed with Dr. Shemar Amos spent a total of 30 minutes on the date of service in preparation, delivery, and documentation of the care provided to this patient, excluding any time spent in the performance of separately billed services. Blessing Lynn PA-C Department of Cardiology, [facility] This chart was completed in part utilizing Speech Voice Recognition Software. Grammatical errors, random word insertions, pronoun errors, and incomplete sentences are an occasional consequence of this system due to software limitations, ambient noise, and hardware issues. Any formal questions or concerns about the content, text, or information contained within the body of this dictation should be directly addressed to the provider for clarification. Admission and Anticipated Discharge Date Admission Date: December 08, 2023 Supervising Physician Co-Signing Physician Notes Patient was seen and personally examined. Assessment and plan as well outlined above by advanced provider. Care and management discussed and personally endorsed. 73-year-old male with chronic atrial fibrillation, obesity, obstructive sleep apnea, moderate aortic stenosis currently undergoing therapy for multiple myeloma. Presents with gradual onset increasing dyspnea, abdominal girth and lower extremity edema over the past 6 to 8 weeks Findings consistent with subacute onset congestive heart failure with preserved ejection fraction. Responding to therapies but slowly. Will increase furosemide dosing, add spironolactone renal function stable I spent a total of 15 minutes on the date of service in preparation, delivery, and documentation of the care provided to this patient, excluding any time spent in the performance of separately billed services Subjective Patient resting in chair comfortably. Slept well. Reports SOB has improved from admission. B/L lower extremities still edematous, but patient feels they are also improving. No chest pain. No dizziness. No fever, cough, chills. Review of Systems Review of Systems: All systems reviewed & are unremarkable except as noted in HPI & below Physical Exam Constitutional: WD/WN, vitals as above + obese; no acute distress Neck: + thick neck Respiratory: no respiratory distress and no labored breathing Auscultation: + diminished lung sounds; no crackles and no rales Cardiovascular: Rate/Rhythm: + irregularly irregular Heart Sounds: + murmur (II/ systolic murmur LSB) Vessels: no JVD Extremities: + edema (2+ LE edema to thighs. Mild erythema b/l ) Gastrointestinal (Abdomen): normal bowel sounds, soft, nontender, no hepatosplenomegaly Musculoskeletal: no cyanosis or clubbing, extremities motor strength 5/5 Neurologic: PERRL, EOMI, accommodation nl, no face palsy, no dysarthria Results & Data Vital Signs (Past 12 Hours) Vital Signs Temp Pulse Pulse Resp BP Pulse Ox O2 Del Method 12/10/23 09:40 67 12/10/23 08:00 36.6 C 56 L 18 121/81 95 Room Air 12/10/23 03:23 37.1 C 70 18 100/64 93 CPAP 12/10/23 01:00 67 12/09/23 23:35 CPAP 12/09/23 23:20 37.5 C 63 18 99/56 L 95 CPAP Laboratory Results Coagulation 12/10/23 Range/Units 06:01 PT 16.2 H (9.0-12.0) Seconds CBC 12/10/23 Range/Units 06:01 WBC 3.58 L (4.8-10.8) K/ul RBC 3.66 L (4.70-6.10) M/uL Hgb 11.0 L (14.0-18.0) g/dl Hct 34.0 L (42.0-52.0) % Plt Count 131 (130-400) K/uL Neut # (Auto) 1.52 (1.40-6.50) K/uL Lymph # (Auto) 0.52 L (1.20-3.40) K/uL Pettis # (Auto) 0.61 H (0.11-0.59) K/uL Eos # (Auto) 0.85 H (0.00-0.50) K/uL Baso # (Auto) 0.07 (0.00-0.20) K/uL Comprehensive Metabolic Panel 12/10/23 Range/Units 06:01 Sodium 140 (136-145) mmol/L Potassium 3.7 (3.5-5.1) mmol/L Chloride 105 (98-107) mmol/L Carbon Dioxide 29 (21-32) mmol/L BUN 18 (6-23) mg/dl Creatinine 1.01 (0.6-1.4) mg/dl Glucose 108 H (70-99(Fasting)) mg/dl Calcium 7.3 L (8.6-10.3) mg/dl Intake and Output 12/09/23 12/10/23 12/10/23 22:59 06:59 14:59 Intake Total 410 / 890 Output Total 1500 / 1500 Balance -1090 / -610 Intake: Oral 410 / 890 Output: Urine 1500 / 1500 Other: # Unmeasured Voids 1 2 Weight 152.6 kg Weight Measurement Method Built in [facility] Diagnostic Findings Telemetry reviewed: Afib with controlled rates in the 60's Medications Administered Current Inpatient Medications Acetaminophen (Acetaminophen 325 Mg Tab) 650 mg PO Q4H PRN PRN Reason: Pain or Fever Stop: 01/08/24 01:18 Albuterol (Albuterol Hfa 8 Gm Inhaler) 2 puffs INH Q6H PRN PRN Reason: Shortness Of Breath Stop: 01/08/24 01:18 Albuterol (Albuterol 0.083% Nebu Soln 3 Ml Vial) 2.5 mg INH Q4H PRN; Protocol PRN Reason: SHORT OF BREATH/COUGH/WHEEZING Stop: 01/08/24 01:18 Aspirin (Aspirin 81 Mg Ectab) 81 mg PO HS [facility] Stop: 01/08/24 20:59 Last Admin: 12/09/23 21:10 Dose: 81 mg Atorvastatin Calcium (Atorvastatin 40 Mg Tab) 40 mg PO HS [facility] Stop: 01/08/24 20:59 Last Admin: 12/09/23 21:10 Dose: 40 mg Dextrose (Dextrose 50% 50 Ml Syringe) 25 - 50 ml IV UD PRN; Protocol PRN Reason: Hypoglycemia Protocol Stop: 01/08/24 01:18 Fluticasone/Vilanterol (Fluticasone/Vilanterol 100/25mcg 14 Puffs/Inhaler) 1 puffs INH DAILY [facility] Stop: 01/08/24 08:59 Last Admin: 12/10/23 09:21 Dose: 1 puffs Furosemide (Furosemide 40 Mg/4 Ml Vial) 40 mg IV [id number] [facility] Stop: 01/08/24 08:59 Last Admin: 12/10/23 09:21 Dose: 40 mg Glucagon (Glucagon For Inj 1 Mg Vial) 1 mg SQ UD PRN; Protocol PRN Reason: Hypoglycemia Protocol Stop: 01/08/24 01:18 Glucose (Glucose 40% Gel 15 Gm Tube) 15 - 30 gm PO UD PRN; Protocol PRN Reason: Hypoglycemia Protocol Stop: 01/08/24 01:18 Glucose (Glucose 10 Tab/Tube) 4 - 8 tab PO UD PRN; Protocol PRN Reason: Hypoglycemia Treatment Stop: 01/08/24 01:18 Magnesium Sulfate/Dextrose (Magnesium Sulfate / D5w) 1 gm in 100 mls @ 50 mls/hr IV Q2H [facility] Stop: 12/10/23 12:59 Last Admin: 12/10/23 09:32 Dose: 50 mls/hr Insulin Aspart (Insulin Aspart Per Unit Charge) 0 units SC ACHS [facility] Stop: 01/08/24 07:29 Last Admin: 12/10/23 09:21 Dose: Not Given Isosorbide Mononitrate (Isosorbide [place] Extended Rel 60 Mg Tabcr) 60 mg PO QAM [facility] Stop: 01/08/24 08:59 Last Admin: 12/10/23 09:22 Dose: 60 mg Levothyroxine Sodium (Levothyroxine Sodium 137 Mcg Tablet) 137 mcg PO SuTuThSa [facility] Stop: 01/08/24 06:29 Last Admin: 12/09/23 05:35 Dose: 137 mcg Levothyroxine Sodium (Levothyroxine Sodium 137 Mcg Tablet) 68.5 mcg PO MoWeFr [facility] Stop: 01/09/24 06:29 Last Admin: 12/10/23 05:45 Dose: 68.5 mcg Lisinopril (Lisinopril 5 Mg Tab) 5 mg PO DAILY [facility] Stop: 01/08/24 08:59 Last Admin: 12/10/23 09:22 Dose: 5 mg Metoprolol Succinate (Metoprolol Succ 50mg Ext Rel Tab) 50 mg PO QAM [facility] Stop: 01/08/24 08:59 Last Admin: 12/10/23 09:21 Dose: 50 mg Miscellaneous (Carbohydrates For Hypoglycemia ) 15 - 30 gm PO UD PRN PRN Reason: Hypoglycemia Protocol Stop: 01/08/24 01:18 Nitroglycerin (Nitroglycerin Sl 0.4 Mg/Tab Tab) 0.4 mg SL Q5M PRN PRN Reason: Chest Pain Stop: 01/08/24 01:18 Oxycodone/Acetaminophen (Oxycodone/Acetaminophen 5mg/325mg Tab) 1 tab PO Q4H PRN PRN Reason: pain Stop: 12/23/23 01:18 Polyethylene Glycol (Polyethylene (Miralax) 17 Gm Pack) 17 gm PO DAILY PRN PRN Reason: Constipation Stop: 01/08/24 01:18 Terazosin HCl (Terazosin Hcl 1 Mg Cap) 1 mg PO HS [facility] Stop: 01/08/24 20:59 Last Admin: 12/09/23 21:10 Dose: 1 mg Warfarin Sodium (Warfarin Sod 7.5 Mg Tab) 7.5 mg PO QPM [facility] Stop: 01/08/24 20:59 Last Admin: 12/09/23 21:10 Dose: 7.5 mg
[2023-12-10] MEDS: POTASSIUM CHLORIDE CRTAB 20 MEQ TABCR PO SCH (11:48)
[2023-12-10] MEDS: SPIRONOLACTONE 12.5 MG TAB PO SCH (12:54)
[2023-12-10] MEDS: WARFARIN SOD 10 MG TAB PO SCH (17:00)
[2023-12-10] MEDS: FUROSEMIDE 40 MG/4 ML VIAL IV SCH (17:32)
--- NOTE | 2023-12-10 17:37 | Hospitalist Progress Note ---
Date of Service December 10, 2023 Assessment & Plan (1) Acute exacerbation of CHF (congestive heart failure): Plan: 73-year-old male with history of A-fib, hypothyroidism, diabetes type 2, COPD, mixed restrictive and obstructive lung disease, occupational lung disease, obstructive sleep apnea on CPAP, history of CVA, hypertension, a flutter, CAD, s/p stent, chronic diastolic CHF, chronic atrial fibrillation, morbid obesity, BPH, spinal stenosis,Multiple myeloma who lives at home with his comes in because of ongoing shortness of breath and worsening lower extremity edema. Patient states last several days the lower extremity edema was getting worse and also getting short of breath which prompted him to come to the ER today. Denies any orthopnea. Denies any chest pain. No nausea. No abdominal pain. Normal Bladder movements. denies any headache. No runny nose or sore throat. Patient is on chemo and radiation for multiple myeloma. No cough. Appetite is okay. Sometimes gets constipated. Patient denies blood in the stools .. Hemodynamics are okay. Acute heart failure with preserved EF Mild to moderate aortic stenosis --ECHO: Atrial fibrillation is present. Left ventricle is normal in size. Moderate concentric LVH but no regional wall motion abnormalities. EF 50 to 50%. Left atrium is severely dilated. Aortic valve is calcified with restricted mobility. Mild to moderate valvular aortic stenosis. Mild aortic root dilatation. --CXR:Cardiomegaly with no acute cardiopulmonary abnormality identified. Continue IV Lasix Appreciate cardiology input input Monitor I's and O's, daily weight, volume status A-fib On metoprolol succinate and Coumadin Rate is controlled CAD s/p stent Continue metoprolol, Imdur, statin and aspirin Monitor INR Adjust Coumadin dose as needed Multiple myeloma On going chemo and radiation Hheme/onco and radiation oncology follow-up Needs follow-up with oncology on discharge Obstructive sleep apnea CPAP HS Morbid obesity Needs counseling Nutrition follow-up BMI 46 H/O COPD, mixed restrictive and obstructive lung disease Continue home inhalers No evidence of exacerbation H/O CVA On aspirin, Coumadin and statin Hypertension On Imdur, lisinopril and metoprolol succinate and terazosin. Monitor BP BPH on terazosin. DVT Px: Coumadin CODE STATUS Full code Admission and Anticipated Discharge Date Admission Date: December 08, 2023 Subjective Patient is seen and examined at bedside Dyspnea, leg edema slowly improving Discussed with patient's family at bedside Denies any chest pain, nausea, vomiting, abdominal pain No other complaints Review of Systems Review of Systems: All systems reviewed & are unremarkable except as noted in Subjective Physical Exam Physical Exam: Physical Exam: Vitals signs as noted above General Appearance:Morbidly Obese, no apparent distress Head: normocephalic, Atraumatic Eyes: normal inspection, EOMI Neck: supple, Trachea midline Respiratory/Chest: Normal breath sounds, CTA, No accessory muscle use Cardiovascular: Irregularly irregular, + murmur Abdomen/GI:Soft, Non tender, Bowel sounds present Extremities/Musculoskeletal:normal inspection, 2+pedal edema Neurologic/Psych:AAOX3, grossly no focal neurological deficits Skin: normal color, warm Results & Data Results & Data Vital Signs (Past 12 Hours) Vital Signs Temp Pulse Pulse Resp BP Pulse Ox O2 Del Method 12/10/23 16:45 36.5 C 65 20 111/72 94 Room Air 12/10/23 11:17 36.7 C 65 20 103/65 96 Room Air 12/10/23 10:00 Room Air, BiPAP 12/10/23 09:40 67 12/10/23 08:00 36.6 C 56 L 18 121/81 95 Room Air Laboratory Results Short CBC 12/10/23 Range/Units 06:01 WBC 3.58 L (4.8-10.8) K/ul Hgb 11.0 L (14.0-18.0) g/dl Hct 34.0 L (42.0-52.0) % Plt Count 131 (130-400) K/uL BMP 12/10/23 06:01 Sodium 140 Potassium 3.7 Chloride 105 Carbon Dioxide 29 BUN 18 Creatinine 1.01 Glucose 108 H Calcium 7.3 L (1) Acute exacerbation of CHF (congestive heart failure) Heart failure type: unspecified Qualified Code(s): I50.9 - Heart failure, unspecified
[2023-12-11 07:52] LABS: Hematocrit (blood only) 35.4 % (42.0-52.0); Hemoglobin 11.3 g/dl (14.0-18.0); Mean Corpuscular Hemoglobin 29.6 pg (25.0-34.0); Mean Corpuscular Hgb Conc 31.9 g/dL (32.0-36.0); Mean Corpuscular Volume 92.7 fL (80.0-100.0); Mean Platelet Volume 10.7 fL (9.4-12.4); Platelet Count 150 K/uL (130-400); RDW Standard Deviation 47.4 fL (36.4-46.3); Red Blood Count 3.82 M/uL (4.70-6.10); White Blood Count 3.62 K/ul (4.8-10.8)
[2023-12-11 08:13] LABS: BUN Creatinine Ratio 20.2 (10-20); Creatinine Clr Calc Pharmacy 104.2 ml/min; Est GFR (African American) 93.5 ml/min; Est GFR (Non-African American) 80.7 ml/min; Potassium 3.8 mmol/L (3.5-5.1)
[2023-12-11 08:34] LABS: INR 1.4 (0.9-1.1); Prothrombin Time 14.6 Seconds (9.0-12.0)
--- NOTE | 2023-12-11 11:54 | Cardiology Progress Note ---
Date of Service December 11, 2023 Assessment & Plan (1) Acute heart failure with preserved ejection fraction: (2) Multiple myeloma not having achieved remission: (3) Atrial fibrillation: (4) CAD (coronary artery disease): Plan 12/09/23 Patient admitted with signs/symptoms consistent with acute decompensated HFpEF with evidence of volume overload, weight gain, SOB. Continue furosemide 40 mg IV BID. Daily weight with standing scale. Monitor renal function, electrolytes Supplement potassium. Monitor I+O's Echo with preserved LVEF, moderate LVH and mild to moderate . Will need to monitor aortic stenosis Currently undergoing treatment for multiple myeloma. Follow up with hem/onc. Chronic/persistent afib. Rates controlled. He had one pause overnight while asleep but was not wearing CPAP. is bringing CPAP to use tonight. Continue metoprolol and coumadin. INR goal 2-3. INR is 2.2 today History of CAD s/p remote stent. Continue ASA, statin, isosorbide. No anginal complaints. HS troponin unremarkable. 12/10/23: Patient with improving signs/symptoms but significant edema persists. Increase furosemide to 60 mg IV BID. Supplement potassium and magnesium. Monitor I+O's Daily weight with standing scale. Continue all other cardiac medications. INR slightly lower today. continue warfarin. 12/11/23: Furosemide increased to 60 mg IV BID yesterday with addition of spironolactone Outputs around 1.0-1.5 L per day. Weight trending down (if accurate) Recommend standing scale. Stable renal function/electrolytes Edema persists. To aid with ongoing volume status, will further titrate furosemide to 80 mg BID starting today. Warfarin dose increased as INR trending lower. Continue all other cardiac medications Case discussed with Dr. Shemar Amos spent a total of 30 minutes on the date of service in preparation, delivery, and documentation of the care provided to this patient, excluding any time spent in the performance of separately billed services. Blessing Lynn PA-C Department of Cardiology, [facility] This chart was completed in part utilizing Speech Voice Recognition Software. Grammatical errors, random word insertions, pronoun errors, and incomplete sentences are an occasional consequence of this system due to software limitations, ambient noise, and hardware issues. Any formal questions or concerns about the content, text, or information contained within the body of this dictation should be directly addressed to the provider for clarification. Admission and Anticipated Discharge Date Admission Date: December 08, 2023 Supervising Physician Co-Signing Physician Notes Patient was seen and personally examined. Assessment and plan as well outlined above by advanced provider. Care and management discussed and personally endorsed. 73-year-old male with chronic atrial fibrillation, obesity, obstructive sleep apnea, moderate aortic stenosis currently undergoing therapy for multiple myeloma. Presents with gradual onset increasing dyspnea, abdominal girth and lower extremity edema over the past 6 to 8 weeks Findings consistent with subacute onset congestive heart failure with preserved ejection fraction. Slow but steady improvement on physical examination and clinical symptoms. Continue IV diuretics as recommended above. Will reduce metoprolol succinate to 25 mg once per day in a.m. I spent a total of 15 minutes on the date of service in preparation, delivery, and documentation of the care provided to this patient, excluding any time spent in the performance of separately billed services Subjective Patient resting at side of bed, feeling well. Reports SOB with ambulation in room and hallways has greatly improved. Upon admission he was only able to make it 10 feet in his home. He notes improvement in his SOB at rest as well. Frequent urination noted. He still has LE edema, but this has also slowly impr stephen. Tolerating medications. No chest pain. No dizziness. Review of Systems Review of Systems: All systems reviewed & are unremarkable except as noted in HPI & below Physical Exam Constitutional: WD/WN, vitals as above + obese; no acute distress Neck: + thick neck Respiratory: no respiratory distress and no labored breathing Auscultation: + diminished lung sounds; no crackles and no rales Cardiovascular: Rate/Rhythm: + irregularly irregular Heart Sounds: + murmur (II/ systolic murmur LSB) Vessels: no JVD Extremities: + edema (2+ LE edema to thighs. Mild erythema b/l ) Gastrointestinal (Abdomen): normal bowel sounds, soft, nontender, no hepatosplenomegaly Musculoskeletal: no cyanosis or clubbing, extremities motor strength 5/5 Neurologic: PERRL, EOMI, accommodation nl, no face palsy, no dysarthria Results & Data Vital Signs (Past 12 Hours) Vital Signs Temp Pulse Resp BP Pulse Ox O2 Del Method 12/11/23 11:26 36.5 C 58 L 20 112/72 96 Room Air 12/11/23 08:05 36.4 C L 61 18 113/72 96 Room Air 12/11/23 03:00 36.7 C 60 18 96/63 L 94 CPAP Laboratory Results Coagulation 12/11/23 Range/Units 06:50 PT 14.6 H (9.0-12.0) Seconds CBC 12/11/23 Range/Units 06:50 WBC 3.62 L (4.8-10.8) K/ul RBC 3.82 L (4.70-6.10) M/uL Hgb 11.3 L (14.0-18.0) g/dl Hct 35.4 L (42.0-52.0) % Plt Count 150 (130-400) K/uL Comprehensive Metabolic Panel 12/11/23 Range/Units 06:50 Sodium 139 (136-145) mmol/L Potassium 3.8 (3.5-5.1) mmol/L Chloride 103 (98-107) mmol/L Carbon Dioxide 28 (21-32) mmol/L BUN 19 (6-23) mg/dl Creatinine 0.94 (0.6-1.4) mg/dl Glucose 115 H (70-99(Fasting)) mg/dl Calcium 7.0 L (8.6-10.3) mg/dl Intake and Output 12/10/23 12/11/23 12/11/23 22:59 06:59 14:59 Intake Total 470 / 870 200 / 870 Output Total 725 / 1075 350 / 1075 Balance -255 / -205 -150 / -205 Intake: Oral 470 / 670 200 / 670 Output: Urine 725 / 1075 350 / 1075 Other: Weight 146.4 kg Weight Measurement Method Built in [facility] Diagnostic Findings Telemetry reviewed: Afib with controlled rates ranging 60-80 bmp. Medications Administered Current Inpatient Medications Acetaminophen (Acetaminophen 325 Mg Tab) 650 mg PO Q4H PRN PRN Reason: Pain or Fever Stop: 01/08/24 01:18 Albuterol (Albuterol Hfa 8 Gm Inhaler) 2 puffs INH Q6H PRN PRN Reason: Shortness Of Breath Stop: 01/08/24 01:18 Albuterol (Albuterol 0.083% Nebu Soln 3 Ml Vial) 2.5 mg INH Q4H PRN; Protocol PRN Reason: SHORT OF BREATH/COUGH/WHEEZING Stop: 01/08/24 01:18 Aspirin (Aspirin 81 Mg Ectab) 81 mg PO HS [facility] Stop: 01/08/24 20:59 Last Admin: 12/10/23 20:27 Dose: 81 mg Atorvastatin Calcium (Atorvastatin 40 Mg Tab) 40 mg PO HS [facility] Stop: 01/08/24 20:59 Last Admin: 12/10/23 20:27 Dose: 40 mg Dextrose (Dextrose 50% 50 Ml Syringe) 25 - 50 ml IV UD PRN; Protocol PRN Reason: Hypoglycemia Protocol Stop: 01/08/24 01:18 Fluticasone/Vilanterol (Fluticasone/Vilanterol 100/25mcg 14 Puffs/Inhaler) 1 puffs INH DAILY [facility] Stop: 01/08/24 08:59 Last Admin: 12/11/23 09:04 Dose: 1 puffs Furosemide (Furosemide 40 Mg/4 Ml Vial) 80 mg IV [id number] [facility] Stop: 01/10/24 16:59 Glucagon (Glucagon For Inj 1 Mg Vial) 1 mg SQ UD PRN; Protocol PRN Reason: Hypoglycemia Protocol Stop: 01/08/24 01:18 Glucose (Glucose 40% Gel 15 Gm Tube) 15 - 30 gm PO UD PRN; Protocol PRN Reason: Hypoglycemia Protocol Stop: 01/08/24 01:18 Glucose (Glucose 10 Tab/Tube) 4 - 8 tab PO UD PRN; Protocol PRN Reason: Hypoglycemia Treatment Stop: 01/08/24 01:18 Insulin Aspart (Insulin Aspart Per Unit Charge) 0 units SC ACHS [facility] Stop: 01/08/24 07:29 Last Admin: 12/11/23 11:32 Dose: Not Given Isosorbide Mononitrate (Isosorbide [place] Extended Rel 60 Mg Tabcr) 60 mg PO QAM [facility] Stop: 01/08/24 08:59 Last Admin: 12/11/23 09:04 Dose: 60 mg Levothyroxine Sodium (Levothyroxine Sodium 137 Mcg Tablet) 137 mcg PO SuTuThSa [facility] Stop: 01/08/24 06:29 Last Admin: 12/11/23 05:32 Dose: 137 mcg Levothyroxine Sodium (Levothyroxine Sodium 137 Mcg Tablet) 68.5 mcg PO MoWeFr [facility] Stop: 01/09/24 06:29 Last Admin: 12/10/23 05:45 Dose: 68.5 mcg Lisinopril (Lisinopril 5 Mg Tab) 5 mg PO DAILY [facility] Stop: 01/08/24 08:59 Last Admin: 12/11/23 09:04 Dose: 5 mg Metoprolol Succinate (Metoprolol Succ 50mg Ext Rel Tab) 50 mg PO QAM [facility] Stop: 01/08/24 08:59 Last Admin: 12/11/23 09:04 Dose: 50 mg Miscellaneous (Carbohydrates For Hypoglycemia ) 15 - 30 gm PO UD PRN PRN Reason: Hypoglycemia Protocol Stop: 01/08/24 01:18 Nitroglycerin (Nitroglycerin Sl 0.4 Mg/Tab Tab) 0.4 mg SL Q5M PRN PRN Reason: Chest Pain Stop: 01/08/24 01:18 Oxycodone/Acetaminophen (Oxycodone/Acetaminophen 5mg/325mg Tab) 1 tab PO Q4H PRN PRN Reason: pain Stop: 12/23/23 01:18 Polyethylene Glycol (Polyethylene (Miralax) 17 Gm Pack) 17 gm PO DAILY PRN PRN Reason: Constipation Stop: 01/08/24 01:18 Potassium Chloride (Potassium Chloride Crtab 20 Meq Tabcr) 20 meq PO QAM [facility] Stop: 01/09/24 11:14 Last Admin: 12/11/23 09:04 Dose: 20 meq Spironolactone (Spironolactone 12.5 Mg Tab) 12.5 mg PO DAILY [facility] Stop: 01/09/24 12:29 Last Admin: 12/11/23 09:04 Dose: 12.5 mg Terazosin HCl (Terazosin Hcl 1 Mg Cap) 1 mg PO HS [facility] Stop: 01/08/24 20:59 Last Admin: 12/10/23 20:27 Dose: 1 mg Warfarin Sodium (Warfarin Sod 10 Mg Tab) 10 mg PO 1600 [facility] Stop: 01/09/24 15:59 Last Admin: 12/10/23 17:00 Dose: 10 mg
--- NOTE | 2023-12-11 17:03 | Hospitalist Progress Note ---
Date of Service December 11, 2023 Assessment & Plan (1) Acute exacerbation of CHF (congestive heart failure): Plan: 73-year-old male with history of A-fib, hypothyroidism, diabetes type 2, COPD, mixed restrictive and obstructive lung disease, occupational lung disease, obstructive sleep apnea on CPAP, history of CVA, hypertension, a flutter, CAD, s/p stent, chronic diastolic CHF, chronic atrial fibrillation, morbid obesity, BPH, spinal stenosis,Multiple myeloma who lives at home with his comes in because of ongoing shortness of breath and worsening lower extremity edema. Patient states last several days the lower extremity edema was getting worse and also getting short of breath which prompted him to come to the ER today. Denies any orthopnea. Denies any chest pain. No nausea. No abdominal pain. Normal Bladder movements. denies any headache. No runny nose or sore throat. Patient is on chemo and radiation for multiple myeloma. No cough. Appetite is okay. Sometimes gets constipated. Patient denies blood in the stools .. Hemodynamics are okay. Acute heart failure with preserved EF Mild to moderate aortic stenosis --ECHO: Atrial fibrillation is present. Left ventricle is normal in size. Moderate concentric LVH but no regional wall motion abnormalities. EF 50 to 50%. Left atrium is severely dilated. Aortic valve is calcified with restricted mobility. Mild to moderate valvular aortic stenosis. Mild aortic root dilatation. --CXR:Cardiomegaly with no acute cardiopulmonary abnormality identified. Continue IV Lasix Appreciate cardiology input input Monitor I's and O's, daily weight, volume status Lasix increased to 80 mg twice daily Also on Aldactone Continue diuresis per cardiology A-fib On metoprolol succinate and Coumadin Rate is controlled CAD s/p stent Continue metoprolol, Imdur, statin and aspirin Decrease metoprolol succinate to 25 mg daily Monitor INR: 1.4 today Adjust Coumadin dose as needed Multiple myeloma On going chemo and radiation Hheme/onco and radiation oncology follow-up Needs follow-up with oncology on discharge Obstructive sleep apnea CPAP HS Morbid obesity Needs counseling Nutrition follow-up BMI 46 H/O COPD, mixed restrictive and obstructive lung disease Continue home inhalers No evidence of exacerbation H/O CVA On aspirin, Coumadin and statin Hypertension On Imdur, lisinopril and metoprolol succinate and terazosin. Monitor BP BPH on terazosin. DVT Px: Coumadin CODE STATUS Full code Admission and Anticipated Discharge Date Admission Date: December 08, 2023 Subjective Patient is seen and examined at bedside Leg edema improving Reports some dyspnea on exertion Denies any chest pain, nausea, vomiting, abdominal pain No new complaints Review of Systems Review of Systems: All systems reviewed & are unremarkable except as noted in Subjective Physical Exam Physical Exam: Physical Exam: Vitals signs as noted above General Appearance:Morbidly Obese, no apparent distress Head: normocephalic, Atraumatic Eyes: normal inspection, EOMI Neck: supple, Trachea midline Respiratory/Chest: Normal breath sounds, CTA, No accessory muscle use Cardiovascular: Irregularly irregular, + murmur Abdomen/GI:Soft, Non tender, Bowel sounds present Extremities/Musculoskeletal:normal inspection, 2+pedal edema Neurologic/Psych:AAOX3, grossly no focal neurological deficits Skin: normal color, warm Results & Data Results & Data Vital Signs (Past 12 Hours) Vital Signs Temp Pulse Resp BP Pulse Ox O2 Del Method 12/11/23 15:08 36.6 C 67 18 94/61 L 96 Room Air 12/11/23 11:26 36.5 C 58 L 20 112/72 96 Room Air 12/11/23 08:05 36.4 C L 61 18 113/72 96 Room Air Laboratory Results Short CBC 12/11/23 Range/Units 06:50 WBC 3.62 L (4.8-10.8) K/ul Hgb 11.3 L (14.0-18.0) g/dl Hct 35.4 L (42.0-52.0) % Plt Count 150 (130-400) K/uL BMP 12/11/23 06:50 Sodium 139 Potassium 3.8 Chloride 103 Carbon Dioxide 28 BUN 19 Creatinine 0.94 Glucose 115 H Calcium 7.0 L (1) Acute exacerbation of CHF (congestive heart failure) Heart failure type: unspecified Qualified Code(s): I50.9 - Heart failure, unspecified
[2023-12-11] MEDS: FUROSEMIDE 40 MG/4 ML VIAL IV SCH (17:57)
[2023-12-12 05:06] LABS: Hemoglobin 11.3 g/dl (14.0-18.0); Mean Corpuscular Hemoglobin 30.1 pg (25.0-34.0); Mean Corpuscular Hgb Conc 32.3 g/dL (32.0-36.0); Mean Corpuscular Volume 93.1 fL (80.0-100.0); Mean Platelet Volume 10.4 fL (9.4-12.4); Platelet Count 142 K/uL (130-400); RDW Coefficient of Variation 13.9 % (11.5-14.5); RDW Standard Deviation 47.3 fL (36.4-46.3); Red Blood Count 3.76 M/uL (4.70-6.10); White Blood Count 3.46 K/ul (4.8-10.8)
[2023-12-12 05:19] LABS: BUN Creatinine Ratio 20.2 (10-20); Creatinine Clr Calc Pharmacy 94.2 ml/min; Est GFR (African American) 82.7 ml/min; Est GFR (Non-African American) 71.4 ml/min; Potassium 3.7 mmol/L (3.5-5.1)
[2023-12-12 05:31] LABS: INR 1.5 (0.9-1.1); Prothrombin Time 15.3 Seconds (9.0-12.0)
[2023-12-12] MEDS: METOPROLOL SUCC 25MG EXT REL TAB PO SCH (08:51)
[2023-12-12] MEDS: FUROSEMIDE 40 MG TAB PO SCH (10:11)
[2023-12-12 11:45] VITALS: BP 134/77; PULSE 63; RESP 20; TEMP 97.3; O2SAT 99
--- NOTE | 2023-12-12 12:24 | Cardiology Progress Note ---
Date of Service December 12, 2023 Assessment & Plan (1) Acute heart failure with preserved ejection fraction: (2) Multiple myeloma not having achieved remission: (3) Atrial fibrillation: (4) CAD (coronary artery disease): Plan 12/09/23 Patient admitted with signs/symptoms consistent with acute decompensated HFpEF with evidence of volume overload, weight gain, SOB. Continue furosemide 40 mg IV BID. Daily weight with standing scale. Monitor renal function, electrolytes Supplement potassium. Monitor I+O's Echo with preserved LVEF, moderate LVH and mild to moderate . Will need to monitor aortic stenosis Currently undergoing treatment for multiple myeloma. Follow up with hem/onc. Chronic/persistent afib. Rates controlled. He had one pause overnight while asleep but was not wearing CPAP. is bringing CPAP to use tonight. Continue metoprolol and coumadin. INR goal 2-3. INR is 2.2 today History of CAD s/p remote stent. Continue ASA, statin, isosorbide. No anginal complaints. HS troponin unremarkable. 12/10/23: Patient with improving signs/symptoms but significant edema persists. Increase furosemide to 60 mg IV BID. Supplement potassium and magnesium. Monitor I+O's Daily weight with standing scale. Continue all other cardiac medications. INR slightly lower today. continue warfarin. 12/11/23: Furosemide increased to 60 mg IV BID yesterday with addition of spironolactone Outputs around 1.0-1.5 L per day. Weight trending down (if accurate) Recommend standing scale. Stable renal function/electrolytes Edema persists. To aid with ongoing volume status, will further titrate furosemide to 80 mg BID starting today. Warfarin dose increased as INR trending lower. Continue all other cardiac medications 12/12/23: Interval improvement in volume status since admission. Improved dyspnea and LE edema. Transition to oral furosemide this morning at 40 mg. (Prior home dose was 20 mg) Spironolactone started this admission - continue 12.5 mg daily on discharge. CHF tools discussed at home. Patient has f/u with cardiology next week and will keep this appt. Stable for discharge today Case discussed with Dr. Shemar Amos spent a total of 30 minutes on the date of service in preparation, delivery, and documentation of the care provided to this patient, excluding any time spent in the performance of separately billed services. Blessing K Shane, PA-C Department of Cardiology, [facility] This chart was completed in part utilizing Speech Voice Recognition Software. Grammatical errors, random word insertions, pronoun errors, and incomplete sentences are an occasional consequence of this system due to software limitations, ambient noise, and hardware issues. Any formal questions or concerns about the content, text, or information contained within the body of this dictation should be directly addressed to the provider for clarification. Admission and Anticipated Discharge Date Admission Date: December 08, 2023 Supervising Physician Co-Signing Physician Notes Patient was seen and personally examined. Assessment and plan as well outlined above by advanced provider. Care and management discussed and personally endorsed. 73-year-old male with chronic atrial fibrillation, obesity, obstructive sleep apnea, moderate aortic stenosis currently undergoing therapy for multiple myeloma. Presents with gradual onset increasing dyspnea, abdominal girth and lower extremity edema over the past 6 to 8 weeks Findings consistent with subacute onset congestive heart failure with preserved ejection fraction. Significantly improved since hospitalization with plan to discharge today. Medication adjustments as above. CHF instructions provided patient to begin daily weights Follow-up scheduled 12/15/2023 with cardiology I spent a total of 15 minutes on the date of service in preparation, delivery, and documentation of the care provided to this patient, excluding any time spent in the performance of separately billed services Subjective Patient sitting at edge of bed feeling "great". Hoping for discharge today. Great improvement in his dyspnea and LE edema since admission. No chest pain or dyspnea reported. No cough. no orthopnea, PND. Review of Systems Review of Systems: All systems reviewed & are unremarkable except as noted in HPI & below Physical Exam Constitutional: WD/WN, vitals as above + obese; no acute distress Neck: + thick neck Respiratory: no respiratory distress and no labored breathing Auscultation: + diminished lung sounds; no crackles and no rales Cardiovascular: Rate/Rhythm: + irregularly irregular Heart Sounds: + murmur (II/ systolic murmur LSB) Vessels: no JVD Extremities: + edema (trace petiial edema) Gastrointestinal (Abdomen): normal bowel sounds, soft, nontender, no hepatosplenomegaly Musculoskeletal: no cyanosis or clubbing, extremities motor strength 5/5 Neurologic: PERRL, EOMI, accommodation nl, no face palsy, no dysarthria Results & Data Vital Signs (Past 12 Hours) Vital Signs Temp Pulse Pulse Resp BP BP Pulse Ox 05/31/24 11:42 36.3 C L 63 20 134/77 99 12/12/23 07:57 36.2 C L 73 28 H 122/46 L 98 12/12/23 07:00 56 L 12/12/23 04:16 37.0 C 61 20 103/64 91 O2 Del Method 12/12/23 11:42 Room Air 12/12/23 07:57 Room Air 12/12/23 07:00 12/12/23 04:16 Room Air Laboratory Results Coagulation 12/12/23 Range/Units 04:03 PT 15.3 H (9.0-12.0) Seconds CBC 12/12/23 Range/Units 04:03 WBC 3.46 L (4.8-10.8) K/ul RBC 3.76 L (4.70-6.10) M/uL Hgb 11.3 L (14.0-18.0) g/dl Hct 35.0 L (42.0-52.0) % Plt Count 142 (130-400) K/uL Comprehensive Metabolic Panel 12/12/23 Range/Units 04:03 Sodium 138 (136-145) mmol/L Potassium 3.7 (3.5-5.1) mmol/L Chloride 102 (98-107) mmol/L Carbon Dioxide 29 (21-32) mmol/L BUN 21 (6-23) mg/dl Creatinine 1.04 (0.6-1.4) mg/dl Glucose 110 H (70-99(Fasting)) mg/dl Calcium 7.0 L (8.6-10.3) mg/dl Intake and Output 12/11/23 12/12/23 12/12/23 22:59 06:59 14:59 Other: # Unmeasured Voids 2 2 Weight 143 kg Weight Measurement Method Built in [facility] Diagnostic Findings Telemetry reviewed: afib with controlled rates ranging 50-70 bmp Medications Administered Current Inpatient Medications Acetaminophen (Acetaminophen 325 Mg Tab) 650 mg PO Q4H PRN PRN Reason: Pain or Fever Stop: 01/08/24 01:18 Albuterol (Albuterol Hfa 8 Gm Inhaler) 2 puffs INH Q6H PRN PRN Reason: Shortness Of Breath Stop: 01/08/24 01:18 Albuterol (Albuterol 0.083% Nebu Soln 3 Ml Vial) 2.5 mg INH Q4H PRN; Protocol PRN Reason: SHORT OF BREATH/COUGH/WHEEZING Stop: 01/08/24 01:18 Aspirin (Aspirin 81 Mg Ectab) 81 mg PO [facility] Stop: 01/08/24 20:59 Last Admin: 12/11/23 20:47 Dose: 81 mg Atorvastatin Calcium (Atorvastatin 40 Mg Tab) 40 mg PO HS [facility] Stop: 01/08/24 20:59 Last Admin: 12/11/23 20:47 Dose: 40 mg Dextrose (Dextrose 50% 50 Ml Syringe) 25 - 50 ml IV UD PRN; Protocol PRN Reason: Hypoglycemia Protocol Stop: 01/08/24 01:18 Fluticasone/Vilanterol (Fluticasone/Vilanterol 100/25mcg 14 Puffs/Inhaler) 1 puffs INH DAILY [facility] Stop: 01/08/24 08:59 Last Admin: 12/12/23 08:51 Dose: 1 puffs Furosemide (Furosemide 40 Mg Tab) 40 mg PO [facility] Stop: 01/11/24 08:59 Last Admin: 12/12/23 10:11 Dose: 40 mg Glucagon (Glucagon For Inj 1 Mg Vial) 1 mg SQ UD PRN; Protocol PRN Reason: Hypoglycemia Protocol Stop: 01/08/24 01:18 Glucose (Glucose 40% Gel 15 Gm Tube) 15 - 30 gm PO UD PRN; Protocol PRN Reason: Hypoglycemia Protocol Stop: 01/08/24 01:18 Glucose (Glucose 10 Tab/Tube) 4 - 8 tab PO UD PRN; Protocol PRN Reason: Hypoglycemia Treatment Stop: 01/08/24 01:18 Insulin Aspart (Insulin Aspart Per Unit Charge) 0 units SC [facility] Stop: 01/08/24 07:29 Last Admin: 12/12/23 08:39 Dose: Not Given Isosorbide Mononitrate (Isosorbide [place] Extended Rel 60 Mg Tabcr) [facility] [place]: 01/08/24 08:59 Last Admin: 12/12/23 08:52 Dose: 60 mg Levothyroxine Sodium (Levothyroxine Sodium 137 Mcg Tablet) 137 mcg PO SuTuThSa [facility] Stop: 01/08/24 06:29 Last Admin: 12/11/23 05:32 Dose: 137 mcg Levothyroxine Sodium (Levothyroxine Sodium 137 Mcg Tablet) 68.5 mcg PO MoWeFr [facility] Stop: 01/09/24 06:29 Last Admin: 12/12/23 06:00 Dose: 68.5 mcg Lisinopril (Lisinopril 5 Mg Tab) 5 mg PO DAILY [facility] Stop: 01/08/24 08:59 Last Admin: 12/12/23 08:52 Dose: 5 mg Metoprolol Succinate (Metoprolol Succ 25mg Ext Rel Tab) 25 mg PO QAM [facility] Stop: 01/11/24 08:59 Last Admin: 12/12/23 08:51 Dose: 25 mg Miscellaneous (Carbohydrates For Hypoglycemia ) 15 - 30 gm PO UD PRN PRN Reason: Hypoglycemia Protocol Stop: 01/08/24 01:18 Nitroglycerin (Nitroglycerin Sl 0.4 Mg/Tab Tab) 0.4 mg SL Q5M PRN PRN Reason: Chest Pain Stop: 01/08/24 01:18 Oxycodone/Acetaminophen (Oxycodone/Acetaminophen 5mg/325mg Tab) 1 tab PO Q4H PRN PRN Reason: pain Stop: 12/23/23 01:18 Polyethylene Glycol (Polyethylene (Miralax) 17 Gm Pack) 17 gm PO DAILY PRN PRN Reason: Constipation Stop: 01/08/24 01:18 Potassium Chloride (Potassium Chloride Crtab 20 Meq Tabcr) 20 meq PO QAM [facility] Stop: 01/09/24 11:14 Last Admin: 12/12/23 08:52 Dose: 20 meq Spironolactone (Spironolactone 12.5 Mg Tab) 12.5 mg PO DAILY [facility] Stop: 01/09/24 12:29 Last Admin: 12/12/23 08:52 Dose: 12.5 mg Terazosin HCl (Terazosin Hcl 1 Mg Cap) 1 mg PO HS [facility] Stop: 01/08/24 20:59 Last Admin: 12/11/23 20:47 Dose: 1 mg Warfarin Sodium (Warfarin Sod 10 Mg Tab) 10 mg PO 1600 [facility] Stop: 01/09/24 15:59 Last Admin: 12/11/23 17:57 Dose: 10 mg (3) Atrial fibrillation Atrial fibrillation type: longstanding persistent Qualified Code(s): I48.11 - Longstanding persistent atrial fibrillation (4) CAD (coronary artery disease) Associated angina: without angina Coronary Disease-Associated Artery/Lesion type: ione artery [place] vs. transplanted heart: ione heart Qualified Code(s): I25.10 - Atherosclerotic heart disease of ione coronary artery without angina pectoris
--- NOTE | 2023-12-12 13:13 | Hospitalist Progress Note ---
Date of Service December 12, 2023 Assessment & Plan (1) Acute exacerbation of CHF (congestive heart failure): Plan: 73-year-old male with history of A-fib, hypothyroidism, diabetes type 2, COPD, mixed restrictive and obstructive lung disease, occupational lung disease, obstructive sleep apnea on CPAP, history of CVA, hypertension, a flutter, CAD, s/p stent, chronic diastolic CHF, chronic atrial fibrillation, morbid obesity, BPH, spinal stenosis,Multiple myeloma who lives at home with his comes in because of ongoing shortness of breath and worsening lower extremity edema. Patient states last several days the lower extremity edema was getting worse and also getting short of breath which prompted him to come to the ER today. Denies any orthopnea. Denies any chest pain. No nausea. No abdominal pain. Normal Bladder movements. denies any headache. No runny nose or sore throat. Patient is on chemo and radiation for multiple myeloma. No cough. Appetite is okay. Sometimes gets constipated. Patient denies blood in the stools .. Hemodynamics are okay. Acute heart failure with preserved EF Mild to moderate aortic stenosis --ECHO: Atrial fibrillation is present. Left ventricle is normal in size. Moderate concentric LVH but no regional wall motion abnormalities. EF 50 to 50%. Left atrium is severely dilated. Aortic valve is calcified with restricted mobility. Mild to moderate valvular aortic stenosis. Mild aortic root dilatation. --CXR:Cardiomegaly with no acute cardiopulmonary abnormality identified. Appreciate cardiology input input Monitor I's and O's, daily weight, volume status IV Lasix transition to p.o. Lasix 40 mg daily Also on Aldactone 12.5 mg daily Plan to discharge home today Needs follow-up with cardiology on discharge A-fib On metoprolol succinate and Coumadin Rate is controlled CAD s/p stent Continue metoprolol, Imdur, statin and aspirin Decrease metoprolol succinate to 25 mg daily as recommended by cardiology Monitor INR: 1.5 today Adjust Coumadin dose as needed Multiple myeloma On going chemo and radiation Hheme/onco and radiation oncology follow-up Needs follow-up with oncology on discharge Obstructive sleep apnea CPAP HS Morbid obesity Needs counseling Nutrition follow-up BMI 46 H/O COPD, mixed restrictive and obstructive lung disease Continue home inhalers No evidence of exacerbation H/O CVA On aspirin, Coumadin and statin Hypertension On Imdur, lisinopril and metoprolol succinate and terazosin. Monitor BP BPH on terazosin. DVT Px: Coumadin CODE STATUS Full code Disposition Home Admission and Anticipated Discharge Date Admission Date: December 08, 2023 Subjective Patient is seen and examined at bedside Dyspnea, leg edema continues to improve No new complaints Discussed with family at bedside Also discussed with cardiology today Denies any chest pain, nausea, vomiting, abdominal pain Plan to discharge home today Review of Systems Review of Systems: All systems reviewed & are unremarkable except as noted in Subjective Physical Exam Physical Exam: Physical Exam: Vitals signs as noted above General Appearance:Morbidly Obese, no apparent distress Head: normocephalic, Atraumatic Eyes: normal inspection, EOMI Neck: supple, Trachea midline Respiratory/Chest: Normal breath sounds, CTA, No accessory muscle use Cardiovascular: Irregularly irregular, + murmur Abdomen/GI:Soft, Non tender, Bowel sounds present Extremities/Musculoskeletal:normal inspection, 2+pedal edema Neurologic/Psych:AAOX3, grossly no focal neurological deficits Skin: normal color, warm Results & Data Results & Data Vital Signs (Past 12 Hours) Vital Signs Temp Pulse Pulse Resp BP BP Pulse Ox 12/12/23 11:42 36.3 C L 63 20 134/77 99 12/12/23 07:57 36.2 C L 73 28 H 122/46 L 98 12/12/23 07:00 56 L 12/12/23 04:16 37.0 C 61 20 103/64 91 O2 Del Method 12/12/23 11:42 Room Air 12/12/23 07:57 Room Air 12/12/23 07:00 12/12/23 04:16 Room Air Laboratory Results Short CBC 12/12/23 Range/Units 04:03 WBC 3.46 L (4.8-10.8) K/ul Hgb 11.3 L (14.0-18.0) g/dl Hct 35.0 L (42.0-52.0) % Plt Count 142 (130-400) K/uL BMP 12/12/23 04:03 Sodium 138 Potassium 3.7 Chloride 102 Carbon Dioxide 29 BUN 21 Creatinine 1.04 Glucose 110 H Calcium 7.0 L (1) Acute exacerbation of CHF (congestive heart failure) Heart failure type: unspecified Qualified Code(s): I50.9 - Heart failure, unspecified
--- NOTE | 2023-12-12 13:29 | Discharge Summary ---
Date of Service December 12, 2023 Admission HPI Per Admitting Provider 73-year-old male with history of A-fib, hypothyroidism, diabetes type 2, COPD, mixed restrictive and obstructive lung disease, occupational lung disease, obstructive sleep apnea on CPAP, history of CVA, hypertension, a flutter, CAD, s/p stent, chronic diastolic CHF, chronic atrial fibrillation, morbid obesity, BPH, spinal stenosis,Multiple myeloma who lives at home with his comes in because of ongoing shortness of breath and worsening lower extremity edema. Patient states last several days the lower extremity edema was getting worse and also getting short of breath which prompted him to come to the ER today. Denies any orthopnea. Denies any chest pain. No nausea. No abdominal pain. Normal Bladder movements. denies any headache. No runny nose or sore throat. Patient is on chemo and radiation for multiple myeloma. No cough. Appetite is okay. Sometimes gets constipated. Patient denies blood in the stools .. Hemodynamics are okay. Past medical history. As mentioned above Past surgical history. Colonoscopy. DC cardioversion. Social history. . No smoking. No alcohol use. No drug use. Family history. Sister has cancer. Mother had diabetes. Hypertension. Cirr hosis. Father had psoriasis. Emphysema. Sister had stroke. Admission Exam Per Admitting Provider General- Not in distress Head- atraumatic Eyes- PERRL. ENT- oropharynx clear Neck- supple, no JVD. Lungs- clear to auscultation mild b/l wheezing present Heart- irregular rhythm; no murmur, no gallop. Abdomen- normal bowel sounds, soft, nontender, no distension Extremities- b/l lower extremity gross pedal edema present with mild erythematous changes Neuro- alert, oriented ; PERRL, no facial palsy; no dysarthria; moves extremities Principal Diagnosis Acute heart failure with preserved EF Atrial fibrillation Discharge Data 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 Consultations 12/08/23 21:36 ED Decision to Admit Stat 12/09/23 08:00 Consult Cardiology Routine Procedures Performed Laboratory Results WBC 3.46 K/ul (4.8-10.8) L 12/12/23 04:03 RBC 3.76 M/uL (4.70-6.10) L 12/12/23 04:03 Hgb 11.3 g/dl (14.0-18.0) L 12/12/23 04:03 Hct 35.0 % (42.0-52.0) L 12/12/23 04:03 MCV 93.1 fL (80.0-100.0) 12/12/23 04:03 MCH 30.1 pg (25.0-34.0) 12/12/23 04:03 MCHC 32.3 g/dL (32.0-36.0) 12/12/23 04:03 RDW Std Deviation 47.3 fL (36.4-46.3) H 12/12/23 04:03 RDW Coeff of Иван 13.9 % (11.5-14.5) 12/12/23 04:03 Plt Count 142 K/uL (130-400) 12/12/23 04:03 MPV 10.4 fL (9.4-12.4) 12/12/23 04:03 Immature Gran % (Auto) 0.3 % 12/10/23 06:01 Neut % (Auto) 42.5 % 12/10/23 06:01 Lymph % (Auto) 14.5 % 12/10/23 06:01 [place] % (Auto) 17.0 % 12/10/23 06:01 Eos % (Auto) 23.7 % 12/10/23 06:01 Baso % (Auto) 2.0 % 12/10/23 06:01 Neut # (Auto) 1.52 K/uL (1.40-6.50) 12/10/23 06:01 Lymph # (Auto) 0.52 K/uL (1.20-3.40) L 12/10/23 06:01 [place] # (Auto) 0.61 K/uL (0.11-0.59) H 12/10/23 06:01 Eos # (Auto) 0.85 K/uL (0.00-0.50) H 12/10/23 06:01 Baso # (Auto) 0.07 K/uL (0.00-0.20) 12/10/23 06:01 Immature Gran # (Auto) 0.01 K/uL (0.01-0.20) 12/10/23 06:01 PT 15.3 Seconds (9.0-12.0) H 12/12/23 04:03 INR 1.5 (0.9-1.1) H 12/12/23 04:03 APTT 31 Seconds (21-31) 12/08/23 21:13 PTT Ratio 1.2 12/08/23 21:13 Sodium 138 mmol/L (136-145) 12/12/23 04:03 Potassium 3.7 mmol/L (3.5-5.1) 12/12/23 04:03 Chloride 102 mmol/L (98-107) 12/12/23 04:03 Carbon Dioxide 29 mmol/L (21-32) 12/12/23 04:03 Anion Gap 7 (3-11) 12/12/23 04:03 BUN 21 mg/dl (6-23) 12/12/23 04:03 Creatinine 1.04 mg/dl (0.6-1.4) 12/12/23 04:03 Est Cr Clr Drug Dosing 94.2 ml/min 12/12/23 04:03 Est GFR ( Amer) 82.7 ml/min 12/12/23 04:03 Est GFR (Non-Af Amer) 71.4 ml/min 12/12/23 04:03 BUN/Creatinine Ratio 20.2 (10-20) H 12/12/23 04:03 Glucose 110 mg/dl (70-99(Fasting)) H 12/12/23 04:03 POC Glucose 117 mg/dl (70-99) H 12/12/23 11:44 Estimat Average Glucose 154 mg/dl 12/09/23 05:25 Hemoglobin A1c 7.0 % (4.5-5.6) H 12/09/23 05:25 Calcium 7.0 mg/dl (8.6-10.3) L 12/12/23 04:03 Magnesium 2.0 mg/dl (1.7-2.4) 12/12/23 04:03 Troponin I High Sens 13.5 pg/ml (0-20) 12/09/23 05:25 B-Natriuretic Peptide 289 pg/ml (0-100) H 12/08/23 20:46 Lipase 16 U/L (11-82) 12/08/23 20:46 TSH 1.162 uIu/ml (0.300-4.500) 12/09/23 05:25 Impressions Chest X-Ray 12/08/23 20:39 SINGLE VIEW CHEST CLINICAL HISTORY: Atypical chest pain. FINDINGS: An AP, portable, upright chest radiograph is compared to study dated 04/12/2020 and correlated with chest CT dated 09/12/2023. The examination is degraded by portable technique and apical lordotic positioning. The heart is enlarged. The pulmonary vasculature is noncongested. There is bibasilar atelectasis. No airspace consolidation or large pleural effusion is identified. No pneumothorax is seen. The skeletal structures are osteopenic. The bony thorax is grossly intact. IMPRESSION: Cardiomegaly with no acute cardiopulmonary abnormality identified. ACT 112: Negative or not required by law. Electronically signed by: Danie Pressley M.D. 12/09/2023 6:56 AM Hospital Course (1) Acute exacerbation of CHF (congestive heart failure): 73-year-old male with history of A-fib, hypothyroidism, diabetes type 2, COPD, mixed restrictive and obstructive lung disease, occupational lung disease, obstructive sleep apnea on CPAP, history of CVA, hypertension, a flutter, CAD, s/p stent, chronic diastolic CHF, chronic atrial fibrillation, morbid obesity, BPH, spinal stenosis,Multiple myeloma who lives at home with his comes in because of ongoing shortness of breath and worsening lower extremity edema. Patient states last several days the lower extremity edema was getting worse and also getting short of breath which prompted him to come to the ER today. Denies any orthopnea. Denies any chest pain. No nausea. No abdominal pain. Normal Bladder movements. denies any headache. No runny nose or sore throat. Patient is on chemo and radiation for multiple myeloma. No cough. Appetite is okay. Sometimes gets constipated. Patient denies blood in the stools .. Hemodynamics are okay. Acute heart failure with preserved EF Mild to moderate aortic stenosis --ECHO: Atrial fibrillation is present. Left ventricle is normal in size. Moderate concentric LVH but no regional wall motion abnormalities. EF 50 to 50%. Left atrium is severely dilated. Aortic valve is calcified with restricted mobility. Mild to moderate valvular aortic stenosis. Mild aortic root dilatation. --CXR:Cardiomegaly with no acute cardiopulmonary abnormality identified. Appreciate cardiology input input Monitor I's and O's, daily weight, volume status IV Lasix transition to p.o. Lasix 40 mg daily Also on Aldactone 12.5 mg daily Plan to discharge home today Needs follow-up with cardiology on discharge A-fib On metoprolol succinate and Coumadin Rate is controlled CAD s/p stent Continue metoprolol, Imdur, statin and aspirin Given blood pressure better, will put her home dose of metoprolol Monitor INR: 1.5 today Adjust Coumadin dose as needed Multiple myeloma On going chemo and radiation Hheme/onco and radiation oncology follow-up Needs follow-up with oncology on discharge Obstructive sleep apnea CPAP HS Morbid obesity Needs counseling Nutrition follow-up BMI 46 H/O COPD, mixed restrictive and obstructive lung disease Continue home inhalers No evidence of exacerbation H/O CVA On aspirin, Coumadin and statin Hypertension On Imdur, lisinopril and metoprolol succinate and terazosin. Monitor BP BPH on terazosin. DVT Px: Coumadin CODE STATUS Full code Disposition Home Total Time Total Time Spent Total Time Spent (In Minutes): 52 minutes Discharge Plan Discharge Items Patient Disposition: Home - Self-Care Reason For Visit: ACUTE CHF Discharge Diagnosis: Acute heart failure with preserved EF Atrial fibrillation Activity: Per Instructions section Exercise/Sports: Wait until after follow-up appointment Non-emergency contact: Primary Care Provider and [employer] Call non-emergency contact if: you have any medication questions, your symptoms worsen, your pain is concerning for you and you have a fever Follow-up/Referrals: Jose Garcia MD [Primary Care Provider] - Diet: Carb Consistent or DM2 and Heart Healthy Addtl Attending Provider Instructions: Follow-up with your primary care physician Dr. Garcia in 1 week Follow-up with your director of dementia operations Dr. Staton as recommended Follow-up with Coumadin clinic in 1 week for monitoring your PT/INR and adjusting Coumadin dose as needed Medication changes Your Lasix dose is increased to 40 mg daily You are started on spironolactone 12.5 mg daily -- Monitor your blood pressure regularly at home. Discuss with your physician for further adjustment of medications as needed. Seek immediate medical attention if your symptoms reoccur or worsen Please take all medications as instructed on discharge list below. Please call if you have any questions or problems. You can reach a [facility] hospitalist on duty at [facility] 24 hours a day by calling [phone] Call your Primary Care doctor if any of the following symptoms or problems start or get worse: * Shortness of breath or difficulty breathing * Wake up at night short of breath * Chest pain * Cough * Swelling of your hands, feet, or legs * More fatigued or tired with your normal activity * Palpitations - sudden fast heart beats WEIGHT * Weigh yourself every morning after using the bathroom. * Use the same scale. * Wear the same amount of clothing. * Write your weight down on a chart. * Call your Primary Care doctor if you gain more than 2-3 pounds in 1-2 days. MEDICATIONS * Use this discharge instruction sheet for medication instructions. * Take your medications at the time your doctor ordered. * Do not skip a dose of your medicines. * If you miss a dose of medicine, take it as soon as possible, but DO NOT DOUBLE A DOSE. * Read your medicine information when you get home. * Know all of the side effects of your medicine. If in doubt, ask your pharmacist * Call your Primary Care doctor's office if you have any side effects. * Be sure all of your doctors know what medicine and herbs you take (including cold, flu, and herbal medicine). Take the following with you to your follow-up doctor appointments: * Weight Chart * Medication List * List of questions Do not drink excessive alcohol, beer or wine. Pending Studies at Discharge: No Stand-Alone Forms: [facility], Smoking Cessation Medications and DC Order Prescriptions: New furosemide 40 mg Tablet 40 mg PO QAM Qty: 30 1RF spironolactone 25 mg Tablet 12.5 mg PO DAILY Qty: 30 0RF Continued lisinopril 5 mg tablet 5 mg PO DAILY metoprolol succinate 50 mg Tablet Extended Release 24 Hr 50 mg PO QAM terazosin 1 mg Capsule 1 mg PO HS aspirin 81 mg Tablet,Delayed Release (Dr/Ec) 81 mg PO HS isosorbide mononitrate 60 mg Tablet Extended Release 24 Hr 60 mg PO QAM warfarin 5 mg Tablet 7.5 mg PO QPM nitroglycerin 0.4 mg Tablet, Sublingual 0.4 mg Sublingual DIRECTED PRN (Reason: Angina) Rx Instructions: PLACE 1 TAB UNDER TONGUE EVERY 5 MINUTES NEEDED FOR PAIN, CHEST. UP TO 3 DOSES IN 15 MINUTES. fluticasone propion-salmeterol [Advair Diskus] 250-50 mcg/dose Blister With Device 1 inh INHALATION Q12H atorvastatin 40 mg tablet 40 mg PO HS Qty: 30 5RF albuterol sulfate [Ventolin HFA] 90 mcg/actuation Hfa Aerosol Inhaler 2 puff INHALATION Q6H PRN (Reason: Shortness Of Breath) levothyroxine 137 mcg tablet See Rx Instructions .ROUTE .COMPLEX Rx Instructions: Take 137mcg (1 tab) every morning on SUN///SAT. Then take 68.5mcg (0.5 tab) every morning on MON/FRI/FRI albuterol sulfate 2.5 mg /3 mL (0.083 %) solution for nebulization 2.5 mg inhalation Q4H PRN (Reason: SHORT OF BREATH/COUGH/WHEEZING) oxycodone-acetaminophen [Percocet] 5-325 mg tablet 1 tab PO Q4H PRN (Reason: pain) Qty: 18 0RF Discontinued furosemide 20 mg tablet 20 mg PO DAILY Discharge Orders: Discharge Order (Routine); Ordered 12/12/23 Ordered By: Bassem Wilson/Other Patient Handouts: Diabetes: Meal Planning, Type 2 Diabetes Admission Data Admit Date/Time: 12/08/23 23:48 Attending Provider: Bassem Dye Admit Provider: Paco Castro Primary Care Provider: Jose Garcia Other Providers: Paco Castro; Micheal Staton
== END 2023-12-12 14:04 | disposition home or self-care (01) | DRG 291 ==
LOC: ED 20:33 → SUATTDRO 23:48 → 4W 23:48